=== PATIENT | female | born 1960 | race Caucasian/White ===

== ENCOUNTER 2018-07-30 14:11 | Inpatient (IN) | payer MEDICAID ==
[2018-07-30 14:51] LABS: APPEARANCE CLEAR (CLEAR); BILIRUBIN NEGATIVE (NEGATIVE); COLOR YELLOW (YELLOW); GLUCOSE 1000 mg/dL (NEGATIVE); KETONE SMALL mg/dL (NEGATIVE); NITRITE NEGATIVE (NEGATIVE); PROTEIN NEGATIVE (NEGATIVE); UROBILINOGEN NORMAL (NORMAL)
[2018-07-30 14:52] LABS: BACTERIA MANY /hpf (NONE SEEN); EPITHELIAL CELLS 0-5 /hpf (0-5); RED CELLS - URINE 0-5 /hpf (0-5); YEAST >1+ WITH HYPHAE /hpf (NONE SEEN)
[2018-07-30 15:17] LABS: BASOPHILS 0.1 % (0-2); EOSINOPHILS 0.1 % (0-7); HEMATOCRIT 44.3 % (36.0-48.0); HEMOGLOBIN 14.4 g/dL (12-16); IMMATURE GRANULOCYTES 0.3 % (0-5); LYMPHOCYTES 10.3 % (15-50); MCH 30.1 pg (26.0-34.0); MCHC 32.5 g/dL (31.0-37.0); MCV 92.5 fL (80.0-100.0); MONOCYTES 4.4 % (2-11); NEUTROPHILS 84.8 % (40-80); RBC 4.79 10x6/uL (4.00-5.40); RDW 14.1 % (11.5-14.5); WBC 13.4 10x3/uL (4.8-10.8)
[2018-07-30 15:21] LABS: PLATELET COUNT 314 10x3/uL (130-400)
[2018-07-30 15:24] LABS: KETONE - SERUM NEGATIVE (NEGATIVE)
[2018-07-30 15:29] LABS: ALBUMIN 3.2 g/dL (3.4-5.0); ALKALINE PHOSPHATASE 126 U/L (46-116); ALT (SGPT) 27 U/L (10-68); BILIRUBIN - TOTAL 0.57 mg/dL (0.2-1.3); CALCIUM 9.3 mg/dL (8.5-10.1); CARBON DIOXIDE 24.7 mmol/L (21.0-32.0); CHLORIDE - SERUM 89 mmol/L (98-107); CREATININE - SERUM 1.5 mg/dL (0.6-1.3); POTASSIUM - SERUM 3.6 mmol/L (3.5-5.1); PROTEIN - SERUM 8.2 g/dL (6.4-8.2); SODIUM 127 mmol/L (136-145); UREA NITROGEN 21 mg/dL (7-18); eGFR NON AFRICAN AMERICAN 38 mL/min (90-120)
[2018-07-30 15:43] LABS: CALC OSMOLALITY 304 mosm/kg (275-300); GLUCOSE 936 mg/dL (74-106)
[2018-07-31 13:37] LABS: HEMATOCRIT 39.8 % (36.0-48.0); HEMOGLOBIN 13.4 g/dL (12-16); MCH 29.6 pg (26.0-34.0); MCHC 33.7 g/dL (31.0-37.0); MEAN PLATELET VOLUME 10.2 fL (7.4-10.4); RBC 4.52 10x6/uL (4.00-5.40); RDW 13.7 % (11.5-14.5)
[2018-07-31 13:54] LABS: ALBUMIN 2.5 g/dL (3.4-5.0); ANION GAP 14.5 mmol/L (8-16); BILIRUBIN - TOTAL 0.3 mg/dL (0.2-1.3); CALCIUM 8.2 mg/dL (8.5-10.1); CARBON DIOXIDE 26.3 mmol/L (21.0-32.0); POTASSIUM - SERUM 3.8 mmol/L (3.5-5.1); PROTEIN - SERUM 6.6 g/dL (6.4-8.2)
[2018-07-31 13:55] LABS: CREATININE - SERUM 0.9 mg/dL (0.6-1.3)
[2018-07-31 14:12] LABS: MCV 88.1 fL (80.0-100.0); PLATELET COUNT 221 10x3/uL (130-400); WBC 8.2 10x3/uL (4.8-10.8)
[2018-07-31 14:17] LABS: BASOPHILS 0.1 % (0-2); EOSINOPHILS 0.2 % (0-7); IMMATURE GRANULOCYTES 0.2 % (0-5); LYMPHOCYTES 26.4 % (15-50); MONOCYTES 3.9 % (2-11); NEUTROPHILS 69.2 % (40-80)
[2018-07-31 14:34] LABS: UDS - AMPHET NEGATIVE QUAL (NEGATIVE); UDS - BARB NEGATIVE QUAL (NEGATIVE); UDS - BENZO NEGATIVE QUAL (NEGATIVE); UDS - COCAINE NEGATIVE QUAL (NEGATIVE); UDS - OPIATE NEGATIVE QUAL (NEGATIVE); UDS - PCP NEGATIVE QUAL (NEGATIVE); UDS - THC NEGATIVE QUAL (NEGATIVE)
[2018-08-03 04:43] LABS: BASOPHILS 0.3 % (0-2); EOSINOPHILS 1.7 % (0-7); HEMATOCRIT 37.3 % (36.0-48.0); HEMOGLOBIN 12.5 g/dL (12-16); IMMATURE GRANULOCYTES 0.5 % (0-5); MCH 29.2 pg (26.0-34.0); MCHC 33.5 g/dL (31.0-37.0); MCV 87.1 fL (80.0-100.0); MEAN PLATELET VOLUME 10.6 fL (7.4-10.4); MONOCYTES 9.5 % (2-11); RBC 4.28 10x6/uL (4.00-5.40); RDW 13.8 % (11.5-14.5); WBC 6.5 10x3/uL (4.8-10.8)
[2018-08-03 04:52] LABS: CALC OSMOLALITY 282 mosm/kg (275-300); CALCIUM 8.5 mg/dL (8.5-10.1); CARBON DIOXIDE 24.4 mmol/L (21.0-32.0); CHLORIDE - SERUM 105 mmol/L (98-107); CREATININE - SERUM 0.5 mg/dL (0.6-1.3); POTASSIUM - SERUM 3.3 mmol/L (3.5-5.1); SODIUM 138 mmol/L (136-145); UREA NITROGEN 7 mg/dL (7-18); eGFR NON AFRICAN AMERICAN > 90 mL/min (90-120)
[2018-08-03 04:53] LABS: GLUCOSE 261 mg/dL (74-106)
[2018-08-03 05:03] LABS: PLATELET COUNT 164 10x3/uL (130-400)
[2018-08-04 04:22] LABS: BASOPHILS 0.4 % (0-2); EOSINOPHILS 1.3 % (0-7); HEMATOCRIT 36.2 % (36.0-48.0); HEMOGLOBIN 12.2 g/dL (12-16); IMMATURE GRANULOCYTES 0.5 % (0-5); LYMPHOCYTES 27.5 % (15-50); MCH 29.5 pg (26.0-34.0); MCHC 33.7 g/dL (31.0-37.0); MCV 87.7 fL (80.0-100.0); MEAN PLATELET VOLUME 10.9 fL (7.4-10.4); MONOCYTES 6.6 % (2-11); NEUTROPHILS 63.7 % (40-80); RBC 4.13 10x6/uL (4.00-5.40)
[2018-08-04 04:28] LABS: PLATELET COUNT 197 10x3/uL (130-400); WBC 8.2 10x3/uL (4.8-10.8)
[2018-08-04 04:33] LABS: CALC OSMOLALITY 288 mosm/kg (275-300); CALCIUM 8.1 mg/dL (8.5-10.1); CARBON DIOXIDE 26.8 mmol/L (21.0-32.0); CHLORIDE - SERUM 101 mmol/L (98-107); CREATININE - SERUM 0.6 mg/dL (0.6-1.3); GLUCOSE 296 mg/dL (74-106); POTASSIUM - SERUM 3.5 mmol/L (3.5-5.1); SODIUM 139 mmol/L (136-145); eGFR NON AFRICAN AMERICAN > 90 mL/min (90-120)
[2018-08-04 04:38] LABS: UREA NITROGEN 12 mg/dL (7-18)
[2018-08-05 05:01] LABS: BASOPHILS 0.2 % (0-2); EOSINOPHILS 1.6 % (0-7); HEMATOCRIT 35.5 % (36.0-48.0); HEMOGLOBIN 11.9 g/dL (12-16); IMMATURE GRANULOCYTES 0.6 % (0-5); LYMPHOCYTES 30.4 % (15-50); MCH 29.5 pg (26.0-34.0); MCHC 33.5 g/dL (31.0-37.0); MCV 87.9 fL (80.0-100.0); MEAN PLATELET VOLUME 10.9 fL (7.4-10.4); MONOCYTES 8.5 % (2-11); NEUTROPHILS 58.7 % (40-80); PLATELET COUNT 219 10x3/uL (130-400); RBC 4.04 10x6/uL (4.00-5.40)
[2018-08-05 05:26] LABS: ALBUMIN 2.4 g/dL (3.4-5.0); ALKALINE PHOSPHATASE 115 U/L (46-116); ALT (SGPT) 27 U/L (10-68); BILIRUBIN - TOTAL 0.29 mg/dL (0.2-1.3); CALCIUM 8.1 mg/dL (8.5-10.1); CARBON DIOXIDE 24.8 mmol/L (21.0-32.0); CHLORIDE - SERUM 102 mmol/L (98-107); CREATININE - SERUM 0.6 mg/dL (0.6-1.3); POTASSIUM - SERUM 3.1 mmol/L (3.5-5.1); PROTEIN - SERUM 6.7 g/dL (6.4-8.2); SODIUM 138 mmol/L (136-145); eGFR NON AFRICAN AMERICAN > 90 mL/min (90-120)
[2018-08-05 05:27] LABS: CALC OSMOLALITY 284 mosm/kg (275-300); GLUCOSE 217 mg/dL (74-106); UREA NITROGEN 18 mg/dL (7-18)
== END 2018-08-05 17:57 | disposition home health service (06) | DRG 74 ==
LOC: D.ER 14:11 → D.EDHOLD 17:50 → D.M2 20:21
PROVIDERS: Emergency Medicine; Family Medicine Adult Medicine; Internal Medicine Nephrology
DX: E11.43 Type 2 diabetes mellitus with diabetic autonomic (poly)neuropathy (principal); N17.9 Acute kidney failure, unspecified; E87.1 Hypo-osmolality and hyponatremia; N39.0 Urinary tract infection, site not specified; F17.213 Nicotine dependence, cigarettes, with withdrawal; E11.65 Type 2 diabetes mellitus with hyperglycemia; I10 Essential (primary) hypertension; E78.5 Hyperlipidemia, unspecified; K31.84 Gastroparesis; K76.0 Fatty (change of) liver, not elsewhere classified; E86.0 Dehydration; R68.81 Early satiety; Z86.73 Personal history of transient ischemic attack (TIA), and cerebral infarction without residual deficits

== ENCOUNTER 2018-09-25 14:25 | Inpatient (IN) | payer MEDICAID ==
[~2018-09-25] VITALS: Ht 154.9 cm; Wt 67.1 kg
--- NOTE | 2018-09-25 12:03 | NUR ---
RECIEVED LAYING IN BED WITH EYES CLOSED AND TV ON. EASILY AROUSES WITH VERBAL STIMULI. ORIENTED X4. ENTIRE LEFT BUTTOCK REDDENED. STATES IT'S VERY PAINFUL. IV TO LEFT FA SL.. WILL CONT. POC.
[~2018-09-25 14:25] MED LIST: GLYBURIDE1.25 MG PO; JANUVIA25 MG PO; LYRICA75 MG PO; Lantus Solostar PEN SC; MACROBID100 MG PO; METFORMIN HCL500 M1 PO; OMEPRAZOLE20 M1 PO; ZESTRIL10 MG PO
[2018-09-25 16:14] LABS: BASOPHILS 0.2 % (0-2); EOSINOPHILS 0.1 % (0-7); HEMATOCRIT 35.6 % (36.0-48.0); IMMATURE GRANULOCYTES 1.1 % (0-5); LYMPHOCYTES 6.6 % (15-50); MCH 28.6 pg (26.0-34.0); MCHC 33.7 g/dL (31.0-37.0); MONOCYTES 5.5 % (2-11); NEUTROPHILS 86.5 % (40-80); RBC 4.19 10x6/uL (4.00-5.40); RDW 14.2 % (11.5-14.5); WBC 18.7 10x3/uL (4.8-10.8)
[2018-09-25 16:17] LABS: PLATELET COUNT 310 10x3/uL (130-400)
[2018-09-25 16:33] LABS: ALBUMIN 1.8 g/dL (3.4-5.0); ALKALINE PHOSPHATASE 115 U/L (46-116); BILIRUBIN - TOTAL 0.38 mg/dL (0.2-1.3); CALCIUM 8.3 mg/dL (8.5-10.1); CARBON DIOXIDE 16.8 mmol/L (21.0-32.0); CHLORIDE - SERUM 94 mmol/L (98-107); CREATININE - SERUM 0.6 mg/dL (0.6-1.3); POTASSIUM - SERUM 3.6 mmol/L (3.5-5.1); PROTEIN - SERUM 4.2 g/dL (6.4-8.2); SODIUM 131 mmol/L (136-145); UREA NITROGEN 17 mg/dL (7-18); eGFR NON AFRICAN AMERICAN > 90 mL/min (90-120)
[2018-09-25 16:36] LABS: ALT (SGPT) 3 U/L (10-68); CALC OSMOLALITY 275 mosm/kg (275-300); GLUCOSE 302 mg/dL (74-106)
[2018-09-26 00:18] VITALS: BP 136/53; BMI 28.0
[2018-09-26 08:43] VITALS: BP 146/63
--- NOTE | 2018-09-26 11:22 | NUR ---
DR CASH WAS NOTIFED IN PERSON OF THE PATIENTS ELEVATED BLOOD SUGAR OF 412 AND THE AMOUNT OF INSULIN GIVEN (12 UNITS) PER SLIDING SCALE. NO ORDERS RECIEVED, WILL RECHECK ORDERED.
[2018-09-26 12:04] VITALS: BP 160/58
[2018-09-26 12:04] LABS: BASOPHILS 0.2 % (0-2); EOSINOPHILS 0.1 % (0-7); HEMATOCRIT 33.2 % (36.0-48.0); HEMOGLOBIN 11.2 g/dL (12-16); IMMATURE GRANULOCYTES 0.8 % (0-5); LYMPHOCYTES 7.5 % (15-50); MCH 28.3 pg (26.0-34.0); MCHC 33.7 g/dL (31.0-37.0); MCV 83.8 fL (80.0-100.0); MEAN PLATELET VOLUME 10.1 fL (7.4-10.4); MONOCYTES 5.5 % (2-11); NEUTROPHILS 85.9 % (40-80); PLATELET COUNT 309 10x3/uL (130-400); RBC 3.96 10x6/uL (4.00-5.40); RDW 14.1 % (11.5-14.5); WBC 18.6 10x3/uL (4.8-10.8)
--- NOTE | 2018-09-26 12:07 | MORECARE ---
CASE MANAGEMENT DISCHARGE SUMMARY PATIENT: IMER SANCHEZ UNIT: [id number] ADM DATE: 09/25/18 AGE: 58 : 64 SEX: F ROOM/BED: D.1203 AUTHOR: CHINA HARDIN PHYSICIAN: REFERRING PHYSICIAN: GIANA CASH MD DATE OF SERVICE: 09/26/18 Discharge Plan Patient Name: IMER SANCHEZ [facility] [facility] 1960 Planned Disposition: Anticipated Discharge Date: Discharge Date: Expected LOS: Initial Reviewer: [email or web address] Initial Review Date: 09/25/2018 Generated: 09/26/18 1:07 pm DCPIA - Discharge Planning Initial Assessment Updated by [email or web address]: Chelsey Woodruff on 09/26/18 12:05 pm * Is the patient Alert and Oriented? No * PCP israel * Pharmacy [facility]. * Preadmission Environment Home with Family * ADLs Partial Dependent * Partial ADLs (Assistance needed) Ambulation Bathing Dressing Medication Management * Equipment Walker * List name and contact numbers for known caregivers / representatives who currently or will assist patient after discharge: JOANIE DUNAWAY, * Community resources currently utilized Home Health * Please name any agencies selected above. [facility] * Can the patient safely return to the preadmission environment? Yes Patient Name: IMER SANCHEZ Page [phone] at 1207 All edits/amendments must be made on the electronic document DICTATION DATE: 09/26/18 1206 WOOD ROUTER: DM 09/26/18 1206 RPT#: [id number] DC DATE: STATUS: ADM IN [facility] [address] [place] [address] END OF REPORT
--- NOTE | 2018-09-26 12:14 | MORECARE ---
CASE MANAGEMENT DISCHARGE SUMMARY PATIENT: IMER SANCHEZ UNIT: [id number] ADM DATE: 09/25/18 AGE: 58 : 64 SEX: F ROOM/BED: D.1203 AUTHOR: LASHAWN,DOC PHYSICIAN: REFERRING PHYSICIAN: GIANA CASH MD DATE OF SERVICE: 09/26/18 Discharge Plan Patient Name: IMER SANCHEZ Facility: [facility]:[place] : 1960 Planned Disposition: Anticipated Discharge Date: Discharge Date: Expected LOS: Initial Reviewer: [id number] Initial Review Date: 09/25/2018 Generated: 09/26/18 1:14 pm Comments DCP- Discharge Planning Updated by [id number]: Chelsey Woodruff on 09/26/18 11:[address] Patient Name: IMER SANCHEZ Admission Status: ER Accout number: [id number] Admission Date: 09-25-2018 : 1960 Admission Diagnosis: Attending: GIANA CASH Current LOS: 1 Anticipated DC Date: Planned Disposition: Primary Insurance: [place] [employer] [place] Discharge Planning Comments: CM MET WITH PATIENT'S SON GUME, SHE LIVES WITH HIM. GUME STATES THEY NEED SOME ADDITIONAL HELP WHEN DISCHARGED. SHE NEEDS HELP WITH BATHING AND IS INCONTINENT. I SPOKE WITH KEVIN WITH [facility] AND WHEN PATIENT IS CLOSER TO DC I WILL LET HER KNOW IF SHE NEEDS SOME ADDITIONAL SERVICES THROUGH . ALSO KEON WITH A PLACE FOR MOM IS GOING TO SPEAK TO PATIENT'S SON AND SEE IF SHE CAN HELP. CM WILL FOLLOW AND ASSIST NEEDED WITH DC PLANNING/NEEDS. Pilot Plant Research Technician: Chelsey Woodruff DCPIA - Discharge Planning Initial Assessment Updated by [id number]: Chelsey Woodruff on 09/26/18 12:05 pm * Is the patient Alert and Oriented? No * PCP israel * Pharmacy [facility]. * Preadmission Environment Home with Family * ADLs Partial Dependent * Partial ADLs (Assistance needed) Ambulation Bathing Dressing Medication Management * Equipment Walker * List name and contact numbers for known caregivers / representatives who currently or will assist patient after discharge: JOANIE DUNAWAY, * Community resources currently utilized Home Health * Please name any agencies selected above. [facility] * Can the patient safely return to the preadmission environment? Yes Last DP export: 09/26/18 11:07 am Patient Name: IMER SANCHEZ Page [phone] at 1214 All edits/amendments must be made on the electronic document DICTATION DATE: 09/26/18 121 HOG RIBBER: MADALYN 09/26/18 1213 RPT#: [id number] DC DATE: STATUS: ADM IN [facility] [address] [place] [address] END OF REPORT
[2018-09-26 12:17] LABS: ALBUMIN 1.5 g/dL (3.4-5.0); ALKALINE PHOSPHATASE 114 U/L (46-116); BILIRUBIN - TOTAL 0.28 mg/dL (0.2-1.3); CALCIUM 8.4 mg/dL (8.5-10.1); CARBON DIOXIDE 19.1 mmol/L (21.0-32.0); CHLORIDE - SERUM 95 mmol/L (98-107); POTASSIUM - SERUM 3.2 mmol/L (3.5-5.1); SODIUM 130 mmol/L (136-145); UREA NITROGEN 13 mg/dL (7-18)
[2018-09-26 12:18] LABS: ALT (SGPT) 12 U/L (10-68); CALC OSMOLALITY 275 mosm/kg (275-300); CREATININE - SERUM 0.8 mg/dL (0.6-1.3); GLUCOSE 368 mg/dL (74-106); PROTEIN - SERUM 6.7 g/dL (6.4-8.2); eGFR NON AFRICAN AMERICAN 78 mL/min (90-120)
[2018-09-26 13:33] VITALS: BMI 27.9
--- NOTE | 2018-09-26 15:50 | NUR ---
OFF UNIT VIA BED FOR CT SCAN.
--- NOTE | 2018-09-26 16:12 | NUR ---
Pt has an edematous reddened area on her left buttock. It is tender and firm to the touch. Unable to culture the area as there is no open wound. Wound care will monitor as needed.
--- NOTE | 2018-09-26 16:25 | NUR ---
PATIENT WITH N/V X'S 2 JUST AFTER A LARGE DRINK OF H2O. PATIENT BATHED, LINENS CHANGED AND POSITIONED IN BED FOR DINNER.
--- NOTE | 2018-09-26 17:39 | NUR ---
CALLED THE ANSWERING SERVICE FOR DR CASH AND SPOKE WITH MATHIEU, REQUESTING THE DOCTOR BE PAGED TO NOTIFY HIM OF THE PATIENTS ELEVATED BLOOD PRESSURE
[2018-09-26 17:40] VITALS: Ht 154.9 cm; Wt 67.1 kg
--- NOTE | 2018-09-26 18:25 | NUR ---
SPOKE TO DR CASH AT THIS TIME TO REPORT PATIENT ELEVATED BLOOD PRESSURE. ORDER GIVEN VERBALLY TO START NORVASC 5 MG DAILY, FIRST DOSE NOW
[2018-09-26 20:00] VITALS: BP 187/79
--- NOTE | 2018-09-26 20:30 | NUR ---
THE PATIENT WAS WATCHING TELEVISION WHEN STAFF ENTERED HER AREA. BED IN THE LOW POSITION WITH SIDERAILS X2 AND CALL LIGHT WITHIN REACH. THE PATIENT DEMONSTRATES APPROPRIATE USE OF A CALLL LIGHT. THE PATIENT HAS NO QUESTIONS OR CONCERNS AT THIS TIME.
[2018-09-27] VITALS: BP 153/73
--- NOTE | 2018-09-27 02:23 | NUR ---
THE PATIENT APPEARS TO BE SLEEPING COMFORTABLY.
[2018-09-27 04:00] VITALS: BP 143/69
--- NOTE | 2018-09-27 04:26 | NUR ---
PT COMPLAINS OF PAIN IN BUTTOCK FROM ABCESS. NORCO GIVEN. PT DENIES ANY OTHER NEEDS. WILL CPCO
[2018-09-27 06:45] LABS: HEMATOCRIT 30.2 % (36.0-48.0); HEMOGLOBIN 10.2 g/dL (12-16); MCH 28.3 pg (26.0-34.0); MCHC 33.8 g/dL (31.0-37.0); MCV 83.7 fL (80.0-100.0); PLATELET COUNT 306 10x3/uL (130-400); RBC 3.61 10x6/uL (4.00-5.40); RDW 14.2 % (11.5-14.5); WBC 20.9 10x3/uL (4.8-10.8)
[2018-09-27 06:50] LABS: CALCIUM 8.5 mg/dL (8.5-10.1); CARBON DIOXIDE 20.3 mmol/L (21.0-32.0); CHLORIDE - SERUM 97 mmol/L (98-107); CREATININE - SERUM 0.6 mg/dL (0.6-1.3); SODIUM 132 mmol/L (136-145); UREA NITROGEN 10 mg/dL (7-18); VANCOMYCIN - TROUGH 9.5 ug/mL (10.0-20.0); eGFR NON AFRICAN AMERICAN > 90 mL/min (90-120)
[2018-09-27 06:51] LABS: CALC OSMOLALITY 270 mosm/kg (275-300); GLUCOSE 220 mg/dL (74-106); POTASSIUM - SERUM 3.7 mmol/L (3.5-5.1)
[2018-09-27 07:15] LABS: LYMPHOCYTES 15 % (15-50); MONOCYTES 4 % (2-11); NEUTROPHILS 73 % (40-80); PLATELET ESTIMATE INCREASED; PLATELET MORPHOLOGY NORMAL PLT MORPH
--- NOTE | 2018-09-27 07:55 | NUR ---
ASSESSMENT COMPLETE. IV TO L AC PATENT. REDNESS AND SWELLING NOTED TO LEFT BUTTOCKS. COMPLAINING OF PAIN. FAMILY AT BEDSIDE.
--- NOTE | 2018-09-27 08:30 | NUR ---
NORCO GIVEN FOR COMPLAINT OF PAIN.
[2018-09-27 08:38] VITALS: BP 138/58
[2018-09-27 12:37] VITALS: BP 149/64
--- NOTE | 2018-09-27 13:40 | NUR ---
NORCO GIVEN FOR COMPLAINT OF PAIN.
[2018-09-27 17:29] VITALS: BP 162/69
--- NOTE | 2018-09-27 17:55 | NUR ---
NORCO GIVEN FOR COMPLAINT OF PAIN. RASH NOTED TO RIGHT FOREARM. DENIES ANY NEEDS AT THIS TIME.
--- NOTE | 2018-09-27 19:58 | NUR ---
PATIENT RESTING IN BED WITH NO S/S OF DISTRESS. PATIENT STATES SHE THINKS SHE HAS A RASH STARTING ON HER RIGHT SIDE. I ASKED THE PATIENT IF WE COULD ROLL HER SO THAT I COULD TAKE A LOOK. THE PATIENT STATED "DO I REALLY HAVE TO?" I ASKED THE PATIENT IF IT WOULD BE BETTER IF SHE ROLLED WHEN I BROUGHT HER MEDS BACK. I ALSO EXPLAINED TO THE PATIENT THAT I WOULD NEED HER TO ROLL THE OTHER WAY ALSO SO THAT I CAN LOOK AT HER ABSCESS. THE PATIENT VERBALIZED UNDERSTANDING. BROUGHT PATIENT FRESH ICE WATER PER HER REQUEST. PATIENT DENIES OTHER NEEDS AT THIS TIME. BED IN LOWEST POSITION AND CALL LIGHT WITHIN REACH. ENCOURAGED THE PATIENT TO CALL IF SHE HAS NEEDS.
[2018-09-27 20:00] VITALS: BP 158/76
[2018-09-28] VITALS: BP 151/73
--- NOTE | 2018-09-28 03:26 | NUR ---
PATIENT RESTING IN BED WITH EYES CLOSED AND NO S/S OF DISTRESS. BED IN LOWEST POSITION AND CALL LIGHT WITHIN REACH. WILL CONTINUE TO MONITOR.
[2018-09-28 04:00] VITALS: BP 145/77
[2018-09-28 06:51] LABS: CALC OSMOLALITY 272 mosm/kg (275-300); CALCIUM 8.1 mg/dL (8.5-10.1); CARBON DIOXIDE 20.9 mmol/L (21.0-32.0); CHLORIDE - SERUM 97 mmol/L (98-107); CREATININE - SERUM 0.7 mg/dL (0.6-1.3); GLUCOSE 244 mg/dL (74-106); POTASSIUM - SERUM 3.6 mmol/L (3.5-5.1); SODIUM 132 mmol/L (136-145); UREA NITROGEN 12 mg/dL (7-18); eGFR NON AFRICAN AMERICAN > 90 mL/min (90-120)
[2018-09-28 07:09] LABS: BASOPHILS 0.1 % (0-2); EOSINOPHILS 0.4 % (0-7); HEMATOCRIT 29.3 % (36.0-48.0); HEMOGLOBIN 9.8 g/dL (12-16); IMMATURE GRANULOCYTES 0.9 % (0-5); LYMPHOCYTES 8.6 % (15-50); MCHC 33.4 g/dL (31.0-37.0); MCV 83.7 fL (80.0-100.0); MEAN PLATELET VOLUME 10.4 fL (7.4-10.4); MONOCYTES 5.4 % (2-11); NEUTROPHILS 84.6 % (40-80); RDW 14.3 % (11.5-14.5); WBC 17.9 10x3/uL (4.8-10.8)
[2018-09-28 07:10] LABS: PLATELET COUNT 231 10x3/uL (130-400)
--- NOTE | 2018-09-28 07:59 | NUR ---
PT ALERT X 4. BREATH SOUNDS CLEAR BILAT. IV TO LEFT FOREARM, PATENT, DRESSING CLEAN DRY AND INTACT. ABSCESS TO LEFT BUTTOCK/ADINA AREA, RED, TENDER AND SWOLLEN. PT REPORTING PAIN OF 8/10, WILL MONITOR. BED LOW, CALL LIGHT IN REACH, NO OTHER NEEDS AT THIS TIME.
[2018-09-28 08:05] VITALS: BP 149/71
--- NOTE | 2018-09-28 12:28 | NUR ---
CONSENTS SIGNED. PT STATED SHE CODED WITH PAST SURGERY. SHE DOES NOT KNOW WHAT THE CIRCUMSTANCES WERE TO MAKE HER CODE. DID NOT KNOW IF IT WAS FROM ANESTHESIA. STATED THAT SHE DID NOT WANT TO TALK TO ANESTHESIOLOGIST PRIOR TO PROCEDURE.
[2018-09-28 16:00] VITALS: BP 190/89
--- NOTE | 2018-09-28 19:32 | NUR ---
PATIENT RESTING IN BED AND DENIES NEEDS AT THIS TIME. BED IN LOWEST POSITION AND CALL LIGHT WITHIN REACH. ENCOURAGED THE PATIENT TO CALL IF SHE HAS NEEDS. WILL CONTINUE TO MONITOR.
--- NOTE | 2018-09-29 02:16 | NUR ---
PATIENT RESTING IN BED WITH EYES CLOSED AND NO S/S OF DISTRESS. BED IN LOWEST POSITION AND CALL LIGHT WITHIN REACH. WILL CONTINUE TO MONITOR.
[2018-09-29 06:20] LABS: BASOPHILS 0.2 % (0-2); EOSINOPHILS 0.4 % (0-7); HEMATOCRIT 28.9 % (36.0-48.0); HEMOGLOBIN 9.7 g/dL (12-16); IMMATURE GRANULOCYTES 0.9 % (0-5); LYMPHOCYTES 8.2 % (15-50); MCHC 33.6 g/dL (31.0-37.0); MCV 83.3 fL (80.0-100.0); MEAN PLATELET VOLUME 10.2 fL (7.4-10.4); MONOCYTES 4.6 % (2-11); NEUTROPHILS 85.7 % (40-80); PLATELET COUNT 254 10x3/uL (130-400); RBC 3.47 10x6/uL (4.00-5.40); RDW 14.6 % (11.5-14.5); WBC 18.5 10x3/uL (4.8-10.8)
[2018-09-29 06:28] LABS: CALC OSMOLALITY 273 mosm/kg (275-300); CALCIUM 8.3 mg/dL (8.5-10.1); CARBON DIOXIDE 22.1 mmol/L (21.0-32.0); CHLORIDE - SERUM 101 mmol/L (98-107); CREATININE - SERUM 0.6 mg/dL (0.6-1.3); POTASSIUM - SERUM 3.3 mmol/L (3.5-5.1); SODIUM 137 mmol/L (136-145); UREA NITROGEN 9 mg/dL (7-18); eGFR NON AFRICAN AMERICAN > 90 mL/min (90-120)
[2018-09-29 06:30] LABS: GLUCOSE 111 mg/dL (74-106)
--- NOTE | 2018-09-29 07:20 | NUR ---
REPORT RECEIVED AND CARE ASSUMED. LYING IN BED WITH EYES CLOSED. NO DISTRESS NOTED. BED IN LOW POSITION AND CALL LIGHT IN REACH. NPO FOR SURGERY.
[2018-09-29 08:38] VITALS: BP 146/58
--- NOTE | 2018-09-29 10:20 | NUR ---
NORCO 10/325 MG PO GIVEN FOR GENERALIZED DISCOMFORT, AFTER PHYSICAL THERAPY ASSISTED HER UP TO CHAIR.
--- NOTE | 2018-09-29 10:24 | NUR ---
Pt is NPO for surgery today Previously on a diabetic diet and pt ate 100% of breakfast and lunch yesterday Reviewed labs: BG 111, K 3.3 RD following
--- NOTE | 2018-09-29 11:00 | NUR ---
RESTING WITH EYES CLOSED. NO DISTRESS NOTED.
--- NOTE | 2018-09-29 11:51 | MORECARE ---
CASE MANAGEMENT DISCHARGE SUMMARY PATIENT: IMER SANCHEZ UNIT: [id number] ADM DATE: 09/25/18 AGE: 58 : 64 SEX: F ROOM/BED: D.1203 AUTHOR: LASHAWNDOC PHYSICIAN: REFERRING PHYSICIAN: GIANA CASH MD DATE OF SERVICE: 09/29/18 Discharge Plan Patient Name: IMER SANCHEZ Facility: [facility]:[place] : 1960 Planned Disposition: Anticipated Discharge Date: Discharge Date: Expected LOS: Initial Reviewer: [email or web address] Initial Review Date: 09/25/2018 Generated: 09/29/18 12:51 pm Comments DCP- Discharge Planning Updated by [id number]: Chelsey Woodruff on 09/29/18 10:[address] Patient Name: IMER SANCHEZ Admission Status: ER Accout number: [id number] Admission Date: 09-25-2018 : 1960 Admission Diagnosis:CELLULITIS OF BUTTOCK Attending: GIANA CASH Current LOS: 4 Anticipated DC Date: Planned Disposition: Primary Insurance: [place] [employer] [place] Discharge Planning Comments: CM SPOKE WITH MS. FERNANDES WITH [employer] INSURANCE, SHE STATES THE PATIENT'S INSURANCE HAS A BENEFIT FOR A SNF AND ACUTE REHAB THAT IS OUTSIDE OF THIS HOSPITAL. THE PATIENT'S SON HAS EXPRESSED CONCERN TO ME THAT HIS MOTHER CAN NOT GET HER SELF OUT OF THE BED AND SHE IS INCONTINENT. CM WILL FOLLOW AND ASSIST NEEDED. Chili Powder Mixer: Chelsey Woodruff DCP- Discharge Planning Updated by [id number]: Chelsey Woodruff on 09/26/18 11:[address] Patient Name: IMER SANCHEZ Admission Status: ER Accout number: [id number] Admission Date: 09-25-2018 : 1960 Admission Diagnosis: Attending: GIANA CASH Current LOS: 1 Anticipated DC Date: Planned Disposition: Primary Insurance: [place] [employer] [place] Discharge Planning Comments: CM MET WITH PATIENT'S SON GUME, SHE LIVES WITH HIM. GUME STATES THEY NEED SOME ADDITIONAL HELP WHEN DISCHARGED. SHE NEEDS HELP WITH BATHING AND IS INCONTINENT. I SPOKE WITH KEVIN WITH [facility] AND WHEN PATIENT IS CLOSER TO DC I WILL LET HER KNOW IF SHE NEEDS SOME ADDITIONAL SERVICES THROUGH HH. ALSO KEON WITH A PLACE FOR MOM IS GOING TO SPEAK TO PATIENT'S SON AND SEE IF SHE CAN HELP. CM WILL FOLLOW AND ASSIST NEEDED WITH DC PLANNING/NEEDS. Chili Powder Mixer: Chelseyhetal Woodruff DCPIA - Discharge Planning Initial Assessment Updated by [id number]: Chelsey Woodruff on 09/26/18 12:05 pm * Is the patient Alert and Oriented? No * PCP israel * Pharmacy [facility]. * Preadmission Environment Home with Family * ADLs Partial Dependent * Partial ADLs (Assistance needed) Ambulation Bathing Dressing Medication Management * Equipment Walker * List name and contact numbers for known caregivers / representatives who currently or will assist patient after discharge: GUME, JOANIE, * Community resources currently utilized Home Health * Please name any agencies selected above. [facility] * Can the patient safely return to the preadmission environment? Yes Last DP export: 09/26/18 11:14 am Patient Name: IMER SANCHEZ Page [phone] at 1151 All edits/amendments must be made on the electronic document DICTATION DATE: 09/29/18 1151 STUMPER FELLER: MADALYN 09/29/18 1151 RPT#: [id number] DC DATE: STATUS: ADM IN [facility] [address] [place] [address] END OF REPORT
[2018-09-29 12:30] VITALS: BP 161/71
[2018-09-29 17:03] VITALS: BP 153/67
--- NOTE | 2018-09-29 21:45 | NUR ---
SPOKE WITH SURGICAL STAFF AND HE STATES SURGERY HAS BEEN POSTPONED UNTIL TOMORROW AM AT 0900. INFORMED PT OF THIS. PT CURSING. GIVEN SANDWICH AND DRINK AT THIS TIME. C/O PAIN IN LT BUTTOCK AND REQUESTS PAIN MED. MEDICATED WITH NORCO ORDERED. ALERT AND ORIENTED X4. RESP NONLABORED. O2 @ 2L/HFC. REDNESS AND SWELLING NOTED TO LT BUTTOCK. NS @ 30 ML/HR INFUSING IN LT HAND WITHOUT DIFF. SR ELEVATED X2. CL IN REACH.
[2018-09-29 22:01] VITALS: BP 179/77
[2018-09-30] VITALS: BP 157/79
--- NOTE | 2018-09-30 03:25 | NUR ---
STATES HER NOSE IS STUFFY. SPOKE WITH RT WHO WILL PUT HUMIDIFIER TO O2. STATES SHE HASNT SLEPT ALL NIGHT. NO DISTRESS. CL IN REACH.
[2018-09-30 05:59] VITALS: BP 174/85
[2018-09-30 07:04] LABS: BASOPHILS 0.1 % (0-2); EOSINOPHILS 0.4 % (0-7); HEMATOCRIT 29.7 % (36.0-48.0); HEMOGLOBIN 9.7 g/dL (12-16); IMMATURE GRANULOCYTES 0.8 % (0-5); LYMPHOCYTES 8.9 % (15-50); MCH 27.6 pg (26.0-34.0); MCHC 32.7 g/dL (31.0-37.0); MCV 84.4 fL (80.0-100.0); MEAN PLATELET VOLUME 10.1 fL (7.4-10.4); NEUTROPHILS 83.8 % (40-80); PLATELET COUNT 244 10x3/uL (130-400); RBC 3.52 10x6/uL (4.00-5.40); RDW 14.7 % (11.5-14.5); WBC 14.5 10x3/uL (4.8-10.8)
[2018-09-30 07:22] LABS: CALC OSMOLALITY 274 mosm/kg (275-300); CALCIUM 7.9 mg/dL (8.5-10.1); CARBON DIOXIDE 24.5 mmol/L (21.0-32.0); CHLORIDE - SERUM 99 mmol/L (98-107); CREATININE - SERUM 0.6 mg/dL (0.6-1.3); POTASSIUM - SERUM 3.2 mmol/L (3.5-5.1); SODIUM 135 mmol/L (136-145); UREA NITROGEN 11 mg/dL (7-18); eGFR NON AFRICAN AMERICAN > 90 mL/min (90-120)
[2018-09-30 07:23] LABS: GLUCOSE 203 mg/dL (74-106)
--- NOTE | 2018-09-30 07:52 | NUR ---
PREOP MEDS ADMINISTERED AT THIS TIME PER RICARDO IN SURGERY. PATIENT PROCEDURE AT 0900.
--- NOTE | 2018-09-30 08:27 | NUR ---
PATIENT LEFT UNIT VIA BED FOR SURGERY. NO DISTRESS UPON LEAVING UNIT.
[2018-09-30 09:43] VITALS: BP 166/70
--- NOTE | 2018-09-30 10:35 | NUR ---
RECEIVED REPORT FROM [facility] IN RECOVERY. PATIENT TO UNIT SOON. N
--- NOTE | 2018-09-30 10:52 | NUR ---
RECIEVED PATIENT BACK TO ROOM 1203 IN STABLE CONDITION. PATIENT ALERT/ORIENTED. CALL LIGHT WITHINR REACH. DRESSING INTACT TO LEFT BUTTOCK, ADINA RECTAL AREA.
[2018-09-30 11:45] VITALS: BP 131/76
--- NOTE | 2018-09-30 11:54 | NUR ---
FSBS 244. 12 UNITS HUMULIN ADMINSITERED PER SLIDING SCALE. NO DISTRESS.
--- NOTE | 2018-09-30 15:09 | NUR ---
PATIENT MEDICATED FOR PAIN AT THIS TIME. PATIENT NOTED TO HAVE SLIGHT INCREASE IN TEMP, 99.4. WILL CONTINUE TO MONITOR. ROOM IS COOL ONE BATH BLANKET COVERING PATIETNT. DRESSING TO LEFT BUTTOCK REMAINS INTACT.
--- NOTE | 2018-09-30 15:17 | OP ---
PATIENT NAME: IMER SANCHEZ MEDICAL RECORD: [id number] :[birth year] LOCATION:D. D.1203 ADMISSION DATE:09/25/18 SURGEON: DOMINGO GUEVARA MD DATE OF OPERATION: 09/30/2018 PREOPERATIVE DIAGNOSIS: Perirectal abscess. POSTOPERATIVE DIAGNOSIS: Perirectal abscess. PROCEDURE PERFORMED: Incision and drainage of perirectal abscess 15 x 10 x 10 cm. ANESTHESIA: General. COMPLICATIONS: None. SPECIMENS: None. Case was grossly contaminated. OPERATIVE COURSE: After consent was obtained, the patient was taken to the operating room and placed in the supine position on the operating table. Next, general anesthesia was given. A timeout was taken to confirm the correct patient and procedure. Next, the legs were placed in the lithotomy position. The perineum was prepped and draped in a typical sterile fashion. A digital rectal exam was performed. A skin incision was made in the area of greatest fluctuance, immediately drained was 300 cc of purulent fluid. Gram stain, aerobic and anaerobic cultures were obtained. Fluid was also obtained and sent for culture and sensitivity. All loculations were taken with blunt finger dissection. The abscess measured 15 cm in width, 10 cm in height and 10 cm in depth. It does extend to the left edge of the rectum. The wound was copiously irrigated with saline. Once the abscess cavity was cleaned, it was packed with Kerlix gauze soaked in peroxide and Betadine. At the end of the case, all needle and instrument counts were correct. No complications occurred. The patient was transferred to recovery room in satisfactory condition. TRANSINT:[id number] Voice Confirmation ID: [id number] DOCUMENT ID: [id number] DOMINGO GUEVARA MD at 1517 CC: [id number] DICTATION DATE: 09/30/18 0950 COTTON JAMMER: 09/30/18 1047 [place] [address]
--- NOTE | 2018-09-30 15:53 | NUR ---
RECEIVED CALL BACK FROM CAMILLE, SURGERY METAL DOOR ASSEMBLER AND LET HER KNOW HAD PUT ORDERS IN FOR WOUND CARE TO EVAL FOR WOUND VAC BUT WOUND CARE WOULD NOT BE BACK UNTIL SATURDAY. CAMILLE STATED SHE WOULD LET KNOW AND TO JUST CONTINUE BETADINE DAMPENED GAUZE TO WOUND BED UNTIL WOUND CARE CAN ASSESS. THANKED CAMILLE.
--- NOTE | 2018-09-30 16:33 | MORECARE ---
CASE MANAGEMENT DISCHARGE SUMMARY PATIENT: IMER SANCHEZ UNIT: [id number] ADM DATE: 09/25/18 AGE: 58 : 64 SEX: F ROOM/BED: D.1203 AUTHOR: LASHAWNDOC PHYSICIAN: REFERRING PHYSICIAN: GIANA CASH MD DATE OF SERVICE: 09/30/18 Discharge Plan Patient Name: IMER SANCHEZ Facility: [facility]:[place] : 1960 Planned Disposition: Anticipated Discharge Date: Discharge Date: Expected LOS: Initial Reviewer: [email or web address] Initial Review Date: 09/25/2018 Generated: 09/30/18 5:33 pm Comments DCP- Discharge Planning Updated by [id number]: Chelsey Woodruff on 09/29/18 10:[address] Patient Name: IMER SANCHEZ Admission Status: ER Accout number: [id number] Admission Date: 09-25-2018 : 1960 Admission Diagnosis:CELLULITIS OF BUTTOCK Attending: GIANA CASH Current LOS: 4 Anticipated DC Date: Planned Disposition: Primary Insurance: [place] [employer] [place] Discharge Planning Comments: CM SPOKE WITH MS. FERNANDES WITH [employer]UR[employer], SHE STATES THE PATIENT'S INSURANCE HAS A BENEFIT FOR A SNF AND ACUTE REHAB THAT IS OUTSIDE OF THIS HOSPITAL. THE PATIENT'S SON HAS EXPRESSED CONCERN TO ME THAT HIS MOTHER CAN NOT GET HER SELF OUT OF THE BED AND SHE IS INCONTINENT. CM WILL FOLLOW AND ASSIST NEEDED. Instructor Knitting: Chelsey Woodruff DCP- Discharge Planning Updated by [id number]: Chelsey Woodruff on 09/26/18 11:[address] Patient Name: IMER SANCHEZ Admission Status: ER Accout number: [id number] Admission Date: 09-25-2018 : 1960 Admission Diagnosis: Attending: GIANA CASH Current LOS: 1 Anticipated DC Date: Planned Disposition: Primary Insurance: [place] [employer] [place] Discharge Planning Comments: CM MET WITH PATIENT'S SON GUME, SHE LIVES WITH HIM. GUME STATES THEY NEED SOME ADDITIONAL HELP WHEN DISCHARGED. SHE NEEDS HELP WITH BATHING AND IS INCONTINENT. I SPOKE WITH KEVIN WITH [facility] AND WHEN PATIENT IS CLOSER TO DC I WILL LET HER KNOW IF SHE NEEDS SOME ADDITIONAL SERVICES THROUGH HH. ALSO KEON WITH A PLACE FOR MOM IS GOING TO SPEAK TO PATIENT'S SON AND SEE IF SHE CAN HELP. CM WILL FOLLOW AND ASSIST NEEDED WITH DC PLANNING/NEEDS. Instructor Knitting: Chelseyhetal Woodruff DCPIA - Discharge Planning Initial Assessment Updated by [id number]: Chelsey Woodruff on 09/26/18 12:05 pm * Is the patient Alert and Oriented? No * PCP israel * Pharmacy [facility]. * Preadmission Environment Home with Family * ADLs Partial Dependent * Partial ADLs (Assistance needed) Ambulation Bathing Dressing Medication Management * Equipment Walker * List name and contact numbers for known caregivers / representatives who currently or will assist patient after discharge: JOANIE DUNAWAY, * Community resources currently utilized Home Health * Please name any agencies selected above. [facility] * Can the patient safely return to the preadmission environment? Yes External Providers External Provider: [facility] Next Contact Date: Service Request Date: Service Type: Resolution: Reviewer: Comments: Coverage Notice Reviewer: [id number] - Chelsey Kacy Notice Issued Date-Time: 09/30/2018 16:31 Notice Type: Patient Choice Letter Notice Delivered To: Family Member Relationship to Patient: Son Parts Room Assistant Name: DOMINGO Delivery Method: HAND - Hand Delivered Twila Days: Prior Verbal Notification: Recipient Understood Notice: Yes Recipient Signature: Yes Med Rec Note Co-signed by Attending: Coverage Notice Comment: [facility] FIRST CHOICE [facility] SECOND CHOICE. Last DP export: 09/29/18 10:51 am Patient Name: IMER SANCHEZ Page [phone] at 1633 All edits/amendments must be made on the electronic document DICTATION DATE: 09/30/18 1633 HARVESTING MANAGER: MADALYN 09/30/18 1633 RPT#: [id number] DC DATE: STATUS: ADM IN [facility] [address] [place] [address] END OF REPORT
--- NOTE | 2018-09-30 16:42 | MORECARE ---
CASE MANAGEMENT DISCHARGE SUMMARY PATIENT: IMER SANCHEZ UNIT: [id number] ADM DATE: 09/25/18 AGE: 58 : 64 SEX: F ROOM/BED: D.1203 AUTHOR: LASHAWNDOC PHYSICIAN: REFERRING PHYSICIAN: GIANA CASH MD DATE OF SERVICE: 09/30/18 Discharge Plan Patient Name: IMER SANCHEZ Facility: [facility]:[place] : 1960 Planned Disposition: Anticipated Discharge Date: Discharge Date: Expected LOS: Initial Reviewer: [email or web address] Initial Review Date: 09/25/2018 Generated: 09/30/18 5:42 pm Comments DCP- Discharge Planning Updated by [id number]: Chelsey Woodruff on 09/30/18 3:[address] Patient Name: IMER SANCHEZ Admission Status: ER Accout number: [id number] Admission Date: 09-25-2018 : 1960 Admission Diagnosis:CELLULITIS OF BUTTOCK Attending: GIANA CASH Current LOS: 5 Anticipated DC Date: Planned Disposition: Primary Insurance: [place] [employer] [place] Discharge Planning Comments: CM FAXED REFERRAL FOR SNF TO [facility] AFTER PCF SIGNED BY PATIENT'S SON GUME. CM WILL FOLLOW UP TOMORROW SINCE THIS IS END OF THE DAY FOR OFFICES. ALSO, GUME WANTED TO ADD HIS BROTHER MIKALA SOLANO A CONTACT NUMBER OF [phone]. Liquor Gallery Operator: Chelsey Woodruff DCP- Discharge Planning Updated by [email or web address]: Chelsey Woodruff on 09/29/18 10:[address] Patient Name: IMER SANCHEZ Admission Status: ER Accout number: [id number] Admission Date: 09-25-2018 : 1960 Admission Diagnosis:CELLULITIS OF BUTTOCK Attending: GIANA CASH Current LOS: 4 Anticipated DC Date: Planned Disposition: Primary Insurance: [place] [employer] [place] Discharge Planning Comments: CM SPOKE WITH MS. FERNANDES WITH [employer] INSURANCE, SHE STATES THE PATIENT'S INSURANCE HAS A BENEFIT FOR A SNF AND ACUTE REHAB THAT IS OUTSIDE OF THIS HOSPITAL. THE PATIENT'S SON HAS EXPRESSED CONCERN TO ME THAT HIS MOTHER CAN NOT GET HER SELF OUT OF THE BED AND SHE IS INCONTINENT. CM WILL FOLLOW AND ASSIST NEEDED. Liquor Gallery Operator: Chelsey Woodruff DCP- Discharge Planning Updated by [email or web address]: Chelsey Woodruff on 09/26/18 11:[address] Patient Name: IMER SANCHEZ Admission Status: ER Accout number: [id number] Admission Date: 09-25-2018 : 1960 Admission Diagnosis: Attending: GIANA CASH Current LOS: 1 Anticipated DC Date: Planned Disposition: Primary Insurance: [place] PRIVATE OPT[place] [facility] Discharge Planning Comments: CM MET WITH PATIENT'S SON GUME, SHE LIVES WITH HIM. GUME STATES THEY NEED SOME ADDITIONAL HELP WHEN DISCHARGED. SHE NEEDS HELP WITH BATHING AND IS INCONTINENT. I SPOKE WITH KEVIN WITH [facility] AND WHEN PATIENT IS CLOSER TO DC I WILL LET HER KNOW IF SHE NEEDS SOME ADDITIONAL SERVICES THROUGH . ALSO KEON WITH A PLACE FOR MOM IS GOING TO SPEAK TO PATIENT'S SON AND SEE IF SHE CAN HELP. CM WILL FOLLOW AND ASSIST NEEDED WITH DC PLANNING/NEEDS. Liquor Gallery Operator: Chelsey Woodruff DCPIA - Discharge Planning Initial Assessment Updated by [id number]: Chelsey Kacy on 09/26/18 12:05 pm * Is the patient Alert and Oriented? No * PCP israel * Pharmacy [facility]. * Preadmission Environment Home with Family * ADLs Partial Dependent * Partial ADLs (Assistance needed) Ambulation Bathing Dressing Medication Management * Equipment Walker * List name and contact numbers for known caregivers / representatives who currently or will assist patient after discharge: GUME, JOANIE, * Community resources currently utilized Home Health * Please name any agencies selected above. [facility] * Can the patient safely return to the preadmission environment? Yes External Providers External Provider: [facility] [place] Next Contact Date: Service Request Date: Service Type: Resolution: Reviewer: Comments: Coverage Notice Reviewer: [id number] - Chelseyhetal Woodruff Notice Issued Date-Time: 09/30/2018 16:31 Notice Type: Patient Choice Letter Notice Delivered To: Family Member Relationship to Patient: Son Electricity Trading Analyst Name: DOMINGO Delivery Method: HAND - Hand Delivered Twila Days: Prior Verbal Notification: Recipient Understood Notice: Yes Recipient Signature: Yes Med Rec Note Co-signed by Attending: Coverage Notice Comment: SNF [facility] FIRST CHOICE [facility] SECOND CHOICE. Last DP export: 09/30/18 3:33 pm Patient Name: IMER SANCHEZ Page [id number] at 1642 All edits/amendments must be made on the electronic document DICTATION DATE: 09/30/181641 DIRECTOR ENVIRONMENTAL: MADALYN 09/30/181641 RPT#: [id number] DC DATE: STATUS: ADM IN [facility] [address] [place] [address] END OF REPORT
--- NOTE | 2018-09-30 17:10 | NUR ---
FSBS 262. 16 UNITS HUMULIN INSULIN PER SLIDING SCALE.
--- NOTE | 2018-09-30 19:30 | NUR ---
COMPLETE LINEN CHANGE AND BATH COMPLETED AT THIS TIME. PATIENT NOW RESTING ON LEFT LATERAL SIDE. NO DISTRESS. CALL LIGHT AND ALL PERSONAL BELONGINGS WITHIN REACH.
[2018-09-30 19:54] VITALS: BP 123/60
--- NOTE | 2018-09-30 21:40 | NUR ---
PT RECEIVED MEDICATIONS PER MAR. INSULIN GIVEN PER SSI WITH LANTUS. PRN PAIN MEDICATION GIVEN PER MAR FOR PAIN 01/02. PT ALERT AND ORIENTED. CALL LIGHT IN REACH. WILL CONTINUE TO OBSERVE.
--- NOTE | 2018-10-01 00:50 | NUR ---
PATIENT'S DRESSING IS SOILED IN BLOOD AND URINE. CHANGED DRESSING.
--- NOTE | 2018-10-01 04:32 | NUR ---
PATIENT'S DRESSING SOILED WITH URINE. APPLIED A FRESH DRESSING.
[2018-10-01 05:12] VITALS: BP 165/71
[2018-10-01 06:57] LABS: BASOPHILS 0.1 % (0-2); EOSINOPHILS 0.3 % (0-7); HEMATOCRIT 26.2 % (36.0-48.0); HEMOGLOBIN 8.6 g/dL (12-16); IMMATURE GRANULOCYTES 0.7 % (0-5); LYMPHOCYTES 7.5 % (15-50); MCH 27.7 pg (26.0-34.0); MCHC 32.8 g/dL (31.0-37.0); MCV 84.2 fL (80.0-100.0); MEAN PLATELET VOLUME 10.4 fL (7.4-10.4); MONOCYTES 5.3 % (2-11); NEUTROPHILS 86.1 % (40-80); PLATELET COUNT 217 10x3/uL (130-400); RBC 3.11 10x6/uL (4.00-5.40); RDW 14.7 % (11.5-14.5); WBC 14.3 10x3/uL (4.8-10.8)
[2018-10-01 07:04] LABS: CALCIUM 7.9 mg/dL (8.5-10.1); CARBON DIOXIDE 26.8 mmol/L (21.0-32.0); CHLORIDE - SERUM 100 mmol/L (98-107); CREATININE - SERUM 0.5 mg/dL (0.6-1.3); SODIUM 137 mmol/L (136-145); eGFR NON AFRICAN AMERICAN > 90 mL/min (90-120)
[2018-10-01 07:13] LABS: CALC OSMOLALITY 272 mosm/kg (275-300); GLUCOSE 119 mg/dL (74-106); UREA NITROGEN 8 mg/dL (7-18)
[2018-10-01 07:15] LABS: POTASSIUM - SERUM 2.9 mmol/L (3.5-5.1)
[2018-10-01 08:27] VITALS: BP 152/73
--- NOTE | 2018-10-01 09:13 | MORECARE ---
CASE MANAGEMENT DISCHARGE SUMMARY PATIENT: IMER SANCHEZ UNIT: [id number] ADM DATE: 09/25/18 AGE: 58 : 64 SEX: F ROOM/BED: D.1203 AUTHOR: LASHAWN,DOC PHYSICIAN: REFERRING PHYSICIAN: GIANA CASH MD DATE OF SERVICE: 10/01/18 Discharge Plan Patient Name: IMER SANCHEZ Facility: [facility]:[place] : 1960 Planned Disposition: Anticipated Discharge Date: Discharge Date: Expected LOS: Initial Reviewer: [id number] Initial Review Date: 09/25/2018 Generated: 10/01/18 10:12 am Comments DCP- Discharge Planning Updated by [id number]: Chelsey Woodruff on 10/01/18 8:[address] Patient Name: IMER SANCHEZ Admission Status: ER Accout number: [id number] Admission Date: 09-25-2018 : 1960 Admission Diagnosis:CELLULITIS OF BUTTOCK Attending: GIANA CASH Current LOS: 6 Anticipated DC Date: Planned Disposition: Primary Insurance: [place] [employer] [place] Discharge Planning Comments: CM SPOKE WITH ENRIQUE AT THE [facility] AND THEY NEED PT AND OT EVALS BEFORE THEY CAN ACCEPT. OT AND PT EVAL ORDER PUT IN THIS MORNING. CM WILL FOLLOW AND ASSIST NEEDED. Manufacture Specialist: Chelsey Woodruff DCP- Discharge Planning Updated by [id number]: Chelsey Woodruff on 09/30/18 3:[address] Patient Name: IMER SANCHEZ Admission Status: ER Accout number: [id number] Admission Date: 09-25-2018 : 1960 Admission Diagnosis:CELLULITIS OF BUTTOCK Attending: GIANA CASH Current LOS: 5 Anticipated DC Date: Planned Disposition: Primary Insurance: [place] [employer] [place] Discharge Planning Comments: CM FAXED REFERRAL FOR SNF TO THE [facility] AFTER PCF SIGNED BY PATIENT'S SON GUME. CM WILL FOLLOW UP TOMORROW SINCE THIS IS END OF THE DAY FOR OFFICES. ALSO, GUME WANTED TO ADD HIS BROTHER MIKALA SOLANO A CONTACT NUMBER OF [phone]. Manufacture Specialist: Chelsey Woodruff DCP- Discharge Planning Updated by [email or web address]: Chelsey Woodruff on 09/29/18 10:[address] Patient Name: IMER SANCHEZ Admission Status: ER Accout number: [id number] Admission Date: 09-25-2018 : 1960 Admission Diagnosis:CELLULITIS OF BUTTOCK Attending: GIANA CASH Current LOS: 4 Anticipated DC Date: Planned Disposition: Primary Insurance: [employer] [place] [employer] Discharge Planning Comments: CM SPOKE WITH MS. FERNANDES WITH [facility], SHE STATES THE PATIENT'S INSURANCE HAS A BENEFIT FOR A SNF AND ACUTE REHAB THAT IS OUTSIDE OF THIS HOSPITAL. THE PATIENT'S SON HAS EXPRESSED CONCERN TO ME THAT HIS MOTHER CAN NOT GET HER SELF OUT OF THE BED AND SHE IS INCONTINENT. CM WILL FOLLOW AND ASSIST NEEDED. Manufacture Specialist: Chelsey Woodruff DCP- Discharge Planning Updated by [email or web address]: Chelsey Woodruff on 09/26/18 11:[address] Patient Name: IMER SANCHEZ Admission Status: ER Accout number: [id number] Admission Date: 09-25-2018 : 1960 Admission Diagnosis: Attending: GIANA CASH Current LOS: 1 Anticipated DC Date: Planned Disposition: Primary Insurance: [employer] [place] PRIVATE OPTIONS [facility] Discharge Planning Comments: CM MET WITH PATIENT'S SON GUME, SHE LIVES WITH HIM. GUME STATES THEY NEED SOME ADDITIONAL HELP WHEN DISCHARGED. SHE NEEDS HELP WITH BATHING AND IS INCONTINENT. I SPOKE WITH KEVIN WITH [facility] AND WHEN PATIENT IS CLOSER TO DC I WILL LET HER KNOW IF SHE NEEDS SOME ADDITIONAL SERVICES THROUGH . ALSO KEON WITH A PLACE FOR MOM IS GOING TO SPEAK TO PATIENT'S SON AND SEE IF SHE CAN HELP. CM WILL FOLLOW AND ASSIST NEEDED WITH DC PLANNING/NEEDS. Manufacture Specialist: Chelsey Woodruff DCPIA - Discharge Planning Initial Assessment Updated by [id number]: Chelsey Woodruff on 09/26/18 12:05 pm * Is the patient Alert and Oriented? No * PCP israel * Pharmacy [facility]. * Preadmission Environment Home with Family * ADLs Partial Dependent * Partial ADLs (Assistance needed) Ambulation Bathing Dressing Medication Management * Equipment Walker * List name and contact numbers for known caregivers / representatives who currently or will assist patient after discharge: JOANIE DUNAWAY, * Community resources currently utilized Home Health * Please name any agencies selected above. [facility] * Can the patient safely return to the preadmission environment? Yes Coverage Notice Reviewer: [id number] Codey Woodruff Notice Issued Date-Time: 09/30/2018 16:31 Notice Type: Patient Choice Letter Notice Delivered To: Family Member Relationship to Patient: Son Shrimp Trawler Captain Name: DOMINGO Delivery Method: HAND - Hand Delivered Twila Days: Prior Verbal Notification: Recipient Understood Notice: Yes Recipient Signature: Yes Med Rec Note Co-signed by Attending: Coverage Notice Comment: [facility]. Last DP export: 09/30/18 3:42 pm Patient Name: IMER SANCHEZ Page 28033 at 0913 All edits/amendments must be made on the electronic document DICTATION DATE: 10/01/18911 DIRECTOR SURFACE TRANSPORTATION: MADALYN 10/01/18911 RPT#: [id number] DC DATE: STATUS: ADM IN [facility] [address] [place] [address] END OF REPORT
[2018-10-01 11:16] VITALS: BP 117/75
--- NOTE | 2018-10-01 12:12 | NUR ---
BLOOD SUGAR OF 214, 12UNITS OF HUMULIN GIVEN PER S/S. PT IN BED, DENIES ANY NEEDS AT THIS TIME. CALL LIGHT IN REACH,NAD NOTED,W ILL CONTINUE TO MONITOR.
--- NOTE | 2018-10-01 14:27 | MORECARE ---
CASE MANAGEMENT DISCHARGE SUMMARY PATIENT: IMER SANCHEZ UNIT: [id number] ADM DATE: 09/25/18 AGE: 58 : 64 SEX: F ROOM/BED: D.1203 AUTHOR: LASHAWN,DOC PHYSICIAN: REFERRING PHYSICIAN: GIANA CASH MD DATE OF SERVICE: 10/01/18 Discharge Plan Patient Name: IMER SANCHEZ Facility: [facility]:[place] : 1960 Planned Disposition: Anticipated Discharge Date: Discharge Date: Expected LOS: Initial Reviewer: [id number] Initial Review Date: 09/25/2018 Generated: 10/01/18 3:27 pm Comments DCP- Discharge Planning Updated by [email or web address]: Chelsey Woodruff on 10/01/18 8:[address] Patient Name: IMER SANCHEZ Admission Status: ER Accout number: [id number] Admission Date: 09-25-2018 : 1960 Admission Diagnosis:CELLULITIS OF BUTTOCK Attending: GIANA CASH Current LOS: 6 Anticipated DC Date: Planned Disposition: Primary Insurance: [place] [employer] [place] Discharge Planning Comments: CM SPOKE WITH ENRIQUE AT THE [facility] AND THEY NEED PT AND OT EVALS BEFORE THEY CAN ACCEPT. OT AND PT EVAL ORDER PUT IN THIS MORNING. CM WILL FOLLOW AND ASSIST NEEDED. Consulting Intern: Chelsey Woodruff DCP- Discharge Planning Updated by [id number]: Chelsey Woodruff on 09/30/18 3:[address] Patient Name: IMER SANCHEZ Admission Status: ER Accout number: [id number] Admission Date: 09-25-2018 : 1960 Admission Diagnosis:CELLULITIS OF BUTTOCK Attending: GIANA CASH Current LOS: 5 Anticipated DC Date: Planned Disposition: Primary Insurance: [place] [employer] Discharge Planning Comments: CM FAXED REFERRAL FOR SNF TO THE [facility] AFTER PCF SIGNED BY PATIENT'S SON GUME. CM WILL FOLLOW UP TOMORROW SINCE THIS IS END OF THE DAY FOR OFFICES. ALSO, GUME WANTED TO ADD HIS BROTHER MIKALA SOLANO A CONTACT NUMBER OF [phone]. Consulting Intern: Chelsey Woodruff DCP- Discharge Planning Updated by [id number]: Chelsey Woodruff on 09/29/18 10:[address] Patient Name: IMER SANCHEZ Admission Status: ER Accout number: [id number] Admission Date: 09-25-2018 : 1960 Admission Diagnosis:CELLULITIS OF BUTTOCK Attending: GIANA CASH Current LOS: 4 Anticipated DC Date: Planned Disposition: Primary Insurance: [employer] [place] [employer] [place] Discharge Planning Comments: CM SPOKE WITH MS. FERNANDES WITH [facility] [employer], SHE STATES THE PATIENT'S INSURANCE HAS A BENEFIT FOR A SNF AND ACUTE REHAB THAT IS OUTSIDE OF THIS HOSPITAL. THE PATIENT'S SON HAS EXPRESSED CONCERN TO ME THAT HIS MOTHER CAN NOT GET HER SELF OUT OF THE BED AND SHE IS INCONTINENT. CM WILL FOLLOW AND ASSIST NEEDED. Consulting Intern: Chelsey Woodruff DCP- Discharge Planning Updated by [id number]: Chelsey Woodruff on 09/26/18 11:[address] Patient Name: IMER SANCHEZ Admission Status: ER Accout number: [id number] Admission Date: 09-25-2018 : 1960 Admission Diagnosis: Attending: GIANA CASH Current LOS: 1 Anticipated DC Date: Planned Disposition: Primary Insurance: [employer] [place] PR[place] [facility] Discharge Planning Comments: CM MET WITH PATIENT'S SON GUME, SHE LIVES WITH HIM. GUME STATES THEY NEED SOME ADDITIONAL HELP WHEN DISCHARGED. SHE NEEDS HELP WITH BATHING AND IS INCONTINENT. I SPOKE WITH KEVIN WITH [facility] AND WHEN PATIENT IS CLOSER TO DC I WILL LET HER KNOW IF SHE NEEDS SOME ADDITIONAL SERVICES THROUGH . ALSO KEON WITH A PLACE FOR MOM IS GOING TO SPEAK TO PATIENT'S SON AND SEE IF SHE CAN HELP. CM WILL FOLLOW AND ASSIST NEEDED WITH DC PLANNING/NEEDS. Consulting Intern: Chelsey Woodruff DCPIA - Discharge Planning Initial Assessment Updated by [email or web address]: Chelsey Woodruff on 09/26/18 12:05 pm * Is the patient Alert and Oriented? No * PCP israel * Pharmacy [facility]. * Preadmission Environment Home with Family * ADLs Partial Dependent * Partial ADLs (Assistance needed) Ambulation Bathing Dressing Medication Management * Equipment Walker * List name and contact numbers for known caregivers / representatives who currently or will assist patient after discharge: JOANIE DUNAWAY, * Community resources currently utilized Home Health * Please name any agencies selected above. [facility] * Can the patient safely return to the preadmission environment? Yes Coverage Notice Reviewer: [id number] Codey Woodruff Notice Issued Date-Time: 09/30/2018 16:31 Notice Type: Patient Choice Letter Notice Delivered To: Family Member Relationship to Patient: Son Brick Washer Name: DOMINGO Delivery Method: HAND - Hand Delivered Twila Days: Prior Verbal Notification: Recipient Understood Notice: Yes Recipient Signature: Yes Med Rec Note Co-signed by Attending: Coverage Notice Comment: [facility] CHO[facility]. Last DP export: 10/01/18 8:12 am Patient Name: IMER SANCHEZ Page [phone] at 1427 All edits/amendments must be made on the electronic document DICTATION DATE: 10/01/181426 CUSTOMER RECORDS DIVISION SUPERVISOR: MADALYN 10/01/181426 RPT#: [id number] DC DATE: STATUS: ADM IN [facility] [address] [place] [address] END OF REPORT
[2018-10-01 15:14] VITALS: BP 153/67
--- NOTE | 2018-10-01 17:57 | NUR ---
OT NOTE: PT COMPLETED SELF FEEDING WITH SET UP. PT COMPLETED HYGIENE TASKS WITH MIN A. THANK YOU, JUNE HERNANDEZ
--- NOTE | 2018-10-01 19:29 | NUR ---
AWAKE AND ALERT IN BED AND DENIES ANY NEEDS AT THIS TIME. IV TO LEFT HAND SL AT THIS TIME NO EDEMA NO REDNESS PULES PRESENT DRSG DRY AND INTACT AT THIS TIME
[2018-10-01 20:23] VITALS: BP 128/80
[2018-10-02 00:25] VITALS: BP 162/65
--- NOTE | 2018-10-02 02:12 | NUR ---
BED LOW SRX2 AND CALL LIGHT IN REACH EASILY AROUSES AND DENIES NEEDS AT THIS TIMW.. RIBEIRO TO GRAVITY DRSG IS DRY AND INTACT
--- NOTE | 2018-10-02 03:33 | NUR ---
PT CALLED REQUESTING GRAMCRACKERS AND A DIET SPRITE. PT RECEIVED. PT DENIES ANY OTHER NEEDS. NO S/S OF DISTRESS. PT HAS BED LOW AND CALL LIGHT IN REACH. WILL CPOC
[2018-10-02 04:00] VITALS: BP 155/54
--- NOTE | 2018-10-02 04:00 | NUR ---
RESTARTED IV TO LEFT ARM WITH 22GA AND THEN REMOVED OLD SITE WITH CATHETER INTACT
--- NOTE | 2018-10-02 07:40 | NUR ---
ASSESSMENT COMPLETE. SL TO L FA PATENT. RIGHT SIDED WEAKNESS. RIBEIRO PATENT DRAINING YELLOW URINE. O2 2L NC IN USE. DRESSING TO LEFT BUTTOCK INTACT. DENIES ANY NEEDS AT THIS TIME.
[2018-10-02 08:14] VITALS: BP 142/69
[2018-10-02 11:52] VITALS: BP 138/72
--- NOTE | 2018-10-02 12:00 | NUR ---
DENIES ANY NEEDS AT THIS TIME.
--- NOTE | 2018-10-02 12:40 | NUR ---
Nutrition follow-up: Diet: ADA consistent CHO PO intake 100% of last 3 meals Labs reviewed; glucose > 200 mg/dl Wt: 148# No BM charted since admit? PO intake good at this time. Pt had been NPO for I&D of left buttock abscess. RDN following.
--- NOTE | 2018-10-02 13:42 | MORECARE ---
CASE MANAGEMENT DISCHARGE SUMMARY PATIENT: IMER SANCHEZ UNIT: [id number] ADM DATE: 09/25/18 AGE: 58 : 64 SEX: F ROOM/BED: D.1203 AUTHOR: LASHAWN,DOC PHYSICIAN: REFERRING PHYSICIAN: GIANA CASH MD DATE OF SERVICE: 10/02/18 Discharge Plan Patient Name: IMER SANCHEZ Facility: [facility]:[place] : 1960 Planned Disposition: Anticipated Discharge Date: Discharge Date: Expected LOS: Initial Reviewer: [id number] Initial Review Date: 09/25/2018 Generated: 10/02/18 2:42 pm Comments DCP- Discharge Planning Updated by [id number]: Christel Gilbert on 10/02/18 12:[address] CM faxed PT eval, PT notes, and OT eval to Linn at [facility]. Linn will fax notes to patient's insurance company for authorization. CM will continue to follow and assist with discharge planning / needs. DCP- Discharge Planning Updated by [email or web address]: Chelsey Woodruff on 10/01/18 8:[address] Patient Name: IMER SANCHEZ Admission Status: ER Accout number: [id number] Admission Date: 09-25-2018 : 1960 Admission Diagnosis:CELLULITIS OF BUTTOCK Attending: GIANA CASH Current LOS: 6 Anticipated DC Date: Planned Disposition: Primary Insurance[place] [employer] [facility] Discharge Planning Comments: CM SPOKE WITH LINN AT THE [facility] AND THEY NEED PT AND OT EVALS BEFORE THEY CAN ACCEPT. OT AND PT EVAL ORDER PUT IN THIS MORNING. CM WILL FOLLOW AND ASSIST NEEDED. Cane Burner: Chelsey Woodruff DCP- Discharge Planning Updated by [id number]: Chelsey Woodruff on 09/30/18 3:[address] Patient Name: IMER SANCHEZ Admission Status: ER Accout number: [id number] Admission Date: 09-25-2018 : 1960 Admission Diagnosis:CELLULITIS OF BUTTOCK Attending: GIANA CASH Current LOS: 5 Anticipated DC Date: Planned Disposition: Primary Insurance: [employer] [place] [employer] [place] Discharge Planning Comments: CM FAXED REFERRAL FOR SNF TO THE [facility] AFTER PCF SIGNED BY PATIENT'S SON GUME. CM WILL FOLLOW UP TOMORROW SINCE THIS IS END OF THE DAY FOR OFFICES. ALSO, GUME WANTED TO ADD HIS BROTHER MIKALA SOLANO A CONTACT NUMBER OF [phone]. Cane Burner: Chelsey Woodruff DCP- Discharge Planning Updated by [id number]: Chelsey Woodruff on 09/29/18 10:[address] Patient Name: IMER SANCHEZ Admission Status: ER Accout number: [id number] Admission Date: 09-25-2018 : 1960 Admission Diagnosis:CELLULITIS OF BUTTOCK Attending: GIANA CASH Current LOS: 4 Anticipated DC Date: Planned Disposition: Primary Insurance: [place] [employer] [place] [facility] Discharge Planning Comments: CM SPOKE WITH MS. FERNANDES WITH [facility] [employer], SHE STATES THE PATIENT'S INSURANCE HAS A BENEFIT FOR A SNF AND ACUTE REHAB THAT IS OUTSIDE OF THIS HOSPITAL. THE PATIENT'S SON HAS EXPRESSED CONCERN TO ME THAT HIS MOTHER CAN NOT GET HER SELF OUT OF THE BED AND SHE IS INCONTINENT. CM WILL FOLLOW AND ASSIST NEEDED. Cane Burner: Chelsey Woodruff DCP- Discharge Planning Updated by [id number]: Chelsey Wodoruff on 09/26/18 11:[address] Patient Name: IMER SANCHEZ Admission Status: ER Accout number: [id number] Admission Date: 09-25-2018 : 1960 Admission Diagnosis: Attending: GIANA CASH Current LOS: 1 Anticipated DC Date: Planned Disposition: Primary Insurance: [place] [employer] [place] Discharge Planning Comments: CM MET WITH PATIENT'S SON GUME, SHE LIVES WITH HIM. GUME STATES THEY NEED SOME ADDITIONAL HELP WHEN DISCHARGED. SHE NEEDS HELP WITH BATHING AND IS INCONTINENT. I SPOKE WITH KEVIN WITH [facility] AND WHEN PATIENT IS CLOSER TO DC I WILL LET HER KNOW IF SHE NEEDS SOME ADDITIONAL SERVICES THROUGH . ALSO KEON WITH A PLACE FOR MOM IS GOING TO SPEAK TO PATIENT'S SON AND SEE IF SHE CAN HELP. CM WILL FOLLOW AND ASSIST NEEDED WITH DC PLANNING/NEEDS. Cane Burner: Chelsey Woodruff DCPIA - Discharge Planning Initial Assessment Updated by [email or web address]: Chelsey Woodruff on 09/26/18 12:05 pm * Is the patient Alert and Oriented? No * PCP israel * Pharmacy [facility]. * Preadmission Environment Home with Family * ADLs Partial Dependent * Partial ADLs (Assistance needed) Ambulation Bathing Dressing Medication Management * Equipment Walker * List name and contact numbers for known caregivers / representatives who currently or will assist patient after discharge: JOANIE DUNAWAY, * Community resources currently utilized Home Health * Please name any agencies selected above. [facility] * Can the patient safely return to the preadmission environment? Yes Coverage Notice Reviewer: [id number] Codey Woodruff Notice Issued Date-Time: 09/30/2018 16:31 Notice Type: Patient Choice Letter Notice Delivered To: Family Member Relationship to Patient: Son Percussion Tuner Name: DOMINGO Delivery Method: HAND - Hand Delivered Twila Days: Prior Verbal Notification: Recipient Understood Notice: Yes Recipient Signature: Yes Med Rec Note Co-signed by Attending: Coverage Notice Comment: [facility]. Last DP export: 10/01/18 1:27 pm Patient Name: IMER SANCHEZ Page [phone] at 1342 All edits/amendments must be made on the electronic document DICTATION DATE: 10/02/18 1342 NEEDLE GRADER: MADALYN 10/02/18 1342 RPT#: [id number] DC DATE: STATUS: ADM IN [facility] [address] [place] [address] END OF REPORT
--- NOTE | 2018-10-02 14:40 | NUR ---
COMPLAINING OF INCISIONAL PAIN TO LEFT BUTTOCKS AFTER WORKING WITH PHYSICAL AND OCCUPATIONAL THERAPY. NORCO GIVEN. CALL LIGHT WITHIN REACH. DENIES ANY FURTHER NEEDS AT THIS TIME.
[2018-10-02 16:07] VITALS: BP 133/68
--- NOTE | 2018-10-02 17:11 | MORECARE ---
CASE MANAGEMENT DISCHARGE SUMMARY PATIENT: IMER SANCHEZ UNIT: [id number] ADM DATE: 09/25/18 AGE: 58 : 64 SEX: F ROOM/BED: D.1203 AUTHOR: LASHAWN,DOC PHYSICIAN: REFERRING PHYSICIAN: GIANA CASH MD DATE OF SERVICE: 10/02/18 Discharge Plan Patient Name: IMER SANCHEZ Facility: [facility]:[place] : 1960 Planned Disposition: Anticipated Discharge Date: Discharge Date: Expected LOS: Initial Reviewer: [id number] Initial Review Date: 09/25/2018 Generated: 10/02/18 6:11 pm Comments DCP- Discharge Planning Updated by [email or web address]: Christel Gilbert on 10/02/18 12:[address] CM faxed PT eval, PT notes, and OT eval to Linn at [facility]. Linn will fax notes to patient's insurance company for authorization. CM will continue to follow and assist with discharge planning / needs. DCP- Discharge Planning Updated by [email or web address]: Chelsey Woodruff on 10/01/18 8:[address] Patient Name: IMER SANCHEZ Admission Status: ER Accout number: [id number] Admission Date: 09-25-2018 : 1960 Admission Diagnosis:CELLULITIS OF BUTTOCK Attending: GIANA CASH Current LOS: 6 Anticipated DC Date: Planned Disposition: Primary Insurance: [employer] PRIVATE OPTIONS [facility] Discharge Planning Comments: CM SPOKE WITH LINN AT THE [facility] AND THEY NEED PT AND OT EVALS BEFORE THEY CAN ACCEPT. OT AND PT EVAL ORDER PUT IN THIS MORNING. CM WILL FOLLOW AND ASSIST NEEDED. Prawn Trawler Hand: Chelsey Woodruff DCP- Discharge Planning Updated by [email or web address]: Chelsey Woodruff on 09/30/18 3:[address] Patient Name: IMER SANCHEZ Admission Status: ER Accout number: [id number] Admission Date: 09-25-2018 : 1960 Admission Diagnosis:CELLULITIS OF BUTTOCK Attending: GIANA CASH Current LOS: 5 Anticipated DC Date: Planned Disposition: Primary Insurance: [employer] [place] [employer] Discharge Planning Comments: CM FAXED REFERRAL FOR SNF TO THE [facility] AFTER PCF SIGNED BY PATIENT'S SON GUME. CM WILL FOLLOW UP TOMORROW SINCE THIS IS END OF THE DAY FOR OFFICES. ALSO, GUME WANTED TO ADD HIS BROTHER MIKALA SOLANO A CONTACT NUMBER OF [phone]. Prawn Trawler Hand: Chelsey Woodruff DCP- Discharge Planning Updated by [id number]: Chelsey Woodruff on 09/29/18 10:[address] Patient Name: IMER SANCHEZ Admission Status: ER Accout number: [id number] Admission Date: 09-25-2018 : 1960 Admission Diagnosis:CELLULITIS OF BUTTOCK Attending: GIANA CASH Current LOS: 4 Anticipated DC Date: Planned Disposition: Primary Insurance: [place] [employer] [facility] Discharge Planning Comments: CM SPOKE WITH MS. FERNANDES WITH [facility] [employer]UR[employer], SHE STATES THE PATIENT'S INSURANCE HAS A BENEFIT FOR A SNF AND ACUTE REHAB THAT IS OUTSIDE OF THIS HOSPITAL. THE PATIENT'S SON HAS EXPRESSED CONCERN TO ME THAT HIS MOTHER CAN NOT GET HER SELF OUT OF THE BED AND SHE IS INCONTINENT. CM WILL FOLLOW AND ASSIST NEEDED. Prawn Trawler Hand: Chelsey Woodruff DCP- Discharge Planning Updated by [id number]: Chelsey Woodruff on 09/26/18 11:[address] Patient Name: IMER SANCHEZ Admission Status: ER Accout number: [id number] Admission Date: 09-25-2018 : 1960 Admission Diagnosis: Attending: GIANA CASH Current LOS: 1 Anticipated DC Date: Planned Disposition: Primary Insurance: [employer] [place] [employer] [place] Discharge Planning Comments: CM MET WITH PATIENT'S SON GUME, SHE LIVES WITH HIM. GUME STATES THEY NEED SOME ADDITIONAL HELP WHEN DISCHARGED. SHE NEEDS HELP WITH BATHING AND IS INCONTINENT. I SPOKE WITH KEVIN WITH [facility] AND WHEN PATIENT IS CLOSER TO DC I WILL LET HER KNOW IF SHE NEEDS SOME ADDITIONAL SERVICES THROUGH . ALSO KEON WITH A PLACE FOR MOM IS GOING TO SPEAK TO PATIENT'S SON AND SEE IF SHE CAN HELP. CM WILL FOLLOW AND ASSIST NEEDED WITH DC PLANNING/NEEDS. Prawn Trawler Hand: Chelsey Woodruff DCPIA - Discharge Planning Initial Assessment Updated by [id number]: Chelsey Woodruff on 09/26/18 12:05 pm * Is the patient Alert and Oriented? No * PCP israel * Pharmacy [facility]. * Preadmission Environment Home with Family * ADLs Partial Dependent * Partial ADLs (Assistance needed) Ambulation Bathing Dressing Medication Management * Equipment Walker * List name and contact numbers for known caregivers / representatives who currently or will assist patient after discharge: JOANIE DUNAWAY, * Community resources currently utilized Home Health * Please name any agencies selected above. [facility] * Can the patient safely return to the preadmission environment? Yes Coverage Notice Reviewer: [email or web address] Codey Woodruff Notice Issued Date-Time: 09/30/2018 16:31 Notice Type: Patient Choice Letter Notice Delivered To: Family Member Relationship to Patient: Son Soap Chipper Name: DOMINGO Delivery Method: HAND - Hand Delivered Twila Days: Prior Verbal Notification: Recipient Understood Notice: Yes Recipient Signature: Yes Med Rec Note Co-signed by Attending: Coverage Notice Comment: [facility]. Last DP export: 10/02/18 12:42 pm Patient Name: IMER SANCHEZ Page 67810 at 1711 All edits/amendments must be made on the electronic document DICTATION DATE: 10/02/181709 CERTIFIED MASTER LOCKSMITH: MADALYN 10/02/181709 RPT#: [id number] DC DATE: STATUS: ADM IN [facility] [address] [place] [address] END OF REPORT
--- NOTE | 2018-10-02 18:33 | NUR ---
DRESSING TO LEFT BUTTOCK CHANGED. WOUND LIGHTLY PACKED WITH SALINE SOAKED KERLIX AND COVERED WITH 4X4'S, ABD PAD, AND MEDIPORE TAPE. REPOSITIONED TO RIGHT SIDE. CALL LIGHT WITHIN REACH. DENIES ANY FURTHER NEEDS AT THIS TIME.
[2018-10-02 20:00] VITALS: BP 155/77
--- NOTE | 2018-10-02 22:50 | NUR ---
OT NOTE: PT COMPLETED BED MOB WITH MAX A. PT COMPLETED EOB SITTING WITH CGA/MIN A. THANK YOU, JUNE HERNANDEZ
[2018-10-03 00:10] VITALS: BP 159/80
[2018-10-03 03:58] VITALS: BP 183/84
[2018-10-03 06:50] LABS: CALCIUM 8.4 mg/dL (8.5-10.1); CARBON DIOXIDE 30.7 mmol/L (21.0-32.0); CHLORIDE - SERUM 101 mmol/L (98-107); CREATININE - SERUM 0.6 mg/dL (0.6-1.3); SODIUM 138 mmol/L (136-145); UREA NITROGEN 11 mg/dL (7-18); eGFR NON AFRICAN AMERICAN > 90 mL/min (90-120)
[2018-10-03 08:07] LABS: CALC OSMOLALITY 283 mosm/kg (275-300); GLUCOSE 268 mg/dL (74-106); POTASSIUM - SERUM 4.3 mmol/L (3.5-5.1)
--- NOTE | 2018-10-03 08:18 | NUR ---
PT RESTING IN BED. NO SIGNS OF DISTRESS. IV TO LEFT FORARM PATENT NO REDNESS OR TENDERNESS. HAS WEAKNESS ALL OVER. HAS RIBEIRO NO KINKS PATENT. DENIES ANY FUTHER NEED AT THIS TIME. CALL LIGHT IN REACH. BED LOW POSITION. NO FAMILY AT BEDSIDE AT THIS TIME.
[2018-10-03 08:23] VITALS: BP 178/82
[2018-10-03 08:40] LABS: BASOPHILS 0.1 % (0-2); EOSINOPHILS 1.1 % (0-7); HEMATOCRIT 27.3 % (36.0-48.0); HEMOGLOBIN 8.7 g/dL (12-16); IMMATURE GRANULOCYTES 1.1 % (0-5); LYMPHOCYTES 18.2 % (15-50); MCHC 31.9 g/dL (31.0-37.0); MCV 87.8 fL (80.0-100.0); MEAN PLATELET VOLUME 10.2 fL (7.4-10.4); NEUTROPHILS 75.5 % (40-80); PLATELET COUNT 269 10x3/uL (130-400); RBC 3.11 10x6/uL (4.00-5.40); RDW 14.8 % (11.5-14.5); WBC 9.5 10x3/uL (4.8-10.8)
[2018-10-03] MEDS ORDERED: NORVASC5 MG PO (11:52)
[2018-10-03] MEDS ORDERED: LEVAQUIN750 MG PO (11:55)
[2018-10-03] MEDS ORDERED: Levaquin PREMIX IV (11:57)
--- NOTE | 2018-10-03 12:28 | NUR ---
RN ROUNDING DONE WITH PATIENT LAYING ON RIGHT SIDE WITH PILLOW BEHIND BACK FOR COMFORT. DENIES NEEDS EXCEPT NEEDING HELP TO BE PULLED UP IN THE BED. STATES THAT HER LEGS ARE NOT WORKING WELL TODAY. PER ISAK BLACK AND MYSELF WE PULLED HER UP IN THE BED. CALL LIGHT IN REACH.
[2018-10-03 13:17] VITALS: BP 152/71
--- NOTE | 2018-10-03 13:22 | MORECARE ---
CASE MANAGEMENT DISCHARGE SUMMARY PATIENT: IMER SANCHEZ UNIT: [id number] ADM DATE: 09/25/18 AGE: 58 : 64 SEX: F ROOM/BED: D.1203 AUTHOR: LASHAWN,DOC PHYSICIAN: REFERRING PHYSICIAN: GIANA CASH MD DATE OF SERVICE: 10/03/18 Discharge Plan Patient Name: IMER SANCHEZ Facility: [facility]:[place] : 1960 Planned Disposition: Anticipated Discharge Date: Discharge Date: Expected LOS: Initial Reviewer: [email or web address] Initial Review Date: 09/25/2018 Generated: 10/03/18 2:21 pm Comments DCP- Discharge Planning Updated by [id number]: Chelsey Woodruff on 10/03/18 12:[address] Patient Name: IMER SANCHEZ Admission Status: ER Accout number: [id number] Admission Date: 09-25-2018 : 1960 Admission Diagnosis:CELLULITIS OF BUTTOCK Attending: GIANA CASH Current LOS: 8 Anticipated DC Date: Planned Disposition: Primary Insurance: [place] [employer] Discharge Planning Comments: CM SPOKE WITH LINN AT THE [facility] AND THEY HAVE ACCEPTED THE PATIENT. THE PATIENT CAN BE TRANSPORTED VIA AMBULANCE TODAY. CM WILL FOLLOW AND ASSIST NEEDED. Women'S Ministry Director: Chelsey Woodruff DCP- Discharge Planning Updated by [id number]: Christel Gilbert on 10/02/18 12:[address] CM faxed PT eval, PT notes, and OT eval to Linn at [facility]. Linn will fax notes to patient's insurance company for authorization. CM will continue to follow and assist with discharge planning / needs. DCP- Discharge Planning Updated by [email or web address]: Chelsey Woodruff on 10/01/18 8:[address] Patient Name: IMER SANCHEZ Admission Status: ER Accout number: [id number] Admission Date: 09-25-2018 : 1960 Admission Diagnosis:CELLULITIS OF BUTTOCK Attending: GIANA CASH Current LOS: 6 Anticipated DC Date: Planned Disposition: Primary Insurance: [place] [employer] Discharge Planning Comments: CM SPOKE WITH LINN AT THE [facility] AND THEY NEED PT AND OT EVALS BEFORE THEY CAN ACCEPT. OT AND PT EVAL ORDER PUT IN THIS MORNING. CM WILL FOLLOW AND ASSIST NEEDED. Women'S Ministry Director: Chelsey Woodruff DCP- Discharge Planning Updated by [id number]: Chelsey Woodruff on 09/30/18 3:[address] Patient Name: IMER SANCHEZ Admission Status: ER Accout number: [id number] Admission Date: 09-25-2018 : 1960 Admission Diagnosis:CELLULITIS OF BUTTOCK Attending: GIANA CASH Current LOS: 5 Anticipated DC Date: Planned Disposition: Primary Insurance: [place] [employer] Discharge Planning Comments: CM FAXED REFERRAL FOR SNF TO THE [facility] AFTER PCF SIGNED BY PATIENT'S SON GUME. CM WILL FOLLOW UP TOMORROW SINCE THIS IS END OF THE DAY FOR OFFICES. ALSO, GUME WANTED TO ADD HIS BROTHER MIKALA SOLANO A CONTACT NUMBER OF [phone]. Women'S Ministry Director: Chelsey Woodruff DCP- Discharge Planning Updated by [id number]: Chelsey Woodruff on 09/29/18 10:[address] Patient Name: IMER SANCHEZ Admission Status: ER Accout number: [id number] Admission Date: 09-25-2018 : 1960 Admission Diagnosis:CELLULITIS OF BUTTOCK Attending: GIANA CASH Current LOS: 4 Anticipated DC Date: Planned Disposition: Primary Insurance: [place] [employer] Discharge Planning Comments: CM SPOKE WITH MS. FERNANDES WITH [email or web address] INSURANCE, SHE STATES THE PATIENT'S INSURANCE HAS A BENEFIT FOR A SNF AND ACUTE REHAB THAT IS OUTSIDE OF THIS HOSPITAL. THE PATIENT'S SON HAS EXPRESSED CONCERN TO ME THAT HIS MOTHER CAN NOT GET HER SELF OUT OF THE BED AND SHE IS INCONTINENT. CM WILL FOLLOW AND ASSIST NEEDED. Women'S Ministry Director: Chelsey Woodruff DCP- Discharge Planning Updated by [email or web address]: Chelsey Woodruff on 09/26/18 11:[address] Patient Name: IMER SANCHEZ Admission Status: ER Accout number: [id number] Admission Date: 09-25-2018 : 1960 Admission Diagnosis: Attending: GIANA CASH Current LOS: 1 Anticipated DC Date: Planned Disposition: Primary Insurance: [employer] PRIVATE OPTIONS RAMY Discharge Planning Comments: CM MET WITH PATIENT'S SON GUME, SHE LIVES WITH HIM. GUME STATES THEY NEED SOME ADDITIONAL HELP WHEN DISCHARGED. SHE NEEDS HELP WITH BATHING AND IS INCONTINENT. I SPOKE WITH KEVIN WITH [facility] AND WHEN PATIENT IS CLOSER TO DC I WILL LET HER KNOW IF SHE NEEDS SOME ADDITIONAL SERVICES THROUGH . ALSO KEON WITH A PLACE FOR MOM IS GOING TO SPEAK TO PATIENT'S SON AND SEE IF SHE CAN HELP. CM WILL FOLLOW AND ASSIST NEEDED WITH DC PLANNING/NEEDS. Women'S Ministry Director: Chelsey Woodruff DCPIA - Discharge Planning Initial Assessment Updated by [email or web address]: Chelsey Woodruff on 09/26/18 12:05 pm * Is the patient Alert and Oriented? No * PCP israel * Pharmacy [facility]. * Preadmission Environment Home with Family * ADLs Partial Dependent * Partial ADLs (Assistance needed) Ambulation Bathing Dressing Medication Management * Equipment Walker * List name and contact numbers for known caregivers / representatives who currently or will assist patient after discharge: GUME, JOANIE, * Community resources currently utilized Home Health * Please name any agencies selected above. [facility] * Can the patient safely return to the preadmission environment? Yes Coverage Notice Reviewer: [id number] - Chelsey Woodruff Notice Issued Date-Time: 09/30/2018 16:31 Notice Type: Patient Choice Letter Notice Delivered To: Family Member Relationship to Patient: Son Supervisor International Reservations Name: DOMINGO Delivery Method: HAND - Hand Delivered Twila Days: Prior Verbal Notification: Recipient Understood Notice: Yes Recipient Signature: Yes Med Rec Note Co-signed by Attending: Coverage Notice Comment: [facility]. Last DP export: 10/02/18 4:11 pm Patient Name: IMER SANCHEZ Page 15147 at 1322 All edits/amendments must be made on the electronic document DICTATION DATE: 10/03/18 1321 CARE PROCESS MANAGER: MADALYN 10/03/18 1321 RPT#: [id number] DC DATE: STATUS: ADM IN [facility] [address] [place] [address] END OF REPORT
--- NOTE | 2018-10-03 13:40 | NUR ---
PT IS D/C TO [facility]
--- NOTE | 2018-10-03 15:19 | NUR ---
DISCHARGE INSTRUCTIONS GIVEN. SEEMS TO UNDERSTAND INSTRUCTIONS. IV OUT TIP INTACT. RIBEIRO LEFT IN PLACE. LEFT WITH LIFENET TO GO TO THE [facility]. NO SIGNS OF DISTRESS. DENIES ANY NEED AT THIS BEFORE DISCHARGE.
--- NOTE | 2018-10-03 17:19 | MORECARE ---
CASE MANAGEMENT DISCHARGE SUMMARY PATIENT: IMER SANCHEZ UNIT: [id number] ADM DATE: 09/25/18 AGE: 58 : 64 SEX: F ROOM/BED: D.1203 AUTHOR: LASHAWN,DOC PHYSICIAN: REFERRING PHYSICIAN: GIANA CASH MD DATE OF SERVICE: 10/03/18 Discharge Plan Patient Name: IMER SANCHEZ Facility: [facility]:[place] : 1960 Planned Disposition: Intermediate Facility Anticipated Discharge Date: 10/03/18 Discharge Date: 10/03/2018 Expected LOS: 8 Initial Reviewer: [id number] Initial Review Date: 09/25/2018 Generated: 10/03/18 6:19 pm Comments DCP- Discharge Planning Updated by [email or web address]: Chelsey Woodruff on 10/03/18 12:[address] Patient Name: IMER SANCHEZ Admission Status: ER Accout number: [id number] Admission Date: 09-25-2018 : 1960 Admission Diagnosis:CELLULITIS OF BUTTOCK Attending: GIANA CASH Current LOS: 8 Anticipated DC Date: Planned Disposition: Primary Insurance: [place] [employer] Discharge Planning Comments: CM SPOKE WITH LINN AT THE [facility] AND THEY HAVE ACCEPTED THE PATIENT. THE PATIENT CAN BE TRANSPORTED VIA AMBULANCE TODAY. CM WILL FOLLOW AND ASSIST NEEDED. Senior Project Manager Engineering: Chelsey Woodruff DCP- Discharge Planning Updated by [email or web address]: Christel Gilbert on 10/02/18 12:[address] CM faxed PT eval, PT notes, and OT eval to Linn at [facility]. Linn will fax notes to patient's insurance company for authorization. CM will continue to follow and assist with discharge planning / needs. DCP- Discharge Planning Updated by [id number]: Chelsey Woodruff on 10/01/18 8:[address] Patient Name: IMRE SANCHEZ Admission Status: ER Accout number: [id number] Admission Date: 09-25-2018 : 1960 Admission Diagnosis:CELLULITIS OF BUTTOCK Attending: GIANA CASH Current LOS: 6 Anticipated DC Date: Planned Disposition: Primary Insurance: [place] [employer] Discharge Planning Comments: CM SPOKE WITH LINN AT THE [facility] AND THEY NEED PT AND OT EVALS BEFORE THEY CAN ACCEPT. OT AND PT EVAL ORDER PUT IN THIS MORNING. CM WILL FOLLOW AND ASSIST NEEDED. Senior Project Manager Engineering: Chelsey Woodruff DCP- Discharge Planning Updated by [id number]: Chelsey Woodruff on 09/30/18 3:[address] Patient Name: IMER SANCHEZ Admission Status: ER Accout number: [id number] Admission Date: 09-25-2018 : 1960 Admission Diagnosis:CELLULITIS OF BUTTOCK Attending: GIANA CASH Current LOS: 5 Anticipated DC Date: Planned Disposition: Primary Insurance: [place] [employer] Discharge Planning Comments: CM FAXED REFERRAL FOR SNF TO THE [facility] AFTER PCF SIGNED BY PATIENT'S SON GUME. CM WILL FOLLOW UP TOMORROW SINCE THIS IS END OF THE DAY FOR OFFICES. ALSO, GUME WANTED TO ADD HIS BROTHER MIKALA SOLANO A CONTACT NUMBER OF [phone]. Senior Project Manager Engineering: Chelsey Woodruff DCP- Discharge Planning Updated by [email or web address]: Chelsey Woodruff on 09/29/18 10:[address] Patient Name: IMER SANCHEZ Admission Status: ER Accout number: [id number] Admission Date: 09-25-2018 : 1960 Admission Diagnosis:CELLULITIS OF BUTTOCK Attending: GIANA CASH Current LOS: 4 Anticipated DC Date: Planned Disposition: Primary Insurance: [place] [employer] RAM[employer] Discharge Planning Comments: CM SPOKE WITH MS. FERNANDES WITH [email or web address] INSURANCE, SHE STATES THE PATIENT'S INSURANCE HAS A BENEFIT FOR A SNF AND ACUTE REHAB THAT IS OUTSIDE OF THIS HOSPITAL. THE PATIENT'S SON HAS EXPRESSED CONCERN TO ME THAT HIS MOTHER CAN NOT GET HER SELF OUT OF THE BED AND SHE IS INCONTINENT. CM WILL FOLLOW AND ASSIST NEEDED. Senior Project Manager Engineering: Chelsey Woodruff DCP- Discharge Planning Updated by [email or web address]: Chelsey Woodruff on 09/26/18 11:[address] Patient Name: IMER SANCHEZ Admission Status: ER Accout number: [id number] Admission Date: 09-25-2018 : 1960 Admission Diagnosis: Attending: GIANA CASH Current LOS: 1 Anticipated DC Date: Planned Disposition: Primary Insurance: [place] [employer] Discharge Planning Comments: CM MET WITH PATIENT'S SON GUME, SHE LIVES WITH HIM. GUME STATES THEY NEED SOME ADDITIONAL HELP WHEN DISCHARGED. SHE NEEDS HELP WITH BATHING AND IS INCONTINENT. I SPOKE WITH KEVIN WITH [facility] AND WHEN PATIENT IS CLOSER TO DC I WILL LET HER KNOW IF SHE NEEDS SOME ADDITIONAL SERVICES THROUGH . ALSO KEON WITH A PLACE FOR MOM IS GOING TO SPEAK TO PATIENT'S SON AND SEE IF SHE CAN HELP. CM WILL FOLLOW AND ASSIST NEEDED WITH DC PLANNING/NEEDS. Senior Project Manager Engineering: Chelsey Woodruff DCPIA - Discharge Planning Initial Assessment Updated by [email or web address]: Chelsey Woodruff on 09/26/18 12:05 pm * Is the patient Alert and Oriented? No * PCP israel * Pharmacy [facility]. * Preadmission Environment Home with Family * ADLs Partial Dependent * Partial ADLs (Assistance needed) Ambulation Bathing Dressing Medication Management * Equipment Walker * List name and contact numbers for known caregivers / representatives who currently or will assist patient after discharge: GUME, SON, * Community resources currently utilized Home Health * Please name any agencies selected above. [facility] * Can the patient safely return to the preadmission environment? Yes Coverage Notice Reviewer: [id number] - Chelsey Woodruff Notice Issued Date-Time: 09/30/2018 16:31 Notice Type: Patient Choice Letter Notice Delivered To: Family Member Relationship to Patient: Son Restaurant Bartender Name: DOMINGO Delivery Method: HAND - Hand Delivered Twila Days: Prior Verbal Notification: Recipient Understood Notice: Yes Recipient Signature: Yes Med Rec Note Co-signed by Attending: Coverage Notice Comment: [facility]. Last DP export: 10/03/18 12:22 pm Patient Name: IMER SANCHEZ Page 08997 at 1719 All edits/amendments must be made on the electronic document DICTATION DATE: 10/03/181717 FUR FEEDER: MADALYN 10/03/181717 RPT#: [id number] DC DATE:10/03/18 STATUS: DIS IN [facility] [address] [place] [address] END OF REPORT
[2018-10-03] MEDS ORDERED: ZOFRAN8 MG PO (19:42)
[2018-10-03] MEDS ORDERED: ANTIVERT12.5 MG PO (19:42)
[2018-10-04] MEDS ORDERED: METFORMIN HCL500 M1 PO (20:13)
--- NOTE | 2018-10-06 08:13 | MORECARE ---
CASE MANAGEMENT DISCHARGE SUMMARY PATIENT: IMER SANCHEZ UNIT: [id number] ADM DATE: 09/25/18 AGE: 58 : 64 SEX: F ROOM/BED: D.1203 AUTHOR: LASHAWN,DOC PHYSICIAN: REFERRING PHYSICIAN: GIANA CASH MD DATE OF SERVICE: 10/06/18 Discharge Plan Patient Name: IMER SANCHEZ Facility: [facility]:[place] : 1960 Planned Disposition: Usp Facility Anticipated Discharge Date: 10/03/18 Discharge Date: 10/03/2018 Expected LOS: 8 Initial Reviewer: [id number] Initial Review Date: 09/25/2018 Generated: 10/06/18 9:12 am Comments DCP- Discharge Planning Updated by [email or web address]: Chelsey Woodruff on 10/03/18 12:[address] Patient Name: IMER SANCHEZ Admission Status: ER Accout number: [id number] Admission Date: 09-25-2018 : 1960 Admission Diagnosis:CELLULITIS OF BUTTOCK Attending: GIANA CASH Current LOS: 8 Anticipated DC Date: Planned Disposition: Primary Insurance: [place] [employer] Discharge Planning Comments: CM SPOKE WITH LINN AT THE [facility] AND THEY HAVE ACCEPTED THE PATIENT. THE PATIENT CAN BE TRANSPORTED VIA AMBULANCE TODAY. CM WILL FOLLOW AND ASSIST NEEDED. Game Manager: Chelsey Woodruff DCP- Discharge Planning Updated by [id number]: Christel Gilbert on 10/02/18 12:[address] CM faxed PT eval, PT notes, and OT eval to Linn at [facility]. Linn will fax notes to patient's insurance company for authorization. CM will continue to follow and assist with discharge planning / needs. DCP- Discharge Planning Updated by [id number]: Chelsey Woodruff on 10/01/18 8:[address] Patient Name: IMER SANCHEZ Admission Status: ER Accout number: [id number] Admission Date: 09-25-2018 : 1960 Admission Diagnosis:CELLULITIS OF BUTTOCK Attending: GIANA CASH Current LOS: 6 Anticipated DC Date: Planned Disposition: Primary Insurance: [place] [employer] Discharge Planning Comments: CM SPOKE WITH LINN AT THE [facility] AND THEY NEED PT AND OT EVALS BEFORE THEY CAN ACCEPT. OT AND PT EVAL ORDER PUT IN THIS MORNING. CM WILL FOLLOW AND ASSIST NEEDED. Game Manager: Chelsey Woodruff DCP- Discharge Planning Updated by [email or web address]: Chelsey Woodruff on 09/30/18 3:[address] Patient Name: IMER SANCHEZ Admission Status: ER Accout number: [id number] Admission Date: 09-25-2018 : 1960 Admission Diagnosis:CELLULITIS OF BUTTOCK Attending: GIANA CASH Current LOS: 5 Anticipated DC Date: Planned Disposition: Primary Insurance: [place] [employer] Discharge Planning Comments: CM FAXED REFERRAL FOR SNF TO THE [facility] AFTER PCF SIGNED BY PATIENT'S SON GUME. CM WILL FOLLOW UP TOMORROW SINCE THIS IS END OF THE DAY FOR OFFICES. ALSO, GUME WANTED TO ADD HIS BROTHER MIKALA SOLANO A CONTACT NUMBER OF [phone]. Game Manager: Chelsey Woodruff DCP- Discharge Planning Updated by [email or web address]: Chelsey Woodruff on 09/29/18 10:[address] Patient Name: IMER SANCHEZ Admission Status: ER Accout number: [id number] Admission Date: 09-25-2018 : 1960 Admission Diagnosis:CELLULITIS OF BUTTOCK Attending: GIANA CASH Current LOS: 4 Anticipated DC Date: Planned Disposition: Primary Insurance: [place] [employer] Discharge Planning Comments: CM SPOKE WITH MS. FERNANDES WITH [employer], SHE STATES THE PATIENT'S INSURANCE HAS A BENEFIT FOR A SNF AND ACUTE REHAB THAT IS OUTSIDE OF THIS HOSPITAL. THE PATIENT'S SON HAS EXPRESSED CONCERN TO ME THAT HIS MOTHER CAN NOT GET HER SELF OUT OF THE BED AND SHE IS INCONTINENT. CM WILL FOLLOW AND ASSIST NEEDED. Game Manager: Chelsey Woodruff DCP- Discharge Planning Updated by [email or web address]: Chelsey Woodruff on 09/26/18 11:[address] Patient Name: IMER SANCHEZ Admission Status: ER Accout number: [id number] Admission Date: 09-25-2018 : 1960 Admission Diagnosis: Attending: GIANA CASH Current LOS: 1 Anticipated DC Date: Planned Disposition: Primary Insurance: [place] [employer] Discharge Planning Comments: CM MET WITH PATIENT'S SON GUME, SHE LIVES WITH HIM. GUME STATES THEY NEED SOME ADDITIONAL HELP WHEN DISCHARGED. SHE NEEDS HELP WITH BATHING AND IS INCONTINENT. I SPOKE WITH KEVIN WITH [facility] AND WHEN PATIENT IS CLOSER TO DC I WILL LET HER KNOW IF SHE NEEDS SOME ADDITIONAL SERVICES THROUGH . ALSO KEON WITH A PLACE FOR MOM IS GOING TO SPEAK TO PATIENT'S SON AND SEE IF SHE CAN HELP. CM WILL FOLLOW AND ASSIST NEEDED WITH DC PLANNING/NEEDS. Game Manager: Chelsey Woodruff DCPIA - Discharge Planning Initial Assessment Updated by [email or web address]: Chelsey Woodruff on 09/26/18 12:05 pm * Is the patient Alert and Oriented? No * PCP israel * Pharmacy [facility]. * Preadmission Environment Home with Family * ADLs Partial Dependent * Partial ADLs (Assistance needed) Ambulation Bathing Dressing Medication Management * Equipment Walker * List name and contact numbers for known caregivers / representatives who currently or will assist patient after discharge: GUME, SON, * Community resources currently utilized Home Health * Please name any agencies selected above. [facility] * Can the patient safely return to the preadmission environment? Yes Coverage Notice Reviewer: [id number] - Chelsey Woodruff Notice Issued Date-Time: 09/30/2018 16:31 Notice Type: Patient Choice Letter Notice Delivered To: Family Member Relationship to Patient: Son Video Tape Duplicator Name: DOMINGO Delivery Method: HAND - Hand Delivered Twila Days: Prior Verbal Notification: Recipient Understood Notice: Yes Recipient Signature: Yes Med Rec Note Co-signed by Attending: Coverage Notice Comment: [facility]. Last DP export: 10/03/18 4:19 pm Patient Name: IMER SANCHEZ Page 36568 at 0813 All edits/amendments must be made on the electronic document DICTATION DATE: 10/06/18811 CASSANDRA CONSULTANT: MADALYN 10/06/18811 RPT#: [id number] DC DATE:10/03/18 STATUS: DIS IN [address] [place] [address] END OF REPORT
[2018-10-07 16:12] LABS: AEROBE ID Final report (())
== END 2018-10-03 15:21 | DRG 638 ==
LOC: D.ER 14:25 → D.M3 16:03 → D.EDHOLD 16:03 → D.M3 16:58
PROVIDERS: Emergency Medicine; Family Medicine; Surgery; ADMIT Internal Medicine Nephrology
PROC: 0D9P3ZZ Drainage of Rectum, Percutaneous Approach (ICD-10-PCS; principal; 2018-09-30 09:05)
DX: E11.628 Type 2 diabetes mellitus with other skin complications (principal); L03.317 Cellulitis of buttock; E87.1 Hypo-osmolality and hyponatremia; F17.213 Nicotine dependence, cigarettes, with withdrawal; E11.9 Type 2 diabetes mellitus without complications; I10 Essential (primary) hypertension; E78.5 Hyperlipidemia, unspecified; Z86.73 Personal history of transient ischemic attack (TIA), and cerebral infarction without residual deficits

== ENCOUNTER 2018-10-03 18:32 | Inpatient (IN) | payer MEDICAID ==
[~2018-10-03] VITALS: Ht 154.9 cm; Wt 67.1 kg
[2018-10-03] VITALS (7 sets, daily range): BP systolic 139–184; BP diastolic 63–78
[~2018-10-03 18:32] MED LIST changes: +LEVAQUIN750 MG PO; +Levaquin PREMIX IV; +NORVASC5 MG PO
[2018-10-03] MEDS ORDERED: ANTIVERT12.5 MG PO (19:42)
[2018-10-03] MEDS ORDERED: ZOFRAN8 MG PO (19:42)
--- NOTE | 2018-10-03 22:03 | NUR ---
SPOKE WITH SON ABOUT DISCHARGE, SON ADVISED THAT HE WANTED HIS MOTHER TO BE DISCHARGED HOME WITH HIM AND HIS BROTHER. SON ADVISED THAT HE WOULD CALL HOME HEALTH AND GET THE TO COME OUT AND SEE HER IN THE MORNING.
--- NOTE | 2018-10-03 22:20 | NUR ---
WHILE CHECKING ON THE PATIENT THE PATIENT WAS NOTED TO HAVE HER N/C OUT OF HER NOSE AND HER PULSE OX WAS NOTED TO DROP TO 88%, N/C REPLACED ON 2LPM O2
--- NOTE | 2018-10-03 22:25 | NUR ---
CALLED THE SON BACK AND ASKED IF THE PATIENT HAD HOME O2 FOR HER TO USE, HE STATES THAT SHE DID NOT HAVE HOME O2, BECAUSE SHE WAS NOT ON O2 PRIOR TO HER ADMIT TO THE HOSPITAL. SO WAS INFORMED THAT SHE NEEDED SOME HOME O2 BEFORE SHE COULD BE DISCHARGED HOME DUE TO THE DECREASE IN HER PULSE OX ON ROOM AIR.
--- NOTE | 2018-10-03 22:32 | NUR ---
SPOKE WITH THE PATIENTS SON, DOMINGO AND HE ADVISED THAT HE WAS GOING TO CALL THE HOME HEALTH NURSE BACK AND SEE IF HE COULD GET HOME O2 SETUP [place].
--- NOTE | 2018-10-03 22:46 | NUR ---
PT WAS TAKEN OFF O2 FOR 2 MINUTES AND SPO2 DROPPED TO 78%, PT PLACED BACK ON 2LPM SPO2 94%
--- NOTE | 2018-10-03 23:00 | NUR ---
SPOKE WITH NICK AT [facility] AND SHE ADVISED THAT SHE WOULD TRY TO GET HOME O2 SETUP IN THE MORNING FOR THE PATIENT, PROVIDER MICHAEL, NOTIFIED OF THE LOW SPO2 AND NEW ORDERS GIVEN
--- NOTE | 2018-10-03 23:22 | NUR ---
CALLED THE SONS CELL PHONE AND LEFT A MESSAGE FOR HIM TO CALL BACK FOR A UPDATE ON HIS MOTHER
[2018-10-04] VITALS (7 sets, daily range): BP systolic 125–164; BP diastolic 51–72; Ht 154.9 cm; Wt 67.1 kg
--- NOTE | 2018-10-04 00:10 | NUR ---
RECEIVED TO FLOOR FROM ER, ORIENTED TO ROOM, BANDAGE TO LEFT BUTTOCK CHANGED, RIBEIRO TO GRAVITY, BED LOWEST POSITION, CALL LIGHT IN REACH, DENIES NEEDS, WILL CONITNUE POC
--- NOTE | 2018-10-04 08:11 | NUR ---
PT AAOX4 RESP EVEN AND NONLABORED, NO SIGNS OF DISTRESS NOTED, PT SAYS HER CL IS ON THE FLOOR PICKED UP AND GIVEN BACK TO PT AT THIS TIME, NO QUESTIONS/CONCERNS EXPRESSED CL IN REACH
[2018-10-04 11:47] LABS: BASOPHILS 0.1 % (0-2); EOSINOPHILS 0.5 % (0-7); HEMATOCRIT 28.1 % (36.0-48.0); HEMOGLOBIN 9.1 g/dL (12-16); IMMATURE GRANULOCYTES 0.8 % (0-5); LYMPHOCYTES 12.9 % (15-50); MCH 28.2 pg (26.0-34.0); MCHC 32.4 g/dL (31.0-37.0); MONOCYTES 4.1 % (2-11); NEUTROPHILS 81.6 % (40-80); PLATELET COUNT 307 10x3/uL (130-400); RBC 3.23 10x6/uL (4.00-5.40); RDW 14.7 % (11.5-14.5); WBC 11.2 10x3/uL (4.8-10.8)
[2018-10-04 12:02] LABS: ALBUMIN 1.6 g/dL (3.4-5.0); ALKALINE PHOSPHATASE 102 U/L (46-116); ALT (SGPT) 25 U/L (10-68); CALC OSMOLALITY 283 mosm/kg (275-300); CALCIUM 8.4 mg/dL (8.5-10.1); CHLORIDE - SERUM 98 mmol/L (98-107); CREATININE - SERUM 0.7 mg/dL (0.6-1.3); GLUCOSE 329 mg/dL (74-106); PROTEIN - SERUM 6.7 g/dL (6.4-8.2); SODIUM 136 mmol/L (136-145); UREA NITROGEN 10 mg/dL (7-18); eGFR NON AFRICAN AMERICAN > 90 mL/min (90-120)
--- NOTE | 2018-10-04 13:49 | NUR ---
PATIENT IN BED WITH IV INTACT. NO COMPLAINTS OR SIGNS OF DISTRESS. CALL LIGHT WITHIN REACH.
--- NOTE | 2018-10-04 17:41 | NUR ---
PT AAOX4 RESP EVEN AND NONLABORED, NO SIGNS OF DISTRESS NOTED, REQUESTING TO BE PULLED UP TO EAT DINNER DONE AT THIS TIME, CL IN REACH
--- NOTE | 2018-10-04 19:15 | NUR ---
RECEIVED CARE FROM DAY NURSE. LYING IN BED ON RIGHT SIDE. REPORTS NO NEEDS AT THIS TIME. IV SL TO LEFT AC. CALL LIGHT AT SIDE.
[2018-10-04] MEDS ORDERED: METFORMIN HCL500 M1 PO (20:13)
--- NOTE | 2018-10-04 21:12 | NUR ---
NEW ORDER TO INCREASE SLIDING SCALE TO HIGH RESISTANCE. DOESN NOT WANT TO START METFORMIN AT THIS TIME.
[2018-10-05] VITALS: BP 148/51
[2018-10-05 03:00] VITALS: BP 148/51
--- NOTE | 2018-10-05 03:00 | NUR ---
PT RESTING QUIETLY, EYES CLOSED. RESP UNLABORED. NO DISTRESS NOTED. AGREE WITH CONTRACT SHELTERED WORKSHOP SUPERVISOR'S ASSESSMENT, CONTINUE PLAN OF CARE.
[2018-10-05 05:37] LABS: BASOPHILS 0.1 % (0-2); EOSINOPHILS 0.7 % (0-7); HEMATOCRIT 27.5 % (36.0-48.0); HEMOGLOBIN 8.7 g/dL (12-16); IMMATURE GRANULOCYTES 0.9 % (0-5); LYMPHOCYTES 24.4 % (15-50); MCH 27.6 pg (26.0-34.0); MCHC 31.6 g/dL (31.0-37.0); MCV 87.3 fL (80.0-100.0); MEAN PLATELET VOLUME 9.9 fL (7.4-10.4); MONOCYTES 4.9 % (2-11); PLATELET COUNT 322 10x3/uL (130-400); RBC 3.15 10x6/uL (4.00-5.40); RDW 14.7 % (11.5-14.5)
[2018-10-05 06:10] LABS: ALBUMIN 1.6 g/dL (3.4-5.0); ALKALINE PHOSPHATASE 103 U/L (46-116); ALT (SGPT) 25 U/L (10-68); BILIRUBIN - TOTAL 0.12 mg/dL (0.2-1.3); CALCIUM 8.4 mg/dL (8.5-10.1); CARBON DIOXIDE 29.7 mmol/L (21.0-32.0); CHLORIDE - SERUM 100 mmol/L (98-107); CREATININE - SERUM 0.7 mg/dL (0.6-1.3); PROTEIN - SERUM 6.5 g/dL (6.4-8.2); SODIUM 139 mmol/L (136-145); eGFR NON AFRICAN AMERICAN > 90 mL/min (90-120)
[2018-10-05 06:15] LABS: CALC OSMOLALITY 288 mosm/kg (275-300); GLUCOSE 281 mg/dL (74-106); UREA NITROGEN 14 mg/dL (7-18)
--- NOTE | 2018-10-05 08:17 | NUR ---
PT LAYING IN BED WITH EYES CLOSED. AROUSED BY VERBAL STIMULI. "WAITING ON BREAKFAST". NO S/S OF ACUTE DISTRESS. CL IN PLACE.
[2018-10-05 08:24] VITALS: BP 150/70
[2018-10-05 16:30] VITALS: BP 144/68
--- NOTE | 2018-10-05 18:33 | NUR ---
SPOKE WITH PT SON WHO WAS CONCERNED ABOUT MOTHER'S WOUNDS. LET SON LOOK AT THE WOUND PER HIS REQUEST. INFORMED HIM A WOUND CARE CONSULT HAD BEEN OUT IN AND TO CHECK IN THE AM TO SEE WHAT THE WOUND NURSE SUGGESTED ABOUT THE WOUND WITH ESCHAR. WET TO DRY DRESSING DONE. NO S/S OF ACUTE DISTRESS. CL IN PLACE.
[2018-10-05 20:00] VITALS: BP 139/58
--- NOTE | 2018-10-05 20:00 | NUR ---
RECEIVED REPORT, ASSUMED CARE, RESTING ON RIGHT SIDE, DENIES NEEDS, NO S/S OF DISTRESS NOTED, BED LOWEST POSITION, CALL LIGHT IN REACH, NO IV ACCESS, RIBEIRO TO GRAVITY, WILL CONTINUE POC
[2018-10-06] VITALS: BP 130/61
--- NOTE | 2018-10-06 02:06 | NUR ---
Patien in bed resting resprations even and unlabored call light in reach no s/s of distress.
[2018-10-06 03:00] VITALS: BP 153/63
[2018-10-06 06:44] LABS: ALBUMIN 1.8 g/dL (3.4-5.0); ALKALINE PHOSPHATASE 103 U/L (46-116); ALT (SGPT) 29 U/L (10-68); BILIRUBIN - TOTAL 0.22 mg/dL (0.2-1.3); CALCIUM 8.4 mg/dL (8.5-10.1); CHLORIDE - SERUM 101 mmol/L (98-107); CREATININE - SERUM 0.6 mg/dL (0.6-1.3); POTASSIUM - SERUM 4.1 mmol/L (3.5-5.1); PROTEIN - SERUM 6.6 g/dL (6.4-8.2); SODIUM 139 mmol/L (136-145); UREA NITROGEN 14 mg/dL (7-18); eGFR NON AFRICAN AMERICAN > 90 mL/min (90-120)
[2018-10-06 06:51] LABS: CALC OSMOLALITY 284 mosm/kg (275-300); GLUCOSE 207 mg/dL (74-106)
[2018-10-06 07:40] LABS: BASOPHILS 0.1 % (0-2); EOSINOPHILS 1.2 % (0-7); HEMATOCRIT 28.2 % (36.0-48.0); IMMATURE GRANULOCYTES 1.1 % (0-5); LYMPHOCYTES 25.6 % (15-50); MCHC 31.9 g/dL (31.0-37.0); MCV 87.6 fL (80.0-100.0); MEAN PLATELET VOLUME 9.8 fL (7.4-10.4); MONOCYTES 5.2 % (2-11); NEUTROPHILS 66.8 % (40-80); PLATELET COUNT 354 10x3/uL (130-400); RBC 3.22 10x6/uL (4.00-5.40); RDW 14.8 % (11.5-14.5); WBC 8.3 10x3/uL (4.8-10.8)
[2018-10-06 08:03] VITALS: BP 144/65
[2018-10-06 12:08] VITALS: BP 162/73
--- NOTE | 2018-10-06 13:30 | NUR ---
SPOKE WITH PATIENT'S SON ABOUT WOUNDS ON BUTTOCK. EXPLAINED NAT THE [facility] WOULD ADDRESS THEM. VERBALIZED UNDERSTANDING. PATIENT IN BED WITH NO COMPLAINTS. CALL LIGHT WITHIN REACH.
--- NOTE | 2018-10-06 14:34 | NUR ---
PATIENT IN BED LAYING ON SIDE WITH NO COMPLAINTS OR SIGNS OF DISTRESS. CALL LIGHT WITHIN REACH.
--- NOTE | 2018-10-06 16:00 | NUR ---
[facility] INTO SEE PATIENT REDRESSED HER WOUND ON BUTTOCKS WITH 1/3 KERLIX PACKING AND GAUZE.
[2018-10-06 16:27] VITALS: BP 155/72
--- NOTE | 2018-10-06 16:43 | MORECARE ---
CASE MANAGEMENT DISCHARGE SUMMARY PATIENT: SANDY SANCHEZ UNIT: [id number] ADM DATE: 10/05/18 AGE: 58 : 64 SEX: F ROOM/BED: D.2229 AUTHOR: CHINA HARDIN PHYSICIAN: REFERRING PHYSICIAN: TOY PANTOJA DO DATE OF SERVICE: 10/06/18 Discharge Plan Patient Name: SANDY SANCHEZ Facility: [facility]:[place] : 1960 Planned Disposition: Home with Home Health Anticipated Discharge Date: Discharge Date: Expected LOS: Initial Reviewer: [id number] Initial Review Date: 10/06/2018 Generated: 10/06/18 5:42 pm DCP- Discharge Planning Updated by [email or web address]: Jenae Arias on 10/04/18 3:[address] CM contacted [facility] regarding home O2, per patient's choice. Operators Teacher states he will need a respiratory diagnosis documented before home O2 can be set up. [facility] called this morning and states they are the provider for HHS and will resume upon discharge. Patient's son, states patient has a walker at home. Viviana with [facility] verifies that they are the provider for HHS. Viviana #[phone]. Son Jose [phone]. Jenae Arias RN Coverage Notice Reviewer: [id number] - Jenae Arias Notice Issued Date-Time: 10/04/2018 11:03 Notice Type: Patient Choice Letter Notice Delivered To: Patient Relationship to Patient: Self Operators Teacher Name: Sandy Bello Delivery Method: - Twila Days: Prior Verbal Notification: Recipient Understood Notice: Recipient Signature: Med Rec Note Co-signed by Attending: Coverage Notice Comment: Patient Name: SANDY SANCHEZ Page [id number] at 1643 All edits/amendments must be made on the electronic document DICTATION DATE: 10/06/181641 NITRIC ACID PLANT OPERATOR: MADALYN 10/06/181641 RPT#: [id number] DC DATE: STATUS: ADM IN [facility] [address] [place] [address] END OF REPORT
--- NOTE | 2018-10-06 16:50 | MORECARE ---
CASE MANAGEMENT DISCHARGE SUMMARY PATIENT: SANDY SANCHEZ UNIT: [id number] ADM DATE: 10/05/18 AGE: 58 : 64 SEX: F ROOM/BED: D.2229 AUTHOR: LASHAWN,DOC PHYSICIAN: REFERRING PHYSICIAN: TOY PANTOJA DO DATE OF SERVICE: 10/06/18 Discharge Plan Patient Name: SANDY SANCHEZ Facility: [facility]:[place] : 1960 Planned Disposition: Home with Home Health Anticipated Discharge Date: Discharge Date: Expected LOS: Initial Reviewer: [email or web address] Initial Review Date: 10/06/2018 Generated: 10/06/18 5:50 pm DCP- Discharge Planning Updated by [email or web address]: Jenae Arias on 10/04/18 3:[address] CM contacted [facility] regarding home O2, per patient's choice. Assistant Director Of Residence Life states he will need a respiratory diagnosis documented before home O2 can be set up. [facility] called this morning and states they are the provider for HHS and will resume upon discharge. Patient's son, states patient has a walker at home. Viviana with [facility] verifies that they are the provider for HHS. Viviana #[phone]. Son Jose [phone]. Jenae Arias RN, CM DCPIA - Discharge Planning Initial Assessment Updated by [email or web address]: Marcelle Bob on 10/06/18 4:50 pm * Is the patient Alert and Oriented? Yes * How many steps to enter\exit or inside your home? 3/0 * PCP Dr. Duarte at [facility] on [address] * Preadmission Environment Home with Family * ADLs Partial Dependent * Partial ADLs (Assistance needed) Ambulation Bathing Dressing Medication Management * Equipment Glucometer Shower Chair Walker * List name and contact numbers for known caregivers / representatives who currently or will assist patient after discharge: Anaid Codey harman [phone] [place] Moyer [facility] [phone] * Verbal permission to speak to the caregivers and representatives has been obtained from the patient. Yes * Community resources currently utilized Home Health * Please name any agencies selected above. [facility] * Additional services required to return to the preadmission environment? Yes * Can the patient safely return to the preadmission environment? Yes * Has this patient been hospitalized within the prior 30 days at any hospital? Yes Coverage Notice Reviewer: [id number] Codey Arias Notice Issued Date-Time: 10/04/2018 11:03 Notice Type: Patient Choice Letter Notice Delivered To: Patient Relationship to Patient: Self Assistant Director Of Residence Life Name: Sandy Bello Delivery Method: - Twila Days: Prior Verbal Notification: Recipient Understood Notice: Recipient Signature: Med Rec Note Co-signed by Attending: Coverage Notice Comment: Last DP export: 10/06/18 3:43 p Patient Name: SANDY SANCHEZ Page [id number] at 1650 All edits/amendments must be made on the electronic document DICTATION DATE: 10/06/181649 MAXILLOFACIAL PATHOLOGY: MADALYN 10/06/181649 RPT#: [id number] DC DATE: STATUS: ADM IN [facility] [address] [place] [address] END OF REPORT
--- NOTE | 2018-10-06 16:56 | NUR ---
Open wound on left buttock from surgical I&D last week. Cleaned and packed with 3" kerlix moistened with normal saline. Beside the open wound is a scabbed area that is related to the pre-op abscess. Will continue monitoring.
--- NOTE | 2018-10-06 17:04 | MORECARE ---
CASE MANAGEMENT DISCHARGE SUMMARY PATIENT: SANDY SANCHEZ UNIT: [id number] ADM DATE: 10/05/18 AGE: 58 : 64 SEX: F ROOM/BED: D.2229 AUTHOR: CHINA HARDIN PHYSICIAN: REFERRING PHYSICIAN: TOY PANTOJA DO DATE OF SERVICE: 10/06/18 Discharge Plan Patient Name: SANDY SANCHEZ Facility: [facility]:[place] : 1960 Planned Disposition: Home with Home Health Anticipated Discharge Date: Discharge Date: Expected LOS: Initial Reviewer: [id number] Initial Review Date: 10/06/2018 Generated: 10/06/18 6:03 pm Comments DCP- Discharge Planning Updated by [email or web address]: Marcelle Rojas on 10/06/18 4:[address] Patient Name: SANDY SANCHEZ Admission Status: ER Accout number: [id number] Admission Date: 10-05-2018 : 1960 Admission Diagnosis: Attending: TOY PANTOJA Current LOS: 1 Anticipated DC Date: Planned Disposition: Home with Home Health Primary Insurance: [place] PRIVATE OPTIONS RAM[place] Discharge Planning Comments: CM met with patient and her son, Paulino, is in the room. Patient and son state she will go home with [facility] on discharge. Son states she will not go back to the [facility]. I questioned them on choosing another SNF, both decline. He states they have [facility] with PT come in 5 days a week. He states that he is the son that "handles everything". States they will need oxygen set up at the home. I called Danny with [facility] and she does not have a qualifying diagnosis for oxygen. I spoke with TINA Watkins with Dr. Benson and she will review this with Dr. Benson. I called [facility] and spoke with Lisette, she states that they will resume HHS on discharge. States that she said that she felt the patient is living in poor living conditions. States that the patient is noncompliant with her blood sugar checks and is unsure of how to give herself insulin. I called her son ([place]) with her permission and [place] states that he feels it is safe for her to return to her home with his brother. States that they will have 24/7 care for her. He states his mother was ambulating prior to admission. He states "I think she may get depressed when she's in the hospital". Patient tells me she is not getting up due to pain. CM will continue to follow and assist with discharge planning/needs. I will need a qualifying diagnosis in order to get home oxygen for her. Her son, Anaid, states she will be unable to private pay for home oxygen. Pipe Threader: Marcelle Rojas DCP- Discharge Planning Updated by [email or web address]: Jenae Arias on 10/04/18 3:[address] CM contacted [facility] regarding home O2, per patient's choice. Ticket Collector states he will need a respiratory diagnosis documented before home O2 can be set up. [facility] called this morning and states they are the provider for HHS and will resume upon discharge. Patient's son, states patient has a walker at home. Viviana with [facility] verifies that they are the provider for HHS. Viviana #[phone]. Daryl Garcia [phone]. Jenae Arias RN, CM DCPIA - Discharge Planning Initial Assessment Updated by [email or web address]: Marcelle Rojas on 10/06/18 4:50 pm * Is the patient Alert and Oriented? Yes * How many steps to enter\\exit or inside your home? 3/0 * PCP Dr. Duarte at [facility] on [address] * Preadmission Environment Home with Family * ADLs Partial Dependent * Partial ADLs (Assistance needed) Ambulation Bathing Dressing Medication Management * Equipment Glucometer Shower Chair Walker * List name and contact numbers for known caregivers / representatives who currently or will assist patient after discharge: Anaid hammer [phone] [place] Moyer [facility] - [phone] * Verbal permission to speak to the caregivers and representatives has been obtained from the patient. Yes * Community resources currently utilized Home Health * Please name any agencies selected above. [facility] * Additional services required to return to the preadmission environment? Yes * Can the patient safely return to the preadmission environment? Yes * Has this patient been hospitalized within the prior 30 days at any hospital? Yes Coverage Notice Reviewer: [id number] - Jenae Arias Notice Issued Date-Time: 10/04/2018 11:03 Notice Type: Patient Choice Letter Notice Delivered To: Patient Relationship to Patient: Self Ticket Collector Name: Sandy Bello Delivery Method: - Twila Days: Prior Verbal Notification: Recipient Understood Notice: Recipient Signature: Med Rec Note Co-signed by Attending: Coverage Notice Comment: Last DP export: 10/06/18 3:50 p Patient Name: SANDY SANCHEZ Page [id number] at 1704 All edits/amendments must be made on the electronic document DICTATION DATE: 10/06/181702 BEHAVIORAL HEALTH COUNSELOR: MADALYN 10/06/181702 RPT#: [id number] DC DATE: STATUS: ADM IN [facility] [address] [place] [address] END OF REPORT
--- NOTE | 2018-10-06 17:20 | NUR ---
PATIENT IV STARTED AT THIS TIME X 3 STICKS, 20 G FOR CTA SCAN. STARTED IN RIGHT FA.
--- NOTE | 2018-10-06 18:00 | NUR ---
PATIENT TO GET SCAN.
--- NOTE | 2018-10-06 19:55 | NUR ---
PT RESTING IN BED. ALERT AND ORIENTED. NO SIGNS OF DISTRESS. BREATHING EVEN AND UNLABORED. PT STATES NO PROBLEMS AT THIS TIME. IV SITE RT FA DRESSING CLEAN DRY AND INTACT. NO SIGNS OF INFECTION. BOWEL SOUND ACTIVE. RIBEIRO IN PLACE. NO SIGNS OF INFECTION AT INSERTION SITE. URINE CLEAR AND YELLOW. NO LOWER LEG SWELLING PRESENT. LEFT BUTTOCKS WOUND. DRESSING CLEAN DRY AND ITNACT. WILL CONTINUE PLAN OF CARE. CALL LIGHT IN REACH.
[2018-10-06 20:55] VITALS: BP 143/58
--- NOTE | 2018-10-06 21:00 | NUR ---
FSBS 212 12 UNITS OF INSULIN GIVEN PER SS.
[2018-10-07 02:14] VITALS: BP 146/68
--- NOTE | 2018-10-07 05:00 | NUR ---
EYES CLOSED RESPIRATIONS WITH EASE AND UNLABORED. SR UP X2 CALL LIGHT WITHIN REACH.
[2018-10-07 05:56] LABS: BASOPHILS 0.2 % (0-2); EOSINOPHILS 1.2 % (0-7); HEMOGLOBIN 9.2 g/dL (12-16); IMMATURE GRANULOCYTES 0.8 % (0-5); LYMPHOCYTES 17.6 % (15-50); MCH 27.5 pg (26.0-34.0); MCHC 31.7 g/dL (31.0-37.0); MCV 86.8 fL (80.0-100.0); MEAN PLATELET VOLUME 9.9 fL (7.4-10.4); MONOCYTES 4.1 % (2-11); NEUTROPHILS 76.1 % (40-80); PLATELET COUNT 369 10x3/uL (130-400); RBC 3.34 10x6/uL (4.00-5.40); RDW 14.8 % (11.5-14.5)
[2018-10-07 06:14] LABS: ALBUMIN 1.8 g/dL (3.4-5.0); ALKALINE PHOSPHATASE 98 U/L (46-116); ALT (SGPT) 27 U/L (10-68); BILIRUBIN - TOTAL 0.15 mg/dL (0.2-1.3); CALC OSMOLALITY 282 mosm/kg (275-300); CALCIUM 8.3 mg/dL (8.5-10.1); CARBON DIOXIDE 27.8 mmol/L (21.0-32.0); CHLORIDE - SERUM 102 mmol/L (98-107); CREATININE - SERUM 0.6 mg/dL (0.6-1.3); GLUCOSE 178 mg/dL (74-106); POTASSIUM - SERUM 3.7 mmol/L (3.5-5.1); PROTEIN - SERUM 6.6 g/dL (6.4-8.2); SODIUM 139 mmol/L (136-145); UREA NITROGEN 15 mg/dL (7-18); eGFR NON AFRICAN AMERICAN > 90 mL/min (90-120)
[2018-10-07 06:16] LABS: WBC 11.4 10x3/uL (4.8-10.8)
[2018-10-07 09:38] VITALS: BP 115/46
--- NOTE | 2018-10-07 11:40 | MORECARE ---
CASE MANAGEMENT DISCHARGE SUMMARY PATIENT: IMER SANCHEZ UNIT: [id number] ADM DATE: 10/05/18 AGE: 58 : 64 SEX: F ROOM/BED: D.2229 AUTHOR: CHINA HARDIN PHYSICIAN: REFERRING PHYSICIAN: TOY PANTOJA DO DATE OF SERVICE: 10/07/18 Discharge Plan Patient Name: IMER SANCHEZ Facility: [facility]:[place] : 1960 Planned Disposition: Home with Home Health Anticipated Discharge Date: Discharge Date: Expected LOS: Initial Reviewer: [id number] Initial Review Date: 10/06/2018 Generated: 10/07/18 12:40 pm Comments DCP- Discharge Planning Updated by [id number]: Marcelle Rojas on 10/06/18 4:[address] Patient Name: IMER SANCHEZ Admission Status: ER Accout number: [id number] Admission Date: 10-05-2018 : 1960 Admission Diagnosis: Attending: TOY PANTOJA Current LOS: 1 Anticipated DC Date: Planned Disposition: Home with Home Health Primary Insurance: [place] PRIVATE OPTIONS RAM[place] Discharge Planning Comments: CM met with patient and her son, Paulino, is in the room. Patient and son state she will go home with [facility] on discharge. Son states she will not go back to the [facility]. I questioned them on choosing another SNF, both decline. He states they have [facility] with PT come in 5 days a week. He states that he is the son that "handles everything". States they will need oxygen set up at the home. I called Danny with [facility] and she does not have a qualifying diagnosis for oxygen. I spoke with TINA Watkins with Dr. Benson and she will review this with Dr. Benson. I called [facility] and spoke with Lisette, she states that they will resume HHS on discharge. States that she said that she felt the patient is living in poor living conditions. States that the patient is noncompliant with her blood sugar checks and is unsure of how to give herself insulin. I called her son ([place]) with her permission and [place] states that he feels it is safe for her to return to her home with his brother. States that they will have 24/7 care for her. He states his mother was ambulating prior to admission. He states "I think she may get depressed when she's in the hospital". Patient tells me she is not getting up due to pain. CM will continue to follow and assist with discharge planning/needs. I will need a qualifying diagnosis in order to get home oxygen for her. Her son, Anaid, states she will be unable to private pay for home oxygen. Booking Officer: Marcelle Rojas DCP- Discharge Planning Updated by [id number]: Jenae Arias on 10/04/18 3:[address] CM contacted [facility] regarding home O2, per patient's choice. Military Analyst states he will need a respiratory diagnosis documented before home O2 can be set up. [facility] called this morning and states they are the provider for HHS and will resume upon discharge. Patient's son, states patient has a walker at home. Viviana with [facility] verifies that they are the provider for [facility]. Viviana #[phone]. Daryl Garcia [phone]. Jenae Arias RN, CM DCPIA - Discharge Planning Initial Assessment Updated by [email or web address]: Marcelle Rojas on 10/06/18 4:50 pm * Is the patient Alert and Oriented? Yes * How many steps to enter\\exit or inside your home? 3/0 * PCP Dr. Duarte at [facility] on [address] * Preadmission Environment Home with Family * ADLs Partial Dependent * Partial ADLs (Assistance needed) Ambulation Bathing Dressing Medication Management * Equipment Glucometer Shower Chair Walker * List name and contact numbers for known caregivers / representatives who currently or will assist patient after discharge: Anaid - daryl [phone] [place] Moyer [facility] - [phone] * Verbal permission to speak to the caregivers and representatives has been obtained from the patient. Yes * Community resources currently utilized Home Health * Please name any agencies selected above. [facility] * Additional services required to return to the preadmission environment? Yes * Can the patient safely return to the preadmission environment? Yes * Has this patient been hospitalized within the prior 30 days at any hospital? Yes External Providers External Provider: [facility] Next Contact Date: Service Request Date: Service Type: Resolution: Reviewer: Comments: Coverage Notice Reviewer: [id number] - Jenae Arias Notice Issued Date-Time: 10/04/2018 11:03 Notice Type: Patient Choice Letter Notice Delivered To: Patient Relationship to Patient: Self Military Analyst Name: Imer Bello Delivery Method: - Twila Days: Prior Verbal Notification: Recipient Understood Notice: Recipient Signature: Med Rec Note Co-signed by Attending: Coverage Notice Comment: Last DP export: 10/06/18 4:04 p Patient Name: IMER SANCHEZ Page [phone] at 1140 All edits/amendments must be made on the electronic document DICTATION DATE: 10/07/18 1140 BUSINESS ANALYTICS INTERN: MADALYN 10/07/18 1140 RPT#: [id number] DC DATE: STATUS: ADM IN [facility] [address] [place] [address] END OF REPORT
--- NOTE | 2018-10-07 11:47 | MORECARE ---
CASE MANAGEMENT DISCHARGE SUMMARY PATIENT: IMER SANCHEZ UNIT: [id number] ADM DATE: 10/05/18 AGE: 58 : 64 SEX: F ROOM/BED: D.2229 AUTHOR: CHINA HARDIN PHYSICIAN: REFERRING PHYSICIAN: TOY PANTOJA DO DATE OF SERVICE: 10/07/18 Discharge Plan Patient Name: IMER SANCHEZ Facility: [facility]:[place] : 1960 Planned Disposition: Home with Home Health Anticipated Discharge Date: Discharge Date: Expected LOS: Initial Reviewer: [email or web address] Initial Review Date: 10/06/2018 Generated: 10/07/18 12:47 pm Comments DCP- Discharge Planning Updated by [email or web address]: Marcelle Rojas on 10/07/18 10:[address] Order for oxygen faxed with progress note with diagnosis of acute respiratory failure. I spoke with Danny with [facility] about this. I have called RT for a room air sat to be repeated. CM will continue to follow and assist with discharge planning/needs. DCP- Discharge Planning Updated by [email or web address]: Marcelle Rojas on 10/06/18 4:[address] Patient Name: IMER SANCHEZ Admission Status: ER Accout number: [id number] Admission Date: 10-05-2018 : 1960 Admission Diagnosis: Attending: TOY PANTOJA Current LOS: 1 Anticipated DC Date: Planned Disposition: Home with Home Health Primary Insurance: [place] PRIVATE OPTIONS [facility] Discharge Planning Comments: CM met with patient and her son, Paulino, is in the room. Patient and son state she will go home with [facility] on discharge. Son states she will not go back to the [facility]. I questioned them on choosing another SNF, both decline. He states they have [facility] with PT come in 5 days a week. He states that he is the son that "handles everything". States they will need oxygen set up at the home. I called Danny with [facility] and she does not have a qualifying diagnosis for oxygen. I spoke with TINA Watkins with Dr. Benson and she will review this with Dr. Benson. I called [facility] and spoke with Lisette, she states that they will resume HHS on discharge. States that she said that she felt the patient is living in poor living conditions. States that the patient is noncompliant with her blood sugar checks and is unsure of how to give herself insulin. I called her son ([place]) with her permission and [place] states that he feels it is safe for her to return to her home with his brother. States that they will have 24/7 care for her. He states his mother was ambulating prior to admission. He states "I think she may get depressed when she's in the hospital". Patient tells me she is not getting up due to pain. CM will continue to follow and assist with discharge planning/needs. I will need a qualifying diagnosis in order to get home oxygen for her. Her son, Anaid, states she will be unable to private pay for home oxygen. Nibbler Operator: Marcelle Rojas DCP- Discharge Planning Updated by [email or web address]: Jenae Arias on 10/04/18 3:[address] CM contacted [facility] regarding home O2, per patient's choice. White Hat Hacker states he will need a respiratory diagnosis documented before home O2 can be set up. [facility] called this morning and states they are the provider for HHS and will resume upon discharge. Patient's son, states patient has a walker at home. Viviana with [facility] verifies that they are the provider for HHS. Viviana #[phone]. Daryl Garcia [phone]. Jenae Arias RN DCPIA - Discharge Planning Initial Assessment Updated by [email or web address]: Marcelle Rojas on 10/06/18 4:50 pm * Is the patient Alert and Oriented? Yes * How many steps to enter\\exit or inside your home? 3/0 * PCP Dr. Duarte at [facility] on [address] * Preadmission Environment Home with Family * ADLs Partial Dependent * Partial ADLs (Assistance needed) Ambulation Bathing Dressing Medication Management * Equipment Glucometer Shower Chair Walker * List name and contact numbers for known caregivers / representatives who currently or will assist patient after discharge: Anaid Alegre [phone] [place] Moyer daryl - [phone] * Verbal permission to speak to the caregivers and representatives has been obtained from the patient. Yes * Community resources currently utilized Home Health * Please name any agencies selected above. [facility] * Additional services required to return to the preadmission environment? Yes * Can the patient safely return to the preadmission environment? Yes * Has this patient been hospitalized within the prior 30 days at any hospital? Yes Coverage Notice Reviewer: [id number] Codey Jenaehetal Arias Notice Issued Date-Time: 10/04/2018 11:03 Notice Type: Patient Choice Letter Notice Delivered To: Patient Relationship to Patient: Self White Hat Hacker Name: Imer Bello Delivery Method: - Twila Days: Prior Verbal Notification: Recipient Understood Notice: Recipient Signature: Med Rec Note Co-signed by Attending: Coverage Notice Comment: Last DP export: 10/07/18 10:40 a Patient Name: IMER SANCHEZ Page [phone] at 1147 All edits/amendments must be made on the electronic document DICTATION DATE: 10/07/18 1146 SALESPERSON TERRAZZO TILES: MADALYN 10/07/18 1146 RPT#: [id number] DC DATE: STATUS: ADM IN [facility] [address] [place] [address] END OF REPORT
[2018-10-07 12:04] VITALS: BP 135/57
--- NOTE | 2018-10-07 12:31 | NUR ---
NUTRITION F/U PT TOLERATING AHA DIET WITH 100% INTAKE BREAKFAST. WILL CONTINUE TO PROVIDE DIET, MONITOR PO INTAKE. RD FOLLOWING
--- NOTE | 2018-10-07 14:04 | MORECARE ---
CASE MANAGEMENT DISCHARGE SUMMARY PATIENT: SANDY SANCHEZ UNIT: [id number] ADM DATE: 10/05/18 AGE: 58 : 64 SEX: F ROOM/BED: D.2229 AUTHOR: CHINA HARDIN PHYSICIAN: REFERRING PHYSICIAN: TOY PANTOJA DO DATE OF SERVICE: 10/07/18 Discharge Plan Patient Name: SANDY SANCHEZ Facility: [facility]:[place] : 1960 Planned Disposition: Home with Home Health Anticipated Discharge Date: Discharge Date: Expected LOS: Initial Reviewer: [email or web address] Initial Review Date: 10/06/2018 Generated: 10/07/18 3:04 pm Comments DCP- Discharge Planning Updated by [email or web address]: Marcelle Rojas on 10/07/18 1:[address] Room air saturation is 90%, will need qualifying ABG's prior to discharge to qualify for home oxygen. CM will continue to follow and assist with discharge planning/needs. DCP- Discharge Planning Updated by [email or web address]: Marcelle Rojas on 10/07/18 10:[address] Order for oxygen faxed with progress note with diagnosis of acute respiratory failure. I spoke with Danny with [facility] about this. I have called RT for a room air sat to be repeated. CM will continue to follow and assist with discharge planning/needs. DCP- Discharge Planning Updated by [email or web address]: Marcelle Rojas on 10/06/18 4:[address] Patient Name: SANDY SANCHEZ Admission Status: ER Accout number: [id number] Admission Date: 10-05-2018 : 1960 Admission Diagnosis: Attending: TOY PANTOJA Current LOS: 1 Anticipated DC Date: Planned Disposition: Home with Home Health Primary Insurance: [place] [facility] [facility] Discharge Planning Comments: CM met with patient and her son, Paulino, is in the room. Patient and son state she will go home with [facility] on discharge. Son states she will not go back to the [facility]. I questioned them on choosing another SNF, both decline. He states they have [facility] with PT come in 5 days a week. He states that he is the son that "handles everything". States they will need oxygen set up at the home. I called Danny with [facility] and she does not have a qualifying diagnosis for oxygen. I spoke with TINA Watkins with Dr. Benson and she will review this with Dr. Benson. I called [facility] and spoke with Lisette, she states that they will resume HHS on discharge. States that she said that she felt the patient is living in poor living conditions. States that the patient is noncompliant with her blood sugar checks and is unsure of how to give herself insulin. I called her son ([place]) with her permission and [place] states that he feels it is safe for her to return to her home with his brother. States that they will have 18/03 care for her. He states his mother was ambulating prior to admission. He states "I think she may get depressed when she's in the hospital". Patient tells me she is not getting up due to pain. CM will continue to follow and assist with discharge planning/needs. I will need a qualifying diagnosis in order to get home oxygen for her. Her son, Anaid, states she will be unable to private pay for home oxygen. Supervisor Underwriting Clerks: Marcelle Rojas DCP- Discharge Planning Updated by [email or web address]: Jenae Arias on 10/04/18 3:[address] CM contacted [facility] regarding home O2, per patient's choice. Nail Technician Teacher states he will need a respiratory diagnosis documented before home O2 can be set up. [facility] called this morning and states they are the provider for HHS and will resume upon discharge. Patient's son, states patient has a walker at home. Viviana with [facility] verifies that they are the provider for [facility]. Viviana #[phone]. Son Jose [phone]. Jenae Arias RN, CM DCPIA - Discharge Planning Initial Assessment Updated by [email or web address]: Marcelle Rojas on 10/06/18 4:50 pm * Is the patient Alert and Oriented? Yes * How many steps to enter\\exit or inside your home? 3/0 * PCP Dr. Duarte at [facility] on [address] * Preadmission Environment Home with Family * ADLs Partial Dependent * Partial ADLs (Assistance needed) Ambulation Bathing Dressing Medication Management * Equipment Glucometer Shower Chair Walker * List name and contact numbers for known caregivers / representatives who currently or will assist patient after discharge: Anaid Alegre [phone] [place] Alegre [phone] * Verbal permission to speak to the caregivers and representatives has been obtained from the patient. Yes * Community resources currently utilized Home Health * Please name any agencies selected above. [facility] * Additional services required to return to the preadmission environment? Yes * Can the patient safely return to the preadmission environment? Yes * Has this patient been hospitalized within the prior 30 days at any hospital? Yes Coverage Notice Reviewer: [id number] Codey Arias Notice Issued Date-Time: 10/04/2018 11:03 Notice Type: Patient Choice Letter Notice Delivered To: Patient Relationship to Patient: Self Nail Technician Teacher Name: Sandy Bello Delivery Method: - Twila Days: Prior Verbal Notification: Recipient Understood Notice: Recipient Signature: Med Rec Note Co-signed by Attending: Coverage Notice Comment: Last DP export: 10/07/18 10:47 a Patient Name: SANDY SANCHEZ Page [id number] at 1404 All edits/amendments must be made on the electronic document DICTATION DATE: 10/07/18 140 MOSAIC TILE MAKER: MADALYN 10/07/18 140 RPT#: [id number] DC DATE: STATUS: ADM IN [facility] [address] [place] [address] END OF REPORT
--- NOTE | 2018-10-07 14:31 | MORECARE ---
CASE MANAGEMENT DISCHARGE SUMMARY PATIENT: IMER SANCHEZ UNIT: [id number] ADM DATE: 10/05/18 AGE: 58 : 64 SEX: F ROOM/BED: D.2229 AUTHOR: CHINA HARDIN PHYSICIAN: REFERRING PHYSICIAN: TOY PANTOJA DO DATE OF SERVICE: 10/07/18 Discharge Plan Patient Name: IMER SANCHEZ Facility: [facility]:[place] : 1960 Planned Disposition: Home with Home Health Anticipated Discharge Date: Discharge Date: Expected LOS: Initial Reviewer: [email or web address] Initial Review Date: 10/06/2018 Generated: 10/07/18 3:31 pm Comments DCP- Discharge Planning Updated by [id number]: Marcelle Rojas on 10/07/18 1:[address] Danny from [facility] states that she will not need repeat ABG's within 48 hours prior to discharge for her insurance. Home oxygen ordered and I gave order to Roland to have Dr. Benson sign. I notified RT to cancel ABG's. CM will continue to follow and assist with discharge planning/needs. DCP- Discharge Planning Updated by [id number]: Marcelle Rojas on 10/07/18 1:[address] Room air saturation is 90%, will need qualifying ABG's prior to discharge to qualify for home oxygen. CM will continue to follow and assist with discharge planning/needs. DCP- Discharge Planning Updated by [id number]: Marcelle Rojas on 10/07/18 10:[address] Order for oxygen faxed with progress note with diagnosis of acute respiratory failure. I spoke with Danny with [facility] about this. I have called RT for a room air sat to be repeated. CM will continue to follow and assist with discharge planning/needs. DCP- Discharge Planning Updated by [email or web address]: Marcelle Rojas on 10/06/18 4:[address] Patient Name: IMER SANCHEZ Admission Status: ER Accout number: [id number] Admission Date: 10-05-2018 : 1960 Admission Diagnosis: Attending: TOY PANTOJA Current LOS: 1 Anticipated DC Date: Planned Disposition: Home with Home Health Primary Insurance: [facility] PRIVATE OPTIONS [facility] Discharge Planning Comments: CM met with patient and her son, Paulino, is in the room. Patient and son state she will go home with [facility] on discharge. Son states she will not go back to the [facility]. I questioned them on choosing another SNF, both decline. He states they have [facility] with PT come in 5 days a week. He states that he is the son that "handles everything". States they will need oxygen set up at the home. I called Danny with [facility] and she does not have a qualifying diagnosis for oxygen. I spoke with TINA Watkins with Dr. Benson and she will review this with Dr. Benson. I called [facility] and spoke with Lisette, she states that they will resume HHS on discharge. States that she said that she felt the patient is living in poor living conditions. States that the patient is noncompliant with her blood sugar checks and is unsure of how to give herself insulin. I called her son ([place]) with her permission and [place] states that he feels it is safe for her to return to her home with his brother. States that they will have 24/7 care for her. He states his mother was ambulating prior to admission. He states "I think she may get depressed when she's in the hospital". Patient tells me she is not getting up due to pain. CM will continue to follow and assist with discharge planning/needs. I will need a qualifying diagnosis in order to get home oxygen for her. Her son, Anaid, states she will be unable to private pay for home oxygen. Transportation Supervisor: Marcelle Rojas DCP- Discharge Planning Updated by [email or web address]: Jenae Arias on 10/04/18 3:[address] CM contacted [facility] regarding home O2, per patient's choice. Meat Soaker states he will need a respiratory diagnosis documented before home O2 can be set up. [facility] called this morning and states they are the provider for HHS and will resume upon discharge. Patient's son, states patient has a walker at home. Viviana with [facility] verifies that they are the provider for HHS. Viviana #[phone]. Son Jose [phone]. Jenae Arias RN, CM DCPIA - Discharge Planning Initial Assessment Updated by [id number]: Marcelle Bob on 10/06/18 4:50 pm * Is the patient Alert and Oriented? Yes * How many steps to enter\\exit or inside your home? 3/0 * PCP Dr. Duarte at [facility] on [address] * Preadmission Environment Home with Family * ADLs Partial Dependent * Partial ADLs (Assistance needed) Ambulation Bathing Dressing Medication Management * Equipment Glucometer Shower Chair Walker * List name and contact numbers for known caregivers / representatives who currently or will assist patient after discharge: Anaid [facility] [phone] [place] [facility] - [phone] * Verbal permission to speak to the caregivers and representatives has been obtained from the patient. Yes * Community resources currently utilized Home Health * Please name any agencies selected above. [facility] * Additional services required to return to the preadmission environment? Yes * Can the patient safely return to the preadmission environment? Yes * Has this patient been hospitalized within the prior 30 days at any hospital? Yes Coverage Notice Reviewer: [id number] Codey Arias Notice Issued Date-Time: 10/04/2018 11:03 Notice Type: Patient Choice Letter Notice Delivered To: Patient Relationship to Patient: Self Meat Soaker Name: Imer Bello Delivery Method: - Twila Days: Prior Verbal Notification: Recipient Understood Notice: Recipient Signature: Sukhjinder Rec Note Co-signed by Attending: Coverage Notice Comment: Last DP export: 10/07/18 1:04 p Patient Name: IMER SANCHEZ Page [id number] at 1431 All edits/amendments must be made on the electronic document DICTATION DATE: 10/07/18 1431 UTILITY AGENT: MADALYN 10/07/18 1431 RPT#: [id number] DC DATE: STATUS: ADM IN [facility] [address] [place] [address] END OF REPORT
--- NOTE | 2018-10-07 15:46 | NUR ---
OT NOTE: PT COMPLETED BED MOB TASKS WITH MAX A. PT COMPLETED SIMPLE HYGIENE TASK WITH MOD A. THANK YOU, JUNE HERNANDEZ
[2018-10-07 17:24] VITALS: BP 128/59
[2018-10-07 20:27] VITALS: BP 145/69
--- NOTE | 2018-10-07 21:00 | NUR ---
LYING QUIELTY WITH NO COMPLAINTS VOICED. RESP EVEN AND UNALBORED. NO DISTRESS NOTED. RIBEIRO PATENT AND DRAINING CLEAR YELLOW URINE. SL TO RFA INTACT WITHOUT REDNESS OR EDEMA NOTED. CL IN REACH
[2018-10-08 00:11] VITALS: BP 148/71
--- NOTE | 2018-10-08 02:47 | NUR ---
RESTING QUITELY IN BED RESP UNLABORED NO APPARENT DISTRESS, CALL ANA ANNE
[2018-10-08 04:33] VITALS: BP 135/57
--- NOTE | 2018-10-08 06:03 | NUR ---
AWAKE WITHOUT COMPLAITNS. RESP. UNLABORED. CL IN REACH
[2018-10-08 06:14] LABS: BASOPHILS 0.2 % (0-2); EOSINOPHILS 1.3 % (0-7); HEMATOCRIT 28.7 % (36.0-48.0); HEMOGLOBIN 9.1 g/dL (12-16); LYMPHOCYTES 22.4 % (15-50); MCH 27.7 pg (26.0-34.0); MCHC 31.7 g/dL (31.0-37.0); MCV 87.5 fL (80.0-100.0); MEAN PLATELET VOLUME 9.6 fL (7.4-10.4); MONOCYTES 4.6 % (2-11); NEUTROPHILS 70.5 % (40-80); PLATELET COUNT 414 10x3/uL (130-400); RBC 3.28 10x6/uL (4.00-5.40)
[2018-10-08 06:19] LABS: WBC 8.4 10x3/uL (4.8-10.8)
[2018-10-08 06:35] LABS: ALKALINE PHOSPHATASE 104 U/L (46-116); ALT (SGPT) 27 U/L (10-68); BILIRUBIN - TOTAL 0.18 mg/dL (0.2-1.3); CALC OSMOLALITY 283 mosm/kg (275-300); CALCIUM 8.3 mg/dL (8.5-10.1); CARBON DIOXIDE 28.8 mmol/L (21.0-32.0); CHLORIDE - SERUM 103 mmol/L (98-107); CREATININE - SERUM 0.5 mg/dL (0.6-1.3); GLUCOSE 147 mg/dL (74-106); POTASSIUM - SERUM 4.2 mmol/L (3.5-5.1); PROTEIN - SERUM 6.2 g/dL (6.4-8.2); SODIUM 141 mmol/L (136-145); UREA NITROGEN 12 mg/dL (7-18); eGFR NON AFRICAN AMERICAN > 90 mL/min (90-120)
--- NOTE | 2018-10-08 08:17 | NUR ---
PT RESTING IN BED. NO S/S OF ACUTE DISTRESS. CL IN PLACE.
--- NOTE | 2018-10-08 08:51 | MORECARE ---
CASE MANAGEMENT DISCHARGE SUMMARY PATIENT: IMER SANCHEZ UNIT: [id number] ADM DATE: 10/05/18 AGE: 58 : 64 SEX: F ROOM/BED: D.2229 AUTHOR: LASHAWN,DOC PHYSICIAN: REFERRING PHYSICIAN: TOY PANTOJA DO DATE OF SERVICE: 10/08/18 Discharge Plan Patient Name: IMER SANCHEZ Facility: [facility]:[place] : 1960 Planned Disposition: Home with Home Health Anticipated Discharge Date: Discharge Date: Expected LOS: Initial Reviewer: [email or web address] Initial Review Date: 10/06/2018 Generated: 10/08/18 9:51 am Comments DCP- Discharge Planning Updated by [id number]: Marcelle Rojas on 10/08/18 7:[address] Signed oxygen order faxed to [facility]. CM will continue to follow and assist with discharge planning/needs. DCP- Discharge Planning Updated by [id number]: Marcelle Rojas on 10/07/18 1:[address] Danny from [facility] states that she will not need repeat ABG's within 48 hours prior to discharge for her insurance. Home oxygen ordered and I gave order to Roland to have Dr. Benson sign. I notified RT to cancel ABG's. CM will continue to follow and assist with discharge planning/needs. DCP- Discharge Planning Updated by [email or web address]: Marcelle Rojas on 10/07/18 1:[address] Room air saturation is 90%, will need qualifying ABG's prior to discharge to qualify for home oxygen. CM will continue to follow and assist with discharge planning/needs. DCP- Discharge Planning Updated by [id number]: Marcelle Rojas on 10/07/18 10:[address] Order for oxygen faxed with progress note with diagnosis of acute respiratory failure. I spoke with Danny with [facility] about this. I have called RT for a room air sat to be repeated. CM will continue to follow and assist with discharge planning/needs. DCP- Discharge Planning Updated by [id number]: Marcelle Rojas on 10/06/18 4:[address] Patient Name: IMER SANCHEZ Admission Status: ER Accout number: [id number] Admission Date: 10-05-2018 : 1960 Admission Diagnosis: Attending: TOY PANTOJA Current LOS: 1 Anticipated DC Date: Planned Disposition: Home with Home Health Primary Insurance: [place] PR[facility] OPTIONS [facility] Discharge Planning Comments: CM met with patient and her son, Paulino, is in the room. Patient and son state she will go home with [facility] on discharge. Son states she will not go back to the [facility]. I questioned them on choosing another SNF, both decline. He states they have [facility] with PT come in 5 days a week. He states that he is the son that "handles everything". States they will need oxygen set up at the home. I called Danny with [facility] and she does not have a qualifying diagnosis for oxygen. I spoke with TINA Watkins with Dr. Benson and she will review this with Dr. Benson. I called [facility] and spoke with Lisette, she states that they will resume HHS on discharge. States that she said that she felt the patient is living in poor living conditions. States that the patient is noncompliant with her blood sugar checks and is unsure of how to give herself insulin. I called her son ([place]) with her permission and [place] states that he feels it is safe for her to return to her home with his brother. States that they will have 24/7 care for her. He states his mother was ambulating prior to admission. He states "I think she may get depressed when she's in the hospital". Patient tells me she is not getting up due to pain. CM will continue to follow and assist with discharge planning/needs. I will need a qualifying diagnosis in order to get home oxygen for her. Her son, Anaid, states she will be unable to private pay for home oxygen. Nurse Specialist: Marcelle Rojas [facility]- Discharge Planning Updated by [email or web address]: Jenae Arias on 10/04/18 3:[address] CM contacted [facility] regarding home O2, per patient's choice. Laborer Laboratory states he will need a respiratory diagnosis documented before home O2 can be set up. [facility] called this morning and states they are the provider for HHS and will resume upon discharge. Patient's son, states patient has a walker at home. Viviana with [facility] verifies that they are the provider for HHS. Viviana #[phone]. Daryl Garcia [phone]. Jenae Arias RN DCPIA - Discharge Planning Initial Assessment Updated by [email or web address]: Marcellesuri Rojas on 10/06/18 4:50 pm * Is the patient Alert and Oriented? Yes * How many steps to enter\\exit or inside your home? 3/0 * PCP Dr. Duarte at [facility] [employer] on [address] * Preadmission Environment Home with Family * ADLs Partial Dependent * Partial ADLs (Assistance needed) Ambulation Bathing Dressing Medication Management * Equipment Glucometer Shower Chair Walker * List name and contact numbers for known caregivers / representatives who currently or will assist patient after discharge: Anaid Alegre [phone] [place] Moyer daryl [phone] * Verbal permission to speak to the caregivers and representatives has been obtained from the patient. Yes * Community resources currently utilized Home Health * Please name any agencies selected above. [facility] * Additional services required to return to the preadmission environment? Yes * Can the patient safely return to the preadmission environment? Yes * Has this patient been hospitalized within the prior 30 days at any hospital? Yes Coverage Notice Reviewer: [id number] - Jenae Arias Notice Issued Date-Time: 10/04/2018 11:03 Notice Type: Patient Choice Letter Notice Delivered To: Patient Relationship to Patient: Self Laborer Laboratory Name: Imer Bello Delivery Method: - Twila Days: Prior Verbal Notification: Recipient Understood Notice: Recipient Signature: Med Rec Note Co-signed by Attending: Coverage Notice Comment: Last DP export: 10/07/18 1:31 p Patient Name: IMER SANCHEZ Page [id number] at 0851 All edits/amendments must be made on the electronic document DICTATION DATE: 10/08/18850 GAMBLING FLOOR SUPERVISOR: MADALYN 10/08/18850 RPT#: [id number] DC DATE: STATUS: ADM IN [facility] [address] [facility] [place] [address] END OF REPORT
[2018-10-08 09:00] VITALS: BP 140/63
--- NOTE | 2018-10-08 11:54 | NUR ---
OT NOTE: PT PERFORMED VERY WELL TODAY. WAS INITIALLY RESISTANT TO PERFORM THERAPY, BUT AFTER ENCOURAGEMENT, PT ENDED UP DOING MUCH MORE THAN USUAL. NO COMPLAINTS OF DIZZINESS OR NAUSEA TODAY. PT ABLE TO PERFORM BED MOB WITH MOD ASSIST; REQUIRED ASSIST FOR STATIC SITTING DUE TO PAIN ON L SIDE; SIT TO STAND WITH MIN ASSIST; PT ABLE TO AMB IN ROOM WITH RW AND MIN ASSIST. ATTEMPTED TO ENCOURAGE PT TO SIT UP BUT SHE FELT IT WOULD BE TOO UNCOMFORTABLE. PT REQUIRED EXT ASSIST TO JUANA SOCKS ( NEEDS TOENAILS TRIMMED); SET UP FOR HAND AND FACE WASHING; TOLERATED A FEW EXS , UE AND LE WHILE IN THE BED. RAGHAVENDRA ALVAREZ, OTR/L
--- NOTE | 2018-10-08 13:07 | MORECARE ---
CASE MANAGEMENT DISCHARGE SUMMARY PATIENT: IMER SANCHEZ UNIT: [id number] ADM DATE: 10/05/18 AGE: 58 : 64 SEX: F ROOM/BED: D.2229 AUTHOR: LASHAWN,DOC PHYSICIAN: REFERRING PHYSICIAN: TOY PANTOJA DO DATE OF SERVICE: 10/08/18 Discharge Plan Patient Name: IMER SANCHEZ Facility: [facility]:[place] : 1960 Planned Disposition: Home with Home Health Anticipated Discharge Date: Discharge Date: Expected LOS: Initial Reviewer: [email or web address] Initial Review Date: 10/06/2018 Generated: 10/08/18 2:07 pm Comments DCP- Discharge Planning Updated by [email or web address]: Marcelle Rojas on 10/08/18 12:[address] Called [facility], they are bringing portable oxygen out today. I spoke with the son, Jose. He states they will call them to have home oxygen set up today. He states his mother will have to go home via ambulance because she is unable to sit that long in a car because of the wound on her buttock. I informed him that I am unsure that her insurance will pay but we would ask EMS. He and his brother are both in agreement for her to go home. They refused skilled therapy and patient also refuses skilled and states will go home with home health. CM will continue to follow and assist with discharge planning/needs. DCP- Discharge Planning Updated by [email or web address]: Marcelle Rojas on 10/08/18 7:[address] Signed oxygen order faxed to [facility]. CM will continue to follow and assist with discharge planning/needs. DCP- Discharge Planning Updated by [email or web address]: Marcelle Rojas on 10/07/18 1:[address] Danny from [facility] states that she will not need repeat ABG's within 48 hours prior to discharge for her insurance. Home oxygen ordered and I gave order to Roland to have Dr. Benson sign. I notified RT to cancel ABG's. CM will continue to follow and assist with discharge planning/needs. DCP- Discharge Planning Updated by [email or web address]: Marcelle Rojas on 10/07/18 1:[address] Room air saturation is 90%, will need qualifying ABG's prior to discharge to qualify for home oxygen. CM will continue to follow and assist with discharge planning/needs. DCP- Discharge Planning Updated by [email or web address]: Marcelle Rojas on 10/07/18 10:[address] Order for oxygen faxed with progress note with diagnosis of acute respiratory failure. I spoke with Danny with [facility] about this. I have called RT for a room air sat to be repeated. CM will continue to follow and assist with discharge planning/needs. DCP- Discharge Planning Updated by [email or web address]: Marcelle Rojas on 10/06/18 4:[address] Patient Name: IMER SANCHEZ Admission Status: ER Accout number: [id number] Admission Date: 10-05-2018 : 1960 Admission Diagnosis: Attending: TOY PANTOJA Current LOS: 1 Anticipated DC Date: Planned Disposition: Home with Home Health Primary Insurance: [facility] PRIVATE OPTIONS [facility] Discharge Planning Comments: CM met with patient and her son, Paulino, is in the room. Patient and son state she will go home with [facility] on discharge. Son states she will not go back to the [facility]. I questioned them on choosing another SNF, both decline. He states they have [facility] with PT come in 5 days a week. He states that he is the son that "handles everything". States they will need oxygen set up at the home. I called Danny with [facility] and she does not have a qualifying diagnosis for oxygen. I spoke with TINA Watkins with Dr. Benson and she will review this with Dr. Benson. I called [facility] and spoke with Lisette, she states that they will resume HHS on discharge. States that she said that she felt the patient is living in poor living conditions. States that the patient is noncompliant with her blood sugar checks and is unsure of how to give herself insulin. I called her son ([place]) with her permission and [place] states that he feels it is safe for her to return to her home with his brother. States that they will have 24/7 care for her. He states his mother was ambulating prior to admission. He states "I think she may get depressed when she's in the hospital". Patient tells me she is not getting up due to pain. CM will continue to follow and assist with discharge planning/needs. I will need a qualifying diagnosis in order to get home oxygen for her. Her son, Anaid, states she will be unable to private pay for home oxygen. Hog Dropper: Marcelle Rojas DCP- Discharge Planning Updated by [id number]: Jenae Arias on 10/04/18 3:[address] CM contacted [facility] regarding home O2, per patient's choice. Freight Rate Specialist states he will need a respiratory diagnosis documented before home O2 can be set up. [facility] called this morning and states they are the provider for HHS and will resume upon discharge. Patient's son, states patient has a walker at home. Viviana with [facility] verifies that they are the provider for HHS. Viviana #[phone]. Daryl Garcia [phone]. Jenae Arias RN DCPIA - Discharge Planning Initial Assessment Updated by [id number]: Marcelle Rojas on 10/06/18 4:50 pm * Is the patient Alert and Oriented? Yes * How many steps to enter\\exit or inside your home? 3/0 * PCP Dr. Duarte at [facility] [address] * Preadmission Environment Home with Family * ADLs Partial Dependent * Partial ADLs (Assistance needed) Ambulation Bathing Dressing Medication Management * Equipment Glucometer Shower Chair Walker * List name and contact numbers for known caregivers / representatives who currently or will assist patient after discharge: Anaid Alegre [phone] [place] Moyer daryl [phone] * Verbal permission to speak to the caregivers and representatives has been obtained from the patient. Yes * Community resources currently utilized Home Health * Please name any agencies selected above. [facility] * Additional services required to return to the preadmission environment? Yes * Can the patient safely return to the preadmission environment? Yes * Has this patient been hospitalized within the prior 30 days at any hospital? Yes Coverage Notice Reviewer: [id number] - Jenae Arias Notice Issued Date-Time: 10/04/2018 11:03 Notice Type: Patient Choice Letter Notice Delivered To: Patient Relationship to Patient: Self Freight Rate Specialist Name: Imer Bello Delivery Method: - Twila Days: Prior Verbal Notification: Recipient Understood Notice: Recipient Signature: Med Rec Note Co-signed by Attending: Coverage Notice Comment: Last DP export: 10/08/18 7:51 a Patient Name: IMER SANCHEZ Page [id number] at 1307 All edits/amendments must be made on the electronic document DICTATION DATE: 10/08/18 1307 INTERNAL AFFAIRS INVESTIGATOR: MADALYN 10/08/18 1307 RPT#: [id number] DC DATE: STATUS: ADM IN [address] [place] [address] END OF REPORT
[2018-10-08 13:56] VITALS: BP 135/45
[2018-10-08] MEDS ORDERED: ELIQUIS5 MG PO ×2 (14:18→14:19)
[2018-10-08] MEDS ORDERED: ALBUTEROL SULF8.5 GM INH (14:20)
--- NOTE | 2018-10-08 15:02 | MORECARE ---
CASE MANAGEMENT DISCHARGE SUMMARY PATIENT: IMER SANCHEZ UNIT: [id number] ADM DATE: 10/05/18 AGE: 58 : 64 SEX: F ROOM/BED: D.2229 AUTHOR: LASHAWN,DOC PHYSICIAN: REFERRING PHYSICIAN: TOY PANTOJA DO DATE OF SERVICE: 10/08/18 Discharge Plan Patient Name: IMER SANCHEZ Facility: [facility]:[place] : 1960 Planned Disposition: Home with Home Health Anticipated Discharge Date: Discharge Date: Expected LOS: Initial Reviewer: [email or web address] Initial Review Date: 10/06/2018 Generated: 10/08/18 4:02 pm Comments DCP- Discharge Planning Updated by [email or web address]: Marcelle Rojas on 10/08/18 12:[address] Called [facility], they are bringing portable oxygen out today. I spoke with the son, Jose. He states they will call them to have home oxygen set up today. He states his mother will have to go home via ambulance because she is unable to sit that long in a car because of the wound on her buttock. I informed him that I am unsure that her insurance will pay but we would ask EMS. He and his brother are both in agreement for her to go home. They refused skilled therapy and patient also refuses skilled and states will go home with home health. CM will continue to follow and assist with discharge planning/needs. DCP- Discharge Planning Updated by [id number]: Marcelle Rojas on 10/08/18 7:[address] Signed oxygen order faxed to [facility]. CM will continue to follow and assist with discharge planning/needs. DCP- Discharge Planning Updated by [email or web address]: Marcelle Rojas on 10/07/18 1:[address] Danny from [facility] states that she will not need repeat ABG's within 48 hours prior to discharge for her insurance. Home oxygen ordered and I gave order to Roland to have Dr. Benson sign. I notified RT to cancel ABG's. CM will continue to follow and assist with discharge planning/needs. DCP- Discharge Planning Updated by [email or web address]: Marcelle Rojas on 10/07/18 1:[address] Room air saturation is 90%, will need qualifying ABG's prior to discharge to qualify for home oxygen. CM will continue to follow and assist with discharge planning/needs. DCP- Discharge Planning Updated by [email or web address]: Marcelle Rojas on 10/07/18 10:[address] Order for oxygen faxed with progress note with diagnosis of acute respiratory failure. I spoke with Danny with [facility] about this. I have called RT for a room air sat to be repeated. CM will continue to follow and assist with discharge planning/needs. DCP- Discharge Planning Updated by [email or web address]: Marcelle Rojas on 10/06/18 4:[address] Patient Name: IMER SANCHEZ Admission Status: ER Accout number: [id number] Admission Date: 10-05-2018 : 1960 Admission Diagnosis: Attending: TOY PANTOJA Current LOS: 1 Anticipated DC Date: Planned Disposition: Home with Home Health Primary Insurance: [facility] PRIVATE OPTIONS [facility] Discharge Planning Comments: CM met with patient and her son, Paulino, is in the room. Patient and son state she will go home with [facility] on discharge. Son states she will not go back to the [facility]. I questioned them on choosing another SNF, both decline. He states they have [facility] with PT come in 5 days a week. He states that he is the son that "handles everything". States they will need oxygen set up at the home. I called Danny with [facility] and she does not have a qualifying diagnosis for oxygen. I spoke with TINA Watkins with Dr. Benson and she will review this with Dr. Benson. I called [facility] and spoke with Lisette, she states that they will resume HHS on discharge. States that she said that she felt the patient is living in poor living conditions. States that the patient is noncompliant with her blood sugar checks and is unsure of how to give herself insulin. I called her son ([place]) with her permission and [place] states that he feels it is safe for her to return to her home with his brother. States that they will have 24/7 care for her. He states his mother was ambulating prior to admission. He states "I think she may get depressed when she's in the hospital". Patient tells me she is not getting up due to pain. CM will continue to follow and assist with discharge planning/needs. I will need a qualifying diagnosis in order to get home oxygen for her. Her son, Anaid, states she will be unable to private pay for home oxygen. Deck Mate: Marcelle Rojas DCP- Discharge Planning Updated by [email or web address]: Jenae Arias on 10/04/18 3:[address] CM contacted [facility] regarding home O2, per patient's choice. Canoe Inspector states he will need a respiratory diagnosis documented before home O2 can be set up. [facility] called this morning and states they are the provider for HHS and will resume upon discharge. Patient's son, states patient has a walker at home. Viviana with [facility] verifies that they are the provider for HHS. Viviana #[phone]. Daryl Garcia [phone]. Jenae Arias RN DCPIA - Discharge Planning Initial Assessment Updated by [id number]: Marcelle Bob on 10/06/18 4:50 pm * Is the patient Alert and Oriented? Yes * How many steps to enter\\exit or inside your home? 3/0 * PCP Dr. Duarte at [facility] Pharm[facility] on [address] * Preadmission Environment Home with Family * ADLs Partial Dependent * Partial ADLs (Assistance needed) Ambulation Bathing Dressing Medication Management * Equipment Glucometer Shower Chair Walker * List name and contact numbers for known caregivers / representatives who currently or will assist patient after discharge: Anaid Alegre [phone] [place] daryl [phone] * Verbal permission to speak to the caregivers and representatives has been obtained from the patient. Yes * Community resources currently utilized Home Health * Please name any agencies selected above. [facility] * Additional services required to return to the preadmission environment? Yes * Can the patient safely return to the preadmission environment? Yes * Has this patient been hospitalized within the prior 30 days at any hospital? Yes External Providers External Provider: [facility] Next Contact Date: Service Request Date: Service Type: Resolution: Reviewer: Comments: Coverage Notice Reviewer: [id number] - Jenae Arias Notice Issued Date-Time: 10/04/2018 11:03 Notice Type: Patient Choice Letter Notice Delivered To: Patient Relationship to Patient: Self Canoe Inspector Name: Imer Bello Delivery Method: - Twila Days: Prior Verbal Notification: Recipient Understood Notice: Recipient Signature: Med Rec Note Co-signed by Attending: Coverage Notice Comment: Last DP export: 10/08/18 12:07 p Patient Name: IMER SANCHEZ Page [id number] at 1502 All edits/amendments must be made on the electronic document DICTATION DATE: 10/08/18 150 SHORE WORKING SUPERVISOR: MADALYN 10/08/18 1502 RPT#: [id number] DC DATE: STATUS: ADM IN [facility] [address] [place] [address] END OF REPORT
--- NOTE | 2018-10-08 15:25 | MORECARE ---
CASE MANAGEMENT DISCHARGE SUMMARY PATIENT: IMER SANCHEZ UNIT: [id number] ADM DATE: 10/05/18 AGE: 58 : 64 SEX: F ROOM/BED: D.2229 AUTHOR: LASHAWN,DOC PHYSICIAN: REFERRING PHYSICIAN: TOY PANTOJA DO DATE OF SERVICE: 10/08/18 Discharge Plan Patient Name: IMER SANCHEZ Facility: [facility]:[place] : 1960 Planned Disposition: Home with Home Health Anticipated Discharge Date: Discharge Date: Expected LOS: Initial Reviewer: [id number] Initial Review Date: 10/06/2018 Generated: 10/08/18 4:24 pm Comments DCP- Discharge Planning Updated by [email or web address]: Marcelle Rojas on 10/08/18 2:[address] I SPOKE WITH JAYCE AND MALCOM AT [facility] AT [phone]. MALCOM STATES THAT HE SPOKE WITH THE SON AND THEY HAVE LEFT NOW TO GET HER HOME OXYGEN SET UP. HER PORTABLE OXYGEN IS IN THE ROOM. I INFORMED THE PATIENT THAT SHE IS TO TAKE THAT HOME WITH HER. STATES THAT SHE WILL NEED TO GO VIA AMBULANCE BECAUSE SHE CAN NOT SIT UP THAT LONG ON HER WOUND ON HER BOTTOM. I SPOKE WITH HER SON, IVETTE, HE AGREES WITH AMBULANCE TRANSFER. I DID INFORM HIM THAT BECAUSE SHE IS NOT BEDRIDDEN THAT HER INSURANCE MAY NOT PAY FOR THE AMBULANCE. I SPOKE WITH SEBASTIÁN AT [facility] AND THEY WILL RESUME HOME HEALTH SERVICES. CLINICALS AND ORDERS CONCERNING DRESSING CHANGE FAXED TO [facility]. CM WILL CONTINUE TO FOLLOW AND ASSIST WITH DISCHARGE PLANNING/NEEDS. DCP- Discharge Planning Updated by [id number]: Marcelle Rojas on 10/08/18 12:[address] Called [facility], they are bringing portable oxygen out today. I spoke with the son, Jose. He states they will call them to have home oxygen set up today. He states his mother will have to go home via ambulance because she is unable to sit that long in a car because of the wound on her buttock. I informed him that I am unsure that her insurance will pay but we would ask EMS. He and his brother are both in agreement for her to go home. They refused skilled therapy and patient also refuses skilled and states will go home with home health. CM will continue to follow and assist with discharge planning/needs. DCP- Discharge Planning Updated by [email or web address]: Marcelle Rojas on 10/08/18 7:[address] Signed oxygen order faxed to [facility]. CM will continue to follow and assist with discharge planning/needs. DCP- Discharge Planning Updated by [id number]: Marcelle Rojas on 10/07/18 1:[address] Danny from [facility] states that she will not need repeat ABG's within 48 hours prior to discharge for her insurance. Home oxygen ordered and I gave order to Roland to have Dr. Benson sign. I notified RT to cancel ABG's. CM will continue to follow and assist with discharge planning/needs. DCP- Discharge Planning Updated by [email or web address]: Marcelle Rojas on 10/07/18 1:[address] Room air saturation is 90%, will need qualifying ABG's prior to discharge to qualify for home oxygen. CM will continue to follow and assist with discharge planning/needs. DCP- Discharge Planning Updated by [email or web address]: Marcelle Rojas on 10/07/18 10:[address] Order for oxygen faxed with progress note with diagnosis of acute respiratory failure. I spoke with Danny with [facility] about this. I have called RT for a room air sat to be repeated. CM will continue to follow and assist with discharge planning/needs. DCP- Discharge Planning Updated by [id number]: Marcelle Rojas on 10/06/18 4:[address] Patient Name: IMER SANCHEZ Admission Status: ER Accout number: [id number] Admission Date: 10-05-2018 : 1960 Admission Diagnosis: Attending: TOY PANTOJA Current LOS: 1 Anticipated DC Date: Planned Disposition: Home with Home Health Primary Insurance: [place] PRIVATE OPTIONS [facility] Discharge Planning Comments: CM met with patient and her son, Ivette, is in the room. Patient and son state she will go home with [facility] on discharge. Son states she will not go back to the [facility]. I questioned them on choosing another SNF, both decline. He states they have [facility] with PT come in 5 days a week. He states that he is the son that "handles everything". States they will need oxygen set up at the home. I called Danny with [facility] and she does not have a qualifying diagnosis for oxygen. I spoke with TINA Watkins with Dr. Benson and she will review this with Dr. Benson. I called [facility] and spoke with Sebastián, she states that they will resume HHS on discharge. States that she said that she felt the patient is living in poor living conditions. States that the patient is noncompliant with her blood sugar checks and is unsure of how to give herself insulin. I called her son ([place]) with her permission and [place] states that he feels it is safe for her to return to her home with his brother. States that they will have 18/03 care for her. He states his mother was ambulating prior to admission. He states "I think she may get depressed when she's in the hospital". Patient tells me she is not getting up due to pain. CM will continue to follow and assist with discharge planning/needs. I will need a qualifying diagnosis in order to get home oxygen for her. Her son, Anaid, states she will be unable to private pay for home oxygen. Health And Safety Manager: Marcelle Rojas DCP- Discharge Planning Updated by [email or web address]: Jenae Arias on 10/04/18 3:[address] CM contacted [facility] regarding home O2, per patient's choice. Molder Fitting states he will need a respiratory diagnosis documented before home O2 can be set up. [facility] called this morning and states they are the provider for HHS and will resume upon discharge. Patient's son, states patient has a walker at home. Viviana with [facility] verifies that they are the provider for [facility]. Viviana #[phone]. Son Jose [phone]. Jenae Arias RN, CM DCPIA - Discharge Planning Initial Assessment Updated by [email or web address]: Marcelle Rojas on 10/06/18 4:50 pm * Is the patient Alert and Oriented? Yes * How many steps to enter\\exit or inside your home? 3/0 * PCP Dr. Duarte at [facility] Pharm[facility] on [address] * Preadmission Environment Home with Family * ADLs Partial Dependent * Partial ADLs (Assistance needed) Ambulation Bathing Dressing Medication Management * Equipment Glucometer Shower Chair Walker * List name and contact numbers for known caregivers / representatives who currently or will assist patient after discharge: Anaid hammer - [phone] [place] Alegre [phone] * Verbal permission to speak to the caregivers and representatives has been obtained from the patient. Yes * Community resources currently utilized Home Health * Please name any agencies selected above. [facility] * Additional services required to return to the preadmission environment? Yes * Can the patient safely return to the preadmission environment? Yes * Has this patient been hospitalized within the prior 30 days at any hospital? Yes Coverage Notice Reviewer: [email or web address] Codey Arias Notice Issued Date-Time: 10/04/2018 11:03 Notice Type: Patient Choice Letter Notice Delivered To: Patient Relationship to Patient: Self Molder Fitting Name: Imer Bello Delivery Method: - Twila Days: Prior Verbal Notification: Recipient Understood Notice: Recipient Signature: Med Rec Note Co-signed by Attending: Coverage Notice Comment: Last DP export: 10/08/18 2:02 p Patient Name: IMER SANCHEZ Page [id number] at 1525 All edits/amendments must be made on the electronic document DICTATION DATE: 10/08/181523 HEALTH EQUIPMENT SERVICER: MADALYN 10/08/181523 RPT#: [id number] DC DATE: STATUS: ADM IN [facility] [address] [place] [address] END OF REPORT
--- NOTE | 2018-10-08 15:35 | MORECARE ---
CASE MANAGEMENT DISCHARGE SUMMARY PATIENT: IMER SANCHEZ UNIT: [id number] ADM DATE: 10/05/18 AGE: 58 : 64 SEX: F ROOM/BED: D.2229 AUTHOR: LASHAWN,DOC PHYSICIAN: REFERRING PHYSICIAN: TOY PANTOJA DO DATE OF SERVICE: 10/08/18 Discharge Plan Patient Name: IMER SANCHEZ Facility: [facility]:[place] : 1960 Planned Disposition: Home with Home Health Anticipated Discharge Date: Discharge Date: Expected LOS: Initial Reviewer: [email or web address] Initial Review Date: 10/06/2018 Generated: 10/08/18 4:34 pm Comments DCP- Discharge Planning Updated by [email or web address]: Marcelle Rojas on 10/08/18 2:[address] I spoke with son, Ivette, he gets off at 7PM. He is going to let the nurse know when he gets off to call for the ambulance home. online content coordinator and nurse notified. Ivette asks me to call his brother to hot die picker her medications at the pharmacy. I spoke with [place], he states he will pick the medicine up for her tonight. He states he is currently at her home with [facility] Patient having the oxygen placed. CM will continue to follow and assist with discharge planning/needs. DCP- Discharge Planning Updated by [email or web address]: Marcelle Rojas on 10/08/18 2:[address] I SPOKE WITH JAYCE AND MALCOM AT [facility] PATIENT AT [phone]. MALCOM STATES THAT HE SPOKE WITH THE SON AND THEY HAVE LEFT NOW TO GET HER HOME OXYGEN SET UP. HER PORTABLE OXYGEN IS IN THE ROOM. I INFORMED THE PATIENT THAT SHE IS TO TAKE THAT HOME WITH HER. STATES THAT SHE WILL NEED TO GO VIA AMBULANCE BECAUSE SHE CAN NOT SIT UP THAT LONG ON HER WOUND ON HER BOTTOM. I SPOKE WITH HER SON, IVETTE, HE AGREES WITH AMBULANCE TRANSFER. I DID INFORM HIM THAT BECAUSE SHE IS NOT BEDRIDDEN THAT HER INSURANCE MAY NOT PAY FOR THE AMBULANCE. I [facility]PO[facility] WITH [facility]N AT [facility] AND THEY WILL RESUME HOME HEALTH SERVICES. CLINICALS AND ORDERS CONCERNING DRESSING CHANGE FAXED TO [facility]. CM WILL CONTINUE TO FOLLOW AND ASSIST WITH DISCHARGE PLANNING/NEEDS. DCP- Discharge Planning Updated by [id number]: Marcelle Weberpiter on 10/08/18 12:[address] Called [facility], they are bringing portable oxygen out today. I spoke with the son, Jose. He states they will call them to have home oxygen set up today. He states his mother will have to go home via ambulance because she is unable to sit that long in a car because of the wound on her buttock. I informed him that I am unsure that her insurance will pay but we would ask EMS. He and his brother are both in agreement for her to go home. They refused skilled therapy and patient also refuses skilled and states will go home with home health. CM will continue to follow and assist with discharge planning/needs. DCP- Discharge Planning Updated by [email or web address]: Marcelle Weberpiter on 10/08/18 7:[address] Signed oxygen order faxed to [facility]. CM will continue to follow and assist with discharge planning/needs. DCP- Discharge Planning Updated by [email or web address]: Marcelle Bob on 10/07/18 1:[address] Danny from [facility] states that she will not need repeat ABG's within 48 hours prior to discharge for her insurance. Home oxygen ordered and I gave order to Roland to have Dr. Benson sign. I notified RT to cancel ABG's. CM will continue to follow and assist with discharge planning/needs. DCP- Discharge Planning Updated by [id number]: Marcelle Bob on 10/07/18 1:[address] Room air saturation is 90%, will need qualifying ABG's prior to discharge to qualify for home oxygen. CM will continue to follow and assist with discharge planning/needs. DCP- Discharge Planning Updated by [email or web address]: Marcelle Bob on 10/07/18 10:[address] Order for oxygen faxed with progress note with diagnosis of acute respiratory failure. I spoke with Danny with [facility] about this. I have called RT for a room air sat to be repeated. CM will continue to follow and assist with discharge planning/needs. DCP- Discharge Planning Updated by [id number]: Marcelle Bob on 10/06/18 4:[address] Patient Name: IMER SANCHEZ Admission Status: ER Accout number: [id number] Admission Date: 10-05-2018 : 1960 Admission Diagnosis: Attending: TOY PANTOJA Current LOS: 1 Anticipated DC Date: Planned Disposition: Home with Home Health Primary Insurance: [facility] PRIVATE OPTIONS [facility] Discharge Planning Comments: CM met with patient and her son, Ivette, is in the room. Patient and son state she will go home with [facility] on discharge. Son states she will not go back to the [facility]. I questioned them on choosing another SNF, both decline. He states they have [facility] with PT come in 5 days a week. He states that he is the son that "handles everything". States they will need oxygen set up at the home. I called Danny with [facility] and she does not have a qualifying diagnosis for oxygen. I spoke with TINA Watkins with Dr. Benson and she will review this with Dr. Benson. I called [facility] and spoke with Sebastián, she states that they will resume HHS on discharge. States that she said that she felt the patient is living in poor living conditions. States that the patient is noncompliant with her blood sugar checks and is unsure of how to give herself insulin. I called her son (Montana) with her permission and [place] states that he feels it is safe for her to return to her home with his brother. States that they will have 24/7 care for her. He states his mother was ambulating prior to admission. He states "I think she may get depressed when she's in the hospital". Patient tells me she is not getting up due to pain. CM will continue to follow and assist with discharge planning/needs. I will need a qualifying diagnosis in order to get home oxygen for her. Her son, Anaid, states she will be unable to private pay for home oxygen. Overlock Elastic Attacher: Marcelle Rojas DC- Discharge Planning Updated by [id number]: Jenae Arias on 10/04/18 3:[address] CM contacted [facility] regarding home O2, per patient's choice. Direct Casting Operator states he will need a respiratory diagnosis documented before home O2 can be set up. [facility] called this morning and states they are the provider for HHS and will resume upon discharge. Patient's son, states patient has a walker at home. Viviana with [facility] verifies that they are the provider for HHS. Viviana #[phone]. Daryl Garcia [phone]. Jenae Arias RN CM DCPIA - Discharge Planning Initial Assessment Updated by [id number]: Marcelle Rojas on 10/06/18 4:50 pm * Is the patient Alert and Oriented? Yes * How many steps to enter\\exit or inside your home? 3/0 * PCP Dr. Duarte at [facility] Pharmacy [facility] [address] * Preadmission Environment Home with Family * ADLs Partial Dependent * Partial ADLs (Assistance needed) Ambulation Bathing Dressing Medication Management * Equipment Glucometer Shower Chair Walker * List name and contact numbers for known caregivers / representatives who currently or will assist patient after discharge: Anaid Alegre [phone] [place] daryl - [phone] * Verbal permission to speak to the caregivers and representatives has been obtained from the patient. Yes * Community resources currently utilized Home Health * Please name any agencies selected above. [facility] * Additional services required to return to the preadmission environment? Yes * Can the patient safely return to the preadmission environment? Yes * Has this patient been hospitalized within the prior 30 days at any hospital? Yes Coverage Notice Reviewer: [id number] - Jenae Arias Notice Issued Date-Time: 10/04/2018 11:03 Notice Type: Patient Choice Letter Notice Delivered To: Patient Relationship to Patient: Self Direct Casting Operator Name: Imer Bello Delivery Method: - Twila Days: Prior Verbal Notification: Recipient Understood Notice: Recipient Signature: Med Rec Note Co-signed by Attending: Coverage Notice Comment: Last DP export: 10/08/18 2:24 p Patient Name: IMER SANCHEZ Page [id number] at 1535 All edits/amendments must be made on the electronic document DICTATION DATE: 10/08/181533 SHELLFISH SHUCKER: MADALYN 10/08/181533 RPT#: [id number] DC DATE: STATUS: ADM IN [facility] [address] [place] [address] END OF REPORT
[2018-10-08 17:12] VITALS: BP 121/51
--- NOTE | 2018-10-08 20:14 | NUR ---
LATE ENTRY TO 1930. EMS PICKED UP PT. DC INSTRUCTIONS BELONGINGS, PACKET SENT HOME WITH SONS. NO S/S OF ACUTE DISTRESS.
--- NOTE | 2018-10-10 16:54 | MORECARE ---
CASE MANAGEMENT DISCHARGE SUMMARY PATIENT: IMER SANCHEZ UNIT: [id number] ADM DATE: 10/05/18 AGE: 58 : 64 SEX: F ROOM/BED: D.2229 AUTHOR: LASHAWN,DOC PHYSICIAN: REFERRING PHYSICIAN: TOY PANTOJA DO DATE OF SERVICE: 10/10/18 Discharge Plan Patient Name: IMER SANCHEZ Facility: [facility]:[place] : 1960 Planned Disposition: Home with Home Health Anticipated Discharge Date: Discharge Date: 10/08/2018 Expected LOS: 0 Initial Reviewer: [email or web address] Initial Review Date: 10/06/2018 Generated: 10/10/18 5:53 pm Comments DCP- Discharge Planning Updated by [id number]: Marcelle Rojas on 10/08/18 2:[address] I spoke with son, Ivette, he gets off at 7PM. He is going to let the nurse know when he gets off to call for the ambulance home. hardware installation coordinator and nurse notified. Ivette asks me to call his brother to tile picker her medications at the pharmacy. I spoke with [place], he states he will pick the medicine up for her tonight. He states he is currently at her home with [facility] Patient having the oxygen placed. CM will continue to follow and assist with discharge planning/needs. DCP- Discharge Planning Updated by [id number]: Marcelle Bob on 10/08/18 2:[address] I SPOKE WITH JAYCE AND MALCOM AT [facility] PATIENT AT [phone]. MALCOM STATES THAT HE SPOKE WITH THE SON AND THEY HAVE LEFT NOW TO GET HER HOME OXYGEN SET UP. HER PORTABLE OXYGEN IS IN THE ROOM. I INFORMED THE PATIENT THAT SHE IS TO TAKE THAT HOME WITH HER. STATES THAT SHE WILL NEED TO GO VIA AMBULANCE BECAUSE SHE CAN NOT SIT UP THAT LONG ON HER WOUND ON HER BOTTOM. I SPOKE WITH HER SON, IVETTE, HE AGREES WITH AMBULANCE TRANSFER. I DID INFORM HIM THAT BECAUSE SHE IS NOT BEDRIDDEN THAT HER INSURANCE MAY NOT PAY FOR THE AMBULANCE. I SPOKE WITH SEBASTIÁN AT [facility] AND THEY WILL RESUME HOME HEALTH SERVICES. CLINICALS AND ORDERS CONCERNING DRESSING CHANGE FAXED TO [facility]. CM WILL CONTINUE TO FOLLOW AND ASSIST WITH DISCHARGE PLANNING/NEEDS. DCP- Discharge Planning Updated by [email or web address]: Marcelle Weberpiter on 10/08/18 12:[address] Called [facility], they are bringing portable oxygen out today. I spoke with the son, Jose. He states they will call them to have home oxygen set up today. He states his mother will have to go home via ambulance because she is unable to sit that long in a car because of the wound on her buttock. I informed him that I am unsure that her insurance will pay but we would ask EMS. He and his brother are both in agreement for her to go home. They refused skilled therapy and patient also refuses skilled and states will go home with home health. CM will continue to follow and assist with discharge planning/needs. DCP- Discharge Planning Updated by [id number]: Marcelle Weberpiter on 10/08/18 7:[address] Signed oxygen order faxed to [facility]. CM will continue to follow and assist with discharge planning/needs. DCP- Discharge Planning Updated by [id number]: Marcelle Bob on 10/07/18 1:[address] Danny from [facility] states that she will not need repeat ABG's within 48 hours prior to discharge for her insurance. Home oxygen ordered and I gave order to Roland to have Dr. Benson sign. I notified RT to cancel ABG's. CM will continue to follow and assist with discharge planning/needs. DCP- Discharge Planning Updated by [id number]: Marcelle Bob on 10/07/18 1:[address] Room air saturation is 90%, will need qualifying ABG's prior to discharge to qualify for home oxygen. CM will continue to follow and assist with discharge planning/needs. DCP- Discharge Planning Updated by [id number]: Marcelle Rojas on 10/07/18 10:[address] Order for oxygen faxed with progress note with diagnosis of acute respiratory failure. I spoke with Danny with [facility] about this. I have called RT for a room air sat to be repeated. CM will continue to follow and assist with discharge planning/needs. DCP- Discharge Planning Updated by [id number]: Marcelle Bob on 10/06/18 4:[address] Patient Name: IMER SANCHEZ Admission Status: ER Accout number: [id number] Admission Date: 10-05-2018 : 1960 Admission Diagnosis: Attending: TOY PANTOJA Current LOS: 1 Anticipated DC Date: Planned Disposition: Home with Home Health Primary Insurance: [place] PRIVATE OPTIONS [facility] Discharge Planning Comments: CM met with patient and her son, Ivette, is in the room. Patient and son state she will go home with [facility] on discharge. Son states she will not go back to the [facility]. I questioned them on choosing another SNF, both decline. He states they have [facility] with PT come in 5 days a week. He states that he is the son that "handles everything". States they will need oxygen set up at the home. I called Danny with [facility] and she does not have a qualifying diagnosis for oxygen. I spoke with TINA Watkins with Dr. Benson and she will review this with Dr. Benson. I called [facility] and spoke with Sebastián, she states that they will resume HHS on discharge. States that she said that she felt the patient is living in poor living conditions. States that the patient is noncompliant with her blood sugar checks and is unsure of how to give herself insulin. I called her son (Montana) with her permission and [place] states that he feels it is safe for her to return to her home with his brother. States that they will have 24/7 care for her. He states his mother was ambulating prior to admission. He states "I think she may get depressed when she's in the hospital". Patient tells me she is not getting up due to pain. CM will continue to follow and assist with discharge planning/needs. I will need a qualifying diagnosis in order to get home oxygen for her. Her son, Anaid, states she will be unable to private pay for home oxygen. Multiple Resaw Operator: Marcelle Rojas DC- Discharge Planning Updated by [email or web address]: Jenae Arias on 10/04/18 3:[address] CM contacted [facility] regarding home O2, per patient's choice. Cashier Receptionist states he will need a respiratory diagnosis documented before home O2 can be set up. [facility] called this morning and states they are the provider for HHS and will resume upon discharge. Patient's son, states patient has a walker at home. Viviana with [facility] verifies that they are the provider for HHS. Viviana #[phone]. Son Jose [phone]. Jenae Arias RN CM DCPIA - Discharge Planning Initial Assessment Updated by [id number]: Marcelle Rojas on 10/06/18 4:50 pm * Is the patient Alert and Oriented? Yes * How many steps to enter\\exit or inside your home? 3/0 * PCP Dr. Duarte at [facility] * Pharmacy [facility] on [address] * Preadmission Environment Home with Family * ADLs Partial Dependent * Partial ADLs (Assistance needed) Ambulation Bathing Dressing Medication Management * Equipment Glucometer Shower Chair Walker * List name and contact numbers for known caregivers / representatives who currently or will assist patient after discharge: Anaid Alegre [phone] [place] hammer [phone] * Verbal permission to speak to the caregivers and representatives has been obtained from the patient. Yes * Community resources currently utilized Home Health * Please name any agencies selected above. [facility] * Additional services required to return to the preadmission environment? Yes * Can the patient safely return to the preadmission environment? Yes * Has this patient been hospitalized within the prior 30 days at any hospital? Yes Coverage Notice Reviewer: [id number] - Jenae Arias Notice Issued Date-Time: 10/04/2018 11:03 Notice Type: Patient Choice Letter Notice Delivered To: Patient Relationship to Patient: Self Cashier Receptionist Name: Imer Bello Delivery Method: - Twila Days: Prior Verbal Notification: Recipient Understood Notice: Recipient Signature: Med Rec Note Co-signed by Attending: Coverage Notice Comment: Last DP export: 10/08/18 2:34 p Patient Name: IMER SANCHEZ Page [id number] at 1654 All edits/amendments must be made on the electronic document DICTATION DATE: 10/10/181652 SALES REPRESENTATIVE GAS SERVICE: MADALYN 10/10/181652 RPT#: [id number] DC DATE:10/08/18 STATUS: DIS IN [facility] [address] [place] [address] END OF REPORT
== END 2018-10-08 19:30 | disposition home health service (06) | DRG 189 ==
LOC: D.ER 18:32 → OBSVTIME 23:41 → D.EDHOLD 23:41 → D.MS 23:48
PROVIDERS: Family Medicine; ADMIT Family Medicine
DX: J96.01 Acute respiratory failure with hypoxia (principal); L03.317 Cellulitis of buttock; F17.213 Nicotine dependence, cigarettes, with withdrawal; E87.1 Hypo-osmolality and hyponatremia; R09.02 Hypoxemia; E11.9 Type 2 diabetes mellitus without complications; I10 Essential (primary) hypertension

== ENCOUNTER 2018-10-10 12:45 | Inpatient (IN) | payer MEDICAID ==
[~2018-10-10] VITALS: Ht 154.9 cm; Wt 67.1 kg
[~2018-10-10 12:45] MED LIST changes: +ALBUTEROL SULF8.5 GM INH; +ANTIVERT12.5 MG PO; +ELIQUIS5 MG PO; +ZOFRAN8 MG PO
[2018-10-10 14:10] LABS: BASOPHILS 0.3 % (0-2); EOSINOPHILS 1.8 % (0-7); HEMATOCRIT 28.3 % (36.0-48.0); HEMOGLOBIN 9.1 g/dL (12-16); IMMATURE GRANULOCYTES 0.3 % (0-5); LYMPHOCYTES 16.7 % (15-50); MCH 28.2 pg (26.0-34.0); MCHC 32.2 g/dL (31.0-37.0); MCV 87.6 fL (80.0-100.0); MEAN PLATELET VOLUME 9.3 fL (7.4-10.4); MONOCYTES 3.9 % (2-11); PLATELET COUNT 466 10x3/uL (130-400); RBC 3.23 10x6/uL (4.00-5.40); RDW 15.1 % (11.5-14.5); WBC 10.4 10x3/uL (4.8-10.8)
[2018-10-10 14:29] LABS: APTT 32.8 SECONDS (22.8-39.4); INR 1.35 (0.85-1.17); PROTIME 16.1 SECONDS (11.6-15.0)
[2018-10-10 14:30] LABS: ALBUMIN 2.2 g/dL (3.4-5.0); ALKALINE PHOSPHATASE 120 U/L (46-116); ALT (SGPT) 20 U/L (10-68); BILIRUBIN - TOTAL 0.11 mg/dL (0.2-1.3); CALC OSMOLALITY 276 mosm/kg (275-300); CALCIUM 8.6 mg/dL (8.5-10.1); CARBON DIOXIDE 28.1 mmol/L (21.0-32.0); CHLORIDE - SERUM 95 mmol/L (98-107); CREATININE - SERUM 0.8 mg/dL (0.6-1.3); POTASSIUM - SERUM 3.9 mmol/L (3.5-5.1); PROTEIN - SERUM 7.2 g/dL (6.4-8.2); SODIUM 128 mmol/L (136-145); UREA NITROGEN 17 mg/dL (7-18); eGFR NON AFRICAN AMERICAN 78 mL/min (90-120)
[2018-10-10 14:33] LABS: GLUCOSE 427 mg/dL (74-106)
[2018-10-10 17:44] VITALS: BP 117/49
[2018-10-10 19:47] VITALS: BP 118/48
[2018-10-11] VITALS: BP 153/63
--- NOTE | 2018-10-11 03:18 | NUR ---
ASSESSED AT THE BEGINNING OF THE SHIFT.FAMILY WAS AT THE BEDSIDE AND SHE WAS GIVEN A TRAY FOR DINNER. FOR THE REST OF THE SHIFTEARLIER SHIFT SHE SLEPT BUT WHEN SHE WOKE UP SHE WAS WET WITH URINE AND HER COMPLETE BED HAD TO BE CHANGED WITH DRESSINGS INCLUDED. SHE WAS REMINDED TO CALL US IF SHE NEEDED TO USE THE BATHROOM SO WE COULD ASSIST HER WITH THE BEDPAN.
[2018-10-11 04:00] VITALS: BP 138/55
[2018-10-11 07:21] LABS: BASOPHILS 0.4 % (0-2); EOSINOPHILS 2.2 % (0-7); HEMATOCRIT 28.5 % (36.0-48.0); HEMOGLOBIN 9.1 g/dL (12-16); IMMATURE GRANULOCYTES 0.4 % (0-5); LYMPHOCYTES 24.2 % (15-50); MCH 27.9 pg (26.0-34.0); MCHC 31.9 g/dL (31.0-37.0); MCV 87.4 fL (80.0-100.0); MEAN PLATELET VOLUME 9.4 fL (7.4-10.4); NEUTROPHILS 67.8 % (40-80); PLATELET COUNT 435 10x3/uL (130-400); RBC 3.26 10x6/uL (4.00-5.40); RDW 15.6 % (11.5-14.5); WBC 10.3 10x3/uL (4.8-10.8)
[2018-10-11 07:32] LABS: CALC OSMOLALITY 285 mosm/kg (275-300); CALCIUM 8.6 mg/dL (8.5-10.1); CARBON DIOXIDE 25.6 mmol/L (21.0-32.0); CHLORIDE - SERUM 102 mmol/L (98-107); CREATININE - SERUM 0.6 mg/dL (0.6-1.3); SODIUM 139 mmol/L (136-145); UREA NITROGEN 15 mg/dL (7-18); eGFR NON AFRICAN AMERICAN > 90 mL/min (90-120)
[2018-10-11 07:34] LABS: GLUCOSE 225 mg/dL (74-106)
--- NOTE | 2018-10-11 08:23 | NUR ---
PT ALERT X 4. BREATH SOUNDS CLEAR BILAT, 4L O2 PER NC. IV TO LEFT FOREARM, PATENT, DRESSING CLEAN DRY AND INTACT. 2 DRESSINGS TO LEFT BUTTOCKS CHANGED. BED LINENS CHANGED. PT REPORTING NO PAIN THIS MORNING. BED LOW, CALL LIGHT IN REACH. NO OTHER NEEDS AT THIS TIME TIME.
[2018-10-11 08:50] LABS: ALBUMIN 2.1 g/dL (3.4-5.0); ALKALINE PHOSPHATASE 103 U/L (46-116); ALT (SGPT) 18 U/L (10-68); BILIRUBIN - TOTAL 0.26 mg/dL (0.2-1.3); CALC OSMOLALITY 285 mosm/kg (275-300); CALCIUM 8.6 mg/dL (8.5-10.1); CARBON DIOXIDE 25.9 mmol/L (21.0-32.0); CHLORIDE - SERUM 101 mmol/L (98-107); CREATININE - SERUM 0.7 mg/dL (0.6-1.3); GLUCOSE 229 mg/dL (74-106); POTASSIUM - SERUM 4.1 mmol/L (3.5-5.1); SODIUM 139 mmol/L (136-145); UREA NITROGEN 15 mg/dL (7-18); eGFR NON AFRICAN AMERICAN > 90 mL/min (90-120)
[2018-10-11 09:15] VITALS: BP 148/89
[2018-10-11 11:29] LABS: % SATURATION 11 % (15-55); IRON 35 ug/dl (35-150); TOTAL IRON BIND CAPACITY 297 ug/dl (260-445); UNSAT IRON BIND CAPACITY 262 ug/dl (150-375)
[2018-10-11 14:10] VITALS: BP 135/54
[2018-10-11 14:37] VITALS: Ht 154.9 cm; Wt 67.1 kg
[2018-10-11 17:44] VITALS: BP 120/54
--- NOTE | 2018-10-11 19:15 | NUR ---
RECEIVED CARE FROM DAY NURSE. TAKEN OFF BEDPAN AND CLEANED. MEDIUM SOFT BM. SPOKE WITH PT ABOUT NEED FOR RIBEIRO DUE TO WOUNDS TO BUTTOCK. PT REPORTS HER DR SAID RIBEIRO CAUSE INFECTIONS AND CANCELED THE ORDER. PT VERBILIED UNDERSTANDING THAT SOILED WOUNDS COULD BECOME WORSE. NO OTHER NEEDS VOICED AT THIS TIME. PT BED WAS ALSO WET AND CLEANED. IV TO LEFT FA PATENT AND INFUSING NS AT KVO.
[2018-10-11 20:00] VITALS: BP 140/61
[2018-10-12] VITALS: BP 138/60
--- NOTE | 2018-10-12 01:08 | NUR ---
DRESSING CHANGE TO LEFT BUTTOCK DUE TO SOILED WITH URINE AND BLOODY.
[2018-10-12 04:00] VITALS: BP 139/62
[2018-10-12 05:16] LABS: BASOPHILS 0.6 % (0-2); EOSINOPHILS 3.3 % (0-7); HEMATOCRIT 28.5 % (36.0-48.0); HEMOGLOBIN 8.9 g/dL (12-16); IMMATURE GRANULOCYTES 0.4 % (0-5); MCH 27.3 pg (26.0-34.0); MCHC 31.2 g/dL (31.0-37.0); MCV 87.4 fL (80.0-100.0); MEAN PLATELET VOLUME 9.1 fL (7.4-10.4); MONOCYTES 6.2 % (2-11); NEUTROPHILS 59.5 % (40-80); PLATELET COUNT 433 10x3/uL (130-400); RBC 3.26 10x6/uL (4.00-5.40); RDW 15.4 % (11.5-14.5); WBC 7.9 10x3/uL (4.8-10.8)
[2018-10-12 05:32] LABS: CALC OSMOLALITY 283 mosm/kg (275-300); CALCIUM 8.3 mg/dL (8.5-10.1); CARBON DIOXIDE 27.6 mmol/L (21.0-32.0); CHLORIDE - SERUM 104 mmol/L (98-107); CREATININE - SERUM 0.6 mg/dL (0.6-1.3); SODIUM 141 mmol/L (136-145); UREA NITROGEN 13 mg/dL (7-18); VANCOMYCIN - TROUGH 13.6 ug/mL (10.0-20.0); eGFR NON AFRICAN AMERICAN > 90 mL/min (90-120)
[2018-10-12 05:34] LABS: GLUCOSE 144 mg/dL (74-106)
--- NOTE | 2018-10-12 07:44 | NUR ---
PT ALERT X 4. BREATH SOUNDS CLEAR BILAT, 4L O2 PER NC. IV TO LEFT FOREARM, PATENT, DRESSING CLEAN DRY AND INTACT. 2 ABSCESSES TO LEFT BUTTOCKS, DRESSING CLEAN DRY AND INTACT. PT REPORTING NO PAIN AT THIS TIME. BED LOW, CALL LIGHT IN REACH, NO OTHERNER NEEDS AT THIS TIME.
[2018-10-12 08:42] VITALS: BP 153/63
[2018-10-12 13:36] VITALS: BP 147/66
[2018-10-12 17:42] VITALS: BP 142/58
[2018-10-12 21:20] VITALS: BP 152/64
[2018-10-13 02:06] VITALS: BP 137/65
--- NOTE | 2018-10-13 03:50 | NUR ---
RESTING QUITELY IN BED NO APPARENT DISTRESS CALL LIGHT IN REACH
[2018-10-13 04:03] LABS: BASOPHILS 0.6 % (0-2); EOSINOPHILS 2.7 % (0-7); HEMOGLOBIN 9.2 g/dL (12-16); IMMATURE GRANULOCYTES 0.2 % (0-5); LYMPHOCYTES 28.4 % (15-50); MCH 27.6 pg (26.0-34.0); MCHC 31.7 g/dL (31.0-37.0); MCV 87.1 fL (80.0-100.0); MEAN PLATELET VOLUME 9.2 fL (7.4-10.4); MONOCYTES 5.5 % (2-11); NEUTROPHILS 62.6 % (40-80); PLATELET COUNT 440 10x3/uL (130-400); RBC 3.33 10x6/uL (4.00-5.40); RDW 15.5 % (11.5-14.5); WBC 8.8 10x3/uL (4.8-10.8)
[2018-10-13 04:15] LABS: CALC OSMOLALITY 284 mosm/kg (275-300); CALCIUM 8.7 mg/dL (8.5-10.1); CARBON DIOXIDE 28.4 mmol/L (21.0-32.0); CHLORIDE - SERUM 102 mmol/L (98-107); CREATININE - SERUM 0.7 mg/dL (0.6-1.3); GLUCOSE 162 mg/dL (74-106); POTASSIUM - SERUM 3.9 mmol/L (3.5-5.1); SODIUM 141 mmol/L (136-145); UREA NITROGEN 13 mg/dL (7-18); eGFR NON AFRICAN AMERICAN > 90 mL/min (90-120)
[2018-10-13 06:00] VITALS: BP 157/70
--- NOTE | 2018-10-13 07:46 | NUR ---
AWAKE AND ALERT. ORIENTED X3. NO C/O AT THIS TIME. LUNGS ARE CLEAR BILATERALLY, NO COUGH NOTED. SKIN IS INTACT WITHOUT REDNESS EXCEPT WOUNDS TO LEFT BUTTOCK WHICH HAVE A DRY INTACT DRESSING IN PLACE. IV TO LEFT FOREARM IS PATENT WITHOUT REDNESS AT INSERTION SITE. DENIES NEEDS.
[2018-10-13 08:45] VITALS: BP 143/64
--- NOTE | 2018-10-13 10:00 | NUR ---
TOOK ALL OF AM MEDS WITHOUT DIFFICULTY BUT REFUSED MIRALAX AND NICOTINE PATCH. DENIES NEEDS.
--- NOTE | 2018-10-13 10:38 | NUR ---
NUTRITION F/U PT TOLERATING ADA DIET WITH 100% INTAKE BREAKFAST. WILL CONTINUE TO PROVIDE DIET, MONITOR PO INTAKE. RD FOLLOWING
[2018-10-13 13:28] VITALS: BP 127/48
[2018-10-13 16:00] VITALS: BP 153/76
--- NOTE | 2018-10-13 18:00 | NUR ---
DRESSING CHANGED PER ORDERS TO LEFT BUTTOCK. CULTURE SENT TO LAB. PATIENT TOLERATED WELL. WOUND IS CLEAN WITH NO ODOR.
[2018-10-13 18:44] LABS: APPEARANCE CLEAR (CLEAR); BILIRUBIN NEGATIVE (NEGATIVE); COLOR YELLOW (YELLOW); GLUCOSE NEGATIVE (NEGATIVE); KETONE NEGATIVE (NEGATIVE); NITRITE NEGATIVE (NEGATIVE); PROTEIN 1+ mg/dL (NEGATIVE); UROBILINOGEN NORMAL (NORMAL)
[2018-10-13 18:48] LABS: BACTERIA FEW /hpf (NONE SEEN); EPITHELIAL CELLS 0-5 /hpf (0-5); RED CELLS - URINE 0-5 /hpf (0-5); WHITE CELLS - URINE 0-5 /hpf (0-5); YEAST >1+ WITH HYPHAE /hpf (NONE SEEN)
--- NOTE | 2018-10-13 19:26 | NUR ---
RESTING QUIETLY IN BED. NO CHANGES NOTED.
--- NOTE | 2018-10-13 20:00 | NUR ---
LYING AWAKE,ALERT.NO COMPLAITNS VOICED. IV INFUSING TO LFA WITHOUT REDNESS OR EDEMA NOTED. DRSG INTACT TO RIGHT BUTTOCKS WITHOUT DRAINAGE NOTED.INCONTINENT OF B/B WITH LINES CHANGED AND ADINA CARE GIVEN. CL IN REACH
[2018-10-13 21:24] VITALS: BP 142/62
--- NOTE | 2018-10-14 01:33 | NUR ---
EYES CLOSED RESPIRATIONS WITH EASE AND UNLABORED. SR UP X2 CALL LIGHT WITHIN REACH.
[2018-10-14 01:38] VITALS: BP 134/60
--- NOTE | 2018-10-14 07:53 | NUR ---
PT AAOX4 RESP EVEN AND NONLABORED, NO SIGNS OF DISTRESS NOTED, WANTING A BLANKET BROUGHT TO PT AT THIS TIME, CL IN REACH
[2018-10-14 08:33] LABS: BASOPHILS 0.3 % (0-2); EOSINOPHILS 3.2 % (0-7); HEMATOCRIT 29.2 % (36.0-48.0); HEMOGLOBIN 9.3 g/dL (12-16); IMMATURE GRANULOCYTES 0.2 % (0-5); LYMPHOCYTES 28.8 % (15-50); MCH 27.9 pg (26.0-34.0); MCHC 31.8 g/dL (31.0-37.0); MCV 87.7 fL (80.0-100.0); MONOCYTES 5.9 % (2-11); NEUTROPHILS 61.6 % (40-80); PLATELET COUNT 428 10x3/uL (130-400); RBC 3.33 10x6/uL (4.00-5.40); RDW 15.5 % (11.5-14.5); WBC 9.6 10x3/uL (4.8-10.8)
[2018-10-14 08:36] LABS: CALC OSMOLALITY 282 mosm/kg (275-300); CALCIUM 8.4 mg/dL (8.5-10.1); CARBON DIOXIDE 27.1 mmol/L (21.0-32.0); CHLORIDE - SERUM 104 mmol/L (98-107); CREATININE - SERUM 0.6 mg/dL (0.6-1.3); GLUCOSE 139 mg/dL (74-106); POTASSIUM - SERUM 3.8 mmol/L (3.5-5.1); SODIUM 140 mmol/L (136-145); eGFR NON AFRICAN AMERICAN > 90 mL/min (90-120)
[2018-10-14 08:38] LABS: UREA NITROGEN 17 mg/dL (7-18)
[2018-10-14 08:51] VITALS: BP 133/56
--- NOTE | 2018-10-14 10:13 | NUR ---
Rehab Note- Acute Inpatient Rehab prescreen order received. The patient has [employer] Private Options insurance and cannot be admitted to [facility] Acute Inpatient Rehab. Thank you for this referral! Roseanne Doherty RN Clinical Liaison, [facility] Rehab
[2018-10-14 10:20] LABS: FOLATE (FOLIC ACID) - SERUM 7.7 ng/mL (>3.0)
[2018-10-14 13:39] VITALS: BP 149/68
[2018-10-14 15:45] VITALS: BP 151/65
--- NOTE | 2018-10-14 16:18 | MORECARE ---
CASE MANAGEMENT DISCHARGE SUMMARY PATIENT: IMER SANCHEZ UNIT: [id number] ADM DATE: 10/11/18 AGE: 58 : 64 SEX: F ROOM/BED: D.2201 AUTHOR: CHINA HARDIN PHYSICIAN: REFERRING PHYSICIAN: GIANA BENSON MD DATE OF SERVICE: 10/14/18 Discharge Plan Patient Name: IMER SANCHEZ Facility: [facility]:[place] : 1960 Planned Disposition: Anticipated Discharge Date: Discharge Date: Expected LOS: Initial Reviewer: [email or web address] Initial Review Date: 10/10/2018 Generated: 10/14/18 5:18 pm DCP- Discharge Planning Updated by [id number]: Tamanna Jaime on 10/11/18 8:[address] Patient Name: IMER SANCHEZ Admission Status: ER Accout number: [id number] Admission Date: 10-10-2018 : 1960 Admission Diagnosis: Attending: GIANA BENSON Current LOS: 1 Anticipated DC Date: Planned Disposition: Primary Insurance: [place] PRIVATE OPT[place] Discharge Planning Comments: received a call from Roseanne with Inpatient Acute Rehab who stated [facility] Nurse visited the rehab yesterday trying to get rehab to admit the patient. Roseanne stated the rep reported that the patient had buttock wound that has worsened and that the patient was not being taken care of by her family. [facility] has reported the patient to [facility]PS. Roseanne reports that she told the [facility] rep that they could not admit the patient as her wound needed to be evaluated and instructed the rep to have the patient come to the ER. has left a message with CODING COMPLIANCE SPECIALIST to call me so I could update her and Dr. Benson on the situation. Account Manager B2B: Tamanna Jaime RN, [facility] Patient Name: IMER SANCHEZ Page [id number] at 1618 All edits/amendments must be made on the electronic document DICTATION DATE: 10/14/181617 PAYROLL MANAGER: MADALYN 10/14/181617 RPT#: [id number] DC DATE: STATUS: ADM IN [facility] [address] [place] [address] END OF REPORT
--- NOTE | 2018-10-14 16:29 | MORECARE ---
CASE MANAGEMENT DISCHARGE SUMMARY PATIENT: IMER SANCHEZ UNIT: [id number] ADM DATE: 10/11/18 AGE: 58 : 64 SEX: F ROOM/BED: D.2201 AUTHOR: CHINA HARDIN PHYSICIAN: REFERRING PHYSICIAN: GIANA BENSON MD DATE OF SERVICE: 10/14/18 Discharge Plan Patient Name: IMER SANCHEZ Facility: [facility]:[place] : 1960 Planned Disposition: Anticipated Discharge Date: Discharge Date: Expected LOS: Initial Reviewer: [email or web address] Initial Review Date: 10/10/2018 Generated: 10/14/18 5:29 pm Comments DCP- Discharge Planning Updated by [email or web address]: Eryn Alcantara on 10/14/18 3:[address] Lulu Williamson here with APS to interview patient [phone] DCP- Discharge Planning Updated by [id number]: Tamanna Jaime on 10/11/18 8:[address] Patient Name: IMER SANCHEZ Admission Status: ER Accout number: [id number] Admission Date: 10-10-2018 : 1960 Admission Diagnosis: Attending: GIANA BENSON Current LOS: 1 Anticipated DC Date: Planned Disposition: Primary Insurance: [place] PRIVATE OPTIONS [facility] Discharge Planning Comments: BLANCA received a call from Roseanne with Inpatient Acute Rehab who stated [facility] Nurse visited the rehab yesterday trying to get rehab to admit the patient. Roseanne stated the rep reported that the patient had buttock wound that has worsened and that the patient was not being taken care of by her family. [facility] has reported the patient to APS. Roseanne reports that she told the [facility] rep that they could not admit the patient as her wound needed to be evaluated and instructed the rep to have the patient come to the ER. BLANCA has left a message with TANK SYSTEMS MAINTAINER to call me so I could update her and Dr. Benson on the situation. Finance Controller: Tamanna Jaime RN, [facility] Last DP export: 10/14/18 3:18 p Patient Name: IMER SANCHEZ Page [phone] at 1629 All edits/amendments must be made on the electronic document DICTATION DATE: 10/14/181628 CUSTOM GRINDER: MADALYN 10/14/181628 RPT#: [id number] DC DATE: STATUS: ADM IN [facility] [address] [place] [address] END OF REPORT
--- NOTE | 2018-10-14 17:46 | NUR ---
OT NOTE: PT COMPLETED SELF FEEDING WITH SET UP. PT COMPLETED HYGINE TASK WITH MIN A. PT COMPLETED SUPINE TO SIT WITH MIN A. PT COMPLETED SIT TO STAND WITH MIN A. PT COMPLETED UE AROM AXS. THANK YOU, JUNE HERNANDEZ
--- NOTE | 2018-10-14 18:28 | NUR ---
SALES LEDGER CLERK COMPLETE. NO SIGNS OF DISTRESS NOTED. DENIES NEEDS AT THIS TIME. CL IN REACH
[2018-10-14 21:02] VITALS: BP 147/62
--- NOTE | 2018-10-14 21:32 | NUR ---
LYING QUIELTY WITH NO COMPLAITNS VOICED. RESP EVEN AND UNALBORED. NO DISTRESS NOTED.DRESSING TO LEFT BUTTOCKS INTACT. IV INFUSING TO LFA WITHOUT REDNESS OR EDEMA NOTED. CL IN REACH
[2018-10-15 01:33] VITALS: BP 134/60
[2018-10-15 04:50] LABS: BASOPHILS 0.3 % (0-2); EOSINOPHILS 3.6 % (0-7); HEMATOCRIT 29.3 % (36.0-48.0); HEMOGLOBIN 9.2 g/dL (12-16); IMMATURE GRANULOCYTES 0.4 % (0-5); LYMPHOCYTES 24.8 % (15-50); MCH 27.6 pg (26.0-34.0); MCHC 31.4 g/dL (31.0-37.0); MEAN PLATELET VOLUME 9.1 fL (7.4-10.4); MONOCYTES 5.2 % (2-11); NEUTROPHILS 65.7 % (40-80); PLATELET COUNT 450 10x3/uL (130-400); RBC 3.33 10x6/uL (4.00-5.40); RDW 15.8 % (11.5-14.5); WBC 10.2 10x3/uL (4.8-10.8)
--- NOTE | 2018-10-15 05:00 | NUR ---
EYES CLOSED RESPIRATIONS WITH 3EASE AND UNLABORED.
[2018-10-15 05:04] LABS: CALC OSMOLALITY 287 mosm/kg (275-300); CALCIUM 8.4 mg/dL (8.5-10.1); CARBON DIOXIDE 29.7 mmol/L (21.0-32.0); CHLORIDE - SERUM 103 mmol/L (98-107); CREATININE - SERUM 0.7 mg/dL (0.6-1.3); GLUCOSE 136 mg/dL (74-106); SODIUM 143 mmol/L (136-145); UREA NITROGEN 16 mg/dL (7-18); VANCOMYCIN - TROUGH 16.3 ug/mL (10.0-20.0); eGFR NON AFRICAN AMERICAN > 90 mL/min (90-120)
[2018-10-15 06:05] VITALS: BP 151/67
--- NOTE | 2018-10-15 07:15 | NUR ---
PT ALERT AND ORIENTED. PT RESTING IN BED, EYES CLOSED. RESPIRATIONS EVEN AND UNLABORED. AROUSES TO VOICE. PT ON ELECTROLYTE PROTOCOL. PT INCONTINENT OF BOWEL AND BLADDER. WOUNDS TO LEFT BUTTOCK, OPEN. PT TAKING DRESSINGS OFF. PT REFUSES TO USE BEDPAN AND PT STATES SHE CANNOT GET OUT OF BED. IV LEFT FOREARM, NS INFUSING @ 10ML/HR, SITE PATENT WITHOUT REDNESS OR SWELLING. PT DENIES ANYTHING FURTHER AT THIS TIME. CALL LIGHT IN REACH. FALL PRECAUTIONS IN PLACE. WILL CONTINUE TO MONITOR.
[2018-10-15 08:17] VITALS: BP 151/67
--- NOTE | 2018-10-15 10:53 | MORECARE ---
CASE MANAGEMENT DISCHARGE SUMMARY PATIENT: IMER SANCHEZ UNIT: [id number] ADM DATE: 10/11/18 AGE: 58 : 64 SEX: F ROOM/BED: D.2201 AUTHOR: CHINA HARDIN PHYSICIAN: REFERRING PHYSICIAN: GIANA BENSON MD DATE OF SERVICE: 10/15/18 Discharge Plan Patient Name: IMER SANCHEZ Facility: [facility]:[place] : 1960 Planned Disposition: Anticipated Discharge Date: Discharge Date: Expected LOS: Initial Reviewer: [email or web address] Initial Review Date: 10/10/2018 Generated: 10/15/18 11:53 am Comments DCP- Discharge Planning Updated by [id number]: Eryn Alcantara on 10/14/18 3:[address] Lulu Williamson here with APS to interview patient [phone] DCP- Discharge Planning Updated by [id number]: Tamanna Jaime on 10/11/18 8:[address] Patient Name: IMER SANCHEZ Admission Status: ER Accout number: [id number] Admission Date: 10-10-2018 : 1960 Admission Diagnosis: Attending: GIANA BENSON Current LOS: 1 Anticipated DC Date: Planned Disposition: Primary Insurance: [place] PRIVATE OPTIONS [facility] Discharge Planning Comments: received a call from Roseanne with Inpatient Acute Rehab who stated [facility] Nurse visited the rehab yesterday trying to get rehab to admit the patient. Roseanne stated the rep reported that the patient had buttock wound that has worsened and that the patient was not being taken care of by her family. [facility] has reported the patient to APS. Roseanne reports that she told the [facility] rep that they could not admit the patient as her wound needed to be evaluated and instructed the rep to have the patient come to the ER. BLANCA has left a message with RYLIE to call me so I could update her and Dr. Benson on the situation. Editor Newspaper: Tamanna Jaime RN, [facility] External Providers External Provider: [facility] Next Contact Date: Service Request Date: Service Type: Resolution: Reviewer: Comments: Last DP export: 10/14/18 3:29 p Patient Name: IMER SANCHEZ Page [phone] at 1053 All edits/amendments must be made on the electronic document DICTATION DATE: 10/15/18 105 BERRY PICKER MACHINE OPERATOR: MADALYN 10/15/18 105 RPT#: [id number] DC DATE: STATUS: ADM IN [facility] [address] [place] [address] END OF REPORT
--- NOTE | 2018-10-15 11:01 | MORECARE ---
CASE MANAGEMENT DISCHARGE SUMMARY PATIENT: IMER SANCHEZ UNIT: [id number] ADM DATE: 10/11/18 AGE: 58 : 64 SEX: F ROOM/BED: D.2201 AUTHOR: LASHAWN,DOC PHYSICIAN: REFERRING PHYSICIAN: GIANA BENSON MD DATE OF SERVICE: 10/15/18 Discharge Plan Patient Name: IMER SANCHEZ Facility: [facility]:[place] : 1960 Planned Disposition: Anticipated Discharge Date: Discharge Date: Expected LOS: Initial Reviewer: [email or web address] Initial Review Date: 10/10/2018 Generated: 10/15/18 12:01 pm Comments DCP- Discharge Planning Updated by [email or web address]: Eryn Alcantara on 10/15/18 9:[address] [facility] DOES NOT ACCEPT PATIENT'S INSURANCE, REFERRAL SENT TO [facility], SPOKE WITH EL DCP- Discharge Planning Updated by [id number]: Eryn Alcantara on 10/14/18 3:[address] Lulu Williamson here with APS to interview patient [phone] DCP- Discharge Planning Updated by [email or web address]: Tamanna Jaime on 10/11/18 8:[address] Patient Name: IMER SANCHEZ Admission Status: ER Accout number: [id number] Admission Date: 10-10-2018 : 1960 Admission Diagnosis: Attending: GIANA BENSON Current LOS: 1 Anticipated DC Date: Planned Disposition: Primary Insurance: [place] PRIVATE OPTIONS [facility] Discharge Planning Comments: BLANCA received a call from Roseanne with Inpatient Acute Rehab who stated [facility] Nurse visited the rehab yesterday trying to get rehab to admit the patient. Roseanne stated the rep reported that the patient had buttock wound that has worsened and that the patient was not being taken care of by her family. [facility] has reported the patient to APS. Roseanne reports that she told the [place] rep that they could not admit the patient as her wound needed to be evaluated and instructed the rep to have the patient come to the ER. BLANCA has left a message with WAREHOUSE OPERATIONS MANAGER to call me so I could update her and Dr. Benson on the situation. Streetcar Operator: Tamanna Jaime RN, [facility] Last DP export: 10/15/18 9:53 a Patient Name: IMER SANCHEZ Page [phone] at 1101 All edits/amendments must be made on the electronic document DICTATION DATE: 10/15/18 110 IMPLEMENTATION PROJECT MANAGER: MADALYN 10/15/181100 RPT#: [id number] DC DATE: STATUS: ADM IN [facility] [address] [place] [address] END OF REPORT
--- NOTE | 2018-10-15 11:37 | NUR ---
GETTERER NOTE- LFA PATENT, DRESSING INTACT AND SWAB CAPS IN USE. DRESSING CDI AND THIS TIME. NO FURTHER NEEDS AT THIS TIME
[2018-10-15 12:39] VITALS: BP 133/57
[2018-10-15] MEDS ORDERED: LEXAPRO10 MG PO (15:36)
[2018-10-15 15:41] VITALS: BP 113/50
--- NOTE | 2018-10-15 15:42 | MORECARE ---
CASE MANAGEMENT DISCHARGE SUMMARY PATIENT: IMER SANCHEZ UNIT: [id number] ADM DATE: 10/11/18 AGE: 58 : 64 SEX: F ROOM/BED: D.2201 AUTHOR: LASHAWN,DOC PHYSICIAN: REFERRING PHYSICIAN: GIANA BENSON MD DATE OF SERVICE: 10/15/18 Discharge Plan Patient Name: IMER SANCHEZ Facility: [facility]:[place] : 1960 Planned Disposition: Home Health Service Anticipated Discharge Date: Discharge Date: Expected LOS: Initial Reviewer: [id number] Initial Review Date: 10/10/2018 Generated: 10/15/18 4:42 pm Comments DCP- Discharge Planning Updated by [email or web address]: Eryn Alcantara on 10/15/18 9:[address] [facility] IN[facility] DOES NOT ACCEPT PATIENT'S INSURANCE, REFERRAL SENT TO [facility], SPOKE WITH EL DCP- Discharge Planning Updated by [id number]: Eryn Alcantara on 10/14/18 3:[address] Lulu Williamson here with APS to interview patient [phone] DCP- Discharge Planning Updated by [id number]: Tamanna Jaime on 10/11/18 8:[address] Patient Name: IMER SANCHEZ Admission Status: ER Accout number: [id number] Admission Date: 10-10-2018 : 1960 Admission Diagnosis: Attending: GIANA BENSON Current LOS: 1 Anticipated DC Date: Planned Disposition: Primary Insurance: [place] PRIVATE OPTIONS [facility] Discharge Planning Comments: BLANCA received a call from Roseanne with Inpatient Acute Rehab who stated [facility] Nurse visited the rehab yesterday trying to get rehab to admit the patient. Roseanne stated the rep reported that the patient had buttock wound that has worsened and that the patient was not being taken care of by her family. [facility] has reported the patient to APS. Roseanne reports that she told the [facility] rep that they could not admit the patient as her wound needed to be evaluated and instructed the rep to have the patient come to the ER. BLANCA has left a message with SHIPPING CLERK to call me so I could update her and Dr. Benson on the situation. A P Manager: Tamanna Jaime RN, [facility] Last DP export: 10/15/18 10:01 a Patient Name: IMER SANCHEZ Page [phone] at 1542 All edits/amendments must be made on the electronic document DICTATION DATE: 10/15/18 154 MULTIMEDIA MANAGER: MADALYN 10/15/18 154 RPT#: [id number] DC DATE: STATUS: ADM IN [facility] [address] [place] [address] END OF REPORT
--- NOTE | 2018-10-15 16:13 | MORECARE ---
CASE MANAGEMENT DISCHARGE SUMMARY PATIENT: IMER SANCHEZ UNIT: [id number] ADM DATE: 10/11/18 AGE: 58 : 64 SEX: F ROOM/BED: D.2201 AUTHOR: LASHAWN,DOC PHYSICIAN: REFERRING PHYSICIAN: GIANA BENSON MD DATE OF SERVICE: 10/15/18 Discharge Plan Patient Name: IMER SANCHEZ Facility: [facility]:[place] : 1960 Planned Disposition: Home Health Service Anticipated Discharge Date: Discharge Date: Expected LOS: Initial Reviewer: [id number] Initial Review Date: 10/10/2018 Generated: 10/15/18 5:13 pm Comments DCP- Discharge Planning Updated by [email or web address]: Marcelle Rojas on 10/15/18 3:[address] Spoke with Viviana at [facility] and informed of discharge home today and [facility] to resume, clinical faxed to [facility]. Her son, Paulino, called and asked why she was not being discharged to inpatient rehab and I explained to him that she did not meet the Medicare diagnosis guidelines for admission to an inpatient rehab facility. I informed him that she could still be admitted to a skilled facility, but she has refused this. She is discharging home today with home health. DCP- Discharge Planning Updated by [id number]: Eryn Alcantara on 10/15/18 9:[address] [facility] IN[facility] DOES NOT ACCEPT PATIENT'S INSURANCE, REFERRAL SENT TO [facility], SPOKE WITH EL DCP- Discharge Planning Updated by [id number]: Eryn Alcantara on 10/14/18 3:[address] Lulu Williamson here with APS to interview patient [phone] DCP- Discharge Planning Updated by [email or web address]: Tamanna Jaime on 10/11/18 8:[address] Patient Name: IMER SANCHEZ Admission Status: ER Accout number: [id number] Admission Date: 10-10-2018 : 1960 Admission Diagnosis: Attending: GIANA BENSON Current LOS: 1 Anticipated DC Date: Planned Disposition: Primary Insurance: [place] PRIVATE OPTIONS [facility] Discharge Planning Comments: CM received a call from Roseanne with Inpatient Acute Rehab who stated [facility] Nurse visited the rehab yesterday trying to get rehab to admit the patient. Roseanne stated the rep reported that the patient had buttock wound that has worsened and that the patient was not being taken care of by her family. [facility] has reported the patient to APS. Roseanne reports that she told the [facility] rep that they could not admit the patient as her wound needed to be evaluated and instructed the rep to have the patient come to the ER. BLANCA has left a message with VOLUNTEER FIREFIGHTER to call me so I could update her and Dr. Benson on the situation. All Round Logger: Tamanna Jaime RN, [facility] External Providers External Provider: [facility] Next Contact Date: Service Request Date: Service Type: Resolution: Reviewer: Comments: Last DP export: 10/15/18 2:42 p Patient Name: IMER SANCHEZ Page [phone] at 1613 All edits/amendments must be made on the electronic document DICTATION DATE: 10/15/181611 BIZTALK DEVELOPER: MADALYN 10/15/181611 RPT#: [id number] DC DATE: STATUS: ADM IN [facility] [address] [place] [address] END OF REPORT
--- NOTE | 2018-10-15 17:17 | MORECARE ---
CASE MANAGEMENT DISCHARGE SUMMARY PATIENT: IMER SANCHEZ UNIT: [id number] ADM DATE: 10/11/18 AGE: 58 : 64 SEX: F ROOM/BED: D.2201 AUTHOR: LASHAWN,DOC PHYSICIAN: REFERRING PHYSICIAN: GIANA BENSON MD DATE OF SERVICE: 10/15/18 Discharge Plan Patient Name: IMER SANCHEZ Facility: [facility]:[place] : 1960 Planned Disposition: Home Health Service Anticipated Discharge Date: Discharge Date: Expected LOS: Initial Reviewer: [email or web address] Initial Review Date: 10/10/2018 Generated: 10/15/18 6:17 pm Comments DCP- Discharge Planning Updated by [email or web address]: Eryn Alcantara on 10/15/18 4:[address] Spoke with Lulu Teri with APS to let her know that she was being discharged today. She stated that she was ok to go home and that she would follow up and check on her in a couple of days. DCP- Discharge Planning Updated by [id number]: Marcelle Rojas on 10/15/18 3:[address] Spoke with Viviana at [facility] and informed of discharge home today and [facility] to resume, clinical faxed to [facility]. Her son, Paulino, called and asked why she was not being discharged to inpatient rehab and I explained to him that she did not meet the Medicare diagnosis guidelines for admission to an inpatient rehab facility. I informed him that she could still be admitted to a skilled facility, but she has refused this. She is discharging home today with home health. DCP- Discharge Planning Updated by [id number]: Eryn Alcantara on 10/15/18 9:[address] [facility] IN[facility] REH[facility] DOES NOT ACCEPT PATIENT'S INSURANCE, REFERRAL SENT TO [facility], SPOKE WITH EL DCP- Discharge Planning Updated by [email or web address]: Eryn Alcantara on 10/14/18 3:[address] Lulu Williamson here with APS to interview patient [phone] DCP- Discharge Planning Updated by [id number]: Tamanna Jaime on 10/11/18 8:[address] Patient Name: IMER SANCHEZ Admission Status: ER Accout number: [id number] Admission Date: 10-10-2018 : 1960 Admission Diagnosis: Attending: GIANA BENSON Current LOS: 1 Anticipated DC Date: Planned Disposition: Primary Insurance: [place] PRIVATE OPTIONS [facility] Discharge Planning Comments: CM received a call from Roseanne with Inpatient Acute Rehab who stated [facility] Nurse visited the rehab yesterday trying to get rehab to admit the patient. Roseanne stated the rep reported that the patient had buttock wound that has worsened and that the patient was not being taken care of by her family. [facility] has reported the patient to APS. Roseanne reports that she told the [facility] rep that they could not admit the patient as her wound needed to be evaluated and instructed the rep to have the patient come to the ER. BLANCA has left a message with CLIENT RELATIONS ASSOCIATE to call me so I could update her and Dr. Benson on the situation. Us Marketing Director: Tamanna Jaime RN, C[facility] Last DP export: 10/15/18 3:13 p Patient Name: IMER SANCHEZ Page [phone] at 1717 All edits/amendments must be made on the electronic document DICTATION DATE: 10/15/181716 BROWN SOURER: MADALYN 10/15/181716 RPT#: [id number] DC DATE: STATUS: ADM IN [facility] [address] [place] [address] END OF REPORT
--- NOTE | 2018-10-15 17:19 | NUR ---
OT NOTE: PT COMPLETED BED MOB WITH MIN A AND EOB SITTING WITH SBA. THANK YOU, JUNE HERNANDEZ
--- NOTE | 2018-10-15 18:58 | NUR ---
PT DISCHARGED HOME WITH SON VIA WHEELCHAIR. NO C/O PAIN. NO S/S OF ACUTE DISTRESS NOTED. IV DISCONTINUED, CATHETER TIP INTACT. WENT OVER DISCHARGE INSTRUCTIONS WITH PT, PT ACKNOWLEDGED. PT DENIES ANY CONCERNS AT THIS TIME.
--- NOTE | 2018-10-21 17:01 | MORECARE ---
CASE MANAGEMENT DISCHARGE SUMMARY PATIENT: IMER SANCHEZ UNIT: [id number] ADM DATE: 10/11/18 AGE: 58 : 64 SEX: F ROOM/BED: D.2201 AUTHOR: LASHAWN,DOC PHYSICIAN: REFERRING PHYSICIAN: GIANA BENSON MD DATE OF SERVICE: 10/21/18 Discharge Plan Patient Name: IMER SANCHEZ Facility: [facility]:[place] : 1960 Planned Disposition: Home Health Service Anticipated Discharge Date: Discharge Date: 10/15/2018 Expected LOS: 0 Initial Reviewer: [email or web address] Initial Review Date: 10/10/2018 Generated: 10/21/18 6:01 pm Comments DCP- Discharge Planning Updated by [email or web address]: Eryn Alcantara on 10/15/18 4:[address] Spoke with Lulu Williamson with APS to let her know that she was being discharged today. She stated that she was ok to go home and that she would follow up and check on her in a couple of days. DCP- Discharge Planning Updated by [id number]: Marcelle Rojas on 10/15/18 3:[address] Spoke with Viviana at [facility] and informed of discharge home today and [facility] to resume, clinical faxed to [place]. Her son, Paulino, called and asked why she was not being discharged to inpatient rehab and I explained to him that she did not meet the Medicare diagnosis guidelines for admission to an inpatient rehab facility. I informed him that she could still be admitted to a skilled facility, but she has refused this. She is discharging home today with home health. DCP- Discharge Planning Updated by [id number]: Eryn Alcantara on 10/15/18 9:[address] [facility] INPAT[facility] REH[facility] DOES NOT ACCEPT PATIENT'S INSURANCE, REFERRAL SENT TO [facility], SPOKE WITH EL DCP- Discharge Planning Updated by [id number]: Eryn Alcantara on 10/14/18 3:[address] Lulu Williamson here with APS to interview patient [phone] DCP- Discharge Planning Updated by [id number]: Tamanna Jaime on 10/11/18 8:[address] Patient Name: IMER SANCHEZ Admission Status: ER Accout number: [id number] Admission Date: 10-10-2018 : 1960 Admission Diagnosis: Attending: GIANA BENSON Current LOS: 1 Anticipated DC Date: Planned Disposition: Primary Insurance: [place] PRIVATE OPTIONS [facility] Discharge Planning Comments: CM received a call from Roseanne with Inpatient Acute Rehab who stated [facility] Nurse visited the rehab yesterday trying to get rehab to admit the patient. Roseanne stated the rep reported that the patient had buttock wound that has worsened and that the patient was not being taken care of by her family. [place] has reported the patient to APS. Roseanne reports that she told the [facility] rep that they could not admit the patient as her wound needed to be evaluated and instructed the rep to have the patient come to the ER. BLANCA has left a message with HEMSTITCHER to call me so I could update her and Dr. Benson on the situation. Ditching Machine Operating Engineer: Tamanna Jaime RN, [facility] Last DP export: 10/15/18 4:17 p Patient Name: IMER SANCHEZ Page [phone] at 1701 All edits/amendments must be made on the electronic document DICTATION DATE: 10/21/181700 PRODUCTION MINER: MADALYN 10/21/181700 RPT#: [id number] DC DATE:10/15/18 STATUS: DIS IN [facility] [address] [place] [address] END OF REPORT
== END 2018-10-15 18:59 | disposition home health service (06) | DRG 981 ==
LOC: D.ER 12:45 → D.MS 15:29 → OBSVTIME 15:29 → D.EDHOLD 15:29 → D.MS 15:48
PROVIDERS: Family Medicine; ADMIT Internal Medicine Nephrology
PROC: 0JD90ZZ Extraction of Buttock Subcutaneous Tissue and Fascia, Open Approach (ICD-10-PCS; principal; 2018-10-11)
DX: E11.622 Type 2 diabetes mellitus with other skin ulcer (principal); L89.323 Pressure ulcer of left buttock, stage 3; F17.213 Nicotine dependence, cigarettes, with withdrawal; I10 Essential (primary) hypertension; E11.9 Type 2 diabetes mellitus without complications; E78.5 Hyperlipidemia, unspecified; P74.22 Hyponatremia of newborn

== ENCOUNTER → 2018-10-10 14:32 | Outpatient (CLI) | payer MEDICAID ==
[2018-10-10 13:09] VITALS: BMI 28.0
[~2018-10-10 14:32] MED LIST changes: +LEXAPRO10 MG PO
[2018-10-10 15:10] LABS: APPEARANCE HAZY (CLEAR); BILIRUBIN NEGATIVE (NEGATIVE); COLOR YELLOW (YELLOW); GLUCOSE 100 mg/dL (NEGATIVE); KETONE NEGATIVE (NEGATIVE); NITRITE NEGATIVE (NEGATIVE); PROTEIN TRACE mg/dL (NEGATIVE); SPECIFIC GRAVITY 1.015 (1.005-1.020); UROBILINOGEN NORMAL (NORMAL)
[2018-10-10 15:11] LABS: BACTERIA FEW /hpf (NONE SEEN); EPITHELIAL CELLS 0-5 /hpf (0-5); RED CELLS - URINE 0-5 /hpf (0-5); WHITE CELLS - URINE 0-5 /hpf (0-5); YEAST >1+ WITH HYPHAE /hpf (NONE SEEN)
== END | disposition home or self-care (01) ==
LOC: D.LABREF 14:32
PROVIDERS: Family Medicine
DX: R33.9 Retention of urine, unspecified (principal)

== ENCOUNTER 2020-04-09 00:41 | Inpatient (IN) | payer OTHER ==
[~2020-04-09] VITALS: Ht 154.9 cm; Wt 77.6 kg
[~2020-04-09 00:41] MED LIST changes: +OMNICEF300 MG PO
[2020-04-09] MEDS ORDERED: PEPCID40 MG PO (01:06)
[2020-04-09] MEDS ORDERED: OPTIVE SENSITI1 EACH EACH EYE (01:06)
[2020-04-09] MEDS ORDERED: FOLIC ACID0.8 MG PO (01:07)
[2020-04-09] MEDS ORDERED: GLUCOTROL 5 MG T5 MG PO (01:08)
[2020-04-09] MEDS ORDERED: LISINOPRIL10 MG PO (01:09)
[2020-04-09] MEDS ORDERED: MOBIC7.5 MG PO (01:10)
[2020-04-09] MEDS ORDERED: GLUCOPHAGE1000 MG PO (01:11)
[2020-04-09] MEDS ORDERED: KONSYL PSYLLIU3.4 GM PO (01:12)
[2020-04-09] MEDS ORDERED: VITAMIN B-121000 MCG PO (01:13)
[2020-04-09] MEDS ORDERED: CRESTOR20 MG PO (01:13)
[2020-04-09 01:51] LABS: CALC OSMOLALITY 296 mosm/kg (275-300); CALCIUM 8.4 mg/dL (8.5-10.1); CARBON DIOXIDE 26.8 mmol/L (21.0-32.0); CHLORIDE - SERUM 108 mmol/L (98-107); CREATININE - SERUM 0.9 mg/dL (0.6-1.3); GLUCOSE 186 mg/dL (74-106); POTASSIUM - SERUM 4.3 mmol/L (3.5-5.1); SODIUM 143 mmol/L (136-145); UREA NITROGEN 33 mg/dL (7-18); eGFR NON AFRICAN AMERICAN 68 mL/min (90-120)
[2020-04-09 01:52] LABS: INR 0.9 (0.85-1.17); PROTIME 12.1 SECONDS (11.6-15.0)
[2020-04-09 01:53] LABS: APTT 27.3 SECONDS (22.8-39.4)
[2020-04-09 01:54] LABS: D-DIMER-QUANTITATIVE 1.03 ug/mLFEU (0.20-0.54)
[2020-04-09 01:56] LABS: BASOPHILS 0.3 % (0-2); EOSINOPHILS 3.2 % (0-7); HEMOGLOBIN 10.4 g/dL (12-16); IMMATURE GRANULOCYTES 0.3 % (0-5); MCH 27.7 pg (26.0-34.0); MCHC 31.5 g/dL (31.0-37.0); MEAN PLATELET VOLUME 9.6 fL (7.4-10.4); MONOCYTES 4.4 % (2-11); NEUTROPHILS 60.8 % (40-80); PLATELET COUNT 301 10x3/uL (130-400); RBC 3.75 10x6/uL (4.00-5.40); RDW 15.8 % (11.5-14.5); WBC 11.8 10x3/uL (4.8-10.8)
--- NOTE | 2020-04-09 01:57 | NUR ---
RT AT BEDSIDE TO DRAW ABGS AND GIVE BREATHING TREATMENT.
[2020-04-09 02:09] LABS: ALBUMIN 2.7 g/dL (3.4-5.0); ALKALINE PHOSPHATASE 94 U/L (30-120); ALT (SGPT) 21 U/L (10-68); BILIRUBIN - TOTAL 0.21 mg/dL (0.2-1.3); CKMB 1.4 U/L (0.0-3.6); CREATINE KINASE 72 UL (21-215); PRO BNP 3681 pg/mL (0-125); PROTEIN - SERUM 6.3 g/dL (6.4-8.2); TROPONIN-I 0.019 ng/mL (0.000-0.060)
--- NOTE | 2020-04-09 03:19 | NUR ---
PT RESTING QUIETLY EYES CLOSED IN SUPINE POSITION, RR EVEN AND UNLABORED, VSS CALL LIGHT WITHIN REACH. WILL CONTINUE TO MONITOR.
[2020-04-09 03:45] VITALS: BP 165/80
--- NOTE | 2020-04-09 04:48 | NUR ---
PT RESTING QUIETLY WITH EYES CLOSED, AWAKES EASILY TO VERBAL STIMULI, PT INFORMED SHE IS GOING TO BE ADMITTED, VERBALIZES UNDERSTANDING, DENIES ANY NEEDS AT THIS TIME, VSS. CALL LIGHT IN REACH. WILL CONTINUE TO MONITOR.
[2020-04-09 07:03] VITALS: BP 192/81; BMI 32.3
[2020-04-09 10:10] VITALS: BP 176/81
[2020-04-09 10:57] VITALS: BMI 32.3
[2020-04-09] MEDS ORDERED: ACETAMINOPHEN500 M1 PO (13:04)
[2020-04-09] MEDS ORDERED: VICKS VAPORUB O50 GM TOPICAL (13:06)
[2020-04-09] MEDS ORDERED: LANTUS INS100 UNITS/ SC (13:09)
[2020-04-09] MEDS ORDERED: EMLA CREAM 30 G30 G1 TOPICAL (13:11)
[2020-04-09 13:25] VITALS: BP 156/76
[2020-04-09 17:02] VITALS: BP 192/82
[2020-04-09 21:00] VITALS: BP 185/82
--- NOTE | 2020-04-09 22:00 | NUR ---
PATIENT RESTING QUIETLY WATCHING TV, BS 445, PUT IN ORDER FOR STAT GLUCOSE WHICH WAS 477, 12 UNITS GIVEN, WILL CONTINUE TO MONITOR PATIENT, CALL LIGHT WITHIN REACH
--- NOTE | 2020-04-10 00:26 | NUR ---
NOTIFIED BILL MOISE APN FOR BS 446, ORDERED TO USE SLIDING SCALE, SO PATIENT GOT 12 UNITS, WILL CONTINUE TO MONITOR PATIENT
[2020-04-10 06:58] LABS: BASOPHILS 0 % (0-2); EOSINOPHILS 0 % (0-7); HEMATOCRIT 31.5 % (36.0-48.0); IMMATURE GRANULOCYTES 0.4 % (0-5); LYMPHOCYTES 11.9 % (15-50); MCH 27.3 pg (26.0-34.0); MCHC 31.7 g/dL (31.0-37.0); MCV 86.1 fL (80.0-100.0); MEAN PLATELET VOLUME 10.5 fL (7.4-10.4); MONOCYTES 4.4 % (2-11); NEUTROPHILS 83.3 % (40-80); PLATELET COUNT 317 10x3/uL (130-400); RBC 3.66 10x6/uL (4.00-5.40); WBC 13.8 10x3/uL (4.8-10.8)
--- NOTE | 2020-04-10 07:00 | NUR ---
RECEIVED REPORT, ASSUMED CARE, A&O, DENIES NEEDS, BED LOWEST POSITION, CALL LIGHT IN REACH, IV TO LAC PATENT NS @50, SCD'S ON, BREATHING EVEN UNLABORED, WILL CONTINUE POC
[2020-04-10 07:11] LABS: CARBON DIOXIDE 23.8 mmol/L (21.0-32.0); MAGNESIUM - SERUM 1.9 mg/dL (1.8-2.4); POTASSIUM - SERUM 3.8 mmol/L (3.5-5.1)
[2020-04-10 07:15] VITALS: BP 175/88
[2020-04-10 07:18] LABS: CREATININE - SERUM 1.3 mg/dL (0.6-1.3)
[2020-04-10 12:04] VITALS: BP 173/81
[2020-04-10 15:42] VITALS: BP 167/67
--- NOTE | 2020-04-10 16:16 | NUR ---
Rehab Note- Acute Inpatient Rehab prescreen order received. The patient has [employer] insurance and will require a PreAuth- she has a pending OT Eval that will be needed for PreAuth, also will follow for ability to participate in the required 3hrs/day of therapy as per PT Eval the patient was not very cooperative to participate in therapy. Thank you for this referral! Roseanne Doherty RN Clinical Liaison, [facility]
--- NOTE | 2020-04-10 19:00 | NUR ---
BEDSIDE REPORT RECEIVED AND CARE OF PT ASSUMED. PT LYING IN SUPINE POSITION WITH EYES CLOSED AND EASY RESPIRATIONS. IV TO LEFT AC PATENT WITH NS INFUSING AT 50 ML/HR. TELEMETRY IN PLACE AND READING ST AT THIS ASSESSMENT.
[2020-04-10 20:00] VITALS: BP 188/89
--- NOTE | 2020-04-10 21:51 | NUR ---
HS MEDICATIONS GIVEN. FSBS 389 THIS CHECK REQUIRING COVERAGE WITH 16 UNITS OF INSULIN PER SLIDING SCALE.
--- NOTE | 2020-04-10 22:45 | NUR ---
PT BATHED AND ALL LINEN AND GOWN CHANGED. POSITIONED FOR COMFORT.
[2020-04-11] VITALS: BP 185/95
[2020-04-11 04:00] VITALS: BP 179/98
[2020-04-11 06:23] LABS: BASOPHILS 0.1 % (0-2); EOSINOPHILS 0.1 % (0-7); HEMATOCRIT 32.8 % (36.0-48.0); HEMOGLOBIN 10.3 g/dL (12-16); IMMATURE GRANULOCYTES 0.4 % (0-5); LYMPHOCYTES 8.3 % (15-50); MCH 27.5 pg (26.0-34.0); MCHC 31.4 g/dL (31.0-37.0); MCV 87.7 fL (80.0-100.0); MEAN PLATELET VOLUME 10.4 fL (7.4-10.4); MONOCYTES 1.6 % (2-11); NEUTROPHILS 89.5 % (40-80); PLATELET COUNT 313 10x3/uL (130-400); RBC 3.74 10x6/uL (4.00-5.40); RDW 16.4 % (11.5-14.5); WBC 16.5 10x3/uL (4.8-10.8)
[2020-04-11 06:49] LABS: ANION GAP 14.9 mmol/L (8-16); CALCIUM 8.4 mg/dL (8.5-10.1); CREATININE - SERUM 1.1 mg/dL (0.6-1.3); POTASSIUM - SERUM 4.9 mmol/L (3.5-5.1)
[2020-04-11 08:37] VITALS: BP 172/84
--- NOTE | 2020-04-11 10:22 | MORECARE ---
CASE MANAGEMENT DISCHARGE SUMMARY PATIENT: IMER SANCHEZ UNIT: [id number] ADM DATE: 04/09/20 AGE: 59 : 64 SEX: F ROOM/BED: D.2225 AUTHOR: CHINA HARDIN PHYSICIAN: REFERRING PHYSICIAN: NIRANJAN SWANSON DO DATE OF SERVICE: 04/11/20 Discharge Plan Patient Name: IMER SANCHEZ [facility] : 1960 Planned Disposition: Anticipated Discharge Date: Discharge Date: Expected LOS: Initial Reviewer: [id number] Initial Review Date: 04/09/2020 Generated: 04/11/20 11:21 am DCPIA - Discharge Planning Initial Assessment Updated by [email or web address]: Christel Lira on 04/11/20 10:20 am * Is the patient Alert and Oriented? Yes * How many steps to enter\exit or inside your home? 0/0 * PCP GABRIELA VALDES * Pharmacy [facility] A\P * Preadmission Environment Home with Family * Partial ADLs (Assistance needed) Ambulation Bathing Dressing Medication Management Toileting Transfers * Equipment Splint Wheelchair * Community resources currently utilized Home Health * Please name any agencies selected above. [facility] * Additional services required to return to the preadmission environment? Yes * Can the patient safely return to the preadmission environment? No * Has this patient been hospitalized within the prior 30 days at any hospital? No Patient Name: IMER SANCHEZ Page 51128 at 1022 All edits/amendments must be made on the electronic document DICTATION DATE: 04/11/20 1021 FITNESS TRAINER: MADALYN 04/11/20 1021 RPT#: [id number] DC DATE: STATUS: ADM IN [facility] [address] [place] [address] END OF REPORT
[2020-04-11 12:00] VITALS: BP 156/91
--- NOTE | 2020-04-11 12:48 | NUR ---
LYING IN BED,WITHOUT NEEDS.CALL LIGHT IN REACH
--- NOTE | 2020-04-11 13:57 | NUR ---
PT BLOOD SUGAR [address] MCLEAN AND TINA Peters/KYLE. KEYTONES ORDERED WELL VERBAL ORDERS TO COVER PT AND RECHECK IN 1 HOUR. NO OTHER NEEDS VOICED FROM PT CONTINUE WITH PLAN OF CARE
--- NOTE | 2020-04-11 15:40 | NUR ---
Rehab Note- Received call from Porsha Rai stating that the Surgical Coder denied an inpatient acute rehab stay. A peer to peer can be set up by calling [phone] by Apr 15 at 11am. VM left on BLANCA Barbosa phone Ext [phone]. Thank you for this referral! Roseanne Doherty RN Clinical Liaison, [facility] Rehab
[2020-04-11 16:00] VITALS: BP 176/82
[2020-04-11 20:55] VITALS: BP 149/61
[2020-04-12 01:48] VITALS: BP 144/82
[2020-04-12 04:54] LABS: BASOPHILS 0.1 % (0-2); EOSINOPHILS 0.4 % (0-7); HEMATOCRIT 29.7 % (36.0-48.0); HEMOGLOBIN 9.4 g/dL (12-16); IMMATURE GRANULOCYTES 0.5 % (0-5); LYMPHOCYTES 27.1 % (15-50); MCH 27.7 pg (26.0-34.0); MCHC 31.6 g/dL (31.0-37.0); MCV 87.6 fL (80.0-100.0); MEAN PLATELET VOLUME 10.3 fL (7.4-10.4); MONOCYTES 5.8 % (2-11); NEUTROPHILS 66.1 % (40-80); PLATELET COUNT 275 10x3/uL (130-400); RBC 3.39 10x6/uL (4.00-5.40); RDW 16.4 % (11.5-14.5)
[2020-04-12 05:04] LABS: ANION GAP 9.5 mmol/L (8-16); CALCIUM 8.1 mg/dL (8.5-10.1); CARBON DIOXIDE 27.2 mmol/L (21.0-32.0); CREATININE - SERUM 1.1 mg/dL (0.6-1.3); MAGNESIUM - SERUM 1.9 mg/dL (1.8-2.4)
[2020-04-12 05:09] LABS: POTASSIUM - SERUM 3.7 mmol/L (3.5-5.1)
[2020-04-12 06:54] VITALS: BP 154/79
[2020-04-12 08:09] VITALS: BP 155/83
--- NOTE | 2020-04-12 10:39 | NUR ---
OT NOTE: (DOS 04/11/20) PT COMPLETED BED MOB TASKS WITH MOD/MAX A. PT COMPLETED EOB SITTING SITTING WITH MOD A. PT EXHIBITED POOR TRUNK CONTROL. PT COMPLETED FACE HYGIENE WITH SETUP. [phone] THANK YOU,JUNE HERNANDEZ
--- NOTE | 2020-04-12 11:44 | NUR ---
LYING IN BED,WITHOUT NEEDS.FALL PREVENTION IN PLACE
[2020-04-12 12:54] VITALS: BP 168/83
--- NOTE | 2020-04-12 16:45 | NUR ---
OT NOTE: MAX ASSIST FOR SUPINE TO SIT; PRACTICED SITTING BALANCE ACT WILE ON EOB HOWEVER, REQUIRED MOD ASSIST THROUGHOUT.. PT CONTINUALLY LEANING TO WEAKER SIDE (L SIDE) PERFORMED SIT TO STAND X 2 TRIALS WITH MOD ASSIST X 2.. REQUIRES PHYSICAL ASSIST FOR R FOOT IT SUPINATES WHEN STANDING. PT REPORTS THAT IT JUST STARTED BUT YESTERDAY SON REPORTED THAT IT WAS FROM PREVIOUS STROKE. PT MAY REQUIRE BRACE/AFO FOR STANDING AND TRANSFERS. PROVIDED CLEAN LINENS PT WAS INCON OF BLADDER. POSITIONED IN BED [facility] MOD ASSIST X 2 RAGHAVENDRA DUKE, OTR/L [phone]
[2020-04-12 17:24] VITALS: BP 158/67
[2020-04-12 20:00] VITALS: BP 167/73
[2020-04-13] VITALS: BP 177/83
[2020-04-13 04:00] VITALS: BP 153/61
[2020-04-13 07:10] LABS: BASOPHILS 0 % (0-2); EOSINOPHILS 0 % (0-7); HEMATOCRIT 29.9 % (36.0-48.0); HEMOGLOBIN 9.3 g/dL (12-16); IMMATURE GRANULOCYTES 0.5 % (0-5); LYMPHOCYTES 14.9 % (15-50); MCH 26.8 pg (26.0-34.0); MCHC 31.1 g/dL (31.0-37.0); MCV 86.2 fL (80.0-100.0); MEAN PLATELET VOLUME 10.3 fL (7.4-10.4); MONOCYTES 3.2 % (2-11); NEUTROPHILS 81.4 % (40-80); PLATELET COUNT 270 10x3/uL (130-400); RBC 3.47 10x6/uL (4.00-5.40); RDW 16.3 % (11.5-14.5)
[2020-04-13 07:25] LABS: CALCIUM 8.4 mg/dL (8.5-10.1); CARBON DIOXIDE 27.1 mmol/L (21.0-32.0); MAGNESIUM - SERUM 2.2 mg/dL (1.8-2.4); POTASSIUM - SERUM 4.1 mmol/L (3.5-5.1)
[2020-04-13 07:33] LABS: WBC 10.6 10x3/uL (4.8-10.8)
[2020-04-13 08:50] VITALS: BP 177/85
[2020-04-13 13:31] VITALS: BP 184/79
[2020-04-13 16:37] VITALS: BP 185/85
[2020-04-13 20:00] VITALS: BP 189/87
--- NOTE | 2020-04-13 22:03 | NUR ---
OT NOTE: PT COMPLETED FACE/HAND HYGIENE WITH SETUP. PT COMPLETED SIDE ROLLING WITH MOD A. PT STATES ARMS ARE TOO SHORT TO REACH SIDE RAIL. [phone] THANK YOU,JUNE HERNANDEZ
[2020-04-14] VITALS: BP 164/95
[2020-04-14 04:00] VITALS: BP 179/88
[2020-04-14 04:54] LABS: BASOPHILS 0.1 % (0-2); EOSINOPHILS 1.1 % (0-7); HEMATOCRIT 30.8 % (36.0-48.0); HEMOGLOBIN 9.7 g/dL (12-16); IMMATURE GRANULOCYTES 0.5 % (0-5); LYMPHOCYTES 35.4 % (15-50); MCH 27.2 pg (26.0-34.0); MCHC 31.5 g/dL (31.0-37.0); MCV 86.3 fL (80.0-100.0); MEAN PLATELET VOLUME 10.4 fL (7.4-10.4); MONOCYTES 6.1 % (2-11); NEUTROPHILS 56.8 % (40-80); PLATELET COUNT 276 10x3/uL (130-400); RBC 3.57 10x6/uL (4.00-5.40); RDW 16.3 % (11.5-14.5); WBC 12.8 10x3/uL (4.8-10.8)
[2020-04-14 05:31] LABS: ANION GAP 8.3 mmol/L (8-16); CALCIUM 8.3 mg/dL (8.5-10.1); CARBON DIOXIDE 28.1 mmol/L (21.0-32.0); MAGNESIUM - SERUM 2.2 mg/dL (1.8-2.4)
[2020-04-14 05:40] LABS: POTASSIUM - SERUM 3.4 mmol/L (3.5-5.1)
--- NOTE | 2020-04-14 07:29 | NUR ---
PT K+ IS 3.4 THIS MORNING WILL ADMINISTER PRN K+ WITH MORNING MEDICATIONS
[2020-04-14 08:00] VITALS: BP 163/85
[2020-04-14 12:00] VITALS: BP 177/80
[2020-04-14] MEDS ORDERED: IPRAT-ALBUT 0.5-3 ML INH (12:06)
[2020-04-14] MEDS ORDERED: NICODERM CQ1 EAC3 TRANSDERM (12:06)
[2020-04-14] MEDS ORDERED: PERFOROMIS20 MCG/21 UPD (12:07)
[2020-04-14] MEDS ORDERED: PULMICORT0.5 MG/21 UPD (12:07)
[2020-04-14] MEDS ORDERED: PREDNISONE10 MG PO (12:08)
[2020-04-14] MEDS ORDERED: PROTONIX40 MG PO (12:08)
--- NOTE | 2020-04-14 13:47 | MORECARE ---
CASE MANAGEMENT DISCHARGE SUMMARY PATIENT: IMER SANCHEZ UNIT: [id number] ADM DATE: 04/09/20 AGE: 59 : 64 SEX: F ROOM/BED: D.2225 AUTHOR: LASHAWN,DOC PHYSICIAN: REFERRING PHYSICIAN: NIRANJAN SWANSON DO DATE OF SERVICE: 04/14/20 Discharge Plan Patient Name: IMER SANCHEZ Facility: [facility]:[place] : 1960 Planned Disposition: Anticipated Discharge Date: Discharge Date: Expected LOS: Initial Reviewer: [id number] Initial Review Date: 04/09/2020 Generated: 04/14/20 2:46 pm Comments DCP- Discharge Planning Updated by [email or web address]: Chelsey Woodruff on 04/14/20 12:[address] Patient Name: IMER SANCHEZ Admission Status: ER Accout number: [id number] Admission Date: 04-09-2020 : 1960 Admission Diagnosis:SHORTNESS OF BREATH Attending: NIRANJAN SWANSON Current LOS: 5 Anticipated DC Date: Planned Disposition: Primary Insurance: [email or web address] PPO Discharge Planning Comments: CM met with patient at bedside after explaining CM role and obtaining verbal consent. CM discussed availability / needs of home health, REHAB and medical equipment. STATES CURRENT WITH [facility], [facility] SIGNED. I WILL FAX UPDATE TO [facility]. PLAN IS TO BE DC'D TO HOME WITH FAMILY AND RESUME HH. IF NEB OR 02 NEEDED LIBERTY SIGNED FOR [facility]. CM TO FOLLOW AND ASSIST NEEDED. Mid Level Project Manager: Chelsey Woodruff DCPIA - Discharge Planning Initial Assessment Updated by [email or web address]: Christel Lira on 04/11/20 10:20 am * Is the patient Alert and Oriented? Yes * How many steps to enter\exit or inside your home? 0/0 * PCP GABRIELA VALDES * Pharmacy [facility] A\P * Preadmission Environment Home with Family * Partial ADLs (Assistance needed) Ambulation Bathing Dressing Medication Management Toileting Transfers * Equipment Splint Wheelchair * Community resources currently utilized Home Health * Please name any agencies selected above. [facility] * Additional services required to return to the preadmission environment? Yes * Can the patient safely return to the preadmission environment? No * Has this patient been hospitalized within the prior 30 days at any hospital? No External Providers External Provider: [facility] Next Contact Date: Service Request Date: Service Type: Resolution: Reviewer: Comments: Last DP export: 04/11/20 9:22 a Patient Name: IMER SANCHEZ Page 56783 at 1347 All edits/amendments must be made on the electronic document DICTATION DATE: 04/14/20 1347 RAIL TRANSPORTATION OPERATOR: MADALYN 04/14/20 1347 RPT#: [id number] DC DATE: STATUS: ADM IN [facility] [address] [place] [address] END OF REPORT
[2020-04-14 15:26] VITALS: BP 188/67
--- NOTE | 2020-04-14 16:27 | MORECARE ---
CASE MANAGEMENT DISCHARGE SUMMARY PATIENT: IMER SANCHEZ UNIT: [id number] ADM DATE: 04/09/20 AGE: 59 : 64 SEX: F ROOM/BED: D.2225 AUTHOR: LASHAWNDOC PHYSICIAN: REFERRING PHYSICIAN: NIRANJAN SWANSON DO DATE OF SERVICE: 04/14/20 Discharge Plan Patient Name: IMER SANCHEZ Facility: [facility]:[place] : 1960 Planned Disposition: Anticipated Discharge Date: Discharge Date: Expected LOS: Initial Reviewer: [email or web address] Initial Review Date: 04/09/2020 Generated: 04/14/20 5:26 pm Comments DCP- Discharge Planning Updated by [id number]: Chelsey Kacy on 04/14/20 3:[address] Patient Name: IMER SANCHEZ Admission Status: ER Accout number: [id number] Admission Date: 04-09-2020 : 1960 Admission Diagnosis:SHORTNESS OF BREATH Attending: NIRANJAN SWANSON Current LOS: 5 Anticipated DC Date: Planned Disposition: Primary Insurance: [employer] PPO Discharge Planning Comments: IF FAMILY REFUSES TO [place] OPERATOR PATIENT AT DISCHARGE APS WILL NEED TO BE NOTIFIED AT [phone]. I SPOKE WITH PATIENT'S DAUGHTER IN LAW AND TOLD HER THE DC PLAN. CM TO FOLLOW AND ASSIST NEEDED. Domestic Cleaner: Chelsey Woodruff DCP- Discharge Planning Updated by [email or web address]: Chelsey Woodruff on 04/14/20 12:[address] Patient Name: IMER SANCHEZ Admission Status: ER Accout number: [id number] Admission Date: 04-09-2020 : 1960 Admission Diagnosis:SHORTNESS OF BREATH Attending: NIRANJAN SWANSON Current LOS: 5 Anticipated DC Date: Planned Disposition: Primary Insurance: [employer] PPO Discharge Planning Comments: CM met with patient at bedside after explaining CM role and obtaining verbal consent. CM discussed availability / needs of home health, REHAB and medical equipment. STATES CURRENT WITH [facility] , LIBERTY SIGNED. I WILL FAX UPDATE TO [facility] . PLAN IS TO BE DC'D TO HOME WITH FAMILY AND RESUME HH. IF NEB OR 02 NEEDED LIBERTY SIGNED FOR [facility] [place]. TO FOLLOW AND ASSIST NEEDED. Domestic Cleaner: Chelsey Woodruff DCPIA - Discharge Planning Initial Assessment Updated by [email or web address]: Christel Lira on 04/11/20 10:20 am * Is the patient Alert and Oriented? Yes * How many steps to enter\exit or inside your home? 0/0 * PCP GABRIELA VALDES * Pharmacy [facility] A\P * Preadmission Environment Home with Family * Partial ADLs (Assistance needed) Ambulation Bathing Dressing Medication Management Toileting Transfers * Equipment Splint Wheelchair * Community resources currently utilized Home Health * Please name any agencies selected above. [facility] * Additional services required to return to the preadmission environment? Yes * Can the patient safely return to the preadmission environment? No * Has this patient been hospitalized within the prior 30 days at any hospital? No Last DP export: 04/14/20 12:47 p Patient Name: IMER SANCHEZ Page 85060 at 1627 All edits/amendments must be made on the electronic document DICTATION DATE: 04/14/201625 RESOURCE PROGRAM TEACHER: MADALYN 04/14/201625 RPT#: [id number] CO DATE: STATUS: ADM IN [facility] [address] [place] [address] END OF REPORT
--- NOTE | 2020-04-14 17:09 | MORECARE ---
CASE MANAGEMENT DISCHARGE SUMMARY PATIENT: IMER SANCHEZ UNIT: [id number] ADM DATE: 04/09/20 AGE: 59 : 64 SEX: F ROOM/BED: D.2225 AUTHOR: CHINA HARDIN PHYSICIAN: REFERRING PHYSICIAN: NIRANJAN SWANSON DO DATE OF SERVICE: 04/14/20 Discharge Plan Patient Name: IMER SANCHEZ Facility: [facility]:[place] : 1960 Planned Disposition: Anticipated Discharge Date: Discharge Date: Expected LOS: Initial Reviewer: [email or web address] Initial Review Date: 04/09/2020 Generated: 04/14/20 6:09 pm Comments DCP- Discharge Planning Updated by [email or web address]: Chelsey Woodruff on 04/14/20 4:[address] Patient Name: IMER SANCHEZ Admission Status: ER Accout number: [id number] Admission Date: 04-09-2020 : 1960 Admission Diagnosis:SHORTNESS OF BREATH Attending: NIRANJAN SWANSON Current LOS: 5 Anticipated DC Date: Planned Disposition: Primary Insurance: [employer] / ?.?? PPO Discharge Planning Comments: PATIENT NOW AGREEABLE TO [facility] SN[facility]. I AM FAXING REFERRAL NOW. Cloth Dyer: Chelsey Woodruff DCP- Discharge Planning Updated by [email or web address]: Chelsey Woodruff on 04/14/20 3:[address] Patient Name: IMER SANCHEZ Admission Status: ER Accout number: [id number] Admission Date: 04-09-2020 : 1960 Admission Diagnosis:SHORTNESS OF BREATH Attending: NIRANJAN SWANSON Current LOS: 5 Anticipated DC Date: Planned Disposition: Primary Insurance: [employer] PPO Discharge Planning Comments: IF FAMILY REFUSES TO CUFFING MACHINE OPERATOR PATIENT AT DISCHARGE APS WILL NEED TO BE NOTIFIED AT [phone]. I SPOKE WITH PATIENT'S DAUGHTER IN LAW AND TOLD HER THE DC PLAN. CM TO FOLLOW AND ASSIST NEEDED. Cloth Dyer: Chelsey Woodruff DCP- Discharge Planning Updated by [email or web address]: Chelsey Woodruff on 04/14/20 12:[address] Patient Name: IMER SANCHEZ Admission Status: ER Accout number: [id number] Admission Date: 04-09-2020 : 1960 Admission Diagnosis:SHORTNESS OF BREATH Attending: NIRANJAN SWANSON Current LOS: 5 Anticipated DC Date: Planned Disposition: Primary Insurance: [employer] PPO Discharge Planning Comments: CM met with patient at bedside after explaining CM role and obtaining verbal consent. CM discussed availability / needs of home health, REHAB and medical equipment. STATES CURRENT WITH [facility], LIBERTY SIGNED. I WILL FAX UPDATE TO [facility]. PLAN IS TO BE DC'D TO HOME WITH FAMILY AND RESUME HH. IF NEB OR 02 NEEDED LIBERTY SIGNED FOR [facility]. CM TO FOLLOW AND ASSIST NEEDED. Cloth Dyer: Chelsey Woodruff DCPIA - Discharge Planning Initial Assessment Updated by [email or web address]: Christel Lira on 04/11/20 10:20 am * Is the patient Alert and Oriented? Yes * How many steps to enter\exit or inside your home? 0/0 * PCP GABRIELA VALDES * Pharmacy [facility] A\P * Preadmission Environment Home with Family * Partial ADLs (Assistance needed) Ambulation Bathing Dressing Medication Management Toileting Transfers * Equipment Splint Wheelchair * Community resources currently utilized Home Health * Please name any agencies selected above. [facility] * Additional services required to return to the preadmission environment? Yes * Can the patient safely return to the preadmission environment? No * Has this patient been hospitalized within the prior 30 days at any hospital? No External Providers External Provider: [facility] Next Contact Date: Service Request Date: Service Type: Resolution: Reviewer: Comments: Last DP export: 04/14/20 3:27 p Patient Name: IMER SANCHEZ Page 14208 at 1709 All edits/amendments must be made on the electronic document DICTATION DATE: 04/14/201708 AWS ARCHITECT: MADALYN 04/14/201708 RPT#: [id number] DC DATE: STATUS: ADM IN [facility] [address] [place] [address] END OF REPORT
--- NOTE | 2020-04-14 17:26 | NUR ---
I have reviewed this patient and I concur with the Shift Assessment completed by the Licensed Practical Nurse today this shift.
--- NOTE | 2020-04-14 17:27 | NUR ---
I have reviewed this patient and I concur with the Shift Assessment completed by the Licensed Practical Nurse today this shift.
--- NOTE | 2020-04-14 17:53 | NUR ---
PT HAD DC TO GO HOME, PT FAMILY CALLED CONCERN THAT PT WILL NOT BE ABLE TO BE TAKEN CARE OF AT HOME WITH NO FAMILY AVAILABLE. PT HAS AGREED TO GO TO [facility]. PT TO STAY ANOTHER NIGHT BEFORE DC
[2020-04-14 20:00] VITALS: BP 188/93
--- NOTE | 2020-04-14 21:00 | NUR ---
PT LYING IN BED WITHOUT DISTRESS, AOX4. INCONTINENT OF URINE, LINENS CHANGED, ADINA CARE PROVIDED. PT HAVING HEARTBURN. CALLED KEYUR WILDER, ORDER RECIEVED FOR PEPCID AND GI COCKTAIL. GAVE ORDERED. DENIES OTHER NEEDS AT THIS TIME. CL IN REACH, WILL CTM
[2020-04-15] VITALS: BP 173/80
[2020-04-15 04:00] VITALS: BP 184/85
[2020-04-15 07:04] LABS: ANION GAP 11.8 mmol/L (8-16); CALCIUM 8.7 mg/dL (8.5-10.1); CARBON DIOXIDE 28.1 mmol/L (21.0-32.0)
[2020-04-15 07:05] LABS: POTASSIUM - SERUM 3.9 mmol/L (3.5-5.1)
--- NOTE | 2020-04-15 07:36 | NUR ---
PT LYING IN BED AWAKE, NO S/SX OF DISTRESS, IV IN LEFT AC SL, PT STATES SHE IS GOING TO ASSISTED LIVING TODAY. O2 AT 2L NC, NO NEEDS VOICED AT THIS TIME. COTINUE WITH PLAN OF CARE
[2020-04-15 07:43] LABS: BASOPHILS 0 % (0-2); EOSINOPHILS 1.1 % (0-7); HEMATOCRIT 32.5 % (36.0-48.0); HEMOGLOBIN 10.1 g/dL (12-16); IMMATURE GRANULOCYTES 0.6 % (0-5); MCHC 31.1 g/dL (31.0-37.0); MCV 86.9 fL (80.0-100.0); MEAN PLATELET VOLUME 10.9 fL (7.4-10.4); MONOCYTES 6.9 % (2-11); NEUTROPHILS 56.4 % (40-80); PLATELET COUNT 312 10x3/uL (130-400); RBC 3.74 10x6/uL (4.00-5.40); RDW 16.5 % (11.5-14.5); WBC 13.2 10x3/uL (4.8-10.8)
[2020-04-15 08:09] VITALS: BP 160/74
--- NOTE | 2020-04-15 08:19 | EC ---
PATIENT:IMER SANCHEZ DATE OF SERVICE: 04/09/20 SEX: F MEDICAL RECORD: [id number] DATE OF : [birth year] LOCATION:[facility] AGE OF PATIENT: 59 ADMISSION DATE: 04/09/20 REFERRING PHYSICIAN: INTERPRETING PHYSICIAN: JON GARZA MD ECHOCARDIOGRAM REPORT ECHO CHARGES 4 ECHO COMPLETE Date: 04/13/20 CLINICAL DIAGNOSIS: SOB ECHOCARDIOGRAPHIC MEASUREMENTS (adult normal given) AC root (d.<3.7cm) 2.7 cm LV Septum d (<1.2 cm> 0.8 cm Valve Excursion 1.5 cm LV Septum (systole) 1.0 cm Left Atria (s.<4.0cm> 4.2 cm LVPW d(<1.2cm) 0.9 cm RV (d.<2.3cm) 2.7 cm LVPW (sytole) 1.1 cm LV diastole(<5.6CM) 5.5 cm MV E-F(>70mm/sec) cm LV systole 4.0 cm LVOT Diameter 1.6 cm MV exc.(>10mm) cm Est.ejection fraction (50-75%) % DOPPLER: LVIT cm/sec A 80 cm/sec E 131 cm/sec LA cm/sec RVSP 47.5 mmHg LVOT 112 cm/sec AOP1/2T m/s Asc. Ao 151 cm/sec RVOT 85 cm/sec RA cm/sec PA 103 cm/sec AV Gradient Peak 9.1 mmHg AV Mean 5.5 mmHg AV Area 1.5 cm MV Gradient Peak 7.2 mmHg MV Mean 3.9 mmHg MV Area cm COMMENTS: Shredding Specialist: Nirali ESPINOSA Back Shoe Cutter: 3 Dr. Almeida TAPE# PACS Pericardial Effusion N DATE OF SERVICE: Adequate 2D, color flow imaging, spectral Doppler, and M-Mode. No LVH. LV internal dimensions are normal. Wall motion is normal. EF is greater than or equal to 55%. Aortic valve is tricuspid. No evidence of stenosis by Doppler interrogation. Left atrium is minimally dilated at 4.2 cm. Mitral valve shows no prolapse. Trace MR. Right-sided chambers are grossly normal. Trace TR. ECHOCARDIOGRAM REPORT [id number] IMER SANCHEZ TRANSINT:[id number] Voice Confirmation ID: [id number] DOCUMENT ID: [id number] JON GARZA MD at 0819 CC: [id number] DICTATION DATE: 04/14/20 1310 DISTRICT SUPERVISOR: 04/14/20 1356 ADM IN [place] [id number] [place] [id number]
[2020-04-15 12:12] VITALS: BP 150/80
--- NOTE | 2020-04-15 12:25 | NUR ---
RESTING,WITHOUT SIGNS OF DISTRESS.
--- NOTE | 2020-04-15 12:28 | MORECARE ---
CASE MANAGEMENT DISCHARGE SUMMARY PATIENT: IMER SANCHEZ UNIT: [id number] ADM DATE: 04/09/20 AGE: 59 : 64 SEX: F ROOM/BED: D.2225 AUTHOR: CHINA HARDIN PHYSICIAN: REFERRING PHYSICIAN: NIRANJAN SWANSON DO DATE OF SERVICE: 04/15/20 Discharge Plan Patient Name: IMER SANCHEZ Facility: [facility]:[place] : 1960 Planned Disposition: Anticipated Discharge Date: Discharge Date: Expected LOS: Initial Reviewer: [email or web address] Initial Review Date: 04/09/2020 Generated: 04/15/20 1:27 pm Comments DCP- Discharge Planning Updated by [email or web address]: Chelsey Woodruff on 04/14/20 4:[address] Patient Name: IMER SANCHEZ Admission Status: ER Accout number: [id number] Admission Date: 04-09-2020 : 1960 Admission Diagnosis:SHORTNESS OF BREATH Attending: NIRANJAN SWANSON Current LOS: 5 Anticipated DC Date: Planned Disposition: Primary Insurance: [employer] PPO Discharge Planning Comments: PATIENT NOW AGREEABLE TO [facility]. I AM FAXING REFERRAL NOW. Shipyard Painting Supervisor: Chelsey Woodruff DCP- Discharge Planning Updated by [email or web address]: Chelsey Woodruff on 04/14/20 3:[address] Patient Name: IMER SANCHEZ Admission Status: ER Accout number: [id number] Admission Date: 04-09-2020 : 1960 Admission Diagnosis:SHORTNESS OF BREATH Attending: NIRANJAN SWANSON Current LOS: 5 Anticipated DC Date: Planned Disposition: Primary Insurance: [employer] PPO Discharge Planning Comments: IF FAMILY REFUSES TO TECHNICAL SPECIALIST PATIENT AT DISCHARGE APS WILL NEED TO BE NOTIFIED AT [phone]. I SPOKE WITH PATIENT'S DAUGHTER IN LAW AND TOLD HER THE DC PLAN. CM TO FOLLOW AND ASSIST NEEDED. Shipyard Painting Supervisor: Chelsey Woodruff DCP- Discharge Planning Updated by [id number]: Chelsey Woodruff on 04/14/20 12:[address] Patient Name: IMER SANCHEZ Admission Status: ER Accout number: [id number] Admission Date: 04-09-2020 : 1960 Admission Diagnosis:SHORTNESS OF BREATH Attending: NIRANJAN SWANSON Current LOS: 5 Anticipated DC Date: Planned Disposition: Primary Insurance: [employer] PPO Discharge Planning Comments: CM met with patient at bedside after explaining CM role and obtaining verbal consent. CM discussed availability / needs of home health, REHAB and medical equipment. STATES CURRENT WITH [facility], LIBERTY SIGNED. I WILL FAX UPDATE TO [facility]. PLAN IS TO BE DC'D TO HOME WITH FAMILY AND RESUME HH. IF NEB OR 02 NEEDED LIBERTY SIGNED FOR [facility]. CM TO FOLLOW AND ASSIST NEEDED. Shipyard Painting Supervisor: Chelsey Woodruff DCPIA - Discharge Planning Initial Assessment Updated by [email or web address]: Christel Lira on 04/11/20 10:20 am * Is the patient Alert and Oriented? Yes * How many steps to enter\exit or inside your home? 0/0 * PCP GBARIELA VALDES * Pharmacy [facility] A\P * Preadmission Environment Home with Family * Partial ADLs (Assistance needed) Ambulation Bathing Dressing Medication Management Toileting Transfers * Equipment Splint Wheelchair * Community resources currently utilized Home Health * Please name any agencies selected above. [facility] * Additional services required to return to the preadmission environment? Yes * Can the patient safely return to the preadmission environment? No * Has this patient been hospitalized within the prior 30 days at any hospital? No Last DP export: 04/14/20 4:09 p Patient Name: IMER SANCHEZ Page 10100 at 1228 All edits/amendments must be made on the electronic document DICTATION DATE: 04/15/20 1227 INVENTORY SPECIALIST: MADALYN 04/15/20 1227 RPT#: [id number] DC DATE: STATUS: ADM IN [facility] [address] [place] [address] END OF REPORT
[2020-04-15 15:37] VITALS: BP 172/70
[2020-04-16 04:00] VITALS: BP 142/94
--- NOTE | 2020-04-16 04:35 | NUR ---
ASSESSED AT THE BEGINNING OF THE SHIFT. PT IS ALERT AND ORIENTED, ABLE TO VERBALIZE NEEDS. SHE HAS MADE NO ATTEMPT DURING THE NIGHT TO LET US KNOW THAT SHE NEEDS TO PEE OR TO LET US KNOW WHEN SHE IS WET. WE ARE STILL DOING BLOOD SUGARS EVERY 4 HRS AND THE LAST ONE WAS 101 WITH NO NEED FOR INSULIN. SHE HAS O2 AT 3 LITERS BUT IS OFF ALOT OF THE TIME. AT THIS TIME SHE HAS JUST HAD A BED CHANGE AND BEEN CLEANED UP FROM A BM AND URINE.
[2020-04-16 06:51] LABS: BASOPHILS 0.1 % (0-2); EOSINOPHILS 0.8 % (0-7); HEMOGLOBIN 9.4 g/dL (12-16); IMMATURE GRANULOCYTES 0.5 % (0-5); LYMPHOCYTES 29.9 % (15-50); MCH 27.4 pg (26.0-34.0); MCHC 31.3 g/dL (31.0-37.0); MCV 87.5 fL (80.0-100.0); MONOCYTES 8.5 % (2-11); NEUTROPHILS 60.2 % (40-80); PLATELET COUNT 292 10x3/uL (130-400); RBC 3.43 10x6/uL (4.00-5.40); RDW 16.6 % (11.5-14.5); WBC 13.2 10x3/uL (4.8-10.8)
[2020-04-16 08:15] VITALS: BP 165/78
--- NOTE | 2020-04-16 08:23 | NUR ---
RESTING IN BED, NO DISTRESS NOTED, SLEEPING, CONT TO MONITOR AWAITING PLACEMENT
--- NOTE | 2020-04-16 08:55 | NUR ---
PT FEEDING SELF BREAKFAST, SUGAR 89, CONT TO MONITOR THIS
[2020-04-16 09:20] LABS: ALBUMIN 2.4 g/dL (3.4-5.0); ANION GAP 14.7 mmol/L (8-16); BILIRUBIN - TOTAL 0.15 mg/dL (0.2-1.3); CALCIUM 8.8 mg/dL (8.5-10.1); POTASSIUM - SERUM 3.7 mmol/L (3.5-5.1); PROTEIN - SERUM 5.8 g/dL (6.4-8.2)
[2020-04-16 13:47] VITALS: BP 161/77
[2020-04-16 17:37] VITALS: BP 161/74
--- NOTE | 2020-04-16 19:00 | NUR ---
PATIENT ALERT AND ORIENTED WHEN ENTERING THE ROOM. PATIENT ASSESSMENT PERFORMED, SEE CHART. PATIENT INCONTINENT OF URINE. BED BATH AND BED CHANGE PROVIDED. PATIENT DENIES PAIN OR DISCOMFORT AT THIS TIME. CALL LIGHT CLOSE. CPOC.
[2020-04-16 20:00] VITALS: BP 173/76
[2020-04-17] VITALS: BP 186/79
--- NOTE | 2020-04-17 | NUR ---
FSBS PERFORMED. INSULIN ADMINISTERED PER ORDER PER FSBS. CALL LIGHT REMAINS CLOSE. CPOC.
[2020-04-17 04:00] VITALS: BP 179/79
[2020-04-17 07:07] LABS: BASOPHILS 0.1 % (0-2); EOSINOPHILS 1.7 % (0-7); HEMATOCRIT 30.6 % (36.0-48.0); HEMOGLOBIN 9.8 g/dL (12-16); IMMATURE GRANULOCYTES 0.6 % (0-5); LYMPHOCYTES 29.2 % (15-50); MCH 28.1 pg (26.0-34.0); MCV 87.7 fL (80.0-100.0); MEAN PLATELET VOLUME 10.8 fL (7.4-10.4); MONOCYTES 7.4 % (2-11); PLATELET COUNT 286 10x3/uL (130-400); RBC 3.49 10x6/uL (4.00-5.40); RDW 16.7 % (11.5-14.5); WBC 14.9 10x3/uL (4.8-10.8)
[2020-04-17 07:26] LABS: ALBUMIN 2.4 g/dL (3.4-5.0); ANION GAP 12.9 mmol/L (8-16); BILIRUBIN - TOTAL 0.13 mg/dL (0.2-1.3); CALCIUM 8.6 mg/dL (8.5-10.1); CARBON DIOXIDE 26.7 mmol/L (21.0-32.0); CREATININE - SERUM 1.1 mg/dL (0.6-1.3); POTASSIUM - SERUM 3.6 mmol/L (3.5-5.1); PROTEIN - SERUM 5.5 g/dL (6.4-8.2)
--- NOTE | 2020-04-17 09:30 | NUR ---
ASSESSMENT PER FLOW SHEET. PATIENT IS WITHOUT DISTRESS.PATIENT CLEANED AND BUTT PASTE APLLIED TO SKIN.CALL LIGHT IN REACH
[2020-04-17 09:45] VITALS: BP 168/75
[2020-04-17 12:11] VITALS: BP 162/70
--- NOTE | 2020-04-17 12:32 | NUR ---
PATIENT IS WITHOUT DISTRESS.IV HAS BEEN BEEPING THIS AM. SHE REFUSES RESITE. PATIENT STATES SHE WILL DC IN AM TO [facility]
[2020-04-17 17:32] VITALS: BP 161/78
--- NOTE | 2020-04-17 19:00 | NUR ---
PATIENT ALERT AND ORIENTED WHEN ENTERING THE ROOM. ASSESSMENT PERFORED, SEE CHART. UPON ASSESSMENT, NOTICED LEFT HEEL IS REDDENED BUT BLANCHABLE. APPLIED MEPILED BORDER AND PINK BOOTIES TO HEELS BILATERALLY. PATIENT DENIES PAIN AT THIS TIME. CALL LIGHT IS CLOSE. CPOC.
[2020-04-17 20:26] VITALS: BP 157/71
--- NOTE | 2020-04-17 23:30 | NUR ---
PATIENT INCONTINENT OF BOWEL AND BLADDER. BED CHANGE AND CLEAN UP PROVIDED. RETURNED PATIENT TO COMFORTABLE POSITION. DENIES FURTHER NEEDS AT THIS TIME. FALL PRECAUTIONS REMAIN IN PLACE. CPOC.
[2020-04-18 00:16] VITALS: BP 188/77
--- NOTE | 2020-04-18 03:55 | NUR ---
FSBS 63. PROVIDED PATIENT WITH ORANGE JUICE AND EDGAR CRACKERS. PATIENT NOT DISTRESSED OR DIAPHORETIC. ALERT AND ORIENTED. EATING SNACK AND DRINKING ORANGE JUICE WHEN LEAVING ROOM. CALL LIGHT REMAINS CLOSE. CPOC.
[2020-04-18 04:30] VITALS: BP 151/66
--- NOTE | 2020-04-18 05:54 | NUR ---
FSBS 80 AFTER SNACK.
[2020-04-18 06:45] LABS: BASOPHILS 0.1 % (0-2); EOSINOPHILS 2.8 % (0-7); HEMATOCRIT 30.2 % (36.0-48.0); HEMOGLOBIN 9.2 g/dL (12-16); IMMATURE GRANULOCYTES 0.7 % (0-5); LYMPHOCYTES 34.1 % (15-50); MCH 26.7 pg (26.0-34.0); MCHC 30.5 g/dL (31.0-37.0); MCV 87.8 fL (80.0-100.0); MEAN PLATELET VOLUME 10.4 fL (7.4-10.4); MONOCYTES 5.9 % (2-11); NEUTROPHILS 56.4 % (40-80); PLATELET COUNT 283 10x3/uL (130-400); RBC 3.44 10x6/uL (4.00-5.40); RDW 16.8 % (11.5-14.5); WBC 15.2 10x3/uL (4.8-10.8)
[2020-04-18 06:58] LABS: ALBUMIN 2.5 g/dL (3.4-5.0); ANION GAP 7.8 mmol/L (8-16); BILIRUBIN - TOTAL 0.14 mg/dL (0.2-1.3); CALCIUM 8.4 mg/dL (8.5-10.1); CREATININE - SERUM 0.9 mg/dL (0.6-1.3); POTASSIUM - SERUM 3.8 mmol/L (3.5-5.1); PROTEIN - SERUM 5.8 g/dL (6.4-8.2)
--- NOTE | 2020-04-18 07:10 | NUR ---
REC'D IN BED AWAKE AND ALERT. RESP EVEN AND UNLABORED WITH NO DISTRESS NOTED. CAN EXPRESS NEEDS AND WANTS. DENIES ANY PAIN OR DISCOMFORT AT THIS TIME. ASSESSMENT COMPLETED. C/L IN REACH AT BEDSIDE.
[2020-04-18 08:54] VITALS: BP 135/78
--- NOTE | 2020-04-18 09:45 | NUR ---
I have reviewed this patient and I concur with the Shift Assessment completed by the Licensed Practical Nurse today this shift.
--- NOTE | 2020-04-18 12:35 | MORECARE ---
CASE MANAGEMENT DISCHARGE SUMMARY PATIENT: IMER SANCHEZ UNIT: [id number] ADM DATE: 04/09/20 AGE: 59 : 64 SEX: F ROOM/BED: D.2225 AUTHOR: CHINA HARDIN PHYSICIAN: REFERRING PHYSICIAN: NIRANJAN SWANSON DO DATE OF SERVICE: 04/18/20 Discharge Plan Patient Name: IMER SANCHEZ Facility: [facility]:[place] : 1960 Planned Disposition: Anticipated Discharge Date: Discharge Date: Expected LOS: Initial Reviewer: [id number] Initial Review Date: 04/09/2020 Generated: 04/18/20 1:35 pm Comments DCP- Discharge Planning Updated by [email or web address]: Chelsey Woodruff on 04/18/20 11:[address] Patient Name: IMER SANCHEZ Admission Status: ER Accout number: [id number] Admission Date: 04-09-2020 : 1960 Admission Diagnosis:SHORTNESS OF BREATH Attending: NIRANJAN SWANSON Current LOS: 9 Anticipated DC Date: Planned Disposition: Primary Insurance: [employer] [place] PPO Discharge Planning Comments: REFERRAL REFAXED TO [facility] FOR SNF PLACEMENT AT [facility]. WAITING CALL BACK FOR AUTH. Oilfield Plant And Field Operator: Chelsey Woodruff DCP- Discharge Planning Updated by [email or web address]: Chelsey Woodruff on 04/14/20 4:[address] Patient Name: IMER SANCHEZ Admission Status: ER Accout number: [id number] Admission Date: 04-09-2020 : 1960 Admission Diagnosis:SHORTNESS OF BREATH Attending: NIRANJAN SWANSON Current LOS: 5 Anticipated DC Date: Planned Disposition: Primary Insurance: [employer] PPO Discharge Planning Comments: PATIENT NOW AGREEABLE TO [facility] SNF. I AM FAXING REFERRAL NOW. Oilfield Plant And Field Operator: Chelsey Woodruff DCP- Discharge Planning Updated by [id number]: Chelsey Woodruff on 04/14/20 3:[address] Patient Name: IMER SANCHEZ Admission Status: ER Accout number: [id number] Admission Date: 04-09-2020 : 1960 Admission Diagnosis:SHORTNESS OF BREATH Attending: NIRANJAN SWANSON Current LOS: 5 Anticipated DC Date: Planned Disposition: Primary Insurance: [employer]EC[employer] PPO Discharge Planning Comments: IF FAMILY REFUSES TO ISOTOPE TECHNICIAN PATIENT AT DISCHARGE APS WILL NEED TO BE NOTIFIED AT [phone]. I SPOKE WITH PATIENT'S DAUGHTER IN LAW AND TOLD HER THE DC PLAN. CM TO FOLLOW AND ASSIST NEEDED. Oilfield Plant And Field Operator: Chelsey Woodruff DCP- Discharge Planning Updated by [email or web address]: Chelsey Woodruff on 04/14/20 12:[address] Patient Name: IMER SANCHEZ Admission Status: ER Accout number: [id number] Admission Date: 04-09-2020 : 1960 Admission Diagnosis:SHORTNESS OF BREATH Attending: NIRANJAN SWANSON Current LOS: 5 Anticipated DC Date: Planned Disposition: Primary Insurance: [employer]EC[employer] PPO Discharge Planning Comments: CM met with patient at bedside after explaining CM role and obtaining verbal consent. CM discussed availability / needs of home health, REHAB and medical equipment. STATES CURRENT WITH [facility], LIBERTY SIGNED. I WILL FAX UPDATE TO [facility]. PLAN IS TO BE DC'D TO HOME WITH FAMILY AND RESUME HH. IF NEB OR 02 NEEDED [facility]ERTY SIGNED FOR [facility]. CM TO FOLLOW AND ASSIST NEEDED. Oilfield Plant And Field Operator: Chelsey Woodruff DCPIA - Discharge Planning Initial Assessment Updated by [email or web address]: Christel Lira on 04/11/20 10:20 am * Is the patient Alert and Oriented? Yes * How many steps to enter\exit or inside your home? 0/0 * PCP GABRIELA VALDES * Pharmacy [facility] A\P * Preadmission Environment Home with Family * Partial ADLs (Assistance needed) Ambulation Bathing Dressing Medication Management Toileting Transfers * Equipment Splint Wheelchair * Community resources currently utilized Home Health * Please name any agencies selected above. [facility] * Additional services required to return to the preadmission environment? Yes * Can the patient safely return to the preadmission environment? No * Has this patient been hospitalized within the prior 30 days at any hospital? No Last DP export: 04/15/20 11:28 a Patient Name: IMER SANCHEZ Page 62639 at 1235 All edits/amendments must be made on the electronic document DICTATION DATE: 04/18/201234 FRIT COATER: MADALYN 04/18/20 1235 RPT#: [id number] [place] DATE: STATUS: ADM IN [facility] [address] [place] [address] END OF REPORT
[2020-04-18 13:05] VITALS: BP 151/57
[2020-04-18 17:37] VITALS: BP 166/75
[2020-04-18 22:03] VITALS: BP 194/78
[2020-04-19 04:00] VITALS: BP 168/75
[2020-04-19 07:23] LABS: BASOPHILS 0.1 % (0-2); EOSINOPHILS 3.9 % (0-7); HEMATOCRIT 30.2 % (36.0-48.0); HEMOGLOBIN 9.2 g/dL (12-16); IMMATURE GRANULOCYTES 0.6 % (0-5); LYMPHOCYTES 28.4 % (15-50); MCH 27.3 pg (26.0-34.0); MCHC 30.5 g/dL (31.0-37.0); MCV 89.6 fL (80.0-100.0); MONOCYTES 6.3 % (2-11); NEUTROPHILS 60.7 % (40-80); PLATELET COUNT 282 10x3/uL (130-400); RBC 3.37 10x6/uL (4.00-5.40); WBC 15.5 10x3/uL (4.8-10.8)
--- NOTE | 2020-04-19 07:30 | NUR ---
REC'D IN WALKING ROUNDS AWAKE AND ALERT. RESP EVEN AND UNLABORED WITH NO DISTRESS NOTED. CAN EXPRESS NEEDS AND WANTS. NO C/O NOTED OR VOICED. INCONT OF BOWEL AND BLADDER WITH ADINA CARE GIVEN Q 2 HRS AND PRN. ASSESSMENT COMPLETED. C/L IN REACH AT BEDSIDE.
[2020-04-19 07:44] LABS: ALBUMIN 2.4 g/dL (3.4-5.0); ANION GAP 8.6 mmol/L (8-16); BILIRUBIN - TOTAL 0.19 mg/dL (0.2-1.3); CALCIUM 8.4 mg/dL (8.5-10.1); CARBON DIOXIDE 28.2 mmol/L (21.0-32.0); CREATININE - SERUM 1.1 mg/dL (0.6-1.3); POTASSIUM - SERUM 3.8 mmol/L (3.5-5.1); PROTEIN - SERUM 5.5 g/dL (6.4-8.2)
--- NOTE | 2020-04-19 09:12 | NUR ---
OT NOTE: (DOS 04/18/20) PT COMPLETED SIDE ROLLING WITH MAX A. PT COMPLETED SUPINE TO SIT WITH MAX A. PT COMPLETED SITTING AT EOB WITH MOD/MAX A. PT COMPLETED UE AROM NEEDED FOR INCREASED STABILITY. [phone] THANK YOU,JUNE HERNANDEZ
--- NOTE | 2020-04-19 10:15 | MORECARE ---
CASE MANAGEMENT DISCHARGE SUMMARY PATIENT: IMER SANCHEZ UNIT: [id number] ADM DATE: 04/09/20 AGE: 59 : 64 SEX: F ROOM/BED: D.2225 AUTHOR: CHINA HARDIN PHYSICIAN: REFERRING PHYSICIAN: NIRANJAN SWANSON DO DATE OF SERVICE: 04/19/20 Discharge Plan Patient Name: IMER SANCHEZ Facility: [facility]:[place] : 1960 Planned Disposition: Anticipated Discharge Date: Discharge Date: Expected LOS: Initial Reviewer: [id number] Initial Review Date: 04/09/2020 Generated: 04/19/20 11:15 am Comments DCP- Discharge Planning Updated by [email or web address]: Chelsey Woodruff on 04/19/20 9:[address] Patient Name: IMER SANCHEZ Admission Status: ER Accout number: [id number] Admission Date: 04-09-2020 : 1960 Admission Diagnosis:SHORTNESS OF BREATH Attending: NIRANJAN SWANSON Current LOS: 10 Anticipated DC Date: Planned Disposition: Primary Insurance: [employer]ICEC[employer] PPO Discharge Planning Comments: [facility] DENIED PATIENT BUT [facility] IS WORKING ON GETTING HER ACCEPTED TO [place]. WAITING CALL BACK TODAY. Training Consultant: Chelsey Woodruff DCP- Discharge Planning Updated by [email or web address]: Chelsey Woodruff on 04/18/20 11:[address] Patient Name: IMER SANCHEZ Admission Status: ER Accout number: [id number] Admission Date: 04-09-2020 : 1960 Admission Diagnosis:SHORTNESS OF BREATH Attending: NIRANJAN SWANSON Current LOS: 9 Anticipated DC Date: Planned Disposition: Primary Insurance: [employer]ICEC[employer] PPO Discharge Planning Comments: REFERRAL REFAXED TO [facility] FOR SNF PLACEMENT AT [facility]. WAITING CALL BACK FOR AUTH. Training Consultant: Chelsey Woodruff DCP- Discharge Planning Updated by [email or web address]: Chelsey Woodruff on 04/14/20 4:[address] Patient Name: IMER SANCHEZ Admission Status: ER Accout number: [id number] Admission Date: 04-09-2020 : 1960 Admission Diagnosis:SHORTNESS OF BREATH Attending: NIRANJAN SWANSON Current LOS: 5 Anticipated DC Date: Planned Disposition: Primary Insurance: [employer]EC[employer] PPO Discharge Planning Comments: PATIENT NOW AGREEABLE TO [facility] SNF. I AM FAXING REFERRAL NOW. Training Consultant: Chelsey Woodruff DCP- Discharge Planning Updated by [email or web address]: Chelsey Woodruff on 04/14/20 3:[address] Patient Name: IMER SANCHEZ Admission Status: ER Accout number: [id number] Admission Date: 04-09-2020 : 1960 Admission Diagnosis:SHORTNESS OF BREATH Attending: NIRNAJAN SWANSON Current LOS: 5 Anticipated DC Date: Planned Disposition: Primary Insurance: [employer] PPO Discharge Planning Comments: IF FAMILY REFUSES TO WATER RESOURCE ENGINEER PATIENT AT DISCHARGE APS WILL NEED TO BE NOTIFIED AT [phone]. I SPOKE WITH PATIENT'S DAUGHTER IN LAW AND TOLD HER THE DC PLAN. CM TO FOLLOW AND ASSIST NEEDED. Training Consultant: Chelsey Woodruff DCP- Discharge Planning Updated by [email or web address]: Chelsey Woodruff on 04/14/20 12:[address] Patient Name: IMER SANCHEZ Admission Status: ER Accout number: [id number] Admission Date: 04-09-2020 : 1960 Admission Diagnosis:SHORTNESS OF BREATH Attending: NIRANJAN SWANSON Current LOS: 5 Anticipated DC Date: Planned Disposition: Primary Insurance: [employer] PPO Discharge Planning Comments: CM met with patient at bedside after explaining CM role and obtaining verbal consent. CM discussed availability / needs of home health, REHAB and medical equipment. STATES CURRENT WITH [facility] , LIBERTY SIGNED. I WILL FAX UPDATE TO [facility]. PLAN IS TO BE DC'D TO HOME WITH FAMILY AND RESUME HH. IF NEB OR 02 NEEDED [facility]ERTY SIGNED FOR [facility]. CM TO FOLLOW AND ASSIST NEEDED. Training Consultant: Chelsey Woodruff DCPIA - Discharge Planning Initial Assessment Updated by [email or web address]: Christel Lira on 04/11/20 10:20 am * Is the patient Alert and Oriented? Yes * How many steps to enter\exit or inside your home? 0/0 * PCP GABRIELA VALDES * Pharmacy [facility] A\P * Preadmission Environment Home with Family * Partial ADLs (Assistance needed) Ambulation Bathing Dressing Medication Management Toileting Transfers * Equipment Splint Wheelchair * Community resources currently utilized Home Health * Please name any agencies selected above. [facility] * Additional services required to return to the preadmission environment? Yes * Can the patient safely return to the preadmission environment? No * Has this patient been hospitalized within the prior 30 days at any hospital? No External Providers External Provider: OTHER-OTHER Next Contact Date: Service Request Date: Service Type: Resolution: Reviewer: Comments: Last DP export: 04/18/20 11:35 a Patient Name: IMER SANCHEZ Page 87250 at 1015 All edits/amendments must be made on the electronic document DICTATION DATE: 04/19/20 1015 FOOT WORKER: MADALYN 04/19/20 1015 RPT#: [id number] DC DATE: STATUS: ADM IN [facility] [address] [place] [address] END OF REPORT
[2020-04-19 11:03] VITALS: BP 140/63
--- NOTE | 2020-04-19 12:13 | MORECARE ---
CASE MANAGEMENT DISCHARGE SUMMARY PATIENT: IMER SANCHEZ UNIT: [id number] ADM DATE: 04/09/20 AGE: 59 : 64 SEX: F ROOM/BED: D.2225 AUTHOR: CHINA HARDIN PHYSICIAN: REFERRING PHYSICIAN: NIRANJAN SWANSON DO DATE OF SERVICE: 04/19/20 Discharge Plan Patient Name: IMER SANCHEZ Facility: [facility]:[place] : 1960 Planned Disposition: Anticipated Discharge Date: Discharge Date: Expected LOS: Initial Reviewer: [email or web address] Initial Review Date: 04/09/2020 Generated: 04/19/20 1:12 pm Comments DCP- Discharge Planning Updated by [email or web address]: Chelsey Woodruff on 04/19/20 9:[address] Patient Name: IMER SANCHEZ Admission Status: ER Accout number: [id number] Admission Date: 04-09-2020 : 1960 Admission Diagnosis:SHORTNESS OF BREATH Attending: NIRANJAN SWANSON Current LOS: 10 Anticipated DC Date: Planned Disposition: Primary Insurance: [employer]EC[employer] PPO Discharge Planning Comments: [facility] DENIED PATIENT BUT [facility] IS WORKING ON GETTING HER ACCEPTED TO [place]. WAITING CALL BACK TODAY. Neuropsychology Service Director: Chelsey Woodruff DCP- Discharge Planning Updated by [email or web address]: Chelsey Woodruff on 04/18/20 11:[address] Patient Name: IMER SANCHEZ Admission Status: ER Accout number: [id number] Admission Date: 04-09-2020 : 1960 Admission Diagnosis:SHORTNESS OF BREATH Attending: NIRANJAN SWANSON Current LOS: 9 Anticipated DC Date: Planned Disposition: Primary Insurance: [employer]EC[employer] PPO Discharge Planning Comments: REFERRAL REFAXED TO [facility] FOR SNF PLACEMENT AT [facility]. WAITING CALL BACK FOR AUTH. Neuropsychology Service Director: Chelsey Woodruff DCP- Discharge Planning Updated by [email or web address]: Chelsey Woodruff on 04/14/20 4:[address] Patient Name: IMER SANCHEZ Admission Status: ER Accout number: [id number] Admission Date: 04-09-2020 : 1960 Admission Diagnosis:SHORTNESS OF BREATH Attending: NIRANJAN SWANSON Current LOS: 5 Anticipated DC Date: Planned Disposition: Primary Insurance: [employer] PPO Discharge Planning Comments: PATIENT NOW AGREEABLE TO [facility] SNF. I AM FAXING REFERRAL NOW. Neuropsychology Service Director: Chelsey Woodruff DCP- Discharge Planning Updated by [id number]: Chelsey Woodruff on 04/14/20 3:[address] Patient Name: IMER SANCHEZ Admission Status: ER Accout number: [id number] Admission Date: 04-09-2020 : 1960 Admission Diagnosis:SHORTNESS OF BREATH Attending: NIRANJAN SWANSON Current LOS: 5 Anticipated DC Date: Planned Disposition: Primary Insurance: [employer] PPO Discharge Planning Comments: IF FAMILY REFUSES TO ASSISTANT ATTORNEY GENERAL PATIENT AT DISCHARGE APS WILL NEED TO BE NOTIFIED AT [phone]. I SPOKE WITH PATIENT'S DAUGHTER IN LAW AND TOLD HER THE DC PLAN. CM TO FOLLOW AND ASSIST NEEDED. Neuropsychology Service Director: Chelsey Woodruff DCP- Discharge Planning Updated by [email or web address]: Chelsey Woodruff on 04/14/20 12:[address] Patient Name: IMER SANCHEZ Admission Status: ER Accout number: [id number] Admission Date: 04-09-2020 : 1960 Admission Diagnosis:SHORTNESS OF BREATH Attending: NIRANJAN SWANSON Current LOS: 5 Anticipated DC Date: Planned Disposition: Primary Insurance: [employer] PPO Discharge Planning Comments: CM met with patient at bedside after explaining CM role and obtaining verbal consent. CM discussed availability / needs of home health, REHAB and medical equipment. STATES CURRENT WITH [facility] , LIBERTY SIGNED. I WILL FAX UPDATE TO [facility]. PLAN IS TO BE DC'D TO HOME WITH FAMILY AND RESUME HH. IF NEB OR 02 NEEDED LIBERTY SIGNED FOR [facility]. CM TO FOLLOW AND ASSIST NEEDED. Neuropsychology Service Director: Chelsey Woodruff DCPIA - Discharge Planning Initial Assessment Updated by [email or web address]: Christel Lira on 04/11/20 10:20 am * Is the patient Alert and Oriented? Yes * How many steps to enter\exit or inside your home? 0/0 * PCP GABRIELA VALDES * Pharmacy [facility] [employer] A\P * Preadmission Environment Home with Family * Partial ADLs (Assistance needed) Ambulation Bathing Dressing Medication Management Toileting Transfers * Equipment Splint Wheelchair * Community resources currently utilized Home Health * Please name any agencies selected above. [facility] * Additional services required to return to the preadmission environment? Yes * Can the patient safely return to the preadmission environment? No * Has this patient been hospitalized within the prior 30 days at any hospital? No External Providers External Provider: [facility] Next Contact Date: Service Request Date: Service Type: Resolution: Reviewer: Comments: Last DP export: 04/19/20 9:15 a Patient Name: IMER SANCHEZ Page 20855 at 1213 All edits/amendments must be made on the electronic document DICTATION DATE: 04/19/201211 PATROL DRIVER: MADALYN 04/19/201211 RPT#: [id number] DC DATE: STATUS: ADM IN [facility] [address] [place] [address] END OF REPORT
--- NOTE | 2020-04-19 12:31 | MORECARE ---
CASE MANAGEMENT DISCHARGE SUMMARY PATIENT: IMER SANCHEZ UNIT: [id number] ADM DATE: 04/09/20 AGE: 59 : 64 SEX: F ROOM/BED: D.2225 AUTHOR: CHINA HARDIN PHYSICIAN: REFERRING PHYSICIAN: NIRANJAN SWANSON DO DATE OF SERVICE: 04/19/20 Discharge Plan Patient Name: IMER SANCHEZ Facility: [facility]:[place] : 1960 Planned Disposition: Anticipated Discharge Date: Discharge Date: Expected LOS: Initial Reviewer: [email or web address] Initial Review Date: 04/09/2020 Generated: 04/19/20 1:30 pm Comments DCP- Discharge Planning Updated by [email or web address]: Chelsey Woodruff on 04/19/20 9:[address] Patient Name: IMER SANCHEZ Admission Status: ER Accout number: [id number] Admission Date: 04-09-2020 : 1960 Admission Diagnosis:SHORTNESS OF BREATH Attending: NIRANJAN SWANSON Current LOS: 10 Anticipated DC Date: Planned Disposition: Primary Insurance: [employer] PPO Discharge Planning Comments: [facility] DENIED PATIENT BUT [facility] IS WORKING ON GETTING HER ACCEPTED TO [place]. WAITING CALL BACK TODAY. Orthopedic Physical Therapist: Chelsey Woodruff DCP- Discharge Planning Updated by [email or web address]: Chelsey Woodruff on 04/18/20 11:[address] Patient Name: IMER SANCHEZ Admission Status: ER Accout number: [id number] Admission Date: 04-09-2020 : 1960 Admission Diagnosis:SHORTNESS OF BREATH Attending: NIRANJAN SWANSON Current LOS: 9 Anticipated DC Date: Planned Disposition: Primary Insurance: [employer] PPO Discharge Planning Comments: REFERRAL REFAXED TO [facility] FOR SNF PLACEMENT AT [facility]. WAITING CALL BACK FOR AUTH. Orthopedic Physical Therapist: Chelsey Woodruff DCP- Discharge Planning Updated by [email or web address]: Chelsey Woodruff on 04/14/20 4:[address] Patient Name: IMER SANCHEZ Admission Status: ER Accout number: [id number] Admission Date: 04-09-2020 : 1960 Admission Diagnosis:SHORTNESS OF BREATH Attending: NIRANJAN SWANSON Current LOS: 5 Anticipated DC Date: Planned Disposition: Primary Insurance: [employer] PPO Discharge Planning Comments: PATIENT NOW AGREEABLE TO [facility] SNF. I AM FAXING REFERRAL NOW. Orthopedic Physical Therapist: Chelsey Woodruff DCP- Discharge Planning Updated by [email or web address]: Chelsey Woodruff on 04/14/20 3:[address] Patient Name: IMER SANCHEZ Admission Status: ER Accout number: [id number] Admission Date: 04-09-2020 : 1960 Admission Diagnosis:SHORTNESS OF BREATH Attending: NIRANJAN SWANSON Current LOS: 5 Anticipated DC Date: Planned Disposition: Primary Insurance: [employer] PPO Discharge Planning Comments: IF FAMILY REFUSES TO DYSLEXIA TEACHER PATIENT AT DISCHARGE APS WILL NEED TO BE NOTIFIED AT [phone]. I SPOKE WITH PATIENT'S DAUGHTER IN LAW AND TOLD HER THE DC PLAN. CM TO FOLLOW AND ASSIST NEEDED. Orthopedic Physical Therapist: Chelsey Woodruff DCP- Discharge Planning Updated by [email or web address]: Chelsey Woodruff on 04/14/20 12:[address] Patient Name: IMER SANCHEZ Admission Status: ER Accout number: [id number] Admission Date: 04-09-2020 : 1960 Admission Diagnosis:SHORTNESS OF BREATH Attending: NIRANJAN SWANSON Current LOS: 5 Anticipated DC Date: Planned Disposition: Primary Insurance: [employer] PPO Discharge Planning Comments: CM met with patient at bedside after explaining CM role and obtaining verbal consent. CM discussed availability / needs of home health, REHAB and medical equipment. STATES CURRENT WITH [facility] , LIBERTY SIGNED. I WILL FAX UPDATE TO [facility]. PLAN IS TO BE DC'D TO HOME WITH FAMILY AND RESUME HH. IF NEB OR 02 NEEDED [facility] SIGNED FOR [facility]. CM TO FOLLOW AND ASSIST NEEDED. Orthopedic Physical Therapist: Chelsey Woodruff DCPIA - Discharge Planning Initial Assessment Updated by [id number]: Christel Lira on 04/11/20 10:20 am * Is the patient Alert and Oriented? Yes * How many steps to enter\exit or inside your home? 0/0 * PCP GABRIELA VALDES * Pharmacy [facility] [employer] A\P * Preadmission Environment Home with Family * Partial ADLs (Assistance needed) Ambulation Bathing Dressing Medication Management Toileting Transfers * Equipment Splint Wheelchair * Community resources currently utilized Home Health * Please name any agencies selected above. [facility] * Additional services required to return to the preadmission environment? Yes * Can the patient safely return to the preadmission environment? No * Has this patient been hospitalized within the prior 30 days at any hospital? No External Providers External Provider: OTHER-OTHER Next Contact Date: Service Request Date: Service Type: Resolution: Reviewer: Comments: Last DP export: 04/19/20 11:13 a Patient Name: IMER SANCHEZ Page 11819 at 1231 All edits/amendments must be made on the electronic document DICTATION DATE: 04/19/201229 DIAMOND POLISHER: MADALYN 04/19/20 123 RPT#: [id number] DC DATE: STATUS: ADM IN [facility] [address] [place] [address] END OF REPORT
--- NOTE | 2020-04-19 14:45 | NUR ---
Nutrition follow-up: Pt receiving a consistent CHO diet with po intake 100% of most meals labs reviewed Wt: 170# Pt waiting for NH placement RDN following.
[2020-04-19 15:00] VITALS: BP 177/81
[2020-04-19 15:15] VITALS: BP 126/60
--- NOTE | 2020-04-19 15:37 | NUR ---
I have reviewed this patient and I concur with the Shift Assessment completed by the Licensed Practical Nurse today this shift.
--- NOTE | 2020-04-19 15:40 | NUR ---
I have reviewed this patient and I concur with the Shift Assessment completed by the Licensed Practical Nurse today this shift.
[2020-04-19 20:00] VITALS: BP 179/77
--- NOTE | 2020-04-20 00:11 | NUR ---
I have reviewed this patient and I concur with the Shift Assessment completed by the Licensed Practical Nurse today this shift.
[2020-04-20 04:00] VITALS: BP 167/75
[2020-04-20 05:28] LABS: BASOPHILS 0.1 % (0-2); EOSINOPHILS 0.9 % (0-7); HEMATOCRIT 28.7 % (36.0-48.0); HEMOGLOBIN 8.8 g/dL (12-16); IMMATURE GRANULOCYTES 0.5 % (0-5); MCH 26.8 pg (26.0-34.0); MCHC 30.7 g/dL (31.0-37.0); MEAN PLATELET VOLUME 10.5 fL (7.4-10.4); MONOCYTES 5.5 % (2-11); PLATELET COUNT 254 10x3/uL (130-400); RBC 3.28 10x6/uL (4.00-5.40); RDW 16.7 % (11.5-14.5)
[2020-04-20 06:02] LABS: MCV 87.5 fL (80.0-100.0)
[2020-04-20 06:30] LABS: ALBUMIN 2.3 g/dL (3.4-5.0); ANION GAP 7.7 mmol/L (8-16); BILIRUBIN - TOTAL 0.13 mg/dL (0.2-1.3); CALCIUM 8.1 mg/dL (8.5-10.1); CARBON DIOXIDE 28.2 mmol/L (21.0-32.0); POTASSIUM - SERUM 3.9 mmol/L (3.5-5.1); PROTEIN - SERUM 5.7 g/dL (6.4-8.2)
[2020-04-20 09:58] VITALS: BP 123/75
[2020-04-20 13:33] VITALS: BP 154/72
[2020-04-20 18:25] VITALS: BP 165/81
[2020-04-20 20:00] VITALS: BP 160/70
--- NOTE | 2020-04-20 20:02 | NUR ---
I have reviewed this patient and I concur with the Shift Assessment completed by the Licensed Practical Nurse today this shift.
[2020-04-21] VITALS: BP 123/72
[2020-04-21 04:00] VITALS: BP 167/72
[2020-04-21 04:28] LABS: BASOPHILS 0.1 % (0-2); HEMATOCRIT 27.8 % (36.0-48.0); HEMOGLOBIN 8.5 g/dL (12-16); IMMATURE GRANULOCYTES 0.5 % (0-5); MCH 26.9 pg (26.0-34.0); MCHC 30.6 g/dL (31.0-37.0); MEAN PLATELET VOLUME 10.5 fL (7.4-10.4); MONOCYTES 4.8 % (2-11); NEUTROPHILS 69.6 % (40-80); PLATELET COUNT 254 10x3/uL (130-400); RBC 3.16 10x6/uL (4.00-5.40); RDW 16.7 % (11.5-14.5); WBC 15.2 10x3/uL (4.8-10.8)
[2020-04-21 04:56] LABS: ALBUMIN 2.1 g/dL (3.4-5.0); ANION GAP 7.4 mmol/L (8-16); CALCIUM 8.4 mg/dL (8.5-10.1); POTASSIUM - SERUM 4.4 mmol/L (3.5-5.1); PROTEIN - SERUM 5.6 g/dL (6.4-8.2)
[2020-04-21 05:10] LABS: BILIRUBIN - TOTAL 0.09 mg/dL (0.2-1.3)
--- NOTE | 2020-04-21 06:19 | NUR ---
I have reviewed this patient and I concur with the Shift Assessment completed by the Licensed Practical Nurse today this shift.
[2020-04-21 08:12] VITALS: BP 159/61
--- NOTE | 2020-04-21 10:12 | MORECARE ---
CASE MANAGEMENT DISCHARGE SUMMARY PATIENT: IMER SANCHEZ UNIT: [id number] ADM DATE: 04/09/20 AGE: 59 : 64 SEX: F ROOM/BED: D.2225 AUTHOR: CHINA HARDIN PHYSICIAN: REFERRING PHYSICIAN: NIRANJAN SAWNSON DO DATE OF SERVICE: 04/21/20 Discharge Plan Patient Name: IMER SANCHEZ Facility: [facility]:[place] : 1960 Planned Disposition: Anticipated Discharge Date: Discharge Date: Expected LOS: Initial Reviewer: [email or web address] Initial Review Date: 04/09/2020 Generated: 04/21/20 11:12 am Comments DCP- Discharge Planning Updated by [email or web address]: Chelsey Woodruff on 04/19/20 9:[address] Patient Name: IMER SANCHEZ Admission Status: ER Accout number: [id number] Admission Date: 04-09-2020 : 1960 Admission Diagnosis:SHORTNESS OF BREATH Attending: NIRANJAN SWANSON Current LOS: 10 Anticipated DC Date: Planned Disposition: Primary Insurance: [employer]ICEC[employer] PPO Discharge Planning Comments: [facility] DENIED PATIENT BUT [facility] IS WORKING ON GETTING HER ACCEPTED TO [place]. WAITING CALL BACK TODAY. Ems Educator: Chelsey Woodruff DCP- Discharge Planning Updated by [id number]: Chelsey Woodruff on 04/18/20 11:[address] Patient Name: IMER SANCHEZ Admission Status: ER Accout number: [id number] Admission Date: 04-09-2020 : 1960 Admission Diagnosis:SHORTNESS OF BREATH Attending: NIRANJAN SWANSON Current LOS: 9 Anticipated DC Date: Planned Disposition: Primary Insurance: [employer] CHOICEC[employer] PPO Discharge Planning Comments: REFERRAL REFAXED TO [facility] FOR SNF PLACEMENT AT [facility]. WAITING CALL BACK FOR AUTH. Ems Educator: Chelsey Woodruff DCP- Discharge Planning Updated by [id number]: Chelsey Woodruff on 04/14/20 4:[address] Patient Name: IMER SANCHEZ Admission Status: ER Accout number: [id number] Admission Date: 04-09-2020 : 1960 Admission Diagnosis:SHORTNESS OF BREATH Attending: NIRANJAN SWANSON Current LOS: 5 Anticipated DC Date: Planned Disposition: Primary Insurance: [employer] CHOICEC[employer] PPO Discharge Planning Comments: PATIENT NOW AGREEABLE TO [facility] SNF. I AM FAXING REFERRAL NOW. Ems Educator: Chelsey Woodruff DCP- Discharge Planning Updated by [id number]: Chelsey Woodruff on 04/14/20 3:[address] Patient Name: IMER SANCHEZ Admission Status: ER Accout number: [id number] Admission Date: 04-09-2020 : 1960 Admission Diagnosis:SHORTNESS OF BREATH Attending: NIRANJAN SWANSON Current LOS: 5 Anticipated DC Date: Planned Disposition: Primary Insurance: [employer]EC[employer] PPO Discharge Planning Comments: IF FAMILY REFUSES TO EGG AND SPICE MIXER PATIENT AT DISCHARGE APS WILL NEED TO BE NOTIFIED AT [phone]. I SPOKE WITH PATIENT'S DAUGHTER IN LAW AND TOLD HER THE DC PLAN. CM TO FOLLOW AND ASSIST NEEDED. Ems Educator: Chelsey Woodruff DCP- Discharge Planning Updated by [email or web address]: Chelsey Woodruff on 04/14/20 12:[address] Patient Name: IMER SANCHEZ Admission Status: ER Accout number: [id number] Admission Date: 04-09-2020 : 1960 Admission Diagnosis:SHORTNESS OF BREATH Attending: NIRANJAN SWANSON Current LOS: 5 Anticipated DC Date: Planned Disposition: Primary Insurance: [employer]ICEC[employer] PPO Discharge Planning Comments: CM met with patient at bedside after explaining CM role and obtaining verbal consent. CM discussed availability / needs of home health, REHAB and medical equipment. STATES CURRENT WITH [facility] , LIBERTY SIGNED. I WILL FAX UPDATE TO [facility]. PLAN IS TO BE DC'D TO HOME WITH FAMILY AND [facility] HH. IF NEB OR 02 NEEDED [facility] SIGNED FOR [facility]. CM TO FOLLOW AND ASSIST NEEDED. Ems Educator: Chelsey Woodruff DCPIA - Discharge Planning Initial Assessment Updated by [email or web address]: Christel Lira on 04/11/20 10:20 am * Is the patient Alert and Oriented? Yes * How many steps to enter\exit or inside your home? 0/0 * PCP GABRIELA VALDES * Pharmacy [facility] [email or web address] A\P * Preadmission Environment Home with Family * Partial ADLs (Assistance needed) Ambulation Bathing Dressing Medication Management Toileting Transfers * Equipment Splint Wheelchair * Community resources currently utilized Home Health * Please name any agencies selected above. [facility] * Additional services required to return to the preadmission environment? Yes * Can the patient safely return to the preadmission environment? No * Has this patient been hospitalized within the prior 30 days at any hospital? No External Providers External Provider: OTHER-OTHER Next Contact Date: Service Request Date: Service Type: Resolution: Reviewer: Comments: Last DP export: 04/19/20 11:31 a Patient Name: IMER SANCHEZ Page 20069 at 1012 All edits/amendments must be made on the electronic document DICTATION DATE: 04/21/20 1012 FACILITY SPECIALIST: MADALYN 04/21/20 1012 RPT#: [id number] DC DATE: STATUS: ADM IN [facility] [address] [place] [address] END OF REPORT
--- NOTE | 2020-04-21 10:20 | MORECARE ---
CASE MANAGEMENT DISCHARGE SUMMARY PATIENT: IMER SANCHEZ UNIT: [id number] ADM DATE: 04/09/20 AGE: 59 : 64 SEX: F ROOM/BED: D.2225 AUTHOR: CHINA HARDIN PHYSICIAN: REFERRING PHYSICIAN: NIRANJAN SWANSON DO DATE OF SERVICE: 04/21/20 Discharge Plan Patient Name: IMER SANCHEZ Facility: [facility]:[place] : 1960 Planned Disposition: Anticipated Discharge Date: Discharge Date: Expected LOS: Initial Reviewer: [id number] Initial Review Date: 04/09/2020 Generated: 04/21/20 11:20 am Comments DCP- Discharge Planning Updated by [email or web address]: Chelsey Woodruff on 04/21/20 9:[address] Patient Name: IMER SANCHEZ Admission Status: ER Accout number: [id number] Admission Date: 04-09-2020 : 1960 Admission Diagnosis:SHORTNESS OF BREATH Attending: NIRANJAN SWANSON Current LOS: 12 Anticipated DC Date: Planned Disposition: Primary Insurance: [employer] PPO Discharge Planning Comments: FAXED UPDATED CLINICALS TO [facility] WITH [facility]. WAITING CALL BACK. Flatbed Driver: Chelsey Woodruff DCP- Discharge Planning Updated by [email or web address]: Chelsey Woodruff on 04/19/20 9:[address] Patient Name: IMER SANCHEZ Admission Status: ER Accout number: [id number] Admission Date: 04-09-2020 : 1960 Admission Diagnosis:SHORTNESS OF BREATH Attending: NIRANJAN SWANSON Current LOS: 10 Anticipated DC Date: Planned Disposition: Primary Insurance: [employer] CHOICEC[employer] PPO Discharge Planning Comments: [facility] DENIED PATIENT BUT [facility] IS WORKING ON GETTING HER ACCEPTED TO [place]. WAITING CALL BACK TODAY. Flatbed Driver: Chelsey Woodruff DCP- Discharge Planning Updated by [id number]: Chelsey Woodruff on 04/18/20 11:[address] Patient Name: IMER SANCHEZ Admission Status: ER Accout number: [id number] Admission Date: 04-09-2020 : 1960 Admission Diagnosis:SHORTNESS OF BREATH Attending: NIRANJAN SWANSON Current LOS: 9 Anticipated DC Date: Planned Disposition: Primary Insurance: [employer]ICEC[employer] PPO Discharge Planning Comments: REFERRAL REFAXED TO [facility] FOR SNF PLACEMENT AT [facility]. WAITING CALL BACK FOR AUTH. Flatbed Driver: Chelsey Woodruff DCP- Discharge Planning Updated by [email or web address]: Chelsey Woodruff on 04/14/20 4:[address] Patient Name: IMER SANCHEZ Admission Status: ER Accout number: [id number] Admission Date: 04-09-2020 : 1960 Admission Diagnosis:SHORTNESS OF BREATH Attending: NIRANJAN SWANSON Current LOS: 5 Anticipated DC Date: Planned Disposition: Primary Insurance: [employer] CHOICEC[employer] PPO Discharge Planning Comments: PATIENT NOW AGREEABLE TO [facility] SNF. I AM FAXING REFERRAL NOW. Flatbed Driver: Chelsey Woodruff DCP- Discharge Planning Updated by [id number]: Chelsey Woodruff on 04/14/20 3:[address] Patient Name: IMER SANCHEZ Admission Status: ER Accout number: [id number] Admission Date: 04-09-2020 : 1960 Admission Diagnosis:SHORTNESS OF BREATH Attending: NIRANJAN SWANSON Current LOS: 5 Anticipated DC Date: Planned Disposition: Primary Insurance: [employer]ICEC[employer] PPO Discharge Planning Comments: IF FAMILY REFUSES TO MOBILE HOME MECHANIC PATIENT AT DISCHARGE APS WILL NEED TO BE NOTIFIED AT [phone]. I SPOKE WITH PATIENT'S DAUGHTER IN LAW AND TOLD HER THE DC PLAN. CM TO FOLLOW AND ASSIST NEEDED. Flatbed Driver: Chelsey Woodruff DCP- Discharge Planning Updated by [email or web address]: Chelsey Woodruff on 04/14/20 12:[address] Patient Name: IMER SANCHEZ Admission Status: ER Accout number: [id number] Admission Date: 04-09-2020 : 1960 Admission Diagnosis:SHORTNESS OF BREATH Attending: NIRANJAN SWANSON Current LOS: 5 Anticipated DC Date: Planned Disposition: Primary Insurance: [employer]EC[employer] PPO Discharge Planning Comments: CM met with patient at bedside after explaining CM role and obtaining verbal consent. CM discussed availability / needs of home health, REHAB and medical equipment. STATES CURRENT WITH [facility], LIBERTY SIGNED. I WILL FAX UPDATE TO [facility]. PLAN IS TO BE DC'D TO HOME WITH FAMILY AND [facility] HH. IF NEB OR 02 NEEDED [facility] SIGNED FOR [facility]. CM TO FOLLOW AND ASSIST NEEDED. Flatbed Driver: Chelsey Woodruff DCPIA - Discharge Planning Initial Assessment Updated by [email or web address]: Christel Lira on 04/11/20 10:20 am * Is the patient Alert and Oriented? Yes * How many steps to enter\exit or inside your home? 0/0 * PCP GBARIELA VALDES * Pharmacy [facility] [employer] A\P * Preadmission Environment Home with Family * Partial ADLs (Assistance needed) Ambulation Bathing Dressing Medication Management Toileting Transfers * Equipment Splint Wheelchair * Community resources currently utilized Home Health * Please name any agencies selected above. [facility] * Additional services required to return to the preadmission environment? Yes * Can the patient safely return to the preadmission environment? No * Has this patient been hospitalized within the prior 30 days at any hospital? No Last DP export: 04/21/20 9:12 a Patient Name: IMER SANCHEZ Page 64162 at 1020 All edits/amendments must be made on the electronic document DICTATION DATE: 04/21/20 1020 CLEAT FEEDER: MADALYN 04/21/20 1020 RPT#: [id number] DC DATE: STATUS: ADM IN [facility] [address] [place] [address] END OF REPORT
--- NOTE | 2020-04-21 11:36 | NUR ---
PT LAYING IN BED. NO NEEDS AT THIS TIME. WCTM
[2020-04-21 12:02] VITALS: BP 163/74
[2020-04-21 15:43] VITALS: BP 164/82
--- NOTE | 2020-04-21 19:30 | NUR ---
PT IN BED, EYES CLOSED, RESP EVEN AND UNLABORED. NO DISTRESS NOTED, CL IN REACH, SR UP X 2.
[2020-04-21 20:00] VITALS: BP 180/82
[2020-04-22] VITALS: BP 181/74
--- NOTE | 2020-04-22 00:36 | NUR ---
I have reviewed this patient and I concur with the Shift Assessment completed by the Licensed Practical Nurse today this shift.
[2020-04-22 04:00] VITALS: BP 156/81
[2020-04-22 05:32] LABS: BASOPHILS 0.1 % (0-2); EOSINOPHILS 1.1 % (0-7); HEMATOCRIT 28.2 % (36.0-48.0); HEMOGLOBIN 8.7 g/dL (12-16); IMMATURE GRANULOCYTES 0.3 % (0-5); LYMPHOCYTES 23.1 % (15-50); MCH 27.3 pg (26.0-34.0); MCHC 30.9 g/dL (31.0-37.0); MCV 88.4 fL (80.0-100.0); MEAN PLATELET VOLUME 10.9 fL (7.4-10.4); MONOCYTES 5.6 % (2-11); NEUTROPHILS 69.8 % (40-80); PLATELET COUNT 273 10x3/uL (130-400); RBC 3.19 10x6/uL (4.00-5.40); RDW 16.9 % (11.5-14.5); WBC 14.5 10x3/uL (4.8-10.8)
[2020-04-22 06:00] LABS: ALBUMIN 2.3 g/dL (3.4-5.0); ANION GAP 9.7 mmol/L (8-16); BILIRUBIN - TOTAL 0.11 mg/dL (0.2-1.3); CALCIUM 8.7 mg/dL (8.5-10.1); CARBON DIOXIDE 28.9 mmol/L (21.0-32.0); PROTEIN - SERUM 6.1 g/dL (6.4-8.2)
[2020-04-22 06:02] LABS: POTASSIUM - SERUM 3.6 mmol/L (3.5-5.1)
--- NOTE | 2020-04-22 07:45 | NUR ---
ALERT AND ORIENTED. LUNGS DIMINISHED BILATERALLY. HEART SOUNDS S1 AND S2 HEARD IN ALL STAPLETON. BOWEL SOUNDS ACTIVE X 4. IV TO LEFT AC PATENT WITHOUT REDNESS. DENIES NEEDS. BED LOW. BED ALARM ON. CALL WADE AND PERSONAL ITEMS IN REACH. WILL CONTINUE TO MONITOR.
[2020-04-22 09:16] VITALS: BP 167/58
--- NOTE | 2020-04-22 09:35 | MORECARE ---
CASE MANAGEMENT DISCHARGE SUMMARY PATIENT: IMER SANCHEZ UNIT: [id number] ADM DATE: 04/09/20 AGE: 59 : 64 SEX: F ROOM/BED: D.2225 AUTHOR: CHINA HARDIN PHYSICIAN: REFERRING PHYSICIAN: NIRANJAN SWANSON DO DATE OF SERVICE: 04/22/20 Discharge Plan Patient Name: IMER SANCHEZ Facility: [facility]:[place] : 1960 Planned Disposition: Anticipated Discharge Date: Discharge Date: Expected LOS: Initial Reviewer: [id number] Initial Review Date: 04/09/2020 Generated: 04/22/20 10:35 am Comments DCP- Discharge Planning Updated by [email or web address]: Chelsey Woodruff on 04/21/20 9:[address] Patient Name: IMER SANCHEZ Admission Status: ER Accout number: [id number] Admission Date: 04-09-2020 : 1960 Admission Diagnosis:SHORTNESS OF BREATH Attending: NIRANJAN SWANSON Current LOS: 12 Anticipated DC Date: Planned Disposition: Primary Insurance: [employer] PPO Discharge Planning Comments: FAXED UPDATED CLINICALS TO [facility] WITH [facility]. WAITING CALL BACK. Systems Spec: Chelsey Woodruff DCP- Discharge Planning Updated by [email or web address]: Chelsey Woodruff on 04/19/20 9:[address] Patient Name: IMER SANCHEZ Admission Status: ER Accout number: [id number] Admission Date: 04-09-2020 : 1960 Admission Diagnosis:SHORTNESS OF BREATH Attending: NIRANJAN SWANSON Current LOS: 10 Anticipated DC Date: Planned Disposition: Primary Insurance: [employer] PPO Discharge Planning Comments: [facility] DENIED PATIENT BUT [facility] IS WORKING ON GETTING HER ACCEPTED TO [place]. WAITING CALL BACK TODAY. Systems Spec: Chelsey Woodruff DCP- Discharge Planning Updated by [email or web address]: Chelsey Woodruff on 04/18/20 11:[address] Patient Name: IMER SANCHEZ Admission Status: ER Accout number: [id number] Admission Date: 04-09-2020 : 1960 Admission Diagnosis:SHORTNESS OF BREATH Attending: NIRANJAN SWANSON Current LOS: 9 Anticipated DC Date: Planned Disposition: Primary Insurance: [employer]EC[employer] PPO Discharge Planning Comments: REFERRAL REFAXED TO [facility] FOR SNF PLACEMENT AT [facility]. WAITING CALL BACK FOR AUTH. Systems Spec: Chelsey Woodruff DCP- Discharge Planning Updated by [email or web address]: Chelsey Woodruff on 04/14/20 4:[address] Patient Name: IEMR SANCHEZ Admission Status: ER Accout number: [id number] Admission Date: 04-09-2020 : 1960 Admission Diagnosis:SHORTNESS OF BREATH Attending: NIRANJAN SWANSON Current LOS: 5 Anticipated DC Date: Planned Disposition: Primary Insurance: [employer]EC[employer] PPO Discharge Planning Comments: PATIENT NOW AGREEABLE TO [facility] SNF. I AM FAXING REFERRAL NOW. Systems Spec: Chelsey Woodruff DCP- Discharge Planning Updated by [id number]: Chelsey Woodruff on 04/14/20 3:[address] Patient Name: IMER SANCHEZ Admission Status: ER Accout number: [id number] Admission Date: 04-09-2020 : 1960 Admission Diagnosis:SHORTNESS OF BREATH Attending: NIRANJAN SWANSON Current LOS: 5 Anticipated DC Date: Planned Disposition: Primary Insurance: [employer] PPO Discharge Planning Comments: IF FAMILY REFUSES TO DIRECTOR SKILLS PATIENT AT DISCHARGE APS WILL NEED TO BE NOTIFIED AT [phone]. I SPOKE WITH PATIENT'S DAUGHTER IN LAW AND TOLD HER THE DC PLAN. CM TO FOLLOW AND ASSIST NEEDED. Systems Spec: Chelsey Woodruff DCP- Discharge Planning Updated by [email or web address]: Chelsey Woodruff on 04/14/20 12:[address] Patient Name: IMER SANCHEZ Admission Status: ER Accout number: [id number] Admission Date: 04-09-2020 : 1960 Admission Diagnosis:SHORTNESS OF BREATH Attending: NIRANJAN SWANSON Current LOS: 5 Anticipated DC Date: Planned Disposition: Primary Insurance: [employer] PPO Discharge Planning Comments: CM met with patient at bedside after explaining CM role and obtaining verbal consent. CM discussed availability / needs of home health, REHAB and medical equipment. STATES CURRENT WITH [facility], LIBERTY SIGNED. I WILL FAX UPDATE TO [facility]. PLAN IS TO BE DC'D TO HOME WITH FAMILY AND [facility] HH. IF NEB OR 02 NEEDED [facility] SIGNED FOR [facility]. CM TO FOLLOW AND ASSIST NEEDED. Systems Spec: Chelesy Woodruff DCPIA - Discharge Planning Initial Assessment Updated by [email or web address]: Christel Lira on 04/11/20 10:20 am * Is the patient Alert and Oriented? Yes * How many steps to enter\exit or inside your home? 0/0 * PCP GABRIELA VALDES * Pharmacy [facility] [employer] A\P * Preadmission Environment Home with Family * Partial ADLs (Assistance needed) Ambulation Bathing Dressing Medication Management Toileting Transfers * Equipment Splint Wheelchair * Community resources currently utilized Home Health * Please name any agencies selected above. [facility] * Additional services required to return to the preadmission environment? Yes * Can the patient safely return to the preadmission environment? No * Has this patient been hospitalized within the prior 30 days at any hospital? No Last DP export: 04/21/20 9:20 a Patient Name: IMER SANCHEZ Page 62239 at 0935 All edits/amendments must be made on the electronic document DICTATION DATE: 04/22/20934 DIRECTOR OF TRAUMA: MADALYN 04/22/20934 RPT#: [id number] DC DATE: STATUS: ADM IN [facility] [address] [place] [address] END OF REPORT
--- NOTE | 2020-04-22 11:00 | NUR ---
IV REMOVED FROM LEFT AC PER PATIENT REQUEST.
--- NOTE | 2020-04-22 11:10 | NUR ---
BED ALARM REFUSAL SIGNED AND ON CHART.
--- NOTE | 2020-04-22 11:23 | NUR ---
TINA KHAN PAGED TO SEE ABOUT STARTING HOME [facility] PER PATIENT'S REQUEST.
--- NOTE | 2020-04-22 11:35 | NUR ---
PATIENT REFUSES NEW IV.
--- NOTE | 2020-04-22 11:58 | NUR ---
CALLED PHARMACY AND SPOKE TO PHARMACIST THANH, CONTROLLED MEDS ONLY HAVE A FEW DAYS ON OCT BEFORE FALLING OFF AND WE WOULD NEED TO RESTART IF WE WANT PT TO CONTINUE. WILL RESTART [facility]
--- NOTE | 2020-04-22 12:39 | NUR ---
NUTRITION FOLLOW UP: COMMENTS: Patient has been eating well with 100% for the last 6 meals. DIET: Diabetic Diet PO INTAKE: 100% x 6 meals WEIGHT: 04/09- 171 lbs BM: x 2 on 04/22 SIG LABS: Cl-110(H), BUN-37(H), POC Glucose- 194, 333, 336, 276 SIG MEDS: Humalog, KCl, Lantus, Protonix, NS @ 50 ml/hr RECOMMENDATIONS: -Continue DM diet as tolerated RD to continue to follow and monitor patient DHS
[2020-04-22 12:57] VITALS: BP 142/76
--- NOTE | 2020-04-22 12:59 | NUR ---
OT NOTE: SON AT BEDSIDE. PT WANTING TO SIT UP IN CHAIR TODAY. BED MOB WITH MOD ASSIST X 2; EOB SITTING IWTH MOD SUPPORT TO MAINTAIN BALANCE; PT EASILY FRUSTRATED AND BECOMING VERY AGITATED. SON ASSISTS TO CALM PT. SIT TO STAND WITH MOD ASSIST X 2; TOTAL ASSIST TO JUANA SHOES; MAX ASSIST TO JUANA GOWN; MAX ASSIST WTIH TOILET HYGIENE. PT INCONT OF B AND B AND WAS NOT AWARE. TRANSFER TO REGULAR CHAIR (SHE REFUSED RECLINER) WITH MOD ASSIST X 2. TOLERATED SITTING UP IN CHAIR FOR GREATER THAN 1 HR. MAX ASSIST WITH TRANSFER BACK TO BED. RAGHAVENDRA ALVAREZ, OTR/L [id number]
--- NOTE | 2020-04-22 16:50 | NUR ---
OT NOTE: PT COMPLETED BUE AROM EXS TOLERATED. PT COMPLETED FACE/HAND HYGIENE TASKS WITH SETUP. PT COMPLETED SIDE ROLLING WITH MAX A. [id number] THANK YOU,JUNE HERNANDEZ
[2020-04-22 17:06] VITALS: BP 183/76
--- NOTE | 2020-04-22 19:00 | NUR ---
BEDSIDE REPORT RECEIVED AND CARE OF PT ASSUMED. PT LYING IN SUPINE POSITON WITH EYES CLOSED. NO IV AT THIS TIME. WILL MONITOR FOR NEEDS.
[2020-04-22 20:00] VITALS: BP 186/74
--- NOTE | 2020-04-22 20:16 | NUR ---
HS MEDICATIONS GIVEN. FSBS 260 THIS CHECK REQUIRING COVERAGE WITH 16 UNITS OF INSULIN PER SLIDING SCALE.
[2020-04-23 04:00] VITALS: BP 169/81
[2020-04-23 07:02] LABS: ALBUMIN 2.1 g/dL (3.4-5.0); ANION GAP 14.6 mmol/L (8-16); BILIRUBIN - TOTAL 0.12 mg/dL (0.2-1.3); CALCIUM 8.6 mg/dL (8.5-10.1); CARBON DIOXIDE 24.5 mmol/L (21.0-32.0); CREATININE - SERUM 0.9 mg/dL (0.6-1.3); POTASSIUM - SERUM 4.1 mmol/L (3.5-5.1); PROTEIN - SERUM 5.6 g/dL (6.4-8.2)
[2020-04-23 07:06] LABS: BASOPHILS 0.2 % (0-2); EOSINOPHILS 2.1 % (0-7); HEMATOCRIT 26.3 % (36.0-48.0); IMMATURE GRANULOCYTES 0.4 % (0-5); LYMPHOCYTES 30.3 % (15-50); MCH 27.3 pg (26.0-34.0); MCHC 30.4 g/dL (31.0-37.0); MCV 89.8 fL (80.0-100.0); MEAN PLATELET VOLUME 10.6 fL (7.4-10.4); PLATELET COUNT 245 10x3/uL (130-400); RBC 2.93 10x6/uL (4.00-5.40); RDW 17.4 % (11.5-14.5)
--- NOTE | 2020-04-23 07:35 | NUR ---
ALERT AND ORIENTED. LUNGS DIMINSHED BILATERALLY. HEART SOUNDS S1 AND S2 HEARD IN ALL STAPLETON. NO IV D/T REFUSES. BED ALARM REFUSAL ON CHART. DENIES NEEDS. BED LOW. CALL WADE AND PERSONAL ITEMS IN REACH. WILL CONTINUE TO MONITOR.
[2020-04-23 09:34] VITALS: BP 166/80
[2020-04-23 13:32] VITALS: BP 157/55
[2020-04-23 17:45] VITALS: BP 128/77
--- NOTE | 2020-04-23 18:24 | NUR ---
RESTING IN BED. DENIES NEEDS. BED LOW. CALL WADE AND PERSONAL ITEMS IN REACH.
--- NOTE | 2020-04-23 19:45 | NUR ---
PATIENT RESTING IN BED WTIH EYES CLOSED AND NO S/S OF DISTRESS. BED IN LOWEST POSITION AND CL WITHIN REACH. WILL CONTINUE TO MONITOR.
[2020-04-23 21:40] VITALS: BP 156/75
[2020-04-23 23:45] VITALS: BP 153/81
[2020-04-24 04:24] VITALS: BP 155/125
[2020-04-24 07:09] LABS: BASOPHILS 0.2 % (0-2); HEMATOCRIT 26.9 % (36.0-48.0); IMMATURE GRANULOCYTES 0.4 % (0-5); LYMPHOCYTES 34.9 % (15-50); MCH 26.6 pg (26.0-34.0); MCHC 29.7 g/dL (31.0-37.0); MCV 89.4 fL (80.0-100.0); MEAN PLATELET VOLUME 10.7 fL (7.4-10.4); MONOCYTES 5.2 % (2-11); NEUTROPHILS 57.3 % (40-80); PLATELET COUNT 272 10x3/uL (130-400); RBC 3.01 10x6/uL (4.00-5.40); RDW 17.3 % (11.5-14.5); WBC 12.4 10x3/uL (4.8-10.8)
[2020-04-24 07:24] LABS: ALBUMIN 2.3 g/dL (3.4-5.0); ANION GAP 11.1 mmol/L (8-16); BILIRUBIN - TOTAL 0.13 mg/dL (0.2-1.3); CALCIUM 8.8 mg/dL (8.5-10.1); CARBON DIOXIDE 27.9 mmol/L (21.0-32.0); CREATININE - SERUM 1.1 mg/dL (0.6-1.3); PROTEIN - SERUM 5.9 g/dL (6.4-8.2)
--- NOTE | 2020-04-24 07:51 | NUR ---
PATIENT BLOOD SUGAR 62. GAVE CRACKERS, PEANUT BUTTER AND JUICE. PATIENT EATING AT THIS TIME.
[2020-04-24 09:17] VITALS: BP 143/64
[2020-04-24 13:21] VITALS: BP 170/83
[2020-04-24 19:09] VITALS: BP 164/76
--- NOTE | 2020-04-24 19:30 | NUR ---
BEDSIDE REPORT RECEIVED AND CARE OF PT ASSUMED. PT BEDDING SOAKED WITH URINE AND FECES. BATHED PT AND CHANGED ALL BEDDING AND GOWN. POSITIONED FOR COMFORT.
[2020-04-24 20:00] VITALS: BP 170/71
--- NOTE | 2020-04-24 20:20 | NUR ---
HS MEDICATIONS GIVEN. FSBS 329 THIS CHECK REQUIRING COVERAGE WITH 20 UNITS OF INSULIN PER SLIDING SCALE. GAVE GLUCERNA AND PUDDING FOR HS SNACK.
[2020-04-25] VITALS: BP 175/73
--- NOTE | 2020-04-25 00:20 | NUR ---
BEDPADS CHANGED DUE TO INCONTINENCE. APPLIED BOUDREAX'S PASTE TO REDNESS ON COCCYX AREA. PT TURNED TO RIGHT SIDE PER TURN SCHEDULE.
[2020-04-25 04:00] VITALS: BP 179/60
[2020-04-25 08:56] VITALS: BP 164/81
[2020-04-25 09:36] LABS: ALBUMIN 2.3 g/dL (3.4-5.0); ANION GAP 10.4 mmol/L (8-16); BILIRUBIN - TOTAL 0.2 mg/dL (0.2-1.3); CALCIUM 8.7 mg/dL (8.5-10.1); CARBON DIOXIDE 26.9 mmol/L (21.0-32.0); CREATININE - SERUM 1.1 mg/dL (0.6-1.3); POTASSIUM - SERUM 4.3 mmol/L (3.5-5.1)
[2020-04-25 09:59] LABS: BASOPHILS 0.2 % (0-2); EOSINOPHILS 2.1 % (0-7); HEMATOCRIT 28.4 % (36.0-48.0); HEMOGLOBIN 8.7 g/dL (12-16); IMMATURE GRANULOCYTES 0.3 % (0-5); LYMPHOCYTES 28.6 % (15-50); MCH 27.4 pg (26.0-34.0); MCHC 30.6 g/dL (31.0-37.0); MCV 89.3 fL (80.0-100.0); MEAN PLATELET VOLUME 10.9 fL (7.4-10.4); MONOCYTES 5.5 % (2-11); NEUTROPHILS 63.3 % (40-80); PLATELET COUNT 267 10x3/uL (130-400); RBC 3.18 10x6/uL (4.00-5.40); WBC 12.7 10x3/uL (4.8-10.8)
--- NOTE | 2020-04-25 17:13 | MORECARE ---
CASE MANAGEMENT DISCHARGE SUMMARY PATIENT: IMER SANCHEZ UNIT: [id number] ADM DATE: 04/09/20 AGE: 59 : 64 SEX: F ROOM/BED: D.2225 AUTHOR: CHINA HARDIN PHYSICIAN: REFERRING PHYSICIAN: NIRANJAN SWANSON DO DATE OF SERVICE: 04/25/20 Discharge Plan Patient Name: IMER SANCHEZ Facility: [facility]:[place] : 1960 Planned Disposition: Anticipated Discharge Date: Discharge Date: Expected LOS: Initial Reviewer: [id number] Initial Review Date: 04/09/2020 Generated: 04/25/20 6:13 pm Comments DCP- Discharge Planning Updated by [id number]: Chelsey Woodruff on 04/25/20 4:[address] Patient Name: IMER SANCHEZ Admission Status: ER Accout number: [id number] Admission Date: 04-09-2020 : 1960 Admission Diagnosis:SHORTNESS OF BREATH Attending: NIRANJAN SWANSON Current LOS: 16 Anticipated DC Date: Planned Disposition: Primary Insurance: [employer] PPO Discharge Planning Comments: FAXED FACE SHEET TO [facility] AND SHE IS CONTACTING PATIENT SON. PATIENT'S INSURANCE DENIED REHAB, BILL WILDER HAD NUMBER TO CALL INSURANCE COMPANY SATURDAY. I DO NOT KNOW THE OUTCOME. UPDATED CLINICALS WITH SON'S PHONE NUMBER FAXED TO [facility]. WAITING CALL BACK ON PLACEMENT. Physical Therapy Aides Teacher: Chelsey Woodruff DCP- Discharge Planning Updated by [id number]: Chelsey Woodruff on 04/21/20 9:[address] Patient Name: IMER SANCHEZ Admission Status: ER Accout number: [id number] Admission Date: 04-09-2020 : 1960 Admission Diagnosis:SHORTNESS OF BREATH Attending: NIRANJAN SWANSON Current LOS: 12 Anticipated DC Date: Planned Disposition: Primary Insurance: [employer] PPO Discharge Planning Comments: FAXED UPDATED CLINICALS TO [facility] WITH [place]. WAITING CALL BACK. Physical Therapy Aides Teacher: Chelsey Woodruff DCP- Discharge Planning Updated by [id number]: Chelsey Woodruff on 04/19/20 9:[address] Patient Name: IMER SANCHEZ Admission Status: ER Accout number: [id number] Admission Date: 04-09-2020 : 1960 Admission Diagnosis:SHORTNESS OF BREATH Attending: NIRANJAN SWANSON Current LOS: 10 Anticipated DC Date: Planned Disposition: Primary Insurance: [employer] PPO Discharge Planning Comments: [facility] DENIED PATIENT BUT [facility] IS WORKING ON GETTING HER ACCEPTED TO [place]. WAITING CALL BACK TODAY. Physical Therapy Aides Teacher: Chelsey Woodruff DCP- Discharge Planning Updated by [id number]: Chelsey Woodruff on 04/18/20 11:[address] Patient Name: IMER SANCHEZ Admission Status: ER Accout number: [id number] Admission Date: 04-09-2020 : 1960 Admission Diagnosis:SHORTNESS OF BREATH Attending: NIRANJAN SWANSON Current LOS: 9 Anticipated DC Date: Planned Disposition: Primary Insurance: [employer] PPO Discharge Planning Comments: REFERRAL REFAXED TO [facility] FOR SNF PLACEMENT AT [facility]. WAITING CALL BACK FOR AUTH. Physical Therapy Aides Teacher: Chelsey Woodruff DCP- Discharge Planning Updated by [id number]: Chelsey Woodruff on 04/14/20 4:[address] Patient Name: IMER SANCHEZ Admission Status: ER Accout number: [id number] Admission Date: 04-09-2020 : 1960 Admission Diagnosis:SHORTNESS OF BREATH Attending: NIRANJAN SWANSON Current LOS: 5 Anticipated DC Date: Planned Disposition: Primary Insurance: [employer] PPO Discharge Planning Comments: PATIENT NOW AGREEABLE TO [facility] SNF. I AM FAXING REFERRAL NOW. Physical Therapy Aides Teacher: Chelsey Woodruff DCP- Discharge Planning Updated by [id number]: Chelsey Woodruff on 04/14/20 3:[address] Patient Name: IMER SANCHEZ Admission Status: ER Accout number: [id number] Admission Date: 04-09-2020 : 1960 Admission Diagnosis:SHORTNESS OF BREATH Attending: NIRANJAN SWANSON Current LOS: 5 Anticipated DC Date: Planned Disposition: Primary Insurance: [employer] PPO Discharge Planning Comments: IF FAMILY REFUSES TO CLINICAL DERMATOLOGIST PATIENT AT DISCHARGE APS WILL NEED TO BE NOTIFIED AT [phone]. I SPOKE WITH PATIENT'S DAUGHTER IN LAW AND TOLD HER THE DC PLAN. CM TO FOLLOW AND ASSIST NEEDED. Physical Therapy Aides Teacher: Chelsey Kacy DCP- Discharge Planning Updated by [id number]: Chelsey Woodruff on 04/14/20 12:[address] Patient Name: IMER SANCHEZ Admission Status: ER Accout number: [id number] Admission Date: 04-09-2020 : 1960 Admission Diagnosis:SHORTNESS OF BREATH Attending: NIRANJAN SWANSON Current LOS: 5 Anticipated DC Date: Planned Disposition: Primary Insurance: [employer] PPO Discharge Planning Comments: CM met with patient at bedside after explaining CM role and obtaining verbal consent. CM discussed availability / needs of home health, REHAB and medical equipment. STATES CURRENT WITH [facility], [facility] SIGNED. I WILL FAX UPDATE TO [facility]. PLAN IS TO BE DC'D TO HOME WITH FAMILY AND RESUME HH. IF NEB OR 02 NEEDED [facility] SIGNED FOR [facility]. CM TO FOLLOW AND ASSIST NEEDED. Physical Therapy Aides Teacher: Chelsey Woodruff DCPIA - Discharge Planning Initial Assessment Updated by [id number]: Christel Lira on 04/11/20 10:20 am * Is the patient Alert and Oriented? Yes * How many steps to enter\exit or inside your home? 0/0 * PCP GABRIELA VALDES * Pharmacy [facility]P * Preadmission Environment Home with Family * Partial ADLs (Assistance needed) Ambulation Bathing Dressing Medication Management Toileting Transfers * Equipment Splint Wheelchair * Community resources currently utilized Home Health * Please name any agencies selected above. [facility] AND PT * Additional services required to return to the preadmission environment? Yes * Can the patient safely return to the preadmission environment? No * Has this patient been hospitalized within the prior 30 days at any hospital? No Last DP export: 04/22/20 8:35 a Patient Name: IMER SANCHEZ Page 05648 at 1713 All edits/amendments must be made on the electronic document DICTATION DATE: 04/25/201712 DIALYSIS EQUIPMENT TECHNICIAN: MADALYN 04/25/201712 RPT#: [id number] DC DATE: STATUS: ADM IN [facility] [address] [place] [address] END OF REPORT
--- NOTE | 2020-04-25 18:41 | NUR ---
I have reviewed this patient and I concur with the Shift Assessment completed by the Licensed Practical Nurse today this shift.
[2020-04-25 18:45] VITALS: BP 183/79
--- NOTE | 2020-04-25 19:55 | NUR ---
LYING IN BED. ALERT AND ORIENTED X4. 02 @ 2LNC. RESP NONLABORED. INCONT OF URINE. PERICARE PERFORMED. NO IV ACCESS. DENIES PAIN. NO DISTRESS. SR ELEVATED X2. CL IN REACH.
[2020-04-25 20:00] VITALS: BP 173/75
[2020-04-26 02:00] VITALS: BP 96/32
[2020-04-26 04:00] VITALS: BP 155/65
--- NOTE | 2020-04-26 04:47 | NUR ---
LYING IN BED. NO DISTRESS. HAS SLEPT WELL TONIGHT. DENIES NEEDS. CL IN REACH.
[2020-04-26 05:17] LABS: BASOPHILS 0.2 % (0-2); EOSINOPHILS 1.4 % (0-7); HEMATOCRIT 27.7 % (36.0-48.0); HEMOGLOBIN 8.5 g/dL (12-16); IMMATURE GRANULOCYTES 0.2 % (0-5); LYMPHOCYTES 24.7 % (15-50); MCH 27.1 pg (26.0-34.0); MCHC 30.7 g/dL (31.0-37.0); MCV 88.2 fL (80.0-100.0); MEAN PLATELET VOLUME 10.3 fL (7.4-10.4); MONOCYTES 5.9 % (2-11); NEUTROPHILS 67.6 % (40-80); PLATELET COUNT 280 10x3/uL (130-400); RBC 3.14 10x6/uL (4.00-5.40); RDW 16.9 % (11.5-14.5); WBC 12.3 10x3/uL (4.8-10.8)
[2020-04-26 06:05] LABS: ALBUMIN 2.2 g/dL (3.4-5.0); ANION GAP 7.9 mmol/L (8-16); BILIRUBIN - TOTAL 0.19 mg/dL (0.2-1.3); CALCIUM 8.8 mg/dL (8.5-10.1); CARBON DIOXIDE 30.2 mmol/L (21.0-32.0); POTASSIUM - SERUM 4.1 mmol/L (3.5-5.1); PROTEIN - SERUM 5.8 g/dL (6.4-8.2)
--- NOTE | 2020-04-26 06:10 | NUR ---
INCONT OF B/B. PERICARE PERFORMED.
--- NOTE | 2020-04-26 07:21 | NUR ---
ALERT AND ORIENTED. LUNGS DIMINISHED BILATERALLY. HEART SOUNDS S1 AND S2 HEARD IN ALL [place]. BOWEL SOUNDS ACTIVE X 4. DENIES NEEDS. BED LOW. CALL WADE AND PERSONAL ITEMS IN REACH. WILL CONTINUE TO MONITOR.
[2020-04-26 09:13] VITALS: BP 161/74
--- NOTE | 2020-04-26 10:19 | MORECARE ---
CASE MANAGEMENT DISCHARGE SUMMARY PATIENT: IMER SANCHEZ UNIT: [id number] ADM DATE: 04/09/20 AGE: 59 : 64 SEX: F ROOM/BED: D.2225 AUTHOR: CHINA HARDIN PHYSICIAN: REFERRING PHYSICIAN: NIRANJAN SWANSON DO DATE OF SERVICE: 04/26/20 Discharge Plan Patient Name: IMER SANCHEZ Facility: [facility]:[place] : 1960 Planned Disposition: Anticipated Discharge Date: Discharge Date: Expected LOS: Initial Reviewer: [id number] Initial Review Date: 04/09/2020 Generated: 04/26/20 11:19 am Comments DCP- Discharge Planning Updated by [email or web address]: Chelsey Woodruff on 04/26/20 9:[address] Patient Name: IMER SANCHEZ Admission Status: ER Accout number: [id number] Admission Date: 04-09-2020 : 1960 Admission Diagnosis:SHORTNESS OF BREATH Attending: NIRANJAN SWANSON Current LOS: 17 Anticipated DC Date: Planned Disposition: Primary Insurance: [employer] PPO Discharge Planning Comments: SPOKE WITH [facility] AND REFAXED CLINICALS, [facility] IS TRYING AUTH FOR SNF AGAIN. WAITING FOR CALL BACK. Weapons System Instrument Mechanic: Chelsey Woodruff DCP- Discharge Planning Updated by [id number]: Chelsey Woodruff on 04/25/20 4:[address] Patient Name: IMER SANCHEZ Admission Status: ER Accout number: [id number] Admission Date: 04-09-2020 : 1960 Admission Diagnosis:SHORTNESS OF BREATH Attending: NIRANJAN SWANSON Current LOS: 16 Anticipated DC Date: Planned Disposition: Primary Insurance: [employer] PPO Discharge Planning Comments: FAXED FACE SHEET TO [facility] AND SHE IS CONTACTING PATIENT SON. PATIENT'S INSURANCE DENIED REHAB, BILL TINA HAD NUMBER TO CALL INSURANCE COMPANY SATURDAY. I DO NOT KNOW THE OUTCOME. UPDATED CLINICALS WITH SON'S PHONE NUMBER FAXED TO [facility]. WAITING CALL BACK ON PLACEMENT. Weapons System Instrument Mechanic: Chelsey Woodruff DCP- Discharge Planning Updated by [id number]: Chelsey Woodruff on 04/21/20 9:[address] Patient Name: IMER SANCHEZ Admission Status: ER Accout number: [id number] Admission Date: 04-09-2020 : 1960 Admission Diagnosis:SHORTNESS OF BREATH Attending: NIRANJAN SWANSON Current LOS: 12 Anticipated DC Date: Planned Disposition: Primary Insurance: [employer] PPO Discharge Planning Comments: FAXED UPDATED CLINICALS TO [facility] WITH [facility]. WAITING CALL BACK. Weapons System Instrument Mechanic: Chelsye Woodruff DCP- Discharge Planning Updated by [id number]: Chelsey Woodruff on 04/19/20 9:[address] Patient Name: IMER SANCHEZ Admission Status: ER Accout number: [id number] Admission Date: 04-09-2020 : 1960 Admission Diagnosis:SHORTNESS OF BREATH Attending: NIRANJAN SWANSON Current LOS: 10 Anticipated DC Date: Planned Disposition: Primary Insurance: [employer] PPO Discharge Planning Comments: [facility] DENIED PATIENT BUT [facility] IS WORKING ON GETTING HER ACCEPTED TO [facility]. WAITING CALL BACK TODAY. Weapons System Instrument Mechanic: Chelsey Woodruff DCP- Discharge Planning Updated by [id number]: Chelsey Woodruff on 04/18/20 11:[address] Patient Name: IMER SANCHEZ Admission Status: ER Accout number: [id number] Admission Date: 04-09-2020 : 1960 Admission Diagnosis:SHORTNESS OF BREATH Attending: NIRANJAN SWANSON Current LOS: 9 Anticipated DC Date: Planned Disposition: Primary Insurance: [employer] PPO Discharge Planning Comments: REFERRAL REFAXED TO [facility] FOR SNF PLACEMENT AT [facility]. WAITING CALL BACK FOR AUTH. Weapons System Instrument Mechanic: Chelsey Woodruff DCP- Discharge Planning Updated by [id number]: Chelsey Woodruff on 04/14/20 4:[address] Patient Name: IMER SANCHEZ Admission Status: ER Accout number: [id number] Admission Date: 04-09-2020 : 1960 Admission Diagnosis:SHORTNESS OF BREATH Attending: NIRANJAN SWANSON Current LOS: 5 Anticipated DC Date: Planned Disposition: Primary Insurance: [employer] PPO Discharge Planning Comments: PATIENT NOW AGREEABLE TO [facility] SNF. I AM FAXING REFERRAL NOW. Weapons System Instrument Mechanic: Chelsey Woodruff DCP- Discharge Planning Updated by [id number]: Chelsey Kacy on 04/14/20 3:[address] Patient Name: IMER SANCHEZ Admission Status: ER Accout number: [id number] Admission Date: 04-09-2020 : 1960 Admission Diagnosis:SHORTNESS OF BREATH Attending: NIRANJAN SWANSON Current LOS: 5 Anticipated DC Date: Planned Disposition: Primary Insurance: [employer] PPO Discharge Planning Comments: IF FAMILY REFUSES TO SAFETY NET MAKER PATIENT AT DISCHARGE APS WILL NEED TO BE NOTIFIED AT [phone]. I SPOKE WITH PATIENT'S DAUGHTER IN LAW AND TOLD HER THE DC PLAN. CM TO FOLLOW AND ASSIST NEEDED. Weapons System Instrument Mechanic: Chelsey Woodruff DCP- Discharge Planning Updated by [id number]: Chelsey Kacy on 04/14/20 12:[address] Patient Name: IMER SANCHEZ Admission Status: ER Accout number: [id number] Admission Date: 04-09-2020 : 1960 Admission Diagnosis:SHORTNESS OF BREATH Attending: NIRANJAN SWANSON Current LOS: 5 Anticipated DC Date: Planned Disposition: Primary Insurance: [employer] PPO Discharge Planning Comments: CM met with patient at bedside after explaining CM role and obtaining verbal consent. CM discussed availability / needs of home health, REHAB and medical equipment. STATES CURRENT WITH [facility], [facility] SIGNED. I WILL FAX UPDATE TO [facility]. PLAN IS TO BE DC'D TO HOME WITH FAMILY AND RESUME HH. IF NEB OR 02 NEEDED [facility] SIGNED FOR [facility]. CM TO FOLLOW AND ASSIST NEEDED. Weapons System Instrument Mechanic: Chelsey Woodruff DCPIA - Discharge Planning Initial Assessment Updated by [id number]: Christel Lira on 04/11/20 10:20 am * Is the patient Alert and Oriented? Yes * How many steps to enter\exit or inside your home? 0/0 * PCP GABRIELA VALDES * Pharmacy [facility] A[facility]P * Preadmission Environment Home with Family * Partial ADLs (Assistance needed) Ambulation Bathing Dressing Medication Management Toileting Transfers * Equipment Splint Wheelchair * Community resources currently utilized Home Health * Please name any agencies selected above. [facility] AND PT * Additional services required to return to the preadmission environment? Yes * Can the patient safely return to the preadmission environment? No * Has this patient been hospitalized within the prior 30 days at any hospital? No Last DP export: 04/25/20 4:13 p Patient Name: IMER SANCHEZ Page 23553 at 1019 All edits/amendments must be made on the electronic document DICTATION DATE: 04/26/20 1019 STERILISATION TECHNICIAN: MADALYN 04/26/20 1019 RPT#: [id number] DC DATE: STATUS: ADM IN [facility] [address] [place] [address] END OF REPORT
--- NOTE | 2020-04-26 11:43 | NUR ---
RESTING IN BED. DENIES NEEDS. WILL CONTINUE TO MONITOR.
[2020-04-26 12:56] VITALS: BP 156/69
--- NOTE | 2020-04-26 14:32 | NUR ---
OT NOTE: EXTENSIVE TIME AND ASSIST REQUIRED WITH PT TODAY. BED MOB WITH MOD ASSIST. PT IS ALWAYS INCONT OF BLADDER WHEN THERAPY COMES IN TO TREAT. PT STATES THAT SHE HAS NO SENSATION AND DOES NOT KNOW WHEN SHE HAS GONE TO BATHROOM. ASSISTED PT TO EOB WITH MAX ASSIST; TRANSFERRED HER TO BEDSIDE CHAIR WITH MOD ASSIST X 2 WHILE LINENS ON BED WERE CHANGED. PT THEN STATED THAT SHE NEEDED TO HAVE A BM.. WENT TO FIND A BS COMMODE AND PT ASKED WHY SHE COULDNT GO TO REGULAR TOILET.. EXPLAINED THAT IT WAS BECAUSE IT TOOK 2 PEOPLE TO GET HER TO CHAIR AND SHE HAS NOT BEEN ABLE TO DEMONSTRATE ANY AMBULATION SINCE SHE HAS BEEN HERE. PT CONTINUES TO ARGUE WITH THERAPIST THROUGHOUT TMT SESSION. PROVIDED BS COMMODE AND PLACED ON STRONGER SIDE. PT ARGUEING THAT IT IS EASIER FOR HER TO TRANSFER TO OPPOSITE SIDE. ATTEMPTED AND SHE WAS UNABLE.. MOVED BS COMMODE BACK TO R SIDE AND ABLE TO TRANSFER PT WITH MOD ASSIST X 2. TOTAL ASSIST FOR TOILET HYGIENE. PROVIDED PT WITH WARM WASH CLOTHS AND ALLOWED HER TO BATH CHEST, HANDS, AND FACE.. REQUIRED MAX ASSIST WITH LEGS, UNDERARMS, AND BACK. PROVIDED CLEAN GOWN. ASSISTED BACK TO BED WITH MAX ASSIST X 2 (PT VERY FATIGUED AT THIS TIME.) RAGHAVENDRA ALVAREZ, OTR/L [phone]
--- NOTE | 2020-04-26 17:15 | NUR ---
OT NOTE: PT COMPLETED SUPINE TO SIT WITH MOD A. PT COMPLETED SIT TO STAND WITH MOD A. PT COMPLETED BED TO BSC TSF WITHI MOD/MAX A. PT REQUIRED TOTAL A WITH LB HYGIENE TASKS. [phone] THANK YOU,JUNE HERNANDEZ
[2020-04-26 17:51] VITALS: BP 151/73
--- NOTE | 2020-04-26 19:40 | NUR ---
AWAKE, ALERT AND ORIENTED X4. LYING IN BED. STATES SHE IS READY TO GO HOME. RESP IRREG. O2 @ 2L/NC BUT TAKES OFF FREQUENTLY. ABD IS DISTENDED AND FIRM. INCONT OF B/B. DENIES PAIN. NO IV ACCESS. BEDRIDDEN. NO DISTRESS. SR ELEVATED X2. CL IN REACH.
[2020-04-26 20:00] VITALS: BP 169/66
--- NOTE | 2020-04-26 21:30 | NUR ---
BED BATH AND LINEN CHANGE PERFORMED AT THIS TIME. INCONT OF BLADDER. REDNESS NOTED TO COCCYX AND BACK. BUTT CREAM APPLIED TO COCCYX. OFFERED PUREWICK CATH AND PT REFUSES.
[2020-04-27] VITALS: BP 131/66
--- NOTE | 2020-04-27 01:00 | NUR ---
INCONT OF URINE. PERICARE PERFORMED.
--- NOTE | 2020-04-27 03:35 | NUR ---
INCONT OF URINE. PERICARE PERFORMED. PADS CHANGED. NO DISTRESS. CL IN REACH.
[2020-04-27 04:00] VITALS: BP 165/75
[2020-04-27 07:51] LABS: BASOPHILS 0.1 % (0-2); EOSINOPHILS 2.3 % (0-7); HEMATOCRIT 26.7 % (36.0-48.0); HEMOGLOBIN 8.2 g/dL (12-16); IMMATURE GRANULOCYTES 0.4 % (0-5); LYMPHOCYTES 19.1 % (15-50); MCHC 30.7 g/dL (31.0-37.0); MCV 87.8 fL (80.0-100.0); MEAN PLATELET VOLUME 10.3 fL (7.4-10.4); NEUTROPHILS 73.1 % (40-80); PLATELET COUNT 269 10x3/uL (130-400); RBC 3.04 10x6/uL (4.00-5.40); WBC 13.4 10x3/uL (4.8-10.8)
[2020-04-27 08:08] LABS: ALBUMIN 2.2 g/dL (3.4-5.0); ANION GAP 10.8 mmol/L (8-16); BILIRUBIN - TOTAL 0.22 mg/dL (0.2-1.3); CALCIUM 7.9 mg/dL (8.5-10.1); CARBON DIOXIDE 28.4 mmol/L (21.0-32.0); CREATININE - SERUM 0.9 mg/dL (0.6-1.3); POTASSIUM - SERUM 4.2 mmol/L (3.5-5.1); PROTEIN - SERUM 5.2 g/dL (6.4-8.2)
[2020-04-27 09:35] VITALS: BP 179/81
--- NOTE | 2020-04-27 12:45 | NUR ---
ASSISSTED PT WITH BED CHANGE AND BATH, PT TOLERATED WELL. BED LOW, CL IN REACH.
--- NOTE | 2020-04-27 13:08 | NUR ---
OT NOTE: PT INCONT OF B AND B...PT WAS ASLEEP AND REQUIRED SEVERAL MIN TO AWAKEN. ASSISTED PT TO EOB WITH MAX ASSIST.. NUMEROUS ATTEMPTS TO EDUCATE PT ON POSITIONING WHILE SITTING UP ON EOB..(PT CONTINNUALLY PUSHES BACKWARDS WHILE SITTING AND ARGUES WITH THERAPIST ABOUT PROPER POSITIONING) PT STATES THAT SHE CANT DO IT, HOWEVER, WHEN ASSISTED ON TO BS COMMODE, SHE IS ABLE TO SIT UP STRAIGHT WITHOUT BACK SUPPORT. PT CONTINUALLY LEANING BACKWARDS REQUIREING THERAPISTS TO PUSH HER FORWARD FOR STATIC SITTING BALANCE. PT BECOMES AGITATED AND THEN REQUESTS TO LIE BACK DOWN BECAUSE SHE CANT DO WHAT IS BEING ASKED OF HER. ROLLING SIDE TO SIDE IN BED WITH MOD ASSIST WHILE CHANGING LINENS AND PERFORMING TOILET HYGIENE. MAX ASSIST FOR SIT TO SUPINE.. MAX ASSIST FOR POSITONING IN BED. RAGHAVENDRA ALVAREZ, OTR/L [phone]
[2020-04-27 13:25] VITALS: BP 194/75
--- NOTE | 2020-04-27 14:57 | MORECARE ---
CASE MANAGEMENT DISCHARGE SUMMARY PATIENT: IMER SANCHEZ UNIT: [id number] ADM DATE: 04/09/20 AGE: 59 : 64 SEX: F ROOM/BED: D.2225 AUTHOR: CHINA HARDIN PHYSICIAN: REFERRING PHYSICIAN: NIRANJAN SWANSON DO DATE OF SERVICE: 04/27/20 Discharge Plan Patient Name: IMER SANCHEZ Facility: [facility]:[place] : 1960 Planned Disposition: Anticipated Discharge Date: Discharge Date: Expected LOS: Initial Reviewer: [id number] Initial Review Date: 04/09/2020 Generated: 04/27/20 3:57 pm Comments DCP- Discharge Planning Updated by [id number]: Eryn Alcantara on 04/27/20 1:[address] I CALLED [facility] AND SPOKE WITH MARGIE, SHE DIRECTED ME TO [facility] [phone] I CALLED AND LEFT A MESSAGE WITH THEM TO CALL ME BACK DCP- Discharge Planning Updated by [id number]: Chelsey Woodruff on 04/26/20 9:[address] Patient Name: IMER SANCHEZ Admission Status: ER Accout number: [id number] Admission Date: 04-09-2020 : 1960 Admission Diagnosis:SHORTNESS OF BREATH Attending: NIRANJAN SWANSON Current LOS: 17 Anticipated DC Date: Planned Disposition: Primary Insurance: [employer] PPO Discharge Planning Comments: SPOKE WITH [facility] AND REFAXED CLINICALS, [facility] IS TRYING AUTH FOR SNF AGAIN. WAITING FOR CALL BACK. Hazardous Material Technician: Chelsey Woodruff DCP- Discharge Planning Updated by [id number]: Chelsey Woodruff on 04/25/20 4:[address] Patient Name: IMER SANCHEZ Admission Status: ER Accout number: [id number] Admission Date: 04-09-2020 : 1960 Admission Diagnosis:SHORTNESS OF BREATH Attending: NIRANJAN SWANSON Current LOS: 16 Anticipated DC Date: Planned Disposition: Primary Insurance: [employer] PPO Discharge Planning Comments: FAXED FACE SHEET TO [facility] AND SHE IS CONTACTING PATIENT SON. PATIENT'S INSURANCE DENIED REHAB, BILL WILDER HAD NUMBER TO CALL INSURANCE COMPANY SATURDAY. I DO NOT KNOW THE OUTCOME. UPDATED CLINICALS WITH SON'S PHONE NUMBER FAXED TO [facility]. WAITING CALL BACK ON PLACEMENT. Hazardous Material Technician: Chelsey Woodruff DCP- Discharge Planning Updated by [id number]: Chelsey Woodruff on 04/21/20 9:[address] Patient Name: IMER SANCHEZ Admission Status: ER Accout number: [id number] Admission Date: 04-09-2020 : 1960 Admission Diagnosis:SHORTNESS OF BREATH Attending: NIRANJAN SWANSON Current LOS: 12 Anticipated DC Date: Planned Disposition: Primary Insurance: [employer] PPO Discharge Planning Comments: FAXED UPDATED CLINICALS TO [facility] WITH [facility]. WAITING CALL BACK. Hazardous Material Technician: Chelsey Woodruff DCP- Discharge Planning Updated by [id number]: Chelsey Woodruff on 04/19/20 9:[address] Patient Name: IMER SANCHEZ Admission Status: ER Accout number: [id number] Admission Date: 04-09-2020 : 1960 Admission Diagnosis:SHORTNESS OF BREATH Attending: NIRANJAN SWANSON Current LOS: 10 Anticipated DC Date: Planned Disposition: Primary Insurance: [employer] PPO Discharge Planning Comments: [facility] DENIED PATIENT BUT [facility] IS WORKING ON GETTING HER ACCEPTED TO [facility]. WAITING CALL BACK TODAY. Hazardous Material Technician: Chelsey Woodruff DCP- Discharge Planning Updated by [id number]: Chelsey Woodruff on 04/18/20 11:[address] Patient Name: IMER SANCHEZ Admission Status: ER Accout number: [id number] Admission Date: 04-09-2020 : 1960 Admission Diagnosis:SHORTNESS OF BREATH Attending: NIRANJAN SWANSON Current LOS: 9 Anticipated DC Date: Planned Disposition: Primary Insurance: [employer] PPO Discharge Planning Comments: REFERRAL REFAXED TO [facility] FOR SNF PLACEMENT AT [facility]. WAITING CALL BACK FOR AUTH. Hazardous Material Technician: Chelsey Woodruff DCP- Discharge Planning Updated by [id number]: Chelsey Woodruff on 04/14/20 4:[address] Patient Name: IMER SANCHEZ Admission Status: ER Accout number: [id number] Admission Date: 04-09-2020 : 1960 Admission Diagnosis:SHORTNESS OF BREATH Attending: NIRANJAN SWANSON Current LOS: 5 Anticipated DC Date: Planned Disposition: Primary Insurance: [employer] PPO Discharge Planning Comments: PATIENT NOW AGREEABLE TO [facility]. I AM FAXING REFERRAL NOW. Hazardous Material Technician: Chelsey Woodruff DCP- Discharge Planning Updated by [id number]: Chelsey Kacy on 04/14/20 3:[address] Patient Name: IMER SANCHEZ Admission Status: ER Accout number: [id number] Admission Date: 04-09-2020 : 1960 Admission Diagnosis:SHORTNESS OF BREATH Attending: NIRANJAN SWANSON Current LOS: 5 Anticipated DC Date: Planned Disposition: Primary Insurance: [employer] PPO Discharge Planning Comments: IF FAMILY REFUSES TO [place] PATIENT AT DISCHARGE APS WILL NEED TO BE NOTIFIED AT [phone]. I SPOKE WITH PATIENT'S DAUGHTER IN LAW AND TOLD HER THE DC PLAN. CM TO FOLLOW AND ASSIST NEEDED. Hazardous Material Technician: Chelsey Woodruff DCP- Discharge Planning Updated by [id number]: Chelsey Woodruff on 04/14/20 12:[address] Patient Name: IMER SANCHEZ Admission Status: ER Accout number: [id number] Admission Date: 04-09-2020 : 1960 Admission Diagnosis:SHORTNESS OF BREATH Attending: NIRANJAN SWANSON Current LOS: 5 Anticipated DC Date: Planned Disposition: Primary Insurance: [employer] PPO Discharge Planning Comments: CM met with patient at bedside after explaining CM role and obtaining verbal consent. CM discussed availability / needs of home health, REHAB and medical equipment. STATES CURRENT WITH [facility] , [facility] SIGNED. I WILL FAX UPDATE TO [facility]. PLAN IS TO BE DC'D TO HOME WITH FAMILY AND RESUME HH. IF NEB OR 02 NEEDED [facility] SIGNED FOR [facility]. CM TO FOLLOW AND ASSIST NEEDED. Hazardous Material Technician: Chelsey Woodruff DCPIA - Discharge Planning Initial Assessment Updated by [email or web address]: Christel Lira on 04/11/20 10:20 am * Is the patient Alert and Oriented? Yes * How many steps to enter\exit or inside your home? 0/0 * PCP GABRIELA VALDES * Pharmacy [facility] [employer] A\P * Preadmission Environment Home with Family * Partial ADLs (Assistance needed) Ambulation Bathing Dressing Medication Management Toileting Transfers * Equipment Splint Wheelchair * Community resources currently utilized Home Health * Please name any agencies selected above. [facility] AND PT * Additional services required to return to the preadmission environment? Yes * Can the patient safely return to the preadmission environment? No * Has this patient been hospitalized within the prior 30 days at any hospital? No Last DP export: 04/26/20 9:19 am Patient Name: IMER SANCHEZ Page 93219 at 1457 All edits/amendments must be made on the electronic document DICTATION DATE: 04/27/201456 FLAT SURFACER JEWEL: MADALYN 04/27/201456 RPT#: [id number] DC DATE: STATUS: ADM IN [facility] [address] [place] [address] END OF REPORT
[2020-04-27 17:36] VITALS: BP 177/96
--- NOTE | 2020-04-27 18:45 | NUR ---
RECEIVED BEDSIDE REPORT. PT A&O X4. DENIES PAIN. O2 SAT 95%, 2L VIA NC. PT IS INCONTINENT OF BOWEL AND BLADDER. FOUL SMELLING URINE. PT ON BEDREST, TWO PERSON ASSIST. EDUCATED PT ON CL AND NEEDS. BED LOW, RAILS X2. CL IN REACH. WILL CONTINUE TO MONITOR.
--- NOTE | 2020-04-27 18:50 | NUR ---
ASSISSTED PT IN BED CHANGE AND BED BATH, PT TOLERATED WELL. BED LOW, RAILS X2. CL IN REACH.
[2020-04-27 19:40] VITALS: BP 174/80
--- NOTE | 2020-04-27 19:40 | NUR ---
LYING IN BED. ALERT AND ORIENTED. CONFUSED AT TIMES. RESP IRREG. SOB NOTED. O2 @ 2L/NC. NO IV ACCESS. INCONT OF URINE. DENIES PAIN. NO DISTRESS. SR ELEVATED X2. CL IN REACH.
[2020-04-28] VITALS: BP 159/82
--- NOTE | 2020-04-28 00:24 | NUR ---
INCONT OF URINE. PERICARE PERFORMED. BUTT PASTE APPLIED TO COCCYX. CL IN REACH.
[2020-04-28 04:00] VITALS: BP 157/77
[2020-04-28 04:52] LABS: BASOPHILS 0.2 % (0-2); EOSINOPHILS 1.9 % (0-7); HEMATOCRIT 26.9 % (36.0-48.0); HEMOGLOBIN 8.2 g/dL (12-16); IMMATURE GRANULOCYTES 0.2 % (0-5); LYMPHOCYTES 18.8 % (15-50); MCH 27.2 pg (26.0-34.0); MCHC 30.5 g/dL (31.0-37.0); MCV 89.1 fL (80.0-100.0); MEAN PLATELET VOLUME 11.2 fL (7.4-10.4); MONOCYTES 5.7 % (2-11); NEUTROPHILS 73.2 % (40-80); PLATELET COUNT 268 10x3/uL (130-400); RBC 3.02 10x6/uL (4.00-5.40); RDW 17.2 % (11.5-14.5); WBC 12.4 10x3/uL (4.8-10.8)
--- NOTE | 2020-04-28 05:08 | NUR ---
MEDICATED WITH TYLENOL FOR C/O LEG PAIN.
[2020-04-28 05:16] LABS: ALBUMIN 2.2 g/dL (3.4-5.0); ANION GAP 10.3 mmol/L (8-16); BILIRUBIN - TOTAL 0.18 mg/dL (0.2-1.3); CALCIUM 8.3 mg/dL (8.5-10.1); CARBON DIOXIDE 28.5 mmol/L (21.0-32.0); POTASSIUM - SERUM 3.8 mmol/L (3.5-5.1); PROTEIN - SERUM 5.9 g/dL (6.4-8.2)
[2020-04-28 05:17] LABS: CREATININE - SERUM 1.2 mg/dL (0.6-1.3)
--- NOTE | 2020-04-28 06:14 | NUR ---
PT CHECKED FOR INCONTINENCE AND IS CLEAN AND DRY. RESTING WITH EYES CLOSED. RESP NONLABORED. CL IN REACH.
--- NOTE | 2020-04-28 07:45 | NUR ---
PATIENT IN BED. DENIES PAIN OR NEEDS. BED LOW POSITION, CALL LIGHT IN REACH. WILL CONTINUE TO MONITOR.
[2020-04-28 10:22] VITALS: BP 100/66
[2020-04-28 12:55] LABS: BILIRUBIN NEGATIVE (NEGATIVE); KETONE NEGATIVE (NEGATIVE); NITRITE NEGATIVE (NEGATIVE); UROBILINOGEN NORMAL (NORMAL)
[2020-04-28 12:56] LABS: BACTERIA MANY /hpf (NONE SEEN)
[2020-04-28 13:46] VITALS: BP 116/48
--- NOTE | 2020-04-28 14:32 | NUR ---
Nutrition follow-up: Diet: ADA consistent CHO PO intake 89% average of last 9 meals; po intake very good at this time +BM Labs reviewed WT: 170# RDN following.
[2020-04-28 18:07] VITALS: BP 122/91
[2020-04-28 22:48] LABS: HEMATOCRIT 30.2 % (36.0-48.0); HEMOGLOBIN 9.1 g/dL (12-16); MCH 27.2 pg (26.0-34.0); MCHC 30.1 g/dL (31.0-37.0); MCV 90.1 fL (80.0-100.0); MEAN PLATELET VOLUME 11.5 fL (7.4-10.4); PLATELET COUNT 333 10x3/uL (130-400); RBC 3.35 10x6/uL (4.00-5.40); RDW 17.4 % (11.5-14.5); WBC 21.6 10x3/uL (4.8-10.8)
[2020-04-28 22:51] LABS: CALCIUM 8.8 mg/dL (8.5-10.1); CARBON DIOXIDE 27.9 mmol/L (21.0-32.0); CHLORIDE - SERUM 109 mmol/L (98-107); CREATININE - SERUM 1.5 mg/dL (0.6-1.3); SODIUM 144 mmol/L (136-145); eGFR NON AFRICAN AMERICAN 38 mL/min (90-120)
[2020-04-28 22:52] LABS: CALC OSMOLALITY 307 mosm/kg (275-300); GLUCOSE 279 mg/dL (74-106); POTASSIUM - SERUM 5.4 mmol/L (3.5-5.1); UREA NITROGEN 43 mg/dL (7-18)
--- NOTE | 2020-04-28 22:55 | NUR ---
PT TRANSFERRED TO ICU, ASSUMED CARE OF PT. PT UNRESPONSIVE UPON ARRIVAL TO UNIT. BIPAP PLACED ON PT. ASSESSMENT COMPLETED, WILL CONTINUE TO MONITOR.
[2020-04-28 23:09] LABS: CKMB 1.5 U/L (0.0-3.6); CREATINE KINASE 167 UL (21-215); TROPONIN-I 0.041 ng/mL (0.000-0.060)
--- NOTE | 2020-04-28 23:42 | NUR ---
DR ALVARENGA SPOKEN WITH, UPDATED ON PATIENT STATUS, NEW ORDERS RECEIVED.
[2020-04-28 23:43] LABS: BASOPHILS 2 % (0-2); LYMPHOCYTES 10 % (15-50); MONOCYTES 1 % (2-11); NEUTROPHILS 87 % (40-80); PLATELET ESTIMATE NORMAL
[2020-04-28 23:55] LABS: BILIRUBIN NEGATIVE (NEGATIVE); KETONE NEGATIVE (NEGATIVE); NITRITE NEGATIVE (NEGATIVE); UROBILINOGEN NORMAL (NORMAL)
[2020-04-28 23:57] LABS: BACTERIA MODERATE /hpf (NONE SEEN); EPITHELIAL CELLS 0-5 /hpf (0-5); GRANULAR CAST OCC /lpf (NONE SEEN)
[2020-04-29] VITALS (15 sets, daily range): BP systolic 128–172; BP diastolic 57–92
[2020-04-29 04:12] LABS: BASOPHILS 0.1 % (0-2); EOSINOPHILS 0.1 % (0-7); HEMATOCRIT 27.7 % (36.0-48.0); HEMOGLOBIN 8.4 g/dL (12-16); IMMATURE GRANULOCYTES 0.4 % (0-5); MCH 27.4 pg (26.0-34.0); MCHC 30.3 g/dL (31.0-37.0); MCV 90.2 fL (80.0-100.0); MEAN PLATELET VOLUME 10.8 fL (7.4-10.4); NEUTROPHILS 93.4 % (40-80); PLATELET COUNT 244 10x3/uL (130-400); RBC 3.07 10x6/uL (4.00-5.40); RDW 17.2 % (11.5-14.5); WBC 16.4 10x3/uL (4.8-10.8)
[2020-04-29 04:27] LABS: ALBUMIN 2.1 g/dL (3.4-5.0); ANION GAP 13.2 mmol/L (8-16); BILIRUBIN - TOTAL 0.18 mg/dL (0.2-1.3); CALCIUM 8.5 mg/dL (8.5-10.1); CARBON DIOXIDE 26.6 mmol/L (21.0-32.0); CREATININE - SERUM 1.5 mg/dL (0.6-1.3); PHOSPHOROUS 4.7 mg/dL (2.5-4.9); POTASSIUM - SERUM 4.8 mmol/L (3.5-5.1); PROTEIN - SERUM 6.3 g/dL (6.4-8.2)
--- NOTE | 2020-04-29 09:56 | NUR ---
spoke with family
--- NOTE | 2020-04-29 10:55 | NUR ---
son called and stated he wants patient ambulating with physical therapy everyday. i educated on the things PT looks at in regards of ambulating
--- NOTE | 2020-04-29 11:06 | NUR ---
Nutrition follow-up: Pt now in ICU from [facility] 2/ worsening breathing issues Pt is in bed with BIPAP Diet: ADA consistent CHO with poor po intake Labs reviewed Will need nutrition support started within 24 hours if po intake remains poor. Recommend starting ProcalAmine PPN @ 75 ml/hr RDN following.
--- NOTE | 2020-04-29 11:42 | NUR ---
family called. passcode provided
--- NOTE | 2020-04-29 16:43 | MORECARE ---
CASE MANAGEMENT DISCHARGE SUMMARY PATIENT: IMER SANCHEZ UNIT: [id number] ADM DATE: 04/09/20 AGE: 59 : 64 SEX: F ROOM/BED: D.2315 AUTHOR: CHINA HARDIN PHYSICIAN: REFERRING PHYSICIAN: NIRANJAN SWANSON DO DATE OF SERVICE: 04/29/20 Discharge Plan Patient Name: IMER SANCHEZ Facility: [facility]:[place] : 1960 Planned Disposition: Anticipated Discharge Date: Discharge Date: Expected LOS: Initial Reviewer: [id number] Initial Review Date: 04/09/2020 Generated: 04/29/20 5:43 pm Comments DCP- Discharge Planning Updated by [email or web address]: Chelsey Woodruff on 04/29/20 3:[address] Patient Name: IMER SANCHEZ Admission Status: ER Accout number: [id number] Admission Date: 04-09-2020 : 1960 Admission Diagnosis:SHORTNESS OF BREATH Attending: NIRANJAN SWANSON Current LOS: 20 Anticipated DC Date: Planned Disposition: Primary Insurance: [employer] PPO Discharge Planning Comments: INSURANCE DENIED SNF AGAIN. PATIENT OR FAMILY CAN CALL [phone] OPTION 3 TO APPEAL SNF DENIAL. PATIENT WAS LIVING WITH SON AND DAUGHTER AND LAW, MICAH AND MIKALA, THEY CAN BE REACHED AT [phone] OR [phone]. I TRIED CALLING [facility] TODAY, I AM CURRENTLY ON HOLD WITH THEM. PATIENT IS IN ICU AT THIS TIME. Supervisor Production: Chelsey Woodruff DCP- Discharge Planning Updated by [id number]: Eryn Alcantara on 04/27/20 1:[address] I CALLED [facility] [employer] AND SPOKE WITH MARGIE, SHE DIRECTED ME TO [facility] [phone] I CALLED AND LEFT A MESSAGE WITH THEM TO CALL ME BACK DCP- Discharge Planning Updated by [id number]: Chelsey Woodruff on 04/26/20 9:[address] Patient Name: IMER SANCHEZ Admission Status: ER Accout number: [id number] Admission Date: 04-09-2020 : 1960 Admission Diagnosis:SHORTNESS OF BREATH Attending: NIRANJAN SWANSON Current LOS: 17 Anticipated DC Date: Planned Disposition: Primary Insurance: [employer] PPO Discharge Planning Comments: SPOKE WITH [facility] AND REFAXED CLINICALS, [facility] IS TRYING AUTH FOR SNF AGAIN. WAITING FOR CALL BACK. Supervisor Production: Chelsey Woodruff DCP- Discharge Planning Updated by [id number]: Chelsey Woodruff on 04/25/20 4:[address] Patient Name: IMER SANCHEZ Admission Status: ER Accout number: [id number] Admission Date: 04-09-2020 : 1960 Admission Diagnosis:SHORTNESS OF BREATH Attending: NIRANJAN SWANSON Current LOS: 16 Anticipated DC Date: Planned Disposition: Primary Insurance: [employer] PPO Discharge Planning Comments: FAXED FACE SHEET TO [facility] AND SHE IS CONTACTING PATIENT SON. PATIENT'S INSURANCE DENIED REHAB, BILL WILDER HAD NUMBER TO CALL INSURANCE COMPANY SATURDAY. I DO NOT KNOW THE OUTCOME. UPDATED CLINICALS WITH SON'S PHONE NUMBER FAXED TO [facility]. WAITING CALL BACK ON PLACEMENT. Supervisor Production: Chelsey Woodruff DCP- Discharge Planning Updated by [id number]: Chelsey Woodruff on 04/21/20 9:[address] Patient Name: IMER SANCHEZ Admission Status: ER Accout number: [id number] Admission Date: 04-09-2020 : 1960 Admission Diagnosis:SHORTNESS OF BREATH Attending: NIRANJAN SWANSON Current LOS: 12 Anticipated DC Date: Planned Disposition: Primary Insurance: [employer] PPO Discharge Planning Comments: FAXED UPDATED CLINICALS TO [facility] WITH [facility]. WAITING CALL BACK. Supervisor Production: Chelsey Woodruff DCP- Discharge Planning Updated by [id number]: Chelsey Woodruff on 04/19/20 9:[address] Patient Name: IMER SANCHEZ Admission Status: ER Accout number: [id number] Admission Date: 04-09-2020 : 1960 Admission Diagnosis:SHORTNESS OF BREATH Attending: NIRANJAN SWANSON Current LOS: 10 Anticipated DC Date: Planned Disposition: Primary Insurance: [employer] PPO Discharge Planning Comments: [facility] DENIED PATIENT BUT [facility] IS WORKING ON GETTING HER ACCEPTED TO [facility]. WAITING CALL BACK TODAY. Supervisor Production: Chelsey Woodruff DCP- Discharge Planning Updated by [id number]: Chelsey Woodruff on 04/18/20 11:[address] Patient Name: IMER SANCHEZ Admission Status: ER Accout number: [id number] Admission Date: 04-09-2020 : 1960 Admission Diagnosis:SHORTNESS OF BREATH Attending: NIRANJAN SWANSON Current LOS: 9 Anticipated DC Date: Planned Disposition: Primary Insurance: [employer] CHO[employer] PPO Discharge Planning Comments: REFERRAL REFAXED TO [facility] FOR SNF PLACEMENT AT [facility]. WAITING CALL BACK FOR AUTH. Supervisor Production: Chelsey Woodruff DCP- Discharge Planning Updated by [id number]: Chelsey Woodruff on 04/14/20 4:[address] Patient Name: IMER SANCHEZ Admission Status: ER Accout number: [id number] Admission Date: 04-09-2020 : 1960 Admission Diagnosis:SHORTNESS OF BREATH Attending: NIRANJAN SWANSON Current LOS: 5 Anticipated DC Date: Planned Disposition: Primary Insurance: [employer] CHO[employer] PPO Discharge Planning Comments: PATIENT NOW AGREEABLE TO [facility] SNF. I AM FAXING REFERRAL NOW. Supervisor Production: Chelsey Woodruff DCP- Discharge Planning Updated by [id number]: Chelsey Woodruff on 04/14/20 3:[address] Patient Name: IMER SANCHEZ Admission Status: ER Accout number: [id number] Admission Date: 04-09-2020 : 1960 Admission Diagnosis:SHORTNESS OF BREATH Attending: NIRANJAN SWANSON Current LOS: 5 Anticipated DC Date: Planned Disposition: Primary Insurance: [employer] PPO Discharge Planning Comments: IF FAMILY REFUSES TO CAFETERIA AIDE PATIENT AT DISCHARGE APS WILL NEED TO BE NOTIFIED AT [phone]. I SPOKE WITH PATIENT'S DAUGHTER IN LAW AND TOLD HER THE DC PLAN. CM TO FOLLOW AND ASSIST NEEDED. Supervisor Production: Chelsey Woodruff DCP- Discharge Planning Updated by [id number]: Chelsey Woodruff on 04/14/20 12:[address] Patient Name: IMER SANCHEZ Admission Status: ER Accout number: [id number] Admission Date: 04-09-2020 : 1960 Admission Diagnosis:SHORTNESS OF BREATH Attending: NIRANJAN SWANSON Current LOS: 5 Anticipated DC Date: Planned Disposition: Primary Insurance: [employer] PPO Discharge Planning Comments: CM met with patient at bedside after explaining CM role and obtaining verbal consent. CM discussed availability / needs of home health, REHAB and medical equipment. STATES CURRENT WITH [facility], [facility] S[facility]. I WILL FAX UPDATE TO [facility]. PLAN IS TO BE DC'D TO HOME WITH FAMILY AND [facility] HH. IF NEB OR 02 NEEDED [facility] FOR [facility]. CM TO FOLLOW AND ASSIST NEEDED. Supervisor Production: Chelsey Woodruff DCPIA - Discharge Planning Initial Assessment Updated by [id number]: Christel Lira on 04/11/20 10:20 am * Is the patient Alert and Oriented? Yes * How many steps to enter\exit or inside your home? 0/0 * PCP GABRIELA VALDES * Pharmacy [facility] A\P * Preadmission Environment Home with Family * Partial ADLs (Assistance needed) Ambulation Bathing Dressing Medication Management Toileting Transfers * Equipment Splint Wheelchair * Community resources currently utilized Home Health * Please name any agencies selected above. [facility] * Additional services required to return to the preadmission environment? Yes * Can the patient safely return to the preadmission environment? No * Has this patient been hospitalized within the prior 30 days at any hospital? No Last DP export: 04/27/20 1:57 pm Patient Name: IMER SANCHEZ Page [phone] at 1643 All edits/amendments must be made on the electronic document DICTATION DATE: 04/29/201642 RAIL CREW MEMBER: MADALYN 04/29/201642 RPT#: [id number] DC DATE: STATUS: ADM IN [facility] [address] [place] [address] END OF REPORT
--- NOTE | 2020-04-30 03:55 | NUR ---
PATIENT ARIVED FROM ICU TO ROOM. RESTING IN BED ALERT WITH CONFUSION NOTED. O2 VIA N/C AT 4 LETERS PER MIN. FOLLEY CATH IN TACT WITH URIN TO BAG. IV TO RIGHT WRIST. RESTING AT THIS TIME WITH NO NEEDS.
[2020-04-30 04:00] VITALS: BP 163/78
[2020-04-30 05:59] LABS: BASOPHILS 0 % (0-2); EOSINOPHILS 0 % (0-7); HEMATOCRIT 25.9 % (36.0-48.0); IMMATURE GRANULOCYTES 0.4 % (0-5); MCH 27.3 pg (26.0-34.0); MCHC 30.9 g/dL (31.0-37.0); MCV 88.4 fL (80.0-100.0); MEAN PLATELET VOLUME 10.8 fL (7.4-10.4); MONOCYTES 3.1 % (2-11); NEUTROPHILS 88.5 % (40-80); RBC 2.93 10x6/uL (4.00-5.40); RDW 17.3 % (11.5-14.5); WBC 13.7 10x3/uL (4.8-10.8)
[2020-04-30 06:06] LABS: PLATELET COUNT 312 10x3/uL (130-400)
[2020-04-30 06:12] LABS: ALBUMIN 2.1 g/dL (3.4-5.0); BILIRUBIN - TOTAL 0.16 mg/dL (0.2-1.3); CALCIUM 8.2 mg/dL (8.5-10.1); CARBON DIOXIDE 24.5 mmol/L (21.0-32.0); CREATININE - SERUM 1.4 mg/dL (0.6-1.3); PROTEIN - SERUM 6.2 g/dL (6.4-8.2)
[2020-04-30 06:13] LABS: ANION GAP 14.2 mmol/L (8-16); PHOSPHOROUS 3.1 mg/dL (2.5-4.9); POTASSIUM - SERUM 3.7 mmol/L (3.5-5.1)
--- NOTE | 2020-04-30 07:50 | NUR ---
AWAKE AND ALERT. ORIENTED X3. NO C/O AT THIS TIME. LUNGS ARE CLEAR BILATERALLY, NO COUGH NOTED. SKIN IS INTACT WITHOUT REDNESS. IV TO RIGHT FOREARM IS PATENT WITHOUT REDNESS AT INSERTION SITE. DENIES NEED.S
[2020-04-30 10:00] VITALS: BP 156/80
--- NOTE | 2020-04-30 10:36 | NUR ---
ATE ALL OF BREAKFAST. TOOK AM MEDS WITHOUT DIFFICULTY. DENIES NEEDS.
--- NOTE | 2020-04-30 12:00 | NUR ---
FSBS 269. GIVEN 12 UNITS SUBQ PER SS. LUNCH SERVED IN ROOM. DENIES NEEDS. INCONTINENT OF LOOSE WATERY VERY DARK STOOL. SKIN CARE PER STAFF. LINENS CHANGED.
[2020-04-30 16:00] VITALS: BP 154/77
--- NOTE | 2020-04-30 16:32 | NUR ---
FSBS 415. GIVEN 28 UNITS REGULAR SUBQ PER SS. WILL MONITOR. CHELITA WRIGHT NOTIFIED OF SAME. RECHECK IN ONE HOUR.
--- NOTE | 2020-04-30 17:13 | NUR ---
UP TO CHIAR AT BEDSIDE. MAX ASSIST OF 2. WILL MONITOR.
--- NOTE | 2020-04-30 18:35 | NUR ---
RECHECK ON FSBS WAS 391. GIVEN 24 UNITS REGULAR SUBQ PER SS. BACK TO BED WITH MAX ASSIST OF 3. DOESN'T SUPPORT WEIGHT VERY WELL. WILL TRY AGAIN LATER. NO CHANGES NOTED. DENIES NEEDS. CPAP ON AT THIS TIME.
[2020-04-30 20:00] VITALS: BP 143/73
[2020-05-01] VITALS: BP 149/76
[2020-05-01 04:00] VITALS: BP 136/70
[2020-05-01 08:48] LABS: BASOPHILS 0.1 % (0-2); EOSINOPHILS 0 % (0-7); HEMATOCRIT 25.2 % (36.0-48.0); HEMOGLOBIN 7.6 g/dL (12-16); IMMATURE GRANULOCYTES 0.5 % (0-5); LYMPHOCYTES 15.7 % (15-50); MCH 27.1 pg (26.0-34.0); MCHC 30.2 g/dL (31.0-37.0); MEAN PLATELET VOLUME 11.1 fL (7.4-10.4); MONOCYTES 5.2 % (2-11); NEUTROPHILS 78.5 % (40-80); PLATELET COUNT 322 10x3/uL (130-400); RDW 17.6 % (11.5-14.5); WBC 12.4 10x3/uL (4.8-10.8)
[2020-05-01 09:16] LABS: ALBUMIN 2.3 g/dL (3.4-5.0); ANION GAP 14.5 mmol/L (8-16); CALCIUM 7.7 mg/dL (8.5-10.1); CARBON DIOXIDE 24.3 mmol/L (21.0-32.0); CREATININE - SERUM 1.4 mg/dL (0.6-1.3); MAGNESIUM - SERUM 1.9 mg/dL (1.8-2.4); PHOSPHOROUS 3.8 mg/dL (2.5-4.9); POTASSIUM - SERUM 3.8 mmol/L (3.5-5.1); PROTEIN - SERUM 5.6 g/dL (6.4-8.2)
[2020-05-01 09:17] VITALS: BP 145/74
[2020-05-01 09:18] LABS: BILIRUBIN - TOTAL 0.05 mg/dL (0.2-1.3)
[2020-05-01 13:08] VITALS: BP 138/68
[2020-05-01 17:29] VITALS: BP 140/76
[2020-05-01 20:00] VITALS: BP 171/80
--- NOTE | 2020-05-01 20:30 | NUR ---
AWAKE,ALERT,NO COMPLAITNS AT PRESENT. O2 @ 4L PER HIGHFLOW ON. RESP UNALBORED. IV TO LFA INTACT WITHOUT REDNESS OR EDEMA NOTED. CL IN REACH
[2020-05-02] VITALS: BP 153/77
[2020-05-02 04:00] VITALS: BP 138/84
--- NOTE | 2020-05-02 05:10 | NUR ---
I have reviewed this patient and I concur with the Shift Assessment completed by the Licensed Practical Nurse today this shift.
[2020-05-02 06:53] LABS: % SATURATION 18 % (15-55); IRON 57 ug/dl (35-150); TOTAL IRON BIND CAPACITY 304 ug/dl (260-445); UNSAT IRON BIND CAPACITY 247 ug/dl (150-375)
[2020-05-02 06:54] LABS: BASOPHILS 0 % (0-2); EOSINOPHILS 0.1 % (0-7); HEMATOCRIT 25.7 % (36.0-48.0); HEMOGLOBIN 7.8 g/dL (12-16); LYMPHOCYTES 23.7 % (15-50); MCH 27.1 pg (26.0-34.0); MCHC 30.4 g/dL (31.0-37.0); MCV 89.2 fL (80.0-100.0); MEAN PLATELET VOLUME 10.5 fL (7.4-10.4); MONOCYTES 5.3 % (2-11); NEUTROPHILS 69.9 % (40-80); PLATELET COUNT 315 10x3/uL (130-400); RBC 2.88 10x6/uL (4.00-5.40); RDW 17.6 % (11.5-14.5); WBC 12.1 10x3/uL (4.8-10.8)
[2020-05-02 07:18] LABS: ALBUMIN 2.3 g/dL (3.4-5.0); ANION GAP 14.5 mmol/L (8-16); BILIRUBIN - TOTAL 0.13 mg/dL (0.2-1.3); CALCIUM 7.6 mg/dL (8.5-10.1); CARBON DIOXIDE 24.8 mmol/L (21.0-32.0); CREATININE - SERUM 1.3 mg/dL (0.6-1.3); POTASSIUM - SERUM 4.3 mmol/L (3.5-5.1); PROTEIN - SERUM 6.1 g/dL (6.4-8.2)
[2020-05-02 09:27] VITALS: BP 151/75
[2020-05-02 17:48] VITALS: BP 136/75
--- NOTE | 2020-05-02 19:01 | NUR ---
OT NOTE: PT COMPLETED SIDE ROLLING WITH MIN A. PT COMPLETED SUPINE TO SIT WITH MOD A. PT COMPLETED EOB SITTING WITH CGA. PT COMPLETED UE AROM WITH FUNCTIONAL TASKS. NURSING NOTIFIED OF IV LEAK. [phone] THANK YOU, JUNE HERNANDEZ
--- NOTE | 2020-05-02 19:52 | NUR ---
alert with some confusion noted at times. iv to left forearm with ns at 50ml/hr. n/c at 4 leters high flow and bipap at night. no needs at this time. call light and water in reach.
[2020-05-02 20:28] VITALS: BP 168/80
[2020-05-03 00:24] VITALS: BP 184/78
[2020-05-03 04:51] VITALS: BP 175/88
[2020-05-03 06:44] LABS: BASOPHILS 0 % (0-2); EOSINOPHILS 0 % (0-7); HEMATOCRIT 26.8 % (36.0-48.0); HEMOGLOBIN 8.3 g/dL (12-16); IMMATURE GRANULOCYTES 1.1 % (0-5); LYMPHOCYTES 11.8 % (15-50); MCH 27.5 pg (26.0-34.0); MCV 88.7 fL (80.0-100.0); MEAN PLATELET VOLUME 10.7 fL (7.4-10.4); MONOCYTES 3.7 % (2-11); NEUTROPHILS 83.4 % (40-80); PLATELET COUNT 349 10x3/uL (130-400); RBC 3.02 10x6/uL (4.00-5.40); RDW 17.7 % (11.5-14.5); WBC 11.3 10x3/uL (4.8-10.8)
[2020-05-03 07:07] LABS: ALBUMIN 2.3 g/dL (3.4-5.0); ANION GAP 13.8 mmol/L (8-16); BILIRUBIN - TOTAL 0.14 mg/dL (0.2-1.3); CARBON DIOXIDE 24.8 mmol/L (21.0-32.0); CREATININE - SERUM 1.1 mg/dL (0.6-1.3); PHOSPHOROUS 3.2 mg/dL (2.5-4.9); POTASSIUM - SERUM 4.6 mmol/L (3.5-5.1); PROTEIN - SERUM 6.2 g/dL (6.4-8.2)
[2020-05-03 08:41] VITALS: BP 176/90
[2020-05-03 13:12] VITALS: BP 206/96
[2020-05-03 16:24] VITALS: BP 170/86
--- NOTE | 2020-05-03 19:20 | NUR ---
PT HAS BED CHANGE AT THIS TIMWE WELL OTHER NEEDS SEEN TOO BED LOW AND LOCKED AND CALL LIGHT IS IN REACH
[2020-05-03 20:00] VITALS: BP 179/87
--- NOTE | 2020-05-04 00:51 | NUR ---
EARLIER PT CO NOT BEING ABLE TO BREATH PT HAD SPO2 78% PT WAS FIGHTING AND HYPERVENTILATING WELL VERY DIAPHORETIC PT HAS SINCE BEEN PUT ON BIPAP BUT CONT TINUES TO PUT FINGERS UP UNDERNEITH SEAL AND CO SOB SPO2 IS NOW97% I ALSO HAVE RESP LOOKING AFTER HER
--- NOTE | 2020-05-04 01:28 | NUR ---
PT HAD CONTIUED TO GET ANXIOUS AND CO SOB RESP REPORTS LUNGS ARE WET KEYUR SMITH NOTIFIED THEN DR FERNANDEZ WITH [facility] NOTIFIED ORDER RECIEVED FOR 20MG LASIX NOW AND DONE FOUND IV OUT AND RESTARTED TO RT AC RECIEVED ORDER FOR HALDOL IV BUT I DID NOT COMPLETE NOR JENA OUT ORDER DUE TO HOSPITAL POLICY THAT HALDOL IV IS NOT TO BE GIVEN ON MY CURRENT UNIT PT HOWEVER HAS CALMED AND HALDOL IS NO LONGER NEEDED SPO2 REMAINS 94% AND HIGHER
--- NOTE | 2020-05-04 01:52 | NUR ---
CONTINUES TO REST WITH SPO2 96%
[2020-05-04 04:00] VITALS: BP 144/70
--- NOTE | 2020-05-04 06:05 | NUR ---
I have reviewed this patient and I concur with the Shift Assessment completed by the Licensed Practical Nurse today this shift.
[2020-05-04 06:53] LABS: ALBUMIN 2.7 g/dL (3.4-5.0); ANION GAP 13.6 mmol/L (8-16); BILIRUBIN - TOTAL 0.17 mg/dL (0.2-1.3); CREATININE - SERUM 1.2 mg/dL (0.6-1.3); POTASSIUM - SERUM 4.6 mmol/L (3.5-5.1); PROTEIN - SERUM 7.2 g/dL (6.4-8.2)
[2020-05-04 06:54] LABS: MCH 27.1 pg (26.0-34.0); MCHC 30.3 g/dL (31.0-37.0); MCV 89.4 fL (80.0-100.0); MEAN PLATELET VOLUME 11.9 fL (7.4-10.4); PLATELET COUNT 414 10x3/uL (130-400); RDW 17.8 % (11.5-14.5)
[2020-05-04 06:57] LABS: RBC 3.69 10x6/uL (4.00-5.40); WBC 16.9 10x3/uL (4.8-10.8)
[2020-05-04 07:51] LABS: LYMPHOCYTES 19 % (15-50); MONOCYTES 1 % (2-11); NEUTROPHILS 79 % (40-80); PLATELET ESTIMATE NORMAL
[2020-05-04 09:36] VITALS: BP 178/92
[2020-05-04 12:10] LABS: SPE - A/G RATIO 0.9 (0.7-1.7); SPE - ALBUMIN 2.5 g/dL (2.9-4.4); SPE - ALPHA-1 GLOBULIN 0.2 g/dL (0.0-0.4); SPE - ALPHA-2 GLOBULIN 0.9 g/dL (0.4-1.0); SPE - BETA GLOBULIN 1.2 g/dL (0.7-1.3); SPE - GAMMA GLOBULIN 0.5 g/dL (0.4-1.8); SPE - M-SPIKE Not Observed g/dL (Not Observed); SPE - TOTAL PROTEIN 5.3 g/dL (6.0-8.5)
[2020-05-04 13:24] VITALS: BP 198/102
--- NOTE | 2020-05-04 14:08 | NUR ---
Nutrition follow-up: Pt receiving a consistent CHO diet PO intake ~50% of meals Pt now with BIPAP 2/2 breathing issues labs reviewed Last BM charted 04/30 Wt: 170# May need to consider nutrition support soon Pt may also need laxative RDN following.
--- NOTE | 2020-05-04 16:09 | NUR ---
OT NOTE: PT COMPLETED SUPINE TO SIT WITH MOD A. PT COMPLETED EOB SITTING WITH SBA/CGA. PT EXHIBITED DECREASED ENDURANCE. PT COMPLETED UB HYGIENE TASKS WITH MIN A. [phone] THANK YOU,JUNE HERNANDEZ
[2020-05-04 18:21] VITALS: BP 188/100
[2020-05-04 20:00] VITALS: BP 162/78
[2020-05-05 04:00] VITALS: BP 192/96
[2020-05-05 06:56] LABS: BASOPHILS 0.1 % (0-2); EOSINOPHILS 0 % (0-7); HEMOGLOBIN 8.9 g/dL (12-16); IMMATURE GRANULOCYTES 1.2 % (0-5); LYMPHOCYTES 13.7 % (15-50); MCHC 30.7 g/dL (31.0-37.0); MCV 87.9 fL (80.0-100.0); MEAN PLATELET VOLUME 10.5 fL (7.4-10.4); MONOCYTES 4.4 % (2-11); NEUTROPHILS 80.6 % (40-80); PLATELET COUNT 383 10x3/uL (130-400); RDW 17.5 % (11.5-14.5); WBC 14.7 10x3/uL (4.8-10.8)
--- NOTE | 2020-05-05 07:20 | NUR ---
PT IS RESTING IN BED WITH EYES OPEN. RESPIRATIONS ARE EVEN AND UNLABORED. PT IS AAO X 4 BUT IS SLOW TO RESPOND TO QUESTIONS. O2 VIA NC @ 4L HF. BI PAP AT BEDSIDE. RIBEIRO CATHETER NOTED AND DRAINING WITHOUT DIFFICULTY. RIBEIRO CARE COMPLETED AT THIS TIME. INCENTIVE SPIROMETER AT BEDSIDE AND ENCOURAGED. PIV TO RIGHT AC INFUSING WITHOUT DIFFICULTY AND PER ORDER. CONTACT ISOLATION PRECAUTIONS IN PLACE. PT DENIES PRESENCE OF PAIN/N/V AT THIS TIME. BED IS IN THE LOWEST POSITION. CALL LIGHT AND BEDSIDE TABLE ARE WITHIN REACH. SIDE RAILS X 2. PT DENIES FURTHER NEEDS. WILL CONT TO MONITOR.
[2020-05-05 07:34] LABS: ALBUMIN 2.2 g/dL (3.4-5.0); ALKALINE PHOSPHATASE 82 U/L (30-120); BILIRUBIN - TOTAL 0.29 mg/dL (0.2-1.3); CALCIUM 8.4 mg/dL (8.5-10.1); CARBON DIOXIDE 28.3 mmol/L (21.0-32.0); CHLORIDE - SERUM 110 mmol/L (98-107); POTASSIUM - SERUM 5.2 mmol/L (3.5-5.1); SODIUM 146 mmol/L (136-145); UREA NITROGEN 46 mg/dL (7-18)
[2020-05-05 07:35] LABS: ALT (SGPT) 26 U/L (10-68); CALC OSMOLALITY 304 mosm/kg (275-300); CREATININE - SERUM 0.8 mg/dL (0.6-1.3); GLUCOSE 141 mg/dL (74-106); PROTEIN - SERUM 5.2 g/dL (6.4-8.2); eGFR NON AFRICAN AMERICAN 78 mL/min (90-120)
[2020-05-05 09:48] VITALS: BP 160/77
--- NOTE | 2020-05-05 11:19 | NUR ---
PT RESTING IN BED WITH EYES CLOSED. PT ENCOURAGED TO WEAR BIPAP FOR PERIODS OF REST AND PT EDUCATED ON DR ORDER FOR BIPAP. PT REFUSES BIPAP AT THIS TIME. AND STATES "I DONT WANT TO WEAR IT RIGHT NOW". BED IS IN THE LOWEST POSITION. CALL LIGHT AND BEDSIDE TABLE ARE WITHIN REACH. SIDE RAILS X 2. CONTACT ISOLATION PRECUATIONS IN PLACE. WILL CONT TO MONITOR.
[2020-05-05 12:00] VITALS: BP 158/96
[2020-05-05 17:14] VITALS: BP 178/89
--- NOTE | 2020-05-05 17:24 | NUR ---
OT NOTE: PT COMPLETED SUPINE TO SIT WITH MAX A . PT COMPLETED EOB SITTING WITH MIN A. PT COMPLETED UE AROM EXS TOLERATED. PT REQUIRED CUES FOR INCREASED PARTICIPATION. [phone] THANK YOU,JUNE HERNANDEZ
[2020-05-05 20:00] VITALS: BP 169/84
--- NOTE | 2020-05-05 20:10 | NUR ---
PT RESTING WITH EYES CLOSED BED IS LOW AND LOCKED AND CALL LIGHT IS IN REACH
--- NOTE | 2020-05-05 20:11 | NUR ---
PT REMAINS AT REST WITH NO RESP DISTRESS NOTED WILL OBSERVE ISOLATION
[2020-05-06] VITALS: BP 156/72
[2020-05-06 04:00] VITALS: BP 147/78
[2020-05-06 08:03] LABS: ALBUMIN 2.5 g/dL (3.4-5.0); ANION GAP 10.8 mmol/L (8-16); BILIRUBIN - TOTAL 0.69 mg/dL (0.2-1.3); CALCIUM 8.9 mg/dL (8.5-10.1); CARBON DIOXIDE 31.7 mmol/L (21.0-32.0); CREATININE - SERUM 0.9 mg/dL (0.6-1.3); POTASSIUM - SERUM 4.5 mmol/L (3.5-5.1); PROTEIN - SERUM 5.4 g/dL (6.4-8.2)
[2020-05-06 08:19] LABS: BASOPHILS 0.1 % (0-2); EOSINOPHILS 0.9 % (0-7); HEMATOCRIT 30.8 % (36.0-48.0); HEMOGLOBIN 9.4 g/dL (12-16); IMMATURE GRANULOCYTES 0.7 % (0-5); MCH 26.9 pg (26.0-34.0); MCHC 30.5 g/dL (31.0-37.0); MEAN PLATELET VOLUME 10.9 fL (7.4-10.4); MONOCYTES 4.5 % (2-11); NEUTROPHILS 81.8 % (40-80); PLATELET COUNT 383 10x3/uL (130-400); RDW 17.4 % (11.5-14.5)
--- NOTE | 2020-05-06 09:00 | NUR ---
ALERT AND ORIENTED X3 WITH DIMINISHED BREATH SOUNDS X4 ANTERIOR. O2 4L N/C. RIBEIRO CATH PATENT WITH CLEAR LENNIE URINE NOTED. REQUIRES TOTAL ASSSIT WITH ALL ADL'S INCLUDING FEEDING. IV S/L TO RT. A/C. ENCOURAGED TO USE CALL LLIGHT FOR ASSSIT. REFUSES TO WEAR BIPAP.
[2020-05-06 09:24] VITALS: BP 156/83
--- NOTE | 2020-05-06 12:42 | MORECARE ---
CASE MANAGEMENT DISCHARGE SUMMARY PATIENT: IMER SANCHEZ UNIT: [id number] ADM DATE: 04/09/20 AGE: 59 : 64 SEX: F ROOM/BED: D.2238 AUTHOR: LASHAWNDOC PHYSICIAN: REFERRING PHYSICIAN: NIRANJAN SWANSON DO DATE OF SERVICE: 05/06/20 Discharge Plan Patient Name: IMER SANCHEZ Facility: [facility]:[place] : 1960 Planned Disposition: Anticipated Discharge Date: Discharge Date: Expected LOS: Initial Reviewer: [id number] Initial Review Date: 04/09/2020 Generated: 05/06/20 1:41 pm Comments DCP- Discharge Planning Updated by [id number]: Chelsey Woodruff on 05/06/20 11:[address] Patient Name: IMER SANCHEZ Admission Status: ER Accout number: [id number] Admission Date: 04-09-2020 : 1960 Admission Diagnosis:SHORTNESS OF BREATH Attending: NIRANJAN SWANSON Current LOS: 27 Anticipated DC Date: Planned Disposition: Primary Insurance: [employer] PPO Discharge Planning Comments: RECEIVED CALL FROM [facility] WITH [facility], INSURANCE HAS APPROVED HER STAY. THEY CAN TAKE HER TODAY IF THE DOCTORS ARE IN AGREEMENT WITH HER DC. I HAVE TALKED TO [facility] WILDER AND DR. SHARP. I AM PAGING DR. FERNANDEZ. Chemical Plant Worker: Chelsey Woodruff DCP- Discharge Planning Updated by [id number]: Chelsey Woodruff on 04/29/20 3:[address] Patient Name: IMER SANCHEZ Admission Status: ER Accout number: [id number] Admission Date: 04-09-2020 : 1960 Admission Diagnosis:SHORTNESS OF BREATH Attending: NIRANJAN SWANSON Current LOS: 20 Anticipated DC Date: Planned Disposition: Primary Insurance: [employer] PPO Discharge Planning Comments: INSURANCE DENIED SNF AGAIN. PATIENT OR FAMILY CAN CALL [phone] OPTION 3 TO APPEAL SNF DENIAL. PATIENT WAS LIVING WITH SON AND DAUGHTER AND LAW, MICAH AND MIKALA, THEY CAN BE REACHED AT [phone] OR [phone]. I TRIED CALLING [employer] TODAY, I AM CURRENTLY ON HOLD WITH THEM. PATIENT IS IN ICU AT THIS TIME. Chemical Plant Worker: Chelsey Woodruff DCP- Discharge Planning Updated by [id number]: Eryn Alcantara on 04/27/20 1:[address] I CALLED [facility] AND SPOKE WITH MARGIE, SHE DIRECTED ME TO [facility] [phone] I CALLED AND LEFT A MESSAGE WITH THEM TO CALL ME BACK DCP- Discharge Planning Updated by [id number]: Chelsey Woodruff on 04/26/20 9:[address] Patient Name: IMER SANCHEZ Admission Status: ER Accout number: [id number] Admission Date: 04-09-2020 : 1960 Admission Diagnosis:SHORTNESS OF BREATH Attending: NIRANJAN SWANSON Current LOS: 17 Anticipated DC Date: Planned Disposition: Primary Insurance: [employer] PPO Discharge Planning Comments: SPOKE WITH [facility] AND REFAXED CLINICALS, [facility] IS TRYING AUTH FOR SNF AGAIN. WAITING FOR CALL BACK. Chemical Plant Worker: Chelsey Woodruff DCP- Discharge Planning Updated by [id number]: Chelsey Woodruff on 04/25/20 4:[address] Patient Name: IMER SANCHEZ Admission Status: ER Accout number: [id number] Admission Date: 04-09-2020 : 1960 Admission Diagnosis:SHORTNESS OF BREATH Attending: NIRANJAN SWANSON Current LOS: 16 Anticipated DC Date: Planned Disposition: Primary Insurance: [employer] PPO Discharge Planning Comments: FAXED FACE SHEET TO [facility] AND SHE IS CONTACTING PATIENT SON. PATIENT'S INSURANCE DENIED REHAB, BILL WILDER HAD NUMBER TO CALL INSURANCE COMPANY SATURDAY. I DO NOT KNOW THE OUTCOME. UPDATED CLINICALS WITH SON'S PHONE NUMBER FAXED TO [facility]. WAITING CALL BACK ON PLACEMENT. Chemical Plant Worker: Chelsey Woodruff DCP- Discharge Planning Updated by [id number]: Chelsey Woodruff on 04/21/20 9:[address] Patient Name: IMER SANCHEZ Admission Status: ER Accout number: [id number] Admission Date: 04-09-2020 : 1960 Admission Diagnosis:SHORTNESS OF BREATH Attending: NIRANJAN SWANSON Current LOS: 12 Anticipated DC Date: Planned Disposition: Primary Insurance: [employer] PPO Discharge Planning Comments: FAXED UPDATED CLINICALS TO [facility] WITH [facility]. WAITING CALL BACK. Chemical Plant Worker: Chelsey Woodruff DCP- Discharge Planning Updated by [id number]: Chelsey Woodruff on 04/19/20 9:[address] Patient Name: IMER SANCHEZ Admission Status: ER Accout number: [id number] Admission Date: 04-09-2020 : 1960 Admission Diagnosis:SHORTNESS OF BREATH Attending: NIRANJAN SWANSON Current LOS: 10 Anticipated DC Date: Planned Disposition: Primary Insurance: [employer] PPO Discharge Planning Comments: [facility] DENIED PATIENT BUT [facility] IS WORKING ON GETTING HER ACCEPTED TO [facility]. WAITING CALL BACK TODAY. Chemical Plant Worker: Chelsey Woodruff DCP- Discharge Planning Updated by [id number]: Chelsey Woodruff on 04/18/20 11:[address] Patient Name: IMER SANCHEZ Admission Status: ER Accout number: [id number] Admission Date: 04-09-2020 : 1960 Admission Diagnosis:SHORTNESS OF BREATH Attending: NIRANJAN SWANSON Current LOS: 9 Anticipated DC Date: Planned Disposition: Primary Insurance: [employer] PPO Discharge Planning Comments: REFERRAL REFAXED TO [facility] FOR SNF PLACEMENT AT [facility]. WAITING CALL BACK FOR AUTH. Chemical Plant Worker: Chelsey Woodruff DCP- Discharge Planning Updated by [id number]: Chelsey Woodruff on 04/14/20 4:[address] Patient Name: IMER SANCHEZ Admission Status: ER Accout number: [id number] Admission Date: 04-09-2020 : 1960 Admission Diagnosis:SHORTNESS OF BREATH Attending: NIRANJAN SWANSON Current LOS: 5 Anticipated DC Date: Planned Disposition: Primary Insurance: [employer] PPO Discharge Planning Comments: PATIENT NOW AGREEABLE TO [facility] SNF. I AM FAXING REFERRAL NOW. Chemical Plant Worker: Chelsey Woodruff DCP- Discharge Planning Updated by [id number]: Chelsey Woodruff on 04/14/20 3:[address] Patient Name: IMER SANCHEZ Admission Status: ER Accout number: [id number] Admission Date: 04-09-2020 : 1960 Admission Diagnosis:SHORTNESS OF BREATH Attending: NIRANJAN SWANSON Current LOS: 5 Anticipated DC Date: Planned Disposition: Primary Insurance: [employer] PPO Discharge Planning Comments: IF FAMILY REFUSES TO WAREHOUSE PRODUCTION WORKER PATIENT AT DISCHARGE APS WILL NEED TO BE NOTIFIED AT [phone]. I SPOKE WITH PATIENT'S DAUGHTER IN LAW AND TOLD HER THE DC PLAN. CM TO FOLLOW AND ASSIST NEEDED. Chemical Plant Worker: Chelsey Woodruff DCP- Discharge Planning Updated by [email or web address]: Chelsey Woodruff on 04/14/20 12:[address] Patient Name: IMER SANCHEZ Admission Status: ER Accout number: [id number] Admission Date: 04-09-2020 : 1960 Admission Diagnosis:SHORTNESS OF BREATH Attending: NIRANJAN SWANSON Current LOS: 5 Anticipated DC Date: Planned Disposition: Primary Insurance: [employer] PPO Discharge Planning Comments: CM met with patient at bedside after explaining CM role and obtaining verbal consent. CM discussed availability / needs of home health, REHAB and medical equipment. STATES CURRENT WITH [facility], [facility] SIGNED. I WILL FAX UPDATE TO [facility]. PLAN IS TO BE DC'D TO HOME WITH FAMILY AND [facility] HH. IF NEB OR 02 NEEDED [facility] FOR [facility]. CM TO FOLLOW AND ASSIST NEEDED. Chemical Plant Worker: Chelsey Woodruff DCPIA - Discharge Planning Initial Assessment Updated by [id number]: Christel Lira on 04/11/20 10:20 am * Is the patient Alert and Oriented? Yes * How many steps to enter\exit or inside your home? 0/0 * PCP GABRIELA VALDES * Pharmacy [facility] A\P * Preadmission Environment Home with Family * Partial ADLs (Assistance needed) Ambulation Bathing Dressing Medication Management Toileting Transfers * Equipment Splint Wheelchair * Community resources currently utilized Home Health * Please name any agencies selected above. [facility] * Additional services required to return to the preadmission environment? Yes * Can the patient safely return to the preadmission environment? No * Has this patient been hospitalized within the prior 30 days at any hospital? No Last DP export: 04/29/20 3:43 pm Patient Name: IMER SANCHEZ Page 45253 at 1242 All edits/amendments must be made on the electronic document DICTATION DATE: 05/06/201240 8TH GRADE TEACHER: MADALYN 05/06/201240 RPT#: [id number] DC DATE: STATUS: ADM IN [facility] [address] [place] [address] END OF REPORT
[2020-05-06 13:51] VITALS: BP 107/89
[2020-05-06] MEDS ORDERED: PREDNISONE10 MG PO (15:04)
--- NOTE | 2020-05-06 16:32 | NUR ---
IV DISCONTINUED WITH PATIENT VERBALIZING UNDERSTANDING OF DISCHARGE INSTRUCTIONS ALONG WITH REPORT CALLED TO YESSY PARISI AT [facility]. MAX ASSIST TO W/C WITH [facility] TRUNK STABLILITY UNDER CARE OF TRANSPORTQATION STAFF. STABLE AT TIME OF DEPARTURE.
--- NOTE | 2020-05-09 10:19 | MORECARE ---
CASE MANAGEMENT DISCHARGE SUMMARY PATIENT: IMER SANCHEZ UNIT: [id number] ADM DATE: 04/09/20 AGE: 59 : 64 SEX: F ROOM/BED: D.2238 AUTHOR: CHINA HARDIN PHYSICIAN: REFERRING PHYSICIAN: NIRANJAN SWANSON DO DATE OF SERVICE: 05/09/20 Discharge Plan Patient Name: IMER SANCHEZ Facility: [facility]:[place] : 1960 Planned Disposition: Anticipated Discharge Date: Discharge Date: 05/06/2020 Expected LOS: Initial Reviewer: [id number] Initial Review Date: 04/09/2020 Generated: 05/09/20 11:19 am Comments DCP- Discharge Planning Updated by [email or web address]: Chelsey Kacy on 05/06/20 11:[address] Patient Name: IMER SANCHEZ Admission Status: ER Accout number: [id number] Admission Date: 04-09-2020 : 1960 Admission Diagnosis:SHORTNESS OF BREATH Attending: NIRANJAN SWANSON Current LOS: 27 Anticipated DC Date: Planned Disposition: Primary Insurance: [employer] PPO Discharge Planning Comments: RECEIVED CALL FROM BLANCA WITH THE [facility], INSURANCE HAS APPROVED HER STAY. THEY CAN TAKE HER TODAY IF THE DOCTORS ARE IN AGREEMENT WITH HER DC. I HAVE TALKED TO BILL WILDER AND DR. SHARP. I AM PAGING DR. FERNANDEZ. Spiral Winding Machine Helper: Chelsey Woodruff DCP- Discharge Planning Updated by [email or web address]: Chelsey Kacy on 04/29/20 3:[address] Patient Name: IMER SANCHEZ Admission Status: ER Accout number: [id number] Admission Date: 04-09-2020 : 1960 Admission Diagnosis:SHORTNESS OF BREATH Attending: NIRANJAN SWANSON Current LOS: 20 Anticipated DC Date: Planned Disposition: Primary Insurance: [employer] PPO Discharge Planning Comments: INSURANCE DENIED SNF AGAIN. PATIENT OR FAMILY CAN CALL [phone] OPTION 3 TO APPEAL SNF DENIAL. PATIENT WAS LIVING WITH SON AND DAUGHTER AND LAW, MICAH AND MIKALA, THEY CAN BE REACHED AT [phone] OR [phone]. I TRIED CALLING [employer] TODAY, I AM CURRENTLY ON HOLD WITH THEM. PATIENT IS IN ICU AT THIS TIME. Spiral Winding Machine Helper: Chelsey Woodruff DCP- Discharge Planning Updated by [email or web address]: Eryn Alcantara on 04/27/20 1:[address] I CALLED [facility] AND SPOKE WITH MARGIE, SHE DIRECTED ME TO [facility] [phone] I CALLED AND LEFT A MESSAGE WITH THEM TO CALL ME BACK DCP- Discharge Planning Updated by [email or web address]: Chelsey Woodruff on 04/26/20 9:[address] Patient Name: IMER SANCHEZ Admission Status: ER Accout number: [id number] Admission Date: 04-09-2020 : 1960 Admission Diagnosis:SHORTNESS OF BREATH Attending: NIRANJAN SWANSON Current LOS: 17 Anticipated DC Date: Planned Disposition: Primary Insurance: [employer] PPO Discharge Planning Comments: SPOKE WITH [facility] AND REFAXED CLINICALS, [facility] IS TRYING AUTH FOR SNF AGAIN. WAITING FOR CALL BACK. Spiral Winding Machine Helper: Chelsey Woodruff DCP- Discharge Planning Updated by [email or web address]: Chelsey Woodruff on 04/25/20 4:[address] Patient Name: IMER SANCHEZ Admission Status: ER Accout number: [id number] Admission Date: 04-09-2020 : 1960 Admission Diagnosis:SHORTNESS OF BREATH Attending: NIRANJAN SWANSON Current LOS: 16 Anticipated DC Date: Planned Disposition: Primary Insurance: [employer] PPO Discharge Planning Comments: FAXED FACE SHEET TO BLANCA AND SHE IS CONTACTING PATIENT SON. PATIENT'S INSURANCE DENIED REHAB, BILL WILDER HAD NUMBER TO CALL INSURANCE COMPANY SATURDAY. I DO NOT KNOW THE OUTCOME. UPDATED CLINICALS WITH SON'S PHONE NUMBER FAXED TO [facility]. WAITING CALL BACK ON PLACEMENT. Spiral Winding Machine Helper: Chelsey Woodruff DCP- Discharge Planning Updated by [email or web address]: Chelsey Woodruff on 04/21/20 9:[address] Patient Name: IMER SANCHEZ Admission Status: ER Accout number: [id number] Admission Date: 04-09-2020 : 1960 Admission Diagnosis:SHORTNESS OF BREATH Attending: NIRANJAN SWANSON Current LOS: 12 Anticipated DC Date: Planned Disposition: Primary Insurance: [employer] PPO Discharge Planning Comments: FAXED UPDATED CLINICALS TO BLANCA WITH [facility]. WAITING CALL BACK. Spiral Winding Machine Helper: Chelsey Woodruff DCP- Discharge Planning Updated by [email or web address]: Chelsey Woodruff on 04/19/20 9:[address] Patient Name: IMER SANCHEZ Admission Status: ER Accout number: [id number] Admission Date: 04-09-2020 : 1960 Admission Diagnosis:SHORTNESS OF BREATH Attending: NIRANJAN SWANSON Current LOS: 10 Anticipated DC Date: Planned Disposition: Primary Insurance: [employer] PPO Discharge Planning Comments: [facility] DENIED PATIENT BUT BLANCA IS WORKING ON GETTING HER ACCEPTED TO [place]. WAITING CALL BACK TODAY. Spiral Winding Machine Helper: Chelsey Woodruff DCP- Discharge Planning Updated by [id number]: Chelsey Woodruff on 04/18/20 11:[address] Patient Name: IMER SANCHEZ Admission Status: ER Accout number: [id number] Admission Date: 04-09-2020 : 1960 Admission Diagnosis:SHORTNESS OF BREATH Attending: NIRANJAN SWANSON Current LOS: 9 Anticipated DC Date: Planned Disposition: Primary Insurance: [employer] PPO Discharge Planning Comments: REFERRAL REFAXED TO BLANCA FOR SNF PLACEMENT AT [facility]. WAITING CALL BACK FOR AUTH. Spiral Winding Machine Helper: Chelsey Woodruff DCP- Discharge Planning Updated by [id number]: Chelsey Woodruff on 04/14/20 4:[address] Patient Name: IMER SANCHEZ Admission Status: ER Accout number: [id number] Admission Date: 04-09-2020 : 1960 Admission Diagnosis:SHORTNESS OF BREATH Attending: NIRANJAN SWANSON Current LOS: 5 Anticipated DC Date: Planned Disposition: Primary Insurance: [employer] PPO Discharge Planning Comments: PATIENT NOW AGREEABLE TO [facility] SNF. I AM FAXING REFERRAL NOW. Spiral Winding Machine Helper: Chelsey Woodruff DCP- Discharge Planning Updated by [email or web address]: Chelsey Woodruff on 04/14/20 3:[address] Patient Name: IMER SANCHEZ Admission Status: ER Accout number: [id number] Admission Date: 04-09-2020 : 1960 Admission Diagnosis:SHORTNESS OF BREATH Attending: NIRANJAN SWANSON Current LOS: 5 Anticipated DC Date: Planned Disposition: Primary Insurance: [employer] PPO Discharge Planning Comments: IF FAMILY REFUSES TO CRYPTOGRAPHY TEACHER PATIENT AT DISCHARGE APS WILL NEED TO BE NOTIFIED AT [phone]. I SPOKE WITH PATIENT'S DAUGHTER IN LAW AND TOLD HER THE DC PLAN. CM TO FOLLOW AND ASSIST NEEDED. Spiral Winding Machine Helper: Chelsey Woodruff DCP- Discharge Planning Updated by [email or web address]: Chelsey Woodruff on 04/14/20 12:[address] Patient Name: IMER SANCHEZ Admission Status: ER Accout number: [id number] Admission Date: 04-09-2020 : 1960 Admission Diagnosis:SHORTNESS OF BREATH Attending: NIRANJAN SWANSON Current LOS: 5 Anticipated DC Date: Planned Disposition: Primary Insurance: [employer] PPO Discharge Planning Comments: CM met with patient at bedside after explaining CM role and obtaining verbal consent. CM discussed availability / needs of home health, REHAB and medical equipment. STATES CURRENT WITH [facility], [facility] SIGNED. I WILL FAX UPDATE TO [facility] . PLAN IS TO BE DC'D TO HOME WITH FAMILY AND RESUME HH. IF NEB OR 02 NEEDED [facility] SIGNED FOR [facility]. CM TO FOLLOW AND ASSIST NEEDED. Spiral Winding Machine Helper: Chelsey Woodruff DCPIA - Discharge Planning Initial Assessment Updated by [id number]: Christel Lira on 04/11/20 10:20 am * Is the patient Alert and Oriented? Yes * How many steps to enter\exit or inside your home? 0/0 * PCP GABRIELA VALDES * Pharmacy [facility] * Preadmission Environment Home with Family * Partial ADLs (Assistance needed) Ambulation Bathing Dressing Medication Management Toileting Transfers * Equipment Splint Wheelchair * Community resources currently utilized Home Health * Please name any agencies selected above. [facility] * Additional services required to return to the preadmission environment? Yes * Can the patient safely return to the preadmission environment? No * Has this patient been hospitalized within the prior 30 days at any hospital? No Last DP export: 05/06/20 11:42 a Patient Name: IMER SANCHEZ Page 12901 at 1019 All edits/amendments must be made on the electronic document DICTATION DATE: 05/09/20 1019 PATIENT CARRIER: MADALYN 05/09/20 1019 RPT#: [id number] DC DATE:05/06/20 STATUS: DIS IN [facility] [address] [place] [address] END OF REPORT
[2020-05-13 13:10] VITALS: Ht 154.9 cm; Wt 77.6 kg
== END 2020-05-06 16:00 | DRG 190 ==
LOC: D.ER 00:41 → D.MS 04:57 → D.ICU 04-28 22:58 → D.MS 04-29 18:21
PROVIDERS: Emergency Medicine; Family Medicine; Family Medicine Adult Medicine; Internal Medicine Hematology & Oncology; ADMIT Family Medicine; ATTEND Family Medicine
DX: J44.1 Chronic obstructive pulmonary disease with (acute) exacerbation (principal); J81.0 Acute pulmonary edema; F17.203 Nicotine dependence unspecified, with withdrawal; J98.11 Atelectasis; E11.65 Type 2 diabetes mellitus with hyperglycemia; I10 Essential (primary) hypertension; E78.5 Hyperlipidemia, unspecified; K21.9 Gastro-esophageal reflux disease without esophagitis; D64.9 Anemia, unspecified; F32.9 Major depressive disorder, single episode, unspecified; Z86.73 Personal history of transient ischemic attack (TIA), and cerebral infarction without residual deficits; Z86.711 Personal history of pulmonary embolism